=== PATIENT | male | born 1995 | race Caucasian/White ===

== ENCOUNTER 2018-12-06 19:03 | Emergency (ER) | payer MEDICAID, SELFPAY ==
[2018-12-06 19:04] VITALS: BP 130/78; PULSE 129; RESP 16; TEMP 36.4; O2SAT 98; BMI 25.8
--- NOTE | 2018-12-06 19:28 | ED.DCSUM_ITS ---
History of Present Illness Chief Complaint: Syncope Detail of Chief Complaint: Also depressed because significant other left him Informant: Patient Onset: Today, Weeks - Depressed with decreased p.o. intake x1 week Context: Sudden Onset - Vasovagal event after coughing and vomiting Timing: Continuous - Patient's felt depressed for the past week with decreased appetite, change in sleep, Intermittent - Paroxysmal related to coughing and vomiting Quality: Syncopal episode Location: Residents Current Severity: Mild Maximum Severity: Severe Worsened by: Coughing followed by vomiting Relieved by: Nothing Associated Symptoms: Nausea and lightheaded prior to coughing spell Narrative: Patient is a 23-year-old male who was talking with his friend prior to passing out. He states he felt lightheaded nauseous. He then began to cough and vomit. He then passed out. Syncopal episode was approximately 10 to 15 seconds duration. There is no seizure activity. There is no incontinence of urine or stool. He denies head trauma. Denies head pain. He denies ocular, visual auditory symptoms. He denies neck pain. He denies paresthesia, anesthesia motor especially the time of the fall. He does admit to being depressed because his significant other left him. He is not been eating well or drinking much fluids. He denies suicidal thoughts. Prior similar symptoms: No Recent Illness/Hospitalization: No - Past Medical History (1) No significant past medical history Status: Acute Past Medical History - Allergies and Home Meds Allergies/Adverse Reactions: Allergies No Known Allergies Allergy (Verified 11/30/16 00:59) Primary Care Physician: Care Physician,No Primary [Primary Care Provider] - Prior records reviewed: No Past Medical History: None Surgical History: no surgical history Lives: Alone Smoking Status: Never smoker Alcohol: None Review of Systems General: Reports: Chills, Malaise. Denies: Subjective, Sweats, Weight loss Eyes: Denies: Visual changes - bilaterally, Blurred Vision - bilaterally ENT: Denies: Bilateral ear pain, Rhinorrhea, Sore throat Cardiovascular: Denies: Chest pain, Palpitations Respiratory: Reports: Cough. Denies: Dyspnea, Sputum, Dyspnea on exertion, Orthopnea, Paroxysmal nocturnal dyspnea Gastrointestinal: Reports: Nausea, Vomiting. Denies: Abdominal pain, Diarrhea, Constipation, Melena, Hematochezia Genitourinary: Denies: Dysuria, Hematuria, Frequency Musculoskeletal: Denies: Myalgias, Arthralgias, Neck pain, Back pain, Extremity Pain Skin: Denies: Rash, Abrasions Neurological: Reports: Weakness. Denies: Headache, Parasthesia, Numbness Psych: Reports: Depression. Denies: Anxiety, Suicidal thoughts, Suicidal ideations Allergy: Denies: Uticaria, Swelling of the mouth Physical Exam Vital Signs/Narrative: Vital Signs Temp Pulse Resp BP Pulse Ox 12/06/18 19:04 97.5 F L 129 H 16 130/78 H 98 Inital Vital Signs reviewed: Yes General: Well nourished, Well developed Head: Normocephalic, Atraumatic Eyes: Perrl, EOMI. Negative for: Pale conjunctiva, Scleral icterus ENT: Moist mucous membranes, No rhinorrhea, TM's clear. Negative for: Nasal congestion, Sinus tenderness Neck: Supple, Nontender, No lymphadenopathy, No JVD Cardiovascular: Regular rate, Regular rhythm, No murmurs, Normal S1, Normal S2 Respiratory: No distress, CTA bilaterally, Chest nontender Abdomen: Soft, Nontender, Nondistended, Normal bowel sounds Back: Nontender, Normal Inspection Extremities: Nontender, No edema Skin: Normal color, No rash, No Trauma. Negative for: Cyanosis, Diaphoresis, Jaundice Neurological: Alert, Oriented x3, Cranial nerves II-XII grossly intact, Normal Strength, Normal Sensation Psychological: Depressed - There is a poverty of speech there is no suicidal ideation. There is no history of depression or prior history of self injury, - Diagnostic/Tx/Re-eval - Rhythm Strip Rhythm Strip: Sinus Rhythm Rate: 99 Ectopy: None - Medical Decision Making History of decreased intake, lightheadedness nausea will obtain orthostatic vi sayra signs. Patient's single episode is consistent with vasovagal event. Monitor revealed a sinus rhythm rate of 99 without ectopy. Orthostatic vital signs are positive. He received 1 L of normal saline. He states he feels better. He looks better as well. He is not pale. ED Disposition - Plan for ED Patient: Diagnosis: Syncope, vasovagal, Orthostatic hypotension, Depression Instructions: SYNCOPE, Vasovagal, HYPOTENSION, Orthostatic Referrals: Care Physician,No Primary [Primary Care Provider] - Additional Instructions: Recommend you follow-up with your primary care physician. The name of your primary care physician is on your insurance card that was issued to you by [facility]
[2018-12-06 19:30] VITALS: BP 127/84; PULSE 99
[2018-12-06 19:35] VITALS: BP 133/92; PULSE 105
[2018-12-06 19:40] VITALS: BP 116/65; PULSE 126
[2018-12-06 21:04] VITALS: BP 128/77; PULSE 94; RESP 19; O2SAT 98
[2018-12-06] MEDS: 0.9% Normal Saline 1,000 ML 1000 ML IV (21:35)
[2018-12-06 22:44] VITALS: BP 135/95; PULSE 87; RESP 16; O2SAT 97
== END 2018-12-06 22:48 | disposition home or self-care (01) ==
PROVIDERS: Emergency Provider Emergency Medicine
DX: I95.1 Orthostatic hypotension (principal); F32.9 Major depressive disorder, single episode, unspecified
CPT/HCPCS: 96360; 99284; J7030; A4216

== ENCOUNTER 2020-11-08 02:47 | Emergency (ER) | payer MEDICAID, SELFPAY ==
[2020-11-08 02:48] VITALS: BP 133/77; PULSE 85; RESP 14; TEMP 36.4; O2SAT 100; BMI 26.4
--- NOTE | 2020-11-08 02:55 | EX.ED.DYSGE1 ---
HPI History of Present Illness Chief Complaint: Abd Pain Informant: patient Onset/Context/Timing Onset: Today Context: Sudden Onset Timing: Continuous Current Severity: Moderate Maximum Severity: Moderate Narrative Narrative: Patient presents with right upper abdominal pain into the right base of the lungs. He states it started tonight. He states when he takes a deep breath or twists, he gets the pain. He denies nausea or vomiting. He denies fevers or chills. He had a scant cough yesterday that is since resolved. He states he is never really had pain like this before. He is otherwise been in his normal state of health. [facility] Medical History Asthma Home Medications albuterol 90 mcg INHALATION 4X/DAY PRN PRN 11/08/20 [History Last Taken Unknown] naproxen 500 mg PO BID #14 tab 11/08/20 [Rx Last Taken Unknown] Allergy/AdvReac Type Severity Reaction Status Date / Time No Known Allergies Allergy Verified 11/30/16 00:59 Social History Smoking Status: Never smoker ROS ROS ED Constitutional Constitutional ED: Denies chills or fever(s) Eyes Eyes: Denies blurry vision or change in vision ENT ENT ED: Denies ear pain or sore throat Cardiovascular Cardiovascular: Reports chest pain Respiratory/Chest Respiratory/Chest: Denies cough, dyspnea or dyspnea on exertion Gastrointestinal Gastrointestinal: Reports abdominal pain Genitourinary Genitourinary ED: Denies dysuria or urinary frequency Musculoskeletal Musculoskeletal: Denies arthralgias or myalgias Integumentary Denies rash Neurologic Neurologic: Denies headache(s) or paresthesias Psychiatric Psychiatric: Denies anxiety or depression Endocrine Endocrinology: Denies polydipsia or polyuria Allergic/Immunologic Allergic/Immunologic ED: Denies urticaria EXAM Physical Exam Const Vital Signs: 11/08/20 02:48 Temperature 97.5 F L Temperature Source Temporal Pulse Rate 85 Respiratory Rate 14 Blood Pressure 133/77 H Blood Pressure Mean 95 Pulse Ox 100 Oxygen Delivery Method Room Air Positive well nourished and well developed General Appearance ED: well developed HEENT Reports normocephalic, head/scalp atraumatic and moist mucous membranes Eyes PERRL and EOMs intact bilaterally Neck no lymphadenopathy and supple General: Negative for tenderness Chest Wall inspection of chest normal Resp normal respiratory effort and clear to auscultation bilaterally Cardio regular rate, regular rhythm and no murmurs GI normal to inspection, nondistended, normoactive bowel sounds Palpation: Negative for tender, guarding or rebound tenderness present Back/Spine no CVA tenderness Cervical Spine: Negative for cervical spine tenderness Thoracic Spine / Upper Back: Negative for thoracic spinal tenderness Extremity normal to inspection General Extremety ED: Negative for tenderness Neuro oriented x3 and CN's II-XII intact bilaterally Neuro Narrative: No focal deficits appreciated. Sensorium / Orientation: alert Psych mental status grossly normal Skin no rashes or lesions noted, no wounds and skin turgor normal MDM MDM MDM Narrative Medical decision making narrative: Patient presents with lateral pain near his right upper quadrant that wraps to his back. Really cannot recreate it on examination. Metabolic work-up was pursued. The patient does have rather significant leukocytosis. However, he has had no fever, cough, other systemic complaints. He has mild elevation of his liver functions but normal bilirubin. Because of his leukocytosis and location of pain, I did obtain CT of his chest, abdomen, and pelvis. There was no evidence of acute abnormality. With Toradol, the patient has maintained pain-free. Not sure the acute etiology of his pain. The patient may have had a gallstone or biliary colic that is now resolved. At this point, I do feel that he is safe for outpatient follow-up. Impression 1. RUQ pain Lab Data Attestation: I reviewed the patient's lab results. Labs: Laboratory Results - last 24 hr 11/08/20 11/08/20 11/08/20 03:05 03:05 03:05 WBC 21.8 H RBC 4.95 Hgb 14.7 Hct 43.8 MCV 88.5 MCH 29.7 MCHC 33.6 RDW Std Deviation 40.3 RDW Coeff of Italo 12.4 Plt Count 266 MPV 9.3 Immature Gran % (Auto) 0.500 Neut % (Auto) 74.9 H Lymph % (Auto) 17.1 L [place] % (Auto) 6.6 Eos % (Auto) 0.5 Baso % (Auto) 0.4 Absolute Neuts (auto) 16.4 H Absolute Lymphs (auto) 3.73 Nucleated RBC % 0 D-Dimer Quant (PE/DVT) <= 0.27 Sodium 139 Potassium 3.6 Chloride 103 Carbon Dioxide 29.0 Anion Gap 7 BUN 14 Creatinine 1.04 Estim Creat Clear Calc 116.65 Est GFR (MDRD) Af Amer 112 Est GFR (MDRD) Non-Af 93 BUN/Creatinine Ratio 13.5 Glucose 98 Calcium 8.8 Total Bilirubin 0.70 AST 57 H ALT 74 H Alkaline Phosphatase 114 Total Protein 7.8 Albumin 3.9 Globulin 3.9 Albumin/Globulin Ratio 1.0 Lipase 56 L Radiography Diagnostic Testing: Radiology Impression Chest X-Ray 11/08/20 03:19 IMPRESSION: Normal x-ray examination of the chest. Electronically Signed: Bianca Melvin MD at 3:48 EDT , Service support , Chest/Abdomen/Pelvis CT 11/08/20 03:32 IMPRESSION: Normal enhanced CT chest, abdomen T pelvis examination. Electronically Signed: Tana Simons MD at 4:49 EDT Tel , Service support , Discharge Plan Triage Chief Complaint: Abd Pain ED Provider: Bobby Alamo Dx/Rx/DC Orders Instructions: ED Abdominal Pain Gallstone Poss Prescriptions: New naproxen 500 MG tablet 500 mg PO BID Qty: 14 RF: 0 No Action albuterol 90 mcg/actuation Aerosol 90 mcg INHALATION 4X/DAY PRN PRN (Reason: Shortness Of Breath Or Wheezing) RF: 0 Stand Alone Forms: ED Work / School Excuse Primary Care Provider: Care Physician,No Primary Referrals: Care Physician,No Primary [Primary Care Provider] -
[2020-11-08] MEDS: 0.9% Normal Saline 1,000 ML 1000 ML IV (03:15)
[2020-11-08] MEDS: Ketorolac 30 MG/ML Syringe IV (03:15)
[2020-11-08 03:17] LABS: Absolute Lymphocyte Count 3.73 X10^3/uL (0.83-4.51); Absolute Neutrophil Count 16.4 X10^3/uL (2.0-7.7); Basophil# 0.08 X10^3/uL; Basophil% 0.4 % (0-1); Eosinophil# 0.11 X10^3/uL; Eosinophils% 0.5 % (0-5); Hematocrit 43.8 % (40-54); Hemoglobin 14.7 g/dL (13.0-16.5); Lymphocyte # 3.73 X10^3/ul (0.83-4.51); Lymphocyte % 17.1 % (19-41); Mean Corp Hgb Conc 33.6 g/dL (32-36); Mean Corpuscular Hgb 29.7 pg (27.0-32.0); Mean Corpuscular Volume 88.5 fL (80-94); Mean Platelet Vol. 9.3 fl (6.2-12.0); Monocyte# 1.44 X10^3/uL; Monocyte% 6.6 % (0-10); NRBC Flagged by Analyzer 0 % (0-5); Neutrophil # 16.35 X10^3/uL (2.7-7.7); Neutrophil % 74.9 % (47-70); Platelet Count 266 K/mm3 (150-450); RBC Distribution Width CV 12.4 % (11.6-14.6); RBC Distribution Width SD 40.3 fl (35.1-43.9); Red Blood Count 4.95 M/mm3 (4.6-6.2); White Blood Count 21.8 K/mm3 (4.4-11.0)
--- NOTE | 2020-11-08 03:19 | RAD_ITS ---
STUDY: X-RAY CHEST REASON FOR EXAM: Male, 25 years old. sob TECHNIQUE: Single AP portable view of the chest. COMPARISON: None. FINDINGS: The lungs are clear and expanded. There is no demonstrated pleural abnormality. Normal size heart. Normal mediastinum and juanita. Normal visualized pulmonary arteries. Normal visualized aortic arch and descending thoracic aorta. Normal visualized thoracic spine. Normal visualized ribs, clavicles, and shoulders. There is no demonstrated abnormality of the visualized soft tissue structures of the upper abdomen. RAD/Chest 1 View (Portable) IMPRESSION: Normal x-ray examination of the chest. Electronically Signed: Bianca Melvin MD at 3:48 EDT , Service support ,
[2020-11-08 03:29] LABS: D-Dimer Quantitative (DVT/PE) <= 0.27 FEU/ug/m (0.27-0.49)
--- NOTE | 2020-11-08 03:32 | CT_ITS ---
STUDY: CT CHEST, ABDOMEN T PELVIS WITH CONTRAST REASON FOR EXAM: Male, 25 years old. right upper quadrant pain into right lower lung RADIATION DOSAGE (If Supplied By Facility): CTDIvol = ( 14.69 ) mGy, DLP = ( 1343.65 ) mGycm TECHNIQUE: Transaxial imaging was performed following intravenous administration of IV 100mL Isovue-370. Individualized dose optimization techniques were used for this CT. COMPARISON: No relevant priors. FINDINGS: CHEST The lungs are normal. There is no demonstrated pleural abnormality. Normal heart and pericardium. Normal mediastinum. Normal hilar regions. Normal unenhanced pulmonary arteries. Normal aorta arch and descending thoracic aorta. Normal osseous structures. There is no demonstrated abnormality of the visualized upper abdomen. ABDOMEN The visualized lung bases are unremarkable. The visualized portions of the heart are within normal limits. Normal liver. Normal gallbladder and extrahepatic biliary system. Normal spleen. Normal pancreas. Normal bilateral adrenal glands. Normal right kidney. Normal left kidney. Normal visualized stomach. Normal small intestine. Normal colon. The appendix is visualized and appears normal. Normal abdominal aorta. Normal inferior vena cava. Normal retroperitoneum. Normal abdominal wall. Normal osseous structures. PELVIS Normal urinary bladder. Normal visualized small intestine. Normal visualized colon. There is no pelvic fluid. There is no pelvic lymphadenopathy or mass lesion. Normal visualized pelvic arteries. Normal abdominal wall. Normal osseous structures. CT/CT Chest, Abd, Pel w/Contrast IMPRESSION: Normal enhanced CT chest, abdomen T pelvis examination. Electronically Signed: Tana Simons MD at 4:49 EDT Tel , Service support ,
[2020-11-08 03:34] LABS: AST(SGOT) 57 U/L (15-37); Alanine Aminotransfer ALT/SGPT 74 U/L (16-61); Albumin, Serum 3.9 g/dL (3.2-5.0); Alkaline Phosphatase 114 U/L (45-117); Anion Gap 7 (5-15); BUN 14 mg/dL (7-18); BUN/Creat Ratio 13.5 RATIO (10-20); Calcium,Total 8.8 mg/dL (8.5-10.1); Chloride 103 mmol/L (98-107); Creatinine, Serum 1.04 mg/dL (0.70-1.30); EST Glomerular Filtration Rate 93 mL/min (>60); Est Glom Filt Rate - Afr Amer 112 mL/min (>60); Estimated Creatinine Clearance 116.65 ml/min; Globulin 3.9 g/dL (2.2-4.2); Glucose 98 mg/dL (74-106); Lipase 56 U/L (73-393); Potassium 3.6 mmol/L (3.5-5.1); Protein, Total 7.8 g/dL (6.4-8.2); Sodium Level 139 mmol/L (136-145)
[2020-11-08 05:02] VITALS: BP 128/78; PULSE 81; RESP 19; O2SAT 96
== END 2020-11-08 05:03 | disposition home or self-care (01) ==
LOC: ED 04:34
PROVIDERS: Emergency Provider Emergency Medicine
DX: R10.11 Right upper quadrant pain (principal); J45.909 Unspecified asthma, uncomplicated; Z79.1 Long term (current) use of non-steroidal anti-inflammatories (NSAID)
CPT/HCPCS: 71045; 71260; 74177; 80053; 83690; 85025; 85379; 96374; 99284; J7030; Q9967; A4216

== ENCOUNTER 2021-02-15 15:38 | Emergency (ER) | payer MEDICAID, SELFPAY ==
[2021-02-15 15:39] VITALS: BP 128/90; PULSE 130; RESP 16; TEMP 37.6; O2SAT 95; BMI 26.5
--- NOTE | 2021-02-15 16:09 | EDS_ITS ---
HPI History of Present Illness Chief Complaint: Sore Throat Informant: patient Onset/Context/Timing Onset: Days Context: Sudden Onset Timing: Continuous Quality: Throat pain Location: Posterior pharynx Current Severity: Mild Maximum Severity: Severe Worsened by: Swallowing liquids or solids Relieved by: Nothing Associated Symptoms Associated Symptoms: Fever Narrative Narrative: 25-year-old male presents with sore throat. Symptoms started 2 to 3 days ago. He had a muffled voice since this morning. He is able to swallow. He has had no drooling. He reports pain with swallowing liquids or solids. He had a documented temperature at home. His temperature in the emergency room is 99.7. He does report thirst and lightheadedness. He denies headache. Denies rhinorrhea. Nu[place] cough. He reported nausea without vomiting. He denies diarrhea. Denies rash. Denies a traumatic fever, heart murmur, SBE or being on immunosuppressive meds. Prior similar symptoms: No Recent Illness/Hospitalization: No PFSH PFS Medical History Asthma Home Medications albuterol 90 mcg INHALATION 4X/DAY PRN PRN 11/08/20 [History Last Taken Unknown] Allergy/AdvReac Type Severity Reaction Status Date / Time No Known Allergies Allergy Verified 11/30/16 00:59 Social History (Updated 02/15/21 @ 16:[address] Mendel Whittington MD) Smoking Status: Never smoker alcohol intake: current alcohol intake frequency: other substance use type: does not use ROS ROS ED Constitutional Constitutional ED: Denies chills, fever(s), subjective or sweats Eyes Eyes: Denies blurry vision, change in vision or diplopia ENT ENT ED: Reports sore throat; Denies ear pain or rhinorrhea Cardiovascular Cardiovascular: Denies chest pain or palpitations Respiratory/Chest Respiratory/Chest: Denies cough, dyspnea, dyspnea on exertion or sputum Gastrointestinal Gastrointestinal: Denies abdominal pain, nausea or vomiting Musculoskeletal Musculoskeletal: Denies arthralgias, myalgias or neck pain Integumentary Denies rash Neurologic Neurologic: Denies headache(s) Allergic/Immunologic Allergic/Immunologic ED: Reports mouth swelling; Denies tongue swelling or urticaria EXAM Physical Exam Const Vital Signs: 02/15/21 15:39 Temperature 99.7 F H Temperature Source Oral Pulse Rate 130 H Respiratory Rate 16 Blood Pressure 128/90 H Blood Pressure Mean 102 Pulse Ox 95 Oxygen Delivery Method Room Air Positive well nourished and well developed General Appearance ED: well developed HEENT Reports TM's clear and moist mucous membranes HEENT Narrative: Uvula is midline. There is erythema of the tonsils with exudate. The tonsils are quite enlarged. Head is atraumatic normocephalic. Tympanic Membrane ED: Yes TM's clear Eyes PERRL and EOMs intact bilaterally General Eye ED: Negative for pale conjunctiva or scleral icterus Neck No no lymphadenopathy, supple and no JVD Chest Wall inspection of chest normal and palpation of chest normal Resp normal respiratory effort and clear to auscultation bilaterally Cardio regular rhythm, S1 normal heart sound and no murmurs Rate: tachycardic Extremity normal to inspection General Extremety ED: Negative for edema or tenderness General Extremity: Negative for edema Neuro oriented x3 and CN's II-XII intact bilaterally Sensorium / Orientation: alert Motor Exam: strength 5/5 throughout Psych mental status grossly normal Skin no rashes or lesions noted MDM MDM MDM Narrative Medical decision making narrative: With exudative tonsillitis. Will test for strep. CBC was obtained to assess for atypical lymphocytes and would suggest mononucleosis. Clinically patient is dehydrated and with heart rate of 130 a liter of normal saline was ordered. 10 mg of Decadron was also ordered. Since patient strep screen was negative patient would not treat with antibiotics. Lab Data Attestation: I reviewed the patient's lab results. Lab results narrative: White count is elevated at 19.3 thousand with shift. There is no bandemia. There is no atypical lymphocytes. Labs: Laboratory Results - last 24 hr 02/15/21 16:31 WBC 19.3 H RBC 5.54 Hgb 16.5 Hct 48.8 MCV 88.1 MCH 29.8 MCHC 33.8 RDW Std Deviation 40.1 RDW Coeff of Italo 12.3 Plt Count 260 MPV 8.9 Immature Gran % (Auto) 0.700 Neut % (Auto) 83.5 H Lymph % (Auto) 6.0 L [place] % (Auto) 9.2 Eos % (Auto) 0.1 Baso % (Auto) 0.5 Absolute Neuts (auto) 16.1 H Absolute Lymphs (auto) 1.16 Nucleated RBC % 0 Differential Comment SEE COMMENT Diff Path Review May foll Platelet Estimate ADEQUATE RBC Morphology NORM C+C Anisocytosis RARE Discharge Plan Triage Chief Complaint: Sore Throat ED Provider: Mendel Whittington Dx/Rx/DC Orders Clinical Impression: Exudative tonsillitis, Sinus tachycardia Instructions: ED Pharyngitis, Viral Prescriptions: No Action albuterol 90 mcg/actuation Aerosol 90 mcg INHALATION 4X/DAY PRN PRN (Reason: Shortness Of Breath Or Wheezing) RF : 0 Primary Care Provider: Care Physician,No Primary Referrals: Care Physician,No Primary [Primary Care Provider] - Bhavik Gallo MD [STAFF PHYSICIAN] - 3-5 Days if not improving Activity Restrictions/Additional Instructions: 1. Gargle with salt water 6-8 times a day 2. Either use Chloraseptic spray or Cepastat lozenges for discomfort 3. If you have any drooling or unable to swallow return to the emergency department immediately 4. Since you do not have a primary care physician you were referred to Dr. Gallo Disposition Disposition: Home, Self Care
[2021-02-15] MEDS: 0.9% Normal Saline 1,000 ML 1000 ML IV (16:38)
[2021-02-15] MEDS: dexAMETHasone 10 MG/ML Vial IV (16:38)
[2021-02-15 16:41] LABS: Absolute Lymphocyte Count 1.16 X10^3/uL (0.83-4.51); Absolute Neutrophil Count 16.1 X10^3/uL (2.0-7.7); Basophil# 0.09 X10^3/uL; Basophil% 0.5 % (0-1); Eosinophil# 0.02 X10^3/uL; Eosinophils% 0.1 % (0-5); Hematocrit 48.8 % (40-54); Hemoglobin 16.5 g/dL (13.0-16.5); Lymphocyte # 1.16 X10^3/ul (0.83-4.51); Mean Corp Hgb Conc 33.8 g/dL (32-36); Mean Corpuscular Hgb 29.8 pg (27.0-32.0); Mean Corpuscular Volume 88.1 fL (80-94); Mean Platelet Vol. 8.9 fl (6.2-12.0); Monocyte# 1.77 X10^3/uL; Monocyte% 9.2 % (0-10); NRBC Flagged by Analyzer 0 % (0-5); Neutrophil # 16.09 X10^3/uL (2.7-7.7); Neutrophil % 83.5 % (47-70); POSITIVE DIFFERENTIAL YES; Platelet Count 260 K/mm3 (150-450); RBC Distribution Width CV 12.3 % (11.6-14.6); RBC Distribution Width SD 40.1 fl (35.1-43.9); Red Blood Count 5.54 M/mm3 (4.6-6.2); White Blood Count 19.3 K/mm3 (4.4-11.0)
[2021-02-15 16:49] LABS: Differential Indicated SCAN CRITERIA MET
[2021-02-15 17:06] LABS: Anisocytosis RARE; Platelet Estimate ADEQUATE (ADEQ); Red Cell Morphology NORM C+C NORMAL (NORM C&C)
[2021-02-15 17:35] VITALS: PULSE 98; RESP 16; O2SAT 97
[2021-02-16 13:36] LABS: Pathologist Review Reviewed
== END 2021-02-15 17:37 | disposition home or self-care (01) ==
PROVIDERS: Emergency Provider Emergency Medicine
DX: J03.90 Acute tonsillitis, unspecified (principal); R00.0 Tachycardia, unspecified; J45.909 Unspecified asthma, uncomplicated
CPT/HCPCS: 85025; 87077; 87880; 96374; 99285; J7030; A4216

== ENCOUNTER 2021-03-01 08:02 | Emergency (ER) | payer MEDICAID, SELFPAY ==
[2021-03-01 08:03] VITALS: BP 134/86; PULSE 120; RESP 16; TEMP 35.8; O2SAT 96; BMI 24.3
--- NOTE | 2021-03-01 08:21 | EDS_ITS ---
HPI History of Present Illness Chief Complaint: Fatigue Informant: patient Narrative Narrative: 25-year-old male presenting with fatigue. Patient states he has felt tired for the past 1.5 to 2 weeks. He states initially he had body aches and fever but this has since resolved. He states he was tested for Covid yesterday and was negative. He has an upcoming appointment with his primary care physician. He states he has had intermittent headaches, but does not currently have a headache. He has had a mild cough. [facility] Medical History Asthma Home Medications albuterol 90 mcg INHALATION 4X/DAY PRN PRN 11/08/20 [History Last Taken Unknown] Allergy/AdvReac Type Severity Reaction Status Date / Time No Known Allergies Allergy Verified 03/01/21 08:05 Social History (Updated 02/15/21 @ 16:[address] Mendel Whittington MD) Smoking Status: Never smoker alcohol intake: current alcohol intake frequency: other substance use type: does not use ROS ROS ED Constitutional Constitutional ED: Denies fever(s) Eyes Eyes: Denies change in vision ENT ENT ED: Denies rhinorrhea or sore throat Cardiovascular Cardiovascular: Denies chest pain or palpitations Respiratory/Chest Respiratory/Chest: Reports cough; Denies dyspnea Gastrointestinal Gastrointestinal: Denies abdominal pain, diarrhea, nausea or vomiting Genitourinary Genitourinary ED: Denies dysuria Musculoskeletal Musculoskeletal: Reports myalgias Integumentary Denies rash Neurologic Neurologic: Reports headache(s) Psychiatric Psychiatric: Denies suicidal thoughts EXAM Physical Exam Const Vital Signs: 03/01/21 08:03 03/01/21 08:14 Temperature 96.5 F L Temperature Source Temporal Pulse Rate 120 H Respiratory Rate 16 Respiratory Effort Normal Non-Labored Respiratory Pattern Normal Blood Pressure 134/86 H Blood Pressure Mean 102 Pulse Ox 96 Oxygen Delivery Method Room Air Positive well nourished and well developed General Appearance ED: well developed HEENT Reports normocephalic and head/scalp atraumatic Eyes PERRL and EOMs intact bilaterally Neck supple Neck Narrative: No meningismus General: Negative for tenderness Chest Wall inspection of chest normal Resp normal respiratory effort and clear to auscultation bilaterally Cardio regular rate and regular rhythm GI non-tender and non-distended Palpation: soft; Negative for guarding or rebound tenderness present no CVA tenderness Extremity normal to inspection Neuro oriented x3 Sensorium / Orientation: alert Psych mental status grossly normal Skin no rashes or lesions noted MDM MDM MDM Narrative Medical decision making narrative: Patient was given IV fluids. Repeat heart ra te 99. Patient is resting comfortably on reevaluation. Advised to follow-up with his scheduled primary care physician office visit this week. Advised return to ED for worsening complaints. Lab Data Attestation: I reviewed the patient's lab results. Labs: Laboratory Results - last 24 hr 03/01/21 03/01/21 03/01/21 08:35 08:35 08:35 WBC 6.1 RBC 5.82 Hgb 17.2 H Hct 50.2 MCV 86.3 MCH 29.6 MCHC 34.3 RDW Std Deviation 39.0 RDW Coeff of Italo 12.3 Plt Count 219 MPV 9.3 Immature Gran % (Auto) 0.200 Neut % (Auto) 68.7 Lymph % (Auto) 22.5 [place] % (Auto) 7.3 Eos % (Auto) 1.0 Baso % (Auto) 0.3 Absolute Neuts (auto) 4.2 Absolute Lymphs (auto) 1.38 Nucleated RBC % 0 Sodium 137 Potassium 4.0 Chloride 99 Carbon Dioxide 32.0 Anion Gap 6 BUN 11 Creatinine 0.99 Estim Creat Clear Calc 118.80 Est GFR (MDRD) Af Amer 119 Est GFR (MDRD) Non-Af 98 BUN/Creatinine Ratio 11.1 Glucose 114 H Calcium 9.4 TSH 1.27 Monoscreen Negative Discharge Plan Triage Chief Complaint: Fatigue ED Provider: Priscila Reyes Dx/Rx/DC Orders Clinical Impression: Fatigue Instructions: ED Viral Syndrome (Adult) Prescriptions: No Action albuterol 90 mcg/actuation Aerosol 90 mcg INHALATION 4X/DAY PRN PRN (Reason: Shortness Of Breath Or Wheezing) RF: 0 Primary Care Provider: Care Physician,No Primary Referrals: Care Physician,No Primary [Primary Care Provider] - Disposition Disposition: Home, Self Care
[2021-03-01] MEDS: 0.9% Normal Saline 1,000 ML 1000 ML IV (08:39)
[2021-03-01 08:46] LABS: Absolute Lymphocyte Count 1.38 X10^3/uL (0.83-4.51); Absolute Neutrophil Count 4.2 X10^3/uL (2.0-7.7); Basophil# 0.02 X10^3/uL; Basophil% 0.3 % (0-1); Eosinophil# 0.06 X10^3/uL; Hematocrit 50.2 % (40-54); Hemoglobin 17.2 g/dL (13.0-16.5); Lymphocyte # 1.38 X10^3/ul (0.83-4.51); Lymphocyte % 22.5 % (19-41); Mean Corp Hgb Conc 34.3 g/dL (32-36); Mean Corpuscular Hgb 29.6 pg (27.0-32.0); Mean Corpuscular Volume 86.3 fL (80-94); Mean Platelet Vol. 9.3 fl (6.2-12.0); Monocyte# 0.45 X10^3/uL; Monocyte% 7.3 % (0-10); NRBC Flagged by Analyzer 0 % (0-5); Neutrophil # 4.22 X10^3/uL (2.7-7.7); Neutrophil % 68.7 % (47-70); Platelet Count 219 K/mm3 (150-450); RBC Distribution Width CV 12.3 % (11.6-14.6); Red Blood Count 5.82 M/mm3 (4.6-6.2); White Blood Count 6.1 K/mm3 (4.4-11.0)
[2021-03-01 09:10] LABS: Anion Gap 6 (5-15); BUN 11 mg/dL (7-18); BUN/Creat Ratio 11.1 RATIO (10-20); Calcium,Total 9.4 mg/dL (8.5-10.1); Chloride 99 mmol/L (98-107); Creatinine, Serum 0.99 mg/dL (0.70-1.30); EST Glomerular Filtration Rate 98 mL/min (>60); Est Glom Filt Rate - Afr Amer 119 mL/min (>60); Glucose 114 mg/dL (74-106); Sodium Level 137 mmol/L (136-145); Thyroid Stim Hormone (TSH) 1.27 uIU/mL (0.358-3.74)
[2021-03-01 09:15] LABS: Internal QC Validated? YES +Cl - CLEAR BKGD; Monotest Negative (Negative)
[2021-03-01 10:27] VITALS: BP 129/89; O2SAT 100
== END 2021-03-01 10:28 | disposition home or self-care (01) ==
PROVIDERS: Emergency Provider Emergency Medicine
DX: R53.83 Other fatigue (principal)
CPT/HCPCS: 80048; 84443; 85025; 86308; 96360; 96361; 99283; J7030

== ENCOUNTER 2021-05-01 22:58 | Emergency (ER) | payer MEDICAID, SELFPAY ==
[2021-05-01 22:59] VITALS: BP 129/85; PULSE 85; RESP 16; TEMP 35.8; O2SAT 100; BMI 23.7
--- NOTE | 2021-05-01 23:10 | EDS_ITS ---
HPI History of Present Illness Chief Complaint: Complaint Informant: patient Pain Onset: Days Context: Gradual Onset Timing: Intermittent Current Severity: Mild Maximum Severity: Mild Appearance Lesion(s): No Genital Edema: No Penile Discharge Genital Discharge Amount: None Related History Sexually: Active Narrative Narrative: 26-year-old male no significant past medical history other than asthma. States has had bilateral flank pain for a week. Thought he was having a urinary tract infection can start his urine was cloudy. He took a sample to the [facility] but was never called back so he thought was normal. He showed me his UA from the [facility] and had large amount of leukocytosis. Denies fever or chills. Denies any trauma to his back. He is not diabetic but his dad is diabetic. States he is having urinary frequency. Denies any gross hematuria. Prior similar symptoms: No Recent Illness/Hospitalization: No PFSH PFSH Medical History Asthma Home Medications albuterol 90 mcg INHALATION 4X/DAY PRN PRN 11/08/20 [History Last Taken Unknown] sertraline 25 mg DAILY 05/01/21 [History Last Taken Unknown] Allergy/AdvReac Type Severity Reaction Status Date / Time No Known Allergies Allergy Verified 05/01/21 23:19 Social History Smoking Status: Never smoker alcohol intake: current alcohol intake frequency: other substance use type: does not use ROS ROS ED ROS Narrative Denies except urinary symptoms. Constitutional Constitutional ED: Denies fever(s) Eyes Eyes: Denies change in vision ENT ENT ED: Denies ear pain Cardiovascular Cardiovascular: Denies chest pain Respiratory/Chest Respiratory/Chest: Denies dyspnea Gastrointestinal Gastrointestinal: Denies abdominal pain Genitourinary Genitourinary ED: Reports dysuria and urinary frequency; Denies hematuria Musculoskeletal Musculoskeletal: Denies myalgias Integumentary Denies rash Neurologic Neurologic: Denies headache(s) Psychiatric Psychiatric: Denies depression Endocrine Endocrinology: Denies polyuria Hematologic/Lymphatic Hematologic/Lymphatic: Denies easy bruising Allergic/Immunologic Allergic/Immunologic ED: Denies urticaria EXAM Physical Exam Narrative Exam Narrative: 13-year-old male no acute distress vital signs stable afebrile. HEENT exam normal. Neck nontender no lymphadenopathy. Lungs clear to auscultation bilaterally. Heart regular rhythm no murmur. Rate about 85. Abdomen soft, nontender, nondistended normal bowel sounds no peritoneal signs. I did not feel distended bladder. External exam unremarkable. Circumcised male. No swelling no lymphadenopathy. Bilateral descended testicles. No discharge. Moving all 4 extremities. Neurovascular intact. No edema. Back he has tenderness in his back it seems more musculoskeletal paralumbar soft tissue not really exactly CVA tenderness. There is no ecchymosis or bruising. Neurologically he is awake alert with no focal motor deficits. Const Vital Signs: 05/01/21 22:59 05/01/21 23:14 Temperature 96.5 F L 98.4 F Temperature Source Temporal Temporal Pulse Rate 85 89 Respiratory Rate 16 16 Blood Pressure 129/85 H 138/79 H Blood Pressure Mean 99 98 Pulse Ox 100 100 Oxygen Delivery Method Room Air Room Air Positive well nourished and well developed; Negative for obese, cachectic, contractures or unkempt General Appearance ED: well developed and NAD; Negative for unkempt, cachectic, contractures or pallor Nutritional Appearance: Negative for cachectic or obese HEENT Reports moist mucous membranes normocephalic and atraumatic; Negative for trauma or tenderness Eyes PERRL and EOMs intact bilaterally Neck no lymphadenopathy, supple and no JVD General: Negative for tenderness Resp normal respiratory effort and clear to auscultation bilaterally Auscultation: Negative for rales, rhonchi or wheezes Cardio regular rate, regular rhythm, S1 normal heart sound, S2 normal heart sound and no murmurs GI non-tender, non-distended and no masses Inspection: Negative for abdominal distention Auscultation: normoactive bowel sounds; Negative for hyperactive bowel sounds or hypoactive bowel sounds Palpation: soft; Negative for tender or hepatomegaly Rectal Exam: Negative for tenderness no CVA tenderness Penis: normal penis and circumcised; Negative for uncircumcised, condyloma, corporal disruption, ecchymosis, edematous, erythema, mass or nodule Meatus: meatus normal Scrotum: testes descended bilaterally Testes: testicular lie normal Back/Spine no CVA tenderness General Back: Negative for CVA tenderness Cervical Spine: Negative for cervical spine tenderness Thoracic Spine / Upper Back: Negative for thoracic spinal tenderness Lumbar Spine / Lower Back: Negative for lumbar spinal tenderness Extremity normal to inspection General Extremety ED: Negative for edema or tenderness General Extremity: Negative for edema Neuro oriented x3, moves all extremities, no focal motor deficits and no sensory deficits noted Sensorium / Orientation: alert, oriented to person, oriented to place and oriented to time Motor Exam: strength 5/5 throughout Psych mental status grossly normal Appearance: Negative for unkempt Attitude: No agitated Mood & Affect: Negative for depressed or tearful Skin General Skin Exam: Negative for jaundice or pallor Lesions: no lesions Rashes: no rashes MDM MDM MDM Narrative Medical decision making narrative: 13-year-old male complaining of bilateral flank pain and dysuria. Exam benign other than paralumbar soft tissue tenderness. UA and BMP being obtained due to his urinary frequency and family history of diabetes. Repeat exam at 1:02 AM. Patient is doing well. I think this is musculoskeletal back pain. We went over all his test results. He will be given a dose of Motrin discharged home. Lab Data Attestation: I reviewed the patient's lab results. Lab results narrative: Electrolytes show a gap of 5 normal BUN and creatinine of 0.8 glucose 94. UA is completely clean no signs of infection. No nitrates nor white no red cells nor bacteria. Labs: Laboratory Results - last 24 hr 05/01/21 05/01/21 23:23 23:40 Sodium 139 Potassium 4.0 Chloride 105 Carbon Dioxide 29.0 Anion Gap 5 BUN 9 Creatinine 0.83 Estim Creat Clear Calc 144.90 Est GFR (MDRD) Af Amer 144 Est GFR (MDRD) Non-Af 119 BUN/Creatinine Ratio 10.8 Glucose 94 Calcium 9.1 Urine Color Yellow Urine Clarity Clear Urine pH 6.5 Ur Specific [place] 1.010 Urine Protein Negative Urine Glucose (UA) Normal Urine Ketones Negative Urine Occult Blood Negative Urine Nitrite Negative Urine Bilirubin Negative Urine Urobilinogen Normal Ur Leukocyte Esterase Negative Urine RBC 0 SEEN Urine WBC 0 SEEN Ur Squamous Epith Cells 0 SEEN Urine Bacteria 0 SEEN Urine Mucus 0 SEEN Discharge Plan Triage Chief Complaint: Complaint ED Provider: Artis Bustillos Dx/Rx/DC Orders Clinical Impression: Back pain Instructions: ED Back Sprain/Strain Prescriptions: No Action albuterol 90 mcg/actuation Aerosol 90 mcg INHALATION 4X/DAY PRN PRN (Reason: Shortness Of Breath Or Wheezing) RF: 0 sertraline 50 mg tablet 25 mg DAILY RF: 0 Primary Care Provider: Zachary Cameron NP Referrals: Zachary Cameron NP, HOUSE DESIGNER-C [Primary Care Provider] - 1 Week if not improving Activity Restrictions/Additional Instructions: Your urinalysis and blood work was all normal. You have no signs of a kidney infection or kidney stone. I think this is musculoskeletal back pain. Hot shower, warm bath and massage to relax the muscles in your back. Motrin for pain and inflammation. This should progressively improve if not follow-up with your primary care provider. Disposition Disposition: Home, Self Care
[2021-05-01 23:14] VITALS: BP 138/79; PULSE 89; RESP 16; TEMP 36.9; O2SAT 100
[2021-05-01 23:28] LABS: Bacteria 0 SEEN /hpf (None Seen); Mucous, Urine 0 SEEN /hpf (<or=2+); Red Blood Cells-Urine 0 SEEN /hpf (0-5); Squamous Epithelial Cells - UA 0 SEEN /hpf (0-5); White Blood Cells 0 SEEN /hpf (0-5)
[2021-05-01 23:39] LABS: Color, Urine Yellow (Yellow); Glucose, Dipstick Normal (Normal); Ketone-Dipstick Negative (Negative); Leukocyte Esterase-Dipstick Negative /ul (Negative); Nitrite-Dipstick Negative (Negative); Occult Blood-Urine Negative /ul (Negative); Protein-Dipstick Negative (Negative); Urine Bilirubin Dipstick Negative (Negative); Urine Clarity Clear (Clear); Urine Urobilinogen Normal (Normal); Urine pH 6.5 (5.0 - 8.0)
[2021-05-02 00:04] LABS: Anion Gap 5 (5-15); BUN 9 mg/dL (7-18); BUN/Creat Ratio 10.8 RATIO (10-20); Calcium,Total 9.1 mg/dL (8.5-10.1); Chloride 105 mmol/L (98-107); Creatinine, Serum 0.83 mg/dL (0.70-1.30); EST Glomerular Filtration Rate 119 mL/min (>60); Est Glom Filt Rate - Afr Amer 144 mL/min (>60); Glucose 94 mg/dL (74-106); Sodium Level 139 mmol/L (136-145)
[2021-05-02] MEDS: Ibuprofen 400 MG Tablet 800 MG PO (01:17)
[2021-05-02 01:19] VITALS: PULSE 76; RESP 16; O2SAT 98
== END 2021-05-02 01:20 | disposition home or self-care (01) ==
PROVIDERS: Emergency Provider Emergency Medicine; PCP Nurse Practitioner Family
DX: M54.9 Dorsalgia, unspecified (principal); R10.9 Unspecified abdominal pain; J45.909 Unspecified asthma, uncomplicated; Z79.899 Other long term (current) drug therapy
CPT/HCPCS: 80048; 81001; 99284; A4216

== ENCOUNTER 2021-06-20 06:50 | Emergency (ER) | payer MEDICAID, SELFPAY ==
[2021-06-20 06:51] VITALS: BP 131/90; PULSE 90; RESP 18; TEMP 36.7; O2SAT 100; BMI 29.0
--- NOTE | 2021-06-20 07:20 | EDS_ITS ---
HPI History of Present Illness Chief Complaint: Asthma Informant: patient Narrative Narrative: 26-year-old male with a history of asthma is presenting to the emergency department with chief complaint of dyspnea. Patient states that yesterday he began to feel more short of breath is worse today. He states that he uses his inhaler almost daily. He does not take any other medications other than at albuterol. He states that since he had Covid his asthma seems to be significantly worse. He notes cough deep inspiration and some sputum production. No reported fevers. [facility] Medical History Asthma Home Medications albuterol 90 mcg INHALATION 4X/DAY PRN PRN 11/08/20 [History Last Taken Unknown] sertraline 25 mg DAILY 05/01/21 [History Last Taken Unknown] albuterol sulfate [Ventolin HFA] 2 puff INHALATION Q4H PRN PRN #1 inhaler 06/20/21 [Rx Last Taken Unknown] prednisone 60 mg PO DAILY #12 tablet 06/20/21 [Rx Last Taken Unknown] Allergy/AdvReac Type Severity Reaction Status Date / Time No Known Allergies Allergy Verified 06/20/21 06:53 Social History Smoking Status: Never smoker alcohol intake: current alcohol intake frequency: other substance use type: does not use ROS ROS ED Constitutional Constitutional ED: Denies chills, fever(s) or weight loss Eyes Eyes: Denies change in vision or diplopia ENT ENT ED: Denies ear pain, rhinorrhea or sore throat Cardiovascular Cardiovascular: Denies chest pain, orthopnea, palpitations or racing heartbeat Respiratory/Chest Respiratory/Chest: Reports cough, dyspnea, dyspnea on exertion and sputum; Denies orthopnea Gastrointestinal Gastrointestinal: Denies abdominal pain, diarrhea, nausea or vomiting Genitourinary Genitourinary ED: Denies dysuria, hematuria or urinary frequency Musculoskeletal Musculoskeletal: Denies arthralgias or myalgias Integumentary Denies abscess or rash Neurologic Neurologic: Denies headache(s) or weakness Psychiatric Psychiatric: Denies anxiety, depression, suicidal ideation or suicidal thoughts Endocrine Endocrinology: Denies polydipsia, polyphagia or polyuria Allergic/Immunologic Allergic/Immunologic ED: Denies mouth swelling, tongue swelling or urticaria EXAM Physical Exam Const Vital Signs: 06/20/21 06:51 06/20/21 07:39 Temperature 98.1 F Temperature Source Oral Pulse Rate 90 102 H Respiratory Rate 18 18 Blood Pressure 131/90 H Blood Pressure Mean 103 Pulse Ox 100 Oxygen Delivery Method Room Air Positive well nourished and well developed General Appearance ED: well developed HEENT Reports normocephalic, head/scalp atraumatic, TM's clear and moist mucous membranes Negative for trauma Tympanic Membrane ED: Yes TM's clear Eyes PERRL and EOMs intact bilaterally Neck no lymphadenopathy, supple and no JVD Resp normal respiratory effort Auscultation: wheezes expiratory wheezes Cardio regular rate, regular rhythm and no murmurs GI normal to inspection, nondistended, normoactive bowel sounds and non-tender Palpation: soft Back/Spine no CVA tenderness and normal ROM Extremity normal to inspection General Extremety ED: Negative for edema General Extremity: Negative for edema Neuro oriented x3 and CN's II-XII intact bilaterally Sensorium / Orientation: alert Motor Exam: strength 5/5 throughout Psych mental status grossly normal Mood & Affect: Negative for depressed or tearful Skin no rashes or lesions noted and no wounds MDM MDM MDM Narrative Medical decision making narrative: Patient received breathing treatments and prednisone. He has significantly improved aeration and lung sounds are now clear. Patient will be prescribed prednisone for the next 4 days. The patient states that he was supposed to see a under seal operator but was never established that. I will refer him to Dr. Mckeon who is on-call today. Discharge Plan Triage Chief Complaint: Asthma ED Provider: Zachary Arce Dx/Rx/DC Orders Clinical Impression: Asthma exacerbation Prescriptions: New prednisone 20 MG tablet 60 mg PO DAILY Qty: 12 RF: 0 albuterol sulfate [Ventolin HFA] 1 INHALER inhaler 2 puff inhalation Q4H PRN PRN (Reason: Wheezing) Qty: 1 RF: 0 No Action albuterol 90 mcg/actuation Aerosol 90 mcg INHALATION 4X/DAY PRN PRN (Reason: Shortness Of Breath Or Wheezing) RF: 0 sertraline 50 mg tablet 25 mg DAILY RF: 0 Primary Care Provider: Zachary Cameron NP Referrals: Samir Mckeon MD [STAFF PHYSICIAN] - As soon as possible (for pulmonology) Blaz,Zachary THERAPIST RRT, THERAPIST RRT-C [Primary Care Provider] - 1 Week Activity Restrictions/Additional Instructions: As discussed if you are having to use your inhaler daily or even once a week your asthma is not controlled. I encourage you to follow-up with your primary care provider or the under seal operator above to discuss additional asthma occasions or provide you better control Disposition Disposition: Home, Self Care
[2021-06-20] MEDS: Ipratropium/Albuterol Sulfate 3 ML AMPUL.NEB INHALATION (07:38)
[2021-06-20] MEDS: Albuterol 2.5 MG/3 ML VIAL.NEB. INHALATION (07:38)
[2021-06-20 07:39] VITALS: PULSE 102; RESP 18
[2021-06-20] MEDS: predniSONE 20 MG Tablet 60 MG PO (07:40)
== END 2021-06-20 08:02 | disposition home or self-care (01) ==
LOC: ED 07:34
PROVIDERS: Emergency Provider Emergency Medicine; PCP Nurse Practitioner Family; Visit Provider Emergency Medicine
DX: J45.901 Unspecified asthma with (acute) exacerbation (principal); Z86.16 Personal history of COVID-19; Z79.899 Other long term (current) drug therapy
CPT/HCPCS: 94640; 99282

== ENCOUNTER 2021-09-19 18:20 | Emergency (ER) | payer MEDICAID, SELFPAY ==
[2021-09-19 18:21] VITALS: BP 147/97; PULSE 106; RESP 14; TEMP 36.6; O2SAT 97; BMI 25.8
[2021-09-19] MEDS: Ondansetron ODT 4 MG Tablet PO (19:43)
[2021-09-19 21:06] VITALS: RESP 16
--- NOTE | 2021-09-19 21:49 | EX.ED.DYSGE1 ---
HPI History of Present Illness Chief Complaint: Dizziness Detail of Chief Complaint: Spinning sensation when he awoke at 1 PM and turned to the right Informant: patient and parent Onset/Context/Timing Onset: Today and Hours Context: Sudden Onset Timing: Intermittent Quality: Spinning sensation Current Severity: Mild Maximum Severity: Severe Worsened by: Change in position specifically head turning to the right Relieved by: Remaining still and closing his eyes Associated Symptoms Associated Symptoms: Nausea Narrative Narrative: Patient is a 26-year-old male who presents with dizziness defined as spinning sensation when he moves and specifically when he turns his head to the right. He denies double vision, blurred vision loss of vision. He denies headache. He denies rhinorrhea, congestion or postnasal drainage. Denies sore throat. No trouble with speech or swallowing. He denies cardiac respiratory symptoms. He reports nausea. He has no other GI symptoms. He denies paresthesia, anesthesia or motor weakness. There is no history of head trauma. He does have history of asthma. Prior similar symptoms: No Recent Illness/Hospitalization: No PFSH PFS Medical History Asthma Home Medications albuterol 90 mcg INHALATION 4X/DAY PRN PRN 11/08/20 [History Last Taken Unknown] sertraline 25 mg DAILY 05/01/21 [History Last Taken Unknown] albuterol sulfate [Ventolin HFA] 2 puff INHALATION Q4H PRN PRN #1 inhaler 06/20/21 [Rx Last Taken Unknown] prednisone 60 mg PO DAILY #12 tablet 06/20/21 [Rx Last Taken Unknown] diazepam [Valium] 2 mg PO TID PRN 3 Days #10 tab 09/19/21 [Rx Last Taken Unknown] Allergy/AdvReac Type Severity Reaction Status Date / Time No Known Allergies Allergy Verified 09/19/21 18:21 Social History (Updated 09/19/21 @ 21:[address] Mendel Whittington MD) household members: other Smoking Status: Never smoker alcohol intake: current alcohol intake frequency: other substance use type: does not use ROS ROS ED Constitutional Constitutional ED: Denies chills, fever(s), subjective, sweats or weight loss Eyes Eyes: Denies blurry vision, change in vision or diplopia ENT ENT ED: Denies ear pain, rhinorrhea or sore throat Cardiovascular Cardiovascular: Denies chest pain, palpitations or racing heartbeat Respiratory/Chest Respiratory/Chest: Denies cough, dyspnea or dyspnea on exertion Gastrointestinal Gastrointestinal: Reports nausea; Denies abdominal pain, diarrhea or vomiting Genitourinary Genitourinary ED: Denies dysuria, hematuria or urinary frequency Musculoskeletal Musculoskeletal: Denies arthralgias, back pain, myalgias or neck pain Integumentary Denies abscess, Abrasions or rash Neurologic Neurologic: Denies headache(s), paresthesias or weakness Psychiatric Psychiatric: Denies anxiety, depression or suicidal thoughts Endocrine Endocrinology: Denies polydipsia, polyphagia or polyuria Allergic/Immunologic Allergic/Immunologic ED: Denies mouth swelling, tongue swelling or urticaria EXAM Physical Exam Const Vital Signs: 09/19/21 18:21 09/19/21 19:11 09/19/21 21:06 Temperature 98 F Temperature Source Temporal Pulse Rate 106 H Respiratory Rate 14 16 Respiratory Effort Normal Non-Labored Blood Pressure 147/97 H Blood Pressure Mean 113 Pulse Ox 97 Oxygen Delivery Method Room Air Positive well nourished and well developed General Appearance ED: well developed and NAD; Negative for cyanotic, diaphoretic or pallor HEENT Reports TM's clear and moist mucous membranes HEENT Narrative: There is no nystagmus. External auditory canal is without wax. Negative for trauma or tenderness Tympanic Membrane ED: Yes TM's clear Eyes PERRL and EOMs intact bilaterally Eyes Narrative: There is no APD. Cup-to-disc ratio is normal. There is no papilledema. General Eye ED: Negative for pale conjunctiva or scleral icterus Neck no lymphadenopathy, supple and no JVD Neck Narrative: Neck is supple. Trachea is midline. There is no carotid bruit. General: Negative for tenderness Resp normal respiratory effort and clear to auscultation bilaterally Cardio regular rate, regular rhythm, S1 normal heart sound, S2 normal heart sound and no murmurs GI normal to inspection, nondistended, normoactive bowel sounds and non-tender Palpation: soft Back/Spine no CVA tenderness Cervical Spine: Negative for cervical spine tenderness Thoracic Spine / Upper Back: Negative for thoracic spinal tenderness Extremity normal to inspection General Extremety ED: Negative for edema or tenderness General Extremity: Negative for edema Neuro oriented x3, CN's II-XII intact bilaterally and no sensory deficits noted Neuro Narrative: DTR 2+ upper and lower extremity with no clonus or Babinski sign. The eye askew test and hent test were negative. Devorah-Hallpike was positive when patient's head was to the right and with rising when his head was to the right and left. Sensorium / Orientation: alert Motor Exam: strength 5/5 throughout Psych mental status grossly normal Skin no rashes or lesions noted, no wounds and skin turgor normal General Skin Exam: elasticity normal; Negative for jaundice or pallor MDM MDM MDM Narrative Medical decision making narrative: Patient's history and physical exam is consistent with paroxysmal benign positional vertigo on the right. Dariela maneuver was performed. Patient had no symptoms with his head to the right. He had mild symptoms had to the left. He had significant symptoms with nystagmus noted when he was upright with his head flexed anteriorly 15 degrees. He still complained of dizziness with mild nystagmus noted after 5 minutes. Will reassess in an additional 5 minutes. He was medicated with Zofran prior to Dariela maneuver. Discharge Plan Triage Chief Complaint: Dizziness ED Provider: Mendel Whittington Dx/Rx/DC Orders Clinical Impression: Benign paroxysmal positional vertigo of right ear Instructions: ED BPV Vertigo Prescriptions: New diazepam [Valium] 2 mg tablet 2 mg PO TID PRN (Reason: vertigo) 3 Days Qty: 10 RF: 0 No Action albuterol 90 mcg/actuation Aerosol 90 mcg INHALATION 4X/DAY PRN PRN (Reason: Shortness Of Breath Or Wheezing) RF: 0 sertraline 50 mg tablet 25 mg DAILY RF: 0 prednisone 20 MG tablet 60 mg PO DAILY Qty: 12 RF: 0 albuterol sulfate [Ventolin HFA] 1 INHALER inhaler 2 puff inhalation Q4H PRN PRN (Reason: Wheezing) Qty: 1 RF: 0 Primary Care Provider: Zachary Cameron NP Referrals: Zachary Cameron NP, COLLECTOR OF INTERNAL REVENUE-C [Primary Care Provider] - 3-5 Days if not improving Disposition Disposition: Home, Self Care
[2021-09-19] MEDS: diazePAM 5 MG Tablet 2.5 MG PO (22:06)
[2021-09-19 22:11] VITALS: BP 122/74; PULSE 94; RESP 18; O2SAT 99
== END 2021-09-19 22:12 | disposition home or self-care (01) ==
PROVIDERS: Emergency Provider Emergency Medicine; PCP Nurse Practitioner Family; Visit Provider Emergency Medicine
DX: H81.11 Benign paroxysmal vertigo, right ear (principal)
CPT/HCPCS: 99283

== ENCOUNTER 2021-10-11 17:55 | Emergency (ER) | payer MEDICAID, SELFPAY ==
[2021-10-11 17:56] VITALS: BP 144/95; PULSE 98; RESP 14; TEMP 35.7; O2SAT 97; BMI 27.8
--- NOTE | 2021-10-11 18:13 | CT_ITS ---
STUDY: CT Abdomen And Pelvis W/O Contrast Injection 10/11/2021 6:46 PM REASON FOR EXAM: Male, 26 years old. ABDOMINAL PAIN abdominal pain TECHNIQUE: Transaxial images were obtained without oral contrast, and without intravenous contrast. Individualized dose optimization techniques were used for this CT. COMPARISON: Nov 08 2020 3:50am . FINDINGS: The visualized lung bases are unremarkable. The visualized portions of the heart are within normal limits. Unremarkable liver. Unremarkable gallbladder and extrahepatic biliary system. Unremarkable spleen. Unremarkable pancreas. Unremarkable bilateral adrenal glands. No acute findings of the right kidney. No acute findings of the left kidney. Unremarkable visualized stomach. Unremarkable small intestine. Unremarkable colon. The appendix is visualized and appears unremarkable. There are no acute findings of the abdominal aorta. Unremarkable inferior vena cava. Subcentimeter mesenteric lymph nodes. Unremarkable urinary bladder. There is an umbilical hernia containing fat. Unremarkable osseous structures. CT/Abdomen/Pelvis without Cont IMPRESSION: (NOT LISTED IN ORDER OF SIGNIFICANCE) There are no acute findings. Other findings as above. Electronically Signed: Bello Hdez MD at 18:48 EDT ,
--- NOTE | 2021-10-11 18:14 | EDS_ITS ---
HPI HPI - GI History of Present Illness Chief Complaint: Abd Pain Detail of Chief Complaint: Abdominal pain and rectal bleeding Informant: patient Narrative Narrative: Patient presents to the emergency department complaint of abdominal pain for the last 2 days. Patient has had some mild nausea. Patient also concerned that he has had some bright red blood per rectum after he has a bowel movement and he wipes. Patient's noticed some burning to the rectal area when in the shower. Patient denies vomiting. He denies fever. He has had intermittent loose stools. No family history of inflammatory bowel disease. Prior similar symptoms: No PFSH PFSH Medical History Asthma Home Medications albuterol 90 mcg INHALATION 4X/DAY PRN PRN 11/08/20 [History Last Taken Unknown] sertraline 25 mg DAILY 05/01/21 [History Last Taken 08/02/21] albuterol sulfate [Ventolin HFA] 2 puff INHALATION Q4H PRN PRN #1 inhaler 06/20/21 [Rx Last Taken Unknown] diazepam [Valium] 2 mg PO TID PRN 3 Days #10 tab 09/19/21 [Rx Last Taken 10/04/21] Allergy/AdvReac Type Severity Reaction Status Date / Time No Known Allergies Allergy Verified 10/11/21 17:56 Social History (Updated 09/19/21 @ 21:[address] Mendel Whittington MD) household members: other Smoking Status: Never smoker alcohol intake: current alcohol intake frequency: other substance use type: does not use ROS ROS ED Constitutional Constitutional ED: Reports systems reviewed and no addt'l complaints, except as documented; Denies body ache(s), change in weight or chills Eyes Eyes: Denies acute decrease in peripheral vision, change in vision, double vision or loss of vision ENT ENT ED: Reports none; Denies ear pain, lip swelling, loss taste/smell, neck pain, otalgia or sore throat Cardiovascular Cardiovascular: Reports none; Denies abdominal pain, chest pain with activity, leg edema, lightheadedness, palpitations, rapid heart rate or syncope Respiratory/Chest Respiratory/Chest: Reports none; Denies change in mental status, dry cough, dyspnea, hemoptysis, shortness of breath at rest or shortness of breath with exertion Gastrointestinal Gastrointestinal: Reports none, abdominal pain, nausea and other Details: Bright red blood per rectum ; Denies change in stool character, diarrhea, hematemesis, hematochezia, melena, rectal bleeding or vomiting Genitourinary Genitourinary ED: Reports none; Denies abdominal discomfort, anuria, dysuria, genital pain or polyuria Musculoskeletal Musculoskeletal: Reports none; Denies arthralgias, back pain, difficulty walking, extremity pain, muscle weakness or myalgias Integumentary Reports none; Denies abscess or rash Neurologic Neurologic: Reports none; Denies abnormal gait, confusion, focal weakness, frequent falls, headache(s), loss of vision, numbness, paresthesias, radicular pain, vertigo or weakness Psychiatric Psychiatric: Reports systems reviewed and no addt'l complaints, except as documented and none; Denies behavioral changes, confusion, difficulty concentrating, hallucinations, suicidal ideation, tactile hallucinations or visual hallucinations Endocrine Endocrinology: Denies none, cold intolerance, excessive sweating, fatigue or heat intolerance Hematologic/Lymphatic Hematologic/Lymphatic: Reports none; Denies anemia, easy bleeding or easy bruising Allergic/Immunologic Allergic/Immunologic ED: Denies as per HPI, none, lip swelling, mouth swelling, throat swelling, tongue swelling or hives EXAM Physical Exam Const Vital Signs: 10/11/21 17:56 Temperature 96.2 F L Temperature Source Temporal Pulse Rate 98 Respiratory Rate 14 Blood Pressure 144/95 H Blood Pressure Mean 111 Pulse Ox 97 Oxygen Delivery Method Room Air Positive well nourished and well developed General Appearance ED: well developed and NAD HEENT Reports TM's clear and moist mucous membranes normocephalic and atraumatic; Negative for trauma or tenderness Tympanic Membrane ED: Yes TM's clear Eyes PERRL and EOMs intact bilaterally General Eye ED: Negative for pale conjunctiva or scleral icterus Neck no lymphadenopathy, supple and no JVD General: Negative for tenderness Chest Wall inspection of chest normal and palpation of chest normal Chest: Negative for tenderness Resp normal respiratory effort and clear to auscultation bilaterally Effort and Inspection: Negative for respiratory distress or pain with movement Auscultation: Negative for rhonchi, wheezes or diminished lung sounds Cardio regular rate, regular rhythm, S1 normal heart sound, S2 normal heart sound and no murmurs Peripheral Pulses: pulses 2+ throughout GI normal to inspection, nondistended, normoactive bowel sounds, soft to palpation, non-tender, non-distended and no masses GI Narrative: Patient has tenderness palpation over right lower quadrant with some guarding. There is no rebound, rigidity, or peritoneal signs. Rectal exam performed. No hemorrhoids noted. No obvious fissures. No obvious bleeding noted. On digital rectal exam no rectal masses palpated and there was brown stool. Back/Spine no CVA tenderness and no thoracic nor lumbar tenderness Extremity normal to inspection General Extremety ED: Negative for edema General Extremity: Negative for edema Neuro oriented x3, CN's II-XII intact bilaterally, no sensory deficits noted and gait normal Sensorium / Orientation: awake, alert, oriented to person, oriented to place and oriented to time Motor Exam: strength 5/5 throughout and strength abnormal Psych mental status grossly normal Skin no rashes or lesions noted and no wounds MDM MDM MDM Narrative Medical decision making narrative: IV line established on arrival. Patient did not anything for pain. Lab work-up was normal. Patient had a CT scan of the abdomen pelvis without contrast that was normal with a normal appendix. At this point the etiology of his rectal bleeding is unclear although he states he has had it for quite a while now that I exit interview him. Patient states it comes and goes. I will refer him to gastroenterology for follow-up as he may require a colonoscopy to evaluate further. Patient advised to return if worsening pain, fever, vomiting, or severe rectal bleeding with clots or lightheadedness. Lab Data Attestation: I reviewed the patient's lab results. Labs: Laboratory Results - last 24 hr 10/11/21 10/11/21 10/11/21 18:15 18:15 18:25 WBC 8.7 RBC 5.67 Hgb 16.8 H Hct 49.5 MCV 87.3 MCH 29.6 MCHC 33.9 RDW Std Deviation 39.1 RDW Coeff of Italo 12.3 Plt Count 316 MPV 9.0 Immature Gran % (Auto) 0.200 Neut % (Auto) 65.3 Lymph % (Auto) 25.1 [place] % (Auto) 6.6 Eos % (Auto) 2.2 Baso % (Auto) 0.6 Absolute Neuts (auto) 5.7 Absolute Lymphs (auto) 2.17 Nucleated RBC % 0 Sodium 138 Potassium 4.1 Chloride 104 Carbon Dioxide 30.0 Anion Gap 4 L BUN 11 Creatinine 0.95 Estim Creat Clear Calc 122.73 Est GFR (MDRD) Af Amer 123 Est GFR (MDRD) Non-Af 102 BUN/Creatinine Ratio 11.5 Glucose 98 Calcium 9.8 Urine RBC 0 SEEN Urine WBC 0-5 SEEN Ur Squamous Epith Cells 0-5 SEEN Urine Bacteria RARE Urine Mucus 0 SEEN Radiography Diagnostic Testing: Clinical Impression(s) from Imaging Studies Abdomen/Pelvis CT 10/11/21 18:13 IMPRESSION: (NOT LISTED IN ORDER OF SIGNIFICANCE) There are no acute findings. Other findings as above. Electronically Signed: Bello Hdez MD at 18:48 EDT , Discharge Plan Triage Chief Complaint: Abd Pain ED Provider: Boo Esparza Dx/Rx/DC Orders Clinical Impression: Abdominal pain, Rectal bleed Instructions: ED Lower GI Bleeding (Stable), ED Abdominal Pain Unkn Cause Male... Prescriptions: No Action albuterol 90 mcg/actuation Aerosol 90 mcg INHALATION 4X/DAY PRN PRN (Reason: Shortness Of Breath Or Wheezing) RF: 0 sertraline 50 mg tablet 25 mg DAILY RF: 0 albuterol sulfate [Ventolin HFA] 1 INHALER inhaler 2 puff inhalation Q4H PRN PRN (Reason: Wheezing) Qty: 1 RF: 0 diazepam [Valium] 2 mg tablet 2 mg PO TID PRN (Reason: vertigo) 3 Days Qty: 10 RF: 0 Primary Care Provider: Zachary Cameron NP Referrals: Rob Reynolds DO [STAFF PHYSICIAN] - 3-5 Days Zachary Cameron NP, ADULT HIGH SCHOOL INSTRUCTOR-C [Primary Care Provider] - Disposition Disposition: Home, Self Care
[2021-10-11] MEDS: 0.9% Normal Saline 1,000 ML 150 ML IV (18:23)
[2021-10-11 18:27] LABS: Absolute Lymphocyte Count 2.17 X10^3/uL (0.83-4.51); Absolute Neutrophil Count 5.7 X10^3/uL (2.0-7.7); Basophil# 0.05 X10^3/uL; Basophil% 0.6 % (0-1); Eosinophil# 0.19 X10^3/uL; Eosinophils% 2.2 % (0-5); Hematocrit 49.5 % (40-54); Hemoglobin 16.8 g/dL (13.0-16.5); Lymphocyte # 2.17 X10^3/ul (0.83-4.51); Lymphocyte % 25.1 % (19-41); Mean Corp Hgb Conc 33.9 g/dL (32-36); Mean Corpuscular Hgb 29.6 pg (27.0-32.0); Mean Corpuscular Volume 87.3 fL (80-94); Monocyte# 0.57 X10^3/uL; Monocyte% 6.6 % (0-10); NRBC Flagged by Analyzer 0 % (0-5); Neutrophil # 5.66 X10^3/uL (2.7-7.7); Neutrophil % 65.3 % (47-70); Platelet Count 316 K/mm3 (150-450); RBC Distribution Width CV 12.3 % (11.6-14.6); RBC Distribution Width SD 39.1 fl (35.1-43.9); Red Blood Count 5.67 M/mm3 (4.6-6.2); White Blood Count 8.7 K/mm3 (4.4-11.0)
[2021-10-11 18:34] LABS: Mucous, Urine 0 SEEN /hpf (<or=2+); Red Blood Cells-Urine 0 SEEN /hpf (0-5)
[2021-10-11 18:43] LABS: Color, Urine Yellow (Yellow); Glucose, Dipstick Normal (Normal); Ketone-Dipstick Negative (Negative); Leukocyte Esterase-Dipstick 100 /ul (Negative); Nitrite-Dipstick Negative (Negative); Occult Blood-Urine Negative /ul (Negative); Protein-Dipstick Negative (Negative); Urine Bilirubin Dipstick Negative (Negative); Urine Clarity Sl. Cloudy (Clear); Urine Urobilinogen Normal (Normal); Urine pH 6.5 (5.0 - 8.0)
[2021-10-11 18:46] LABS: Anion Gap 4 (5-15); BUN 11 mg/dL (7-18); BUN/Creat Ratio 11.5 RATIO (10-20); Calcium,Total 9.8 mg/dL (8.5-10.1); Chloride 104 mmol/L (98-107); Creatinine, Serum 0.95 mg/dL (0.70-1.30); EST Glomerular Filtration Rate 102 mL/min (>60); Est Glom Filt Rate - Afr Amer 123 mL/min (>60); Estimated Creatinine Clearance 122.73 ml/min; Glucose 98 mg/dL (74-106); Potassium 4.1 mmol/L (3.5-5.1); Sodium Level 138 mmol/L (136-145)
[2021-10-11 18:51] LABS: Bacteria RARE /hpf (None Seen); Squamous Epithelial Cells - UA 0-5 SEEN /hpf (0-5); White Blood Cells 0-5 SEEN /hpf (0-5)
== END 2021-10-11 19:28 | disposition home or self-care (01) ==
PROVIDERS: Emergency Provider Emergency Medicine; PCP Nurse Practitioner Family; Visit Provider Emergency Medicine
DX: K62.5 Hemorrhage of anus and rectum (principal); R10.9 Unspecified abdominal pain; R11.0 Nausea; J45.909 Unspecified asthma, uncomplicated; Z79.899 Other long term (current) drug therapy
CPT/HCPCS: 74176; 80048; 81001; 85025; 96360; 99282; J7030; A4216

== ENCOUNTER 2021-10-31 13:12 | Emergency (ER) | payer MEDICAID, SELFPAY ==
[2021-10-31 13:13] VITALS: BP 130/104; PULSE 96; RESP 18; TEMP 36.4; O2SAT 96; BMI 27.5
--- NOTE | 2021-10-31 13:59 | ED.VIS.GI ---
HPI HPI - GI History of Present Illness Chief Complaint: GI Bleed Narrative Narrative: 26-year-old male presenting with blood in the toilet paper when he wiped today. He states he was going to an interview and thought he was sweating and then when he went to the bathroom and wiped he saw blood on the toilet paper. He states he does have a little bit of brain fog but cannot provide a description. He is not confused or weak. He states he is eating and drinking normally. He states he is making normal urine and stool. Patient previously seen for this a couple of weeks ago and had blood work and imaging done and his CAT scan of his abdomen was normal. [facility] Medical History Asthma Home Medications albuterol sulfate [Ventolin HFA] 2 puff INHALATION Q4H PRN PRN #1 inhaler 06/20/21 [Rx Last Taken Unknown] Allergy/AdvReac Type Severity Reaction Status Date / Time No Known Allergies Allergy Verified 10/31/21 13:12 Social History (Updated 09/19/21 @ 21:[address] Mendel Whittington MD) household members: other Smoking Status: Former smoker alcohol intake: current alcohol intake frequency: other substance use type: does not use ROS ROS ED Constitutional Constitutional ED: Denies chills, fever(s) or sweats Eyes Eyes: Denies blurry vision or change in vision ENT ENT ED: Denies ear pain or sore throat Cardiovascular Cardiovascular: Denies chest pain, palpitations or racing heartbeat Respiratory/Chest Respiratory/Chest: Denies cough, dyspnea or sputum Gastrointestinal Gastrointestinal: Reports other Details: Blood per rectum ; Denies abdominal pain, constipation, diarrhea, nausea or vomiting Genitourinary Genitourinary ED: Denies dysuria, hematuria or urinary frequency Musculoskeletal Musculoskeletal: Denies arthralgias, myalgias or neck pain Integumentary Denies abscess, Abrasions or rash Neurologic Neurologic: Denies headache(s), paresthesias or weakness Psychiatric Psychiatric: Denies anxiety, depression, suicidal ideation or suicidal thoughts Endocrine Endocrinology: Denies polydipsia or polyuria EXAM Physical Exam Const Vital Signs: 10/31/21 13:13 Temperature 97.6 F L Temperature Source Temporal Pulse Rate 96 Respiratory Rate 18 Blood Pressure 130/104 H Blood Pressure Mean 112 Pulse Ox 96 Oxygen Delivery Method Room Air General Appearance ED: Negative for pallor HEENT Reports normocephalic, head/scalp atraumatic and moist mucous membranes normocephalic Eyes PERRL and EOMs intact bilaterally General Eye ED: Negative for pale conjunctiva Neck no lymphadenopathy and supple Chest Wall inspection of chest normal and palpation of chest normal Resp normal respiratory effort and clear to auscultation bilaterally Auscultation: Negative for rales, rhonchi or wheezes Cardio regular rate and regular rhythm GI normal to inspection, nondistended, normoactive bowel sounds and non-distended GI Narrative: No hemorrhoids noted. No excoriations. There is erythema around the perirectal area. There is no blood noted. Auscultation: normoactive bowel sounds Palpation: soft Narrative: Deferred Back/Spine no CVA tenderness Extremity normal to inspection Neuro oriented x3 and CN's II-XII intact bilaterally Sensorium / Orientation: alert, oriented to person, oriented to place and oriented to time Motor Exam: strength 5/5 throughout Psych mental status grossly normal Attitude: No agitated Skin no rashes or lesions noted and no wounds General Skin Exam: Negative for jaundice or pallor MDM MDM MDM Narrative Medical decision making narrative: CBC was drawn and patient has have a slight leukocytosis of 13.4 however he is not have any abdominal pain and does not have any sign of infection. His vital signs are normal. His hemoglobin is stable at 16.5 and it was 16.8 on last visit. I counseled him that he will need to continue to monitor this and follow-up with Dr. Reynolds outpatient for his scheduled appointment. Patient stable for discharge. Impression: 1. Lower GI bleed stable Lab Data Attestation: I reviewed the patient's lab results. Labs: Laboratory Results - last 24 hr 10/31/21 14:00 WBC 13.4 H RBC 5.51 Hgb 16.5 Hct 47.7 MCV 86.6 MCH 29.9 MCHC 34.6 RDW Std Deviation 38.0 RDW Coeff of Italo 11.9 Plt Count 312 MPV 8.7 Immature Gran % (Auto) 0.300 Neut % (Auto) 65.0 Lymph % (Auto) 25.3 [place] % (Auto) 5.5 Eos % (Auto) 3.3 Baso % (Auto) 0.6 Absolute Neuts (auto) 8.7 H Absolute Lymphs (auto) 3.38 Nucleated RBC % 0 Discharge Plan Triage Chief Complaint: GI Bleed ED Provider: Shayan Frank Dx/Rx/DC Orders Instructions: ED Lower GI Bleeding (Stable) Prescriptions: No Action albuterol sulfate [Ventolin HFA] 1 INHALER inhaler 2 puff inhalation Q4H PRN PRN (Reason: Wheezing) Qty: 1 RF: 0 Primary Care Provider: Zachary Cameron NP Referrals: Rob Reynolds DO [STAFF PHYSICIAN] - [place] appointment Zachary Cameron NP, FAMILY LAW SPECIALIST-C [Primary Care Provider] - Disposition Disposition: Home, Self Care
[2021-10-31 14:06] LABS: Absolute Lymphocyte Count 3.38 X10^3/uL (0.83-4.51); Absolute Neutrophil Count 8.7 X10^3/uL (2.0-7.7); Basophil# 0.08 X10^3/uL; Basophil% 0.6 % (0-1); Eosinophil# 0.44 X10^3/uL; Eosinophils% 3.3 % (0-5); Hematocrit 47.7 % (40-54); Hemoglobin 16.5 g/dL (13.0-16.5); Lymphocyte # 3.38 X10^3/ul (0.83-4.51); Lymphocyte % 25.3 % (19-41); Mean Corp Hgb Conc 34.6 g/dL (32-36); Mean Corpuscular Hgb 29.9 pg (27.0-32.0); Mean Corpuscular Volume 86.6 fL (80-94); Mean Platelet Vol. 8.7 fl (6.2-12.0); Monocyte# 0.74 X10^3/uL; Monocyte% 5.5 % (0-10); NRBC Flagged by Analyzer 0 % (0-5); Neutrophil # 8.69 X10^3/uL (2.7-7.7); Platelet Count 312 K/mm3 (150-450); RBC Distribution Width CV 11.9 % (11.6-14.6); Red Blood Count 5.51 M/mm3 (4.6-6.2); White Blood Count 13.4 K/mm3 (4.4-11.0)
[2021-10-31 14:17] VITALS: RESP 18
== END 2021-10-31 14:43 | disposition home or self-care (01) ==
PROVIDERS: Emergency Provider Student in an Organized Health Care Education/Training Program; PCP Nurse Practitioner Family; Visit Provider Student in an Organized Health Care Education/Training Program
DX: K92.2 Gastrointestinal hemorrhage, unspecified (principal); J45.909 Unspecified asthma, uncomplicated; Z87.891 Personal history of nicotine dependence; Z79.899 Other long term (current) drug therapy
CPT/HCPCS: 85025; 99282

== ENCOUNTER → 2021-11-04 | Outpatient (CLI) | payer MEDICAID, SELFPAY ==
[2021-11-04 15:30] LABS: Absolute Lymphocyte Count 2.78 X10^3/uL (0.83-4.51); Absolute Neutrophil Count 5.8 X10^3/uL (2.0-7.7); Basophil# 0.06 X10^3/uL; Basophil% 0.6 % (0-1); Eosinophil# 0.24 X10^3/uL; Eosinophils% 2.6 % (0-5); Hematocrit 49.3 % (40-54); Hemoglobin 17.1 g/dL (13.0-16.5); Lymphocyte # 2.78 X10^3/ul (0.83-4.51); Lymphocyte % 29.5 % (19-41); Mean Corp Hgb Conc 34.7 g/dL (32-36); Mean Corpuscular Hgb 29.9 pg (27.0-32.0); Mean Corpuscular Volume 86.3 fL (80-94); Mean Platelet Vol. 9.1 fl (6.2-12.0); Monocyte# 0.49 X10^3/uL; Monocyte% 5.2 % (0-10); NRBC Flagged by Analyzer 0 % (0-5); Neutrophil # 5.81 X10^3/uL (2.7-7.7); Neutrophil % 61.8 % (47-70); Platelet Count 374 K/mm3 (150-450); RBC Distribution Width CV 11.9 % (11.6-14.6); Red Blood Count 5.71 M/mm3 (4.6-6.2); White Blood Count 9.4 K/mm3 (4.4-11.0)
[2021-11-04 15:40] LABS: ALB/GLOB Ratio 1.3 RATIO (0.9-2.4); AST(SGOT) 19 U/L (15-37); Alanine Aminotransfer ALT/SGPT 50 U/L (16-61); Albumin, Serum 4.7 g/dL (3.2-5.0); Alkaline Phosphatase 87 U/L (45-117); Anion Gap 4 (5-15); BUN 11 mg/dL (7-18); BUN/Creat Ratio 11.8 RATIO (10-20); CRP < 2.90 mg/L (0.0-3.0); Calcium,Total 9.6 mg/dL (8.5-10.1); Chloride 103 mmol/L (98-107); Creatinine, Serum 0.93 mg/dL (0.70-1.30); EST Glomerular Filtration Rate 104 mL/min (>60); Erythrocyte Sedimentation Rate 4 mm/hr (0-20); Est Glom Filt Rate - Afr Amer 126 mL/min (>60); Globulin 3.6 g/dL (2.2-4.2); Glucose 89 mg/dL (74-106); Protein, Total 8.3 g/dL (6.4-8.2); Sodium Level 138 mmol/L (136-145)
[2021-11-07 11:07] LABS: Anti-Centromere B Ab <0.2 AI (0.0-0.9); Anti-Chromatin <0.2 AI (0.0-0.9); Anti-Jo <0.2 AI (0.0-0.9); Anti-Scleroderma-70 AB <0.2 AI (0.0-0.9); RNP Ab 0.2 AI (0.0-0.9); SJOGREN'S Anti-SS-A test < 0.2 AI (0.0-0.9); SJOGREN'S Anti-SS-B test < 0.2 AI (0.0-0.9); Smith Ab <0.2 AI (0.0-0.9)
[2021-11-07 12:22] LABS: Anti-dsDNA Ab <1 IU/mL (0-9)
[2021-11-07 16:23] LABS: Endomysial Antibody IgA Negative (Negative)
[2021-11-08 07:48] LABS: Immunoglobulin A 364 mg/dL (90-386); t-Transglutaminase IgA <2 U/mL (0-3)
[2021-11-08 15:17] LABS: Giardia Lamblia, Stool EIA Negative (Negative)
[2021-11-09 12:08] LABS: Calprotectin, Stool <16 ug/g (0-120)
== END | disposition home or self-care (01) ==
LOC: LAB 14:02
PROVIDERS: PCP Nurse Practitioner Family; Referring Provider Nurse Practitioner Adult Health; Visit Provider Nurse Practitioner Adult Health
DX: R19.7 Diarrhea, unspecified (principal); K58.9 Irritable bowel syndrome, unspecified
CPT/HCPCS: 36415; 80053; 82784; 83516; 83630; 83993; 85025; 85652; 86140; 86225; 86235; 86255; 87177; 87209; 87329; 87493; 87506

== ENCOUNTER 2021-11-19 19:45 | Emergency (ER) | payer MEDICAID, SELFPAY ==
[2021-11-19 19:46] VITALS: BP 151/99; PULSE 95; RESP 17; TEMP 36.7; O2SAT 99; BMI 27.5
--- NOTE | 2021-11-19 20:20 | ED.VIS.DYS ---
HPI History of Present Illness Chief Complaint: Shortness of Breath Narrative Narrative: 26-year-old male with history of asthma presenting with dyspnea. He states that he wheezes mostly in the morning and then does have some dyspnea throughout the day. He was seen by urgent care 2-day who prescribed him something that was a once a day inhaler to control his symptoms and so he could get into his regular doctor. Apparently the pharmacy was closed and the patient felt like he needed a breathing treatment. Patient has not had any fever, chills, viral symptoms. Patient does have albuterol at home however he states he is using a little more often than usual. He has a mild cough intermittently. [facility] Medical History Asthma Home Medications albuterol sulfate 90 mcg/actuation aerosol inhaler (Ventolin HFA) 2 puff inhalation Q4H PRN PRN Wheezing ##1 06/20/21 [Rx Last Taken Unknown] prednisone 50 mg tablet 50 mg PO DAILY #5 tabs 11/19/21 [Rx Last Taken Unknown] Allergy/AdvReac Type Severity Reaction Status Date / Time No Known Allergies Allergy Verified 11/19/21 19:48 Social History household members: other Smoking Status: Former smoker alcohol intake: current alcohol intake frequency: other substance use type: does not use ROS ROS ED Constitutional Constitutional ED: Denies chills, fever(s) or sweats Eyes Eyes: Denies change in vision ENT ENT ED: Denies rhinorrhea or sore throat Cardiovascular Cardiovascular: Denies chest pain or palpitations Respiratory/Chest Respiratory/Chest: Reports cough and dyspnea Gastrointestinal Gastrointestinal: Denies abdominal pain or constipation Genitourinary Genitourinary ED: Denies dysuria or hematuria Musculoskeletal Musculoskeletal: Denies arthralgias or back pain Integumentary Denies abscess or Abrasions Neurologic Neurologic: Denies headache(s) or paresthesias EXAM Physical Exam Const Vital Signs: 11/19/21 19:46 11/19/21 19:53 11/19/21 20:38 Temperature 98.1 F Temperature Source Temporal Pulse Rate 95 109 H Respiratory Rate 17 16 Respiratory Effort Normal Non-Labored Short of Breath Respiratory Depth Normal Respiratory Pattern Normal Normal Blood Pressure 151/99 H Blood Pressure Mean 116 Pulse Ox 99 Oxygen Delivery Method Room Air 11/19/21 20:38 Temperature Temperature Source Pulse Rate Respiratory Rate 16 Respiratory Effort Normal Non-Labored Respiratory Depth Normal Respiratory Pattern Normal Blood Pressure Blood Pressure Mean Pulse Ox Oxygen Delivery Method Room Air Positive well nourished General Appearance ED: NAD; Negative for pallor HEENT Reports moist mucous membranes atraumatic Eyes PERRL and EOMs intact bilaterally Resp normal respiratory effort Resp Narrative: Scant wheezing heard throughout. Cardio regular rate and regular rhythm Neuro oriented x3 and CN's II-XII intact bilaterally Sensorium / Orientation: alert Skin General Skin Exam: Negative for jaundice or pallor MDM MDM MDM Narrative Medical decision making narrative: Patient with history of asthma presenting for dyspnea. He states he thinks he needs a breathing treatment. He has very scant wheezing on examination. He is not had any viral symptoms I will place him on prednisone with a first dose in the ER. Breathing treatments were provided. He feels improved on reevaluation. 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 He is discharged stable condition. Impression: 1. Asthma exacerbation Discharge Plan Triage Chief Complaint: Shortness of Breath ED Provider: Shayan Frank Dx/Rx/DC Orders Instructions: ED Asthma, Acute (Adult) Prescriptions: New prednisone 50 mg tablet 50 mg PO DAILY Qty: 5 0RF No Action albuterol sulfate [Ventolin HFA] 1 INHALER inhaler 2 puff inhalation Q4H PRN PRN (Reason: Wheezing) Qty: 1 0RF Rx Instructions: dispense with spacer Primary Care Provider: Zachary Cameron NP Referrals: Zachary Cameron NP, PUBLICATIONS EDITOR-C [Primary Care Provider] - Disposition Disposition: Home, Self Care Discharge Date/Time: 11/19/21 21:25
[2021-11-19] MEDS: predniSONE 20 MG Tablet 60 MG PO (20:25)
[2021-11-19 20:38] VITALS: PULSE 109; RESP 16
[2021-11-19] MEDS: Albuterol 2.5 MG/3 ML VIAL.NEB. INHALATION (20:38)
[2021-11-19] MEDS: Ipratropium/Albuterol Sulfate 3 ML AMPUL.NEB INHALATION (20:38)
--- NOTE | 2021-11-19 20:55 | CPS ---
x1 Albuterol given to pt. in ER as well
== END 2021-11-19 21:25 | disposition home or self-care (01) ==
PROVIDERS: Emergency Provider Student in an Organized Health Care Education/Training Program; PCP Nurse Practitioner Family; Visit Provider Student in an Organized Health Care Education/Training Program
DX: J45.901 Unspecified asthma with (acute) exacerbation (principal); Z87.891 Personal history of nicotine dependence
CPT/HCPCS: G0463; 94640; 99251; 99283

== ENCOUNTER 2022-01-29 10:21 | Emergency (ER) | payer MEDICAID, SELFPAY ==
[2022-01-29 10:21] VITALS: BP 157/104; PULSE 125; RESP 16; TEMP 36.6; O2SAT 98; BMI 26.6
--- NOTE | 2022-01-29 11:07 | EX.ED.DYSGE1 ---
HPI History of Present Illness Chief Complaint: Wound Informant: patient Onset/Context/Timing Onset: Month(s) Context: Gradual Onset Timing: Continuous Quality: Burning Location: Mouth Worsened by: Salty foods, spicy foods Relieved by: Nothing Narrative Narrative: Patient presents with canker sores in his mouth that have been constant for several months. Patient describes his pain as burning. Patient states that he feels like when 1 sore heals, he gets to more. Patient states his pain is worse with eating salty foods or spicy foods. Patient denies any fevers or chills. Patient denies any nausea or vomiting. Patient denies any chest pain. Patient admits to a mild sore throat when some rhinorrhea. [facility] Medical History Asthma Home Medications albuterol sulfate 90 mcg/actuation aerosol inhaler (Ventolin HFA) 2 puff inhalation Q4H PRN PRN Wheezing ##1 06/20/21 [Rx Last Taken Unknown] MAGIC MOUTH WASH (BMX) 180 mL suspension 30 ml buccal Q6H PRN PRN Oral ulcerations #180 mL 01/29/22 [Rx Last Taken Unknown] Allergy/AdvReac Type Severity Reaction Status Date / Time No Known Allergies Allergy Verified 01/29/22 10:23 Surgical History no surgical history no surgical history Social History household members: other Smoking Status: Current every day smoker tobacco type: e-cigarettes alcohol intake: current alcohol intake frequency: other substance use type: does not use ROS ROS ED Constitutional Constitutional ED: Denies chills or fever(s) Eyes Eyes: Denies blurry vision or change in vision ENT ENT ED: Reports rhinorrhea and sore throat Cardiovascular Cardiovascular: Denies chest pain or palpitations Respiratory/Chest Respiratory/Chest: Reports cough and dyspnea Gastrointestinal Gastrointestinal: Denies nausea or vomiting Genitourinary Genitourinary ED: Denies dysuria or hematuria Musculoskeletal Musculoskeletal: Reports neck pain; Denies back pain Integumentary Denies abscess or rash Neurologic Neurologic: Reports headache(s); Denies weakness Allergic/Immunologic Allergic/Immunologic ED: Denies mouth swelling or urticaria EXAM Physical Exam Const Vital Signs: 01/29/22 10:21 Temperature 97.8 F Temperature Source Temporal Pulse Rate 125 H Respiratory Rate 16 Blood Pressure 157/104 H Blood Pressure Mean 121 Pulse Ox 98 Oxygen Delivery Method Room Air Positive well nourished and well developed General Appearance ED: well developed and NAD HEENT Reports moist mucous membranes HEENT Narrative: There are a few aphthous ulcers noted on the buccal mucosa bilaterally. There is no erythema or edema around the lesions. There are multiple dental caries noted. There is no gingival edema or erythema. Neck is supple. Trachea is midline. There is no JVD or lymphadenopathy. There is no sublingual or anterior neck swelling. Oropharynx is clear. Airway is patent. Eyes PERRL and EOMs intact bilaterally Neck no lymphadenopathy, supple and no JVD Neuro oriented x3, CN's II-XII intact bilaterally and no sensory deficits noted Sensorium / Orientation: alert Motor Exam: strength 5/5 throughout Psych mental status grossly normal MDM MDM MDM Narrative Medical decision making narrative: Patient was given a prescription for Magic mouthwash. Patient was instructed to follow-up with his primary care physician in 5 to 7 days. Patient was also given referral for ENT. Patient understood and was agreeable with the plan. All questions were answered. Discharge Plan Triage Chief Complaint: Wound ED Provider: Dwani Zurita Dx/Rx/DC Orders Clinical Impression: Aphthous ulcer of mouth, Dental caries Instructions: ED Canker Sore Prescriptions: New MAGIC MOUTH WASH (BMX) 180 mL suspension 30 ml buccal Q6H PRN PRN (Reason: Oral ulcerations) Qty: 180 0RF Rx Instructions: diphenhydramine 12.5 mg/5 mL oral liquid 60 mL; aluminum-mag hydroxide-simethicone 400 mg-400 mg-40 mg/5 mL oral susp 60 mL; Lidocaine Viscous 2 % mucosal solution 60 mL; Per 180 mL No Action albuterol sulfate [Ventolin HFA] 1 INHALER inhaler 2 puff inhalation Q4H PRN PRN (Reason: Wheezing) Qty: 1 0RF Rx Instructions: dispense with spacer Primary Care Provider: Care Physician,No Primary Referrals: Ted Aguilar MD [Med Staff - Active Staff] - 3-5 Days Zachary Cameron NP, INCIDENT RESPONSE CONSULTANT-C [Non-Staff] - 3-5 Days Disposition Disposition: Home, Self Care
== END 2022-01-29 11:29 | disposition home or self-care (01) ==
PROVIDERS: Emergency Provider Emergency Medicine; Visit Provider Emergency Medicine
DX: K12.1 Other forms of stomatitis (principal); K02.9 Dental caries, unspecified; F17.290 Nicotine dependence, other tobacco product, uncomplicated; J45.909 Unspecified asthma, uncomplicated
CPT/HCPCS: 99282

== ENCOUNTER 2022-07-25 14:35 | Emergency (ER) | payer MEDICAID, SELFPAY ==
[2022-07-25 14:36] VITALS: BP 140/103; PULSE 105; RESP 18; TEMP 35.8; O2SAT 100; BMI 29.3
--- NOTE | 2022-07-25 14:47 | EKG12_ITS ---
Test Reason : CP Blood Pressure : / mmHG Vent. Rate : 089 BPM Atrial Rate : 089 BPM P-R Int : 144 ms QRS Dur : 094 ms QT Int : 348 ms P-R-T Axes : 047 062 014 degrees QTc Int : 423 ms Normal sinus rhythm Normal ECG Confirmed by HARLEY TUCKER, TYESHA ([id number]), web content editor DAJUAN CHAPMAN ([id number]) on 07/27/2022 8:53:51 AM Referred By: KEVIN Confirmed By:TYESHA SOUZA MD
--- NOTE | 2022-07-25 14:48 | EDS_ITS ---
HPI History of Present Illness Chief Complaint: Chest Pain Detail of Chief Complaint: Chest pain Informant: patient Narrative Narrative: Patient presents to the emergency department with complaint of chest pain. Patient states the pain started around 2 AM after he ate pizza and garlic bread. Patient states he is got continuous pain since that time that he describes as an intermittent squeezing in the center of his chest. Patient has taken Pepto- Bismol and acid relief but no symptom relief with those medications. Patient denies any trauma to his chest. No heart history. He does have a history of asthma. He states he had a low bit of a cough and some congestion for about 2 days. Patient also with history of GERD and anxiety. PFSH PFSH Medical History Anxiety Asthma Gastric reflux Migraine headache Shortness of breath on exertion Smoker Home Medications albuterol sulfate 90 mcg/actuation aerosol inhaler (Ventolin HFA) 2 puff inhalation Q4H PRN PRN Wheezing ##1 06/20/21 [Rx Last Taken Unknown] MAGIC MOUTH WASH (BMX) 180 mL suspension 30 ml buccal Q6H PRN PRN Oral ulcerations #180 mL 01/29/22 [Rx Last Taken Unknown] lansoprazole 30 mg capsule,delayed release (Prevacid) 30 mg PO DAILY #14 caps 07/25/22 [Rx Last Taken Unknown] Allergy/AdvReac Type Severity Reaction Status Date / Time No Known Allergies Allergy Verified 07/25/22 15:01 Social History household members: other Smoking Status: Current every day smoker tobacco type: e-cigarettes alcohol intake: current alcohol intake frequency: other substance use type: does not use ROS ROS ED Review of Systems ROS Unobtainable: other Constitutional Constitutional ED: Reports lethargy; Denies chills, fever(s), sweats or weight loss Eyes Eyes: Denies blurry vision, change in vision or diplopia ENT ENT ED: Denies rhinorrhea or sore throat Cardiovascular Cardiovascular: Reports chest pain; Denies orthopnea or racing heartbeat Respiratory/Chest Respiratory/Chest: Denies cough, dyspnea, dyspnea on exertion, orthopnea or sputum Gastrointestinal Gastrointestinal: Reports other Details: Feels gassy/bloating ; Denies abdominal pain, diarrhea, nausea or vomiting Genitourinary Genitourinary ED: Denies dysuria, hematuria or urinary frequency Musculoskeletal Musculoskeletal: Denies arthralgias, back pain, myalgias or neck pain Integumentary Denies abscess, Abrasions or rash Neurologic Neurologic: Denies headache(s) or weakness Psychiatric Psychiatric: Denies anxiety, depression or suicidal thoughts Endocrine Endocrinology: Denies polydipsia, polyphagia or polyuria Hematologic/Lymphatic Hematologic/Lymphatic: Denies easy bleeding, easy bruising or lymphadenopathy Allergic/Immunologic Allergic/Immunologic ED: Denies mouth swelling, tongue swelling or urticaria EXAM Physical Exam Const Vital Signs: 07/25/22 14:36 07/25/22 15:00 07/25/22 15:02 Temperature 96.4 F L Temperature Source Temporal Pulse Rate 105 H 81 Respiratory Rate 18 18 Respiratory Effort Normal Non-Labored Blood Pressure 140/103 H 136/93 H Blood Pressure Mean 115 107 Pulse Ox 100 99 Oxygen Delivery Method Room Air Room Air Positive well nourished and well developed General Appearance ED: well developed and NAD HEENT Reports TM's clear and moist mucous membranes normocephalic and atraumatic; Negative for trauma or tenderness Tympanic Membrane ED: Yes TM's clear Eyes PERRL and EOMs intact bilaterally General Eye ED: Negative for pale conjunctiva or scleral icterus Neck no lymphadenopathy, supple and no JVD General: Negative for tenderness Chest Wall inspection of chest normal and palpation of chest normal Chest: Negative for tenderness Resp normal respiratory effort and clear to auscultation bilaterally Effort and Inspection: Negative for respiratory distress or pain with movement Auscultation: Negative for rhonchi, wheezes or diminished lung sounds Cardio regular rate, regular rhythm, S1 normal heart sound, S2 normal heart sound and no murmurs Peripheral Pulses: pulses 2+ throughout GI normal to inspection, nondistended, normoactive bowel sounds, soft to palpation, non-distended and no masses GI Narrative: Tenderness palpation over the epigastric region with some guarding. There is no rebound, rigidity, or peritoneal signs. Back/Spine no CVA tenderness and no thoracic nor lumbar tenderness Extremity normal to inspection General Extremety ED: Negative for edema General Extremity: Negative for edema Neuro oriented x3, CN's II-XII intact bilaterally, no sensory deficits noted and gait normal Sensorium / Orientation: awake, alert, oriented to person, oriented to place and oriented to time Motor Exam: strength 5/5 throughout and strength abnormal Psych mental status grossly normal Skin no rashes or lesions noted and no wounds MDM MDM MDM Narrative Medical decision making narrative: Patient presents with retrosternal chest pain and epigastric discomfort that he has had since 2 AM. In the differential would be esophageal spasm or GERD as well as myocarditis versus pericarditis versus pneumothorax. In the differential would be gallbladder disease versus pancreatitis as well. Patient had an IV line established on arrival. EKG obtained showed a sinus rhythm with a rate of 89 bpm with no evidence for pericarditis or acute ST segment changes. Patient had a CBC with differential that was normal. Sed rate was normal at 9. Chemistries were unremarkable. Troponin was less than 3. Lipase was normal at 65 and LFTs were unremarkable other than a slightly elevated ALT of 78. Patient was PERC negative. Etiology of his chest discomfort unclear. I did order a GI cocktail which she is yet to receive. I will start him empirically on Prevacid. I suspect more likely that his discomfort is likely GI related. Patient has no tenderness over the gallbladder with a negative Farrell sign I feel gallbladder disease is not very likely. Lab Data Attestation: I reviewed the patient's lab results. Labs: Laboratory Results - last 24 hr 07/25/22 07/25/22 14:57 14:57 WBC 10.8 RBC 5.38 Hgb 15.8 Hct 46.1 MCV 85.7 MCH 29.4 MCHC 34.3 RDW Std Deviation 38.1 RDW Coeff of [place] 12.2 Plt Count 286 MPV 8.8 Immature Gran % (Auto) 0.300 Neut % (Auto) 58.8 Lymph % (Auto) 30.5 [place] % (Auto) 6.5 Eos % (Auto) 3.2 Baso % (Auto) 0.7 Absolute Neuts (auto) 6.3 Absolute Lymphs (auto) 3.28 Nucleated RBC % 0 ESR 9 Sodium 138 Potassium 3.4 L Chloride 104 Carbon Dioxide 25.0 Anion Gap 9 BUN 11 Creatinine 1.04 Estim Creat Clear Calc 107.64 Est GFR (MDRD) Af Amer 111 Est GFR (MDRD) Non-Af 92 BUN/Creatinine Ratio 10.6 Glucose 132 H Calcium 9.1 Total Bilirubin 0.50 AST 34 ALT 78 H Alkaline Phosphatase 95 Troponin I High Sens < 3 L Total Protein 7.8 Albumin 4.1 Globulin 3.7 Albumin/Globulin Ratio 1.1 Lipase 65 L Radiography Chest X-Ray - ED: 1 View Diagnostic Testin view chest x-ray obtained interpreted by myself as no acute disease process. Official report from radiology pending. EKG Initial EKG: Attestation: I personally reviewed and interpreted this EKG as follows: Comments: Sinus rhythm with a rate of 89 bpm with no acute ST segment changes Discharge Plan Triage Chief Complaint: Chest Pain ED Provider: Boo Esparza Dx/Rx/DC Orders Clinical Impression: Chest pain, Abdominal pain Instructions: Abdominal Pain, ED Chest Pain, Uncertain Cause Prescriptions: New lansoprazole [Prevacid] 30 mg capsule,delayed release(DR/EC) 30 mg PO DAILY Qty: 14 0RF No Action albuterol sulfate [Ventolin HFA] 1 INHALER inhaler 2 puff inhalation Q4H PRN PRN (Reason: Wheezing) Qty: 1 0RF Rx Instructions: dispense with spacer MAGIC MOUTH WASH (BMX) 180 mL suspension 30 ml buccal Q6H PRN PRN (Reason: Oral ulcerations) Qty: 180 0RF Rx Instructions: diphenhydramine 12.5 mg/5 mL oral liquid 60 mL; aluminum-mag hydroxide- simethicone 400 mg-400 mg-40 mg/5 mL oral susp 60 mL; Lidocaine Viscous 2 % mucosal solution 60 mL; Per 180 mL Primary Care Provider: Care Physician,No Primary Referrals: Care Physician,No Primary [Primary Care Provider] - Activity Restrictions/Additional Instructions: 7 daysSee your primary care physician within the next. Disposition Disposition: Home, Self Care
--- NOTE | 2022-07-25 14:56 | NURSING ---
NO OLD EKGS
[2022-07-25 15:00] VITALS: BP 136/93; PULSE 81; RESP 18; O2SAT 99
--- NOTE | 2022-07-25 15:05 | RAD_ITS ---
STUDY: X-RAY CHEST REASON FOR EXAM: Male, 27 years old. Chest pain. Epigastric pain beginning at 2:00 AM. TECHNIQUE: Single AP portable view of the chest. COMPARISON: 07/11/2020 FINDINGS: The lungs are clear and expanded. There is no demonstrated pleural abnormality. Normal size heart. Normal mediastinum and juanita. Normal visualized pulmonary arteries. Normal visualized aortic arch and descending thoracic aorta. Normal visualized thoracic spine. Normal visualized ribs, clavicles, and shoulders. There is no demonstrated abnormality of the visualized soft tissue structures of the upper abdomen. RAD/Chest 1 View (Portable) IMPRESSION: No acute cardiopulmonary disease or interval change. Electronically Signed: Edward Dominguez DO at 15:45 EST ,
[2022-07-25 15:14] LABS: Absolute Lymphocyte Count 3.28 X10^3/uL (0.83-4.51); Absolute Neutrophil Count 6.3 X10^3/uL (2.0-7.7); Basophil# 0.07 X10^3/uL; Basophil% 0.7 % (0-1); Eosinophil# 0.34 X10^3/uL; Eosinophils% 3.2 % (0-5); Erythrocyte Sedimentation Rate 9 mm/hr (0-20); Hematocrit 46.1 % (40-54); Hemoglobin 15.8 g/dL (13.0-16.5); Lymphocyte # 3.28 X10^3/ul (0.83-4.51); Lymphocyte % 30.5 % (19-41); Mean Corp Hgb Conc 34.3 g/dL (32-36); Mean Corpuscular Hgb 29.4 pg (27.0-32.0); Mean Corpuscular Volume 85.7 fL (80-94); Mean Platelet Vol. 8.8 fl (6.2-12.0); Monocyte% 6.5 % (0-10); NRBC Flagged by Analyzer 0 % (0-5); Neutrophil # 6.33 X10^3/uL (2.7-7.7); Neutrophil % 58.8 % (47-70); Platelet Count 286 K/mm3 (150-450); RBC Distribution Width CV 12.2 % (11.6-14.6); RBC Distribution Width SD 38.1 fl (35.1-43.9); Red Blood Count 5.38 M/mm3 (4.6-6.2); White Blood Count 10.8 K/mm3 (4.4-11.0)
[2022-07-25 15:25] LABS: ALB/GLOB Ratio 1.1 RATIO (0.9-2.4); AST(SGOT) 34 U/L (15-37); Alanine Aminotransfer ALT/SGPT 78 U/L (16-61); Albumin, Serum 4.1 g/dL (3.2-5.0); Alkaline Phosphatase 95 U/L (45-117); Anion Gap 9 (5-15); BUN 11 mg/dL (7-18); BUN/Creat Ratio 10.6 RATIO (10-20); Calcium,Total 9.1 mg/dL (8.5-10.1); Chloride 104 mmol/L (98-107); Creatinine, Serum 1.04 mg/dL (0.70-1.30); EST Glomerular Filtration Rate 92 mL/min (>60); Est Glom Filt Rate - Afr Amer 111 mL/min (>60); Estimated Creatinine Clearance 107.64 ml/min; Globulin 3.7 g/dL (2.2-4.2); Glucose 132 mg/dL (74-106); Lipase 65 U/L (73-393); Potassium 3.4 mmol/L (3.5-5.1); Protein, Total 7.8 g/dL (6.4-8.2); Sodium Level 138 mmol/L (136-145); Troponin-I HS < 3 pg/mL (3.0-78.0)
[2022-07-25] MEDS: Mag Hydrox/Al Hydrox/Simeth 30 ML UDC PO (15:40)
[2022-07-25 15:44] VITALS: BP 135/89; PULSE 90; RESP 26; O2SAT 96
== END 2022-07-25 15:46 | disposition home or self-care (01) ==
PROVIDERS: Emergency Provider Emergency Medicine; Visit Provider Emergency Medicine
DX: R07.9 Chest pain, unspecified (principal); R10.9 Unspecified abdominal pain; F17.290 Nicotine dependence, other tobacco product, uncomplicated
CPT/HCPCS: 71045; 80053; 83690; 84484; 85025; 85652; 87428; 93005; 99285

== ENCOUNTER 2023-11-03 18:31 | Emergency (ER) | payer MEDICAID, SELFPAY ==
[2023-11-03 18:31] VITALS: BP 151/99; PULSE 119; RESP 22; TEMP 36.6; O2SAT 100; BMI 32.4
--- NOTE | 2023-11-03 19:07 | ED.VIS.DENTA ---
HPI History of Present Illness Chief Complaint: Dental Informant: patient Onset/Context/Timing Onset: Days (2) Context: Gradual Onset Timing: Continuous Quality: Aching, throbbing Location: Right lower molars Worsened by: Cold liquids Relieved by: - (Applying pressure to the area) Narrative Narrative: Patient presents with right lower dental pain that has been getting worse over the past 2 days. Patient states it is gradually getting worse. Patient describes his pain as aching and throbbing. Patient states it is over his right lower second molar. Patient admits to some mild swelling of his right lower jaw. Patient admits to some sensitivity to cold liquids. Patient denies any fevers or chills. Patient admits to an episode of nausea and vomiting because of the pain. Patient states he is trying to get into see his dentist to have his tooth pulled. [facility] Medical History Anxiety Migraine headache Gastric reflux Smoker Shortness of breath on exertion Asthma Home Medications ?Medication ?Instructions ?Recorded ?Last Taken ?Type albuterol sulfate 90 mcg/actuation 2 puff inhalation Q4H PRN PRN 06/20/21 Unknown Rx aerosol inhaler (Ventolin HFA) Wheezing ##1 MAGIC MOUTH WASH (BMX) 180 mL 30 ml buccal Q6H PRN PRN Oral 01/29/22 Unknown Rx suspension ulcerations #180 mL lansoprazole 30 mg capsule,delayed 30 mg PO DAILY #14 caps 07/25/22 Unknown Rx release (Prevacid) naproxen 500 mg tablet 500 mg PO BID PRN #20 tabs 11/03/23 Unknown Rx penicillin V potassium 500 mg 500 mg PO 4X/DAY #40 tabs 11/03/23 Unknown Rx tablet Allergy/AdvReac Type Severity Reaction Status Date / Time No Known Allergies Allergy Verified 11/03/23 18:33 Surgical History no surgical history no surgical history Social History household members: other Smoking Status: Current every day smoker tobacco type: e-cigarettes alcohol intake: current alcohol intake frequency: other substance use type: does not use ROS ROS ED Constitutional Constitutional ED: Denies chills or fever(s) Eyes Eyes: Denies blurry vision or change in vision ENT ENT ED: Reports rhinorrhea; Denies sore throat Cardiovascular Cardiovascular: Denies chest pain or palpitations Respiratory/Chest Respiratory/Chest: Denies cough or dyspnea Gastrointestinal Gastrointestinal: Reports nausea and vomiting Genitourinary Genitourinary ED: Denies dysuria or hematuria Musculoskeletal Musculoskeletal: Reports neck pain; Denies back pain Integumentary Denies abscess or rash Neurologic Neurologic: Denies headache(s) or weakness Allergic/Immunologic Allergic/Immunologic ED: Denies mouth swelling or urticaria EXAM Physical Exam Const Vital Signs: 11/03/23 18:31 Temperature 98 F Temperature Source Temporal Pulse Rate 119 H Respiratory Rate 22 H Blood Pressure 151/99 H Blood Pressure Mean 116 Pulse Ox 100 Oxygen Delivery Method Room Air Positive well nourished and well developed General Appearance ED: well developed and NAD HEENT HEENT Narrative: There is a dental carry noted over the right lower second molar. There are some mild gingival edema around this tooth. There is no fluctuance. There is no evidence of any abscess. Oral mucosa is pink and moist. Oropharynx is clear. Airway is patent. There is no pharyngeal edema noted. There is no sublingual edema or evidence of Adilson's angina. Mouth ED: Yes oral and palatal mucosa normal Mouth: oral and palatal mucosa normal Teeth and Gingiva: caries and gingiva abnormal Positive for gingival edema Throat: posterior oropharynx normal Neck supple and no JVD General: Negative for anterior neck swelling, tenderness or submandibular swelling Lymph Lymphatic: no lymphadenopathy noted Resp normal respiratory effort and clear to auscultation bilaterally Cardio regular rate and regular rhythm GI non-tender and non-distended Palpation: soft Extremity normal to inspection Neuro oriented x3, CN's II-XII intact bilaterally, moves all extremities, no focal motor deficits and no sensory deficits noted Sensorium / Orientation: alert Motor Exam: strength 5/5 throughout MDM MDM MDM Narrative Medical decision making narrative: Nicotine cessation was discussed. Patient was advised that this is most likely infected dental carry. Patient was given a dose of Pen-Vee K here. Patient was given a prescription for Pen-Vee K. Patient was given a dose of [place] here. Patient was given a prescription for Naprosyn. Patient was instructed to follow-up with his dentist in 3 to 5 days. Patient was instructed to return if worse in any way. Patient understood and was agreeable with the plan. All questions were answered. Discharge Plan Triage Chief Complaint: Dental ED Provider: Dwain Zurita Dx/Rx/DC Orders Clinical Impression: Infected dental caries, Nicotine use Instructions: ED Dental Pain, ED Dental Cavity Prescriptions: New penicillin V potassium 500 mg tablet 500 mg PO 4X/DAY Qty: 40 0RF naproxen 500 mg tablet 500 mg PO BID PRN Qty: 20 0RF No Action albuterol sulfate [Ventolin HFA] 1 INHALER inhaler 2 puff inhalation Q4H PRN PRN (Reason: Wheezing) Qty: 1 0RF Rx Instructions: dispense with spacer MAGIC MOUTH WASH (BMX) 180 mL suspension 30 ml buccal Q6H PRN PRN (Reason: Oral ulcerations) Qty: 180 0RF Rx Instructions: diphenhydramine 12.5 mg/5 mL oral liquid 60 mL; aluminum-mag hydroxide-simethicone 400 mg-400 mg-40 mg/5 mL oral susp 60 mL; Lidocaine Viscous 2 % mucosal solution 60 mL; Per 180 mL lansoprazole [Prevacid] 30 mg capsule,delayed release(DR/EC) 30 mg PO DAILY Qty: 14 0RF Primary Care Provider: Care Physician,No Primary Referrals: Care Physician,No Primary [Primary Care Provider] - Dentist,Your [STAFF PHYSICIAN] - 3-5 Days Print Language: Syriac Disposition Disposition: Home, Self Care
[2023-11-03] MEDS: HYDROcodone Bitartrate/Apap 5/325 Tablet PO (19:23)
[2023-11-03] MEDS: Penicillin Vk 250 MG Tablet 500 MG PO (19:23)
== END 2023-11-03 19:36 | disposition home or self-care (01) ==
PROVIDERS: Emergency Provider Emergency Medicine; Visit Provider Emergency Medicine
DX: K02.9 Dental caries, unspecified (principal); J45.909 Unspecified asthma, uncomplicated; F17.290 Nicotine dependence, other tobacco product, uncomplicated; Z79.51 Long term (current) use of inhaled steroids
CPT/HCPCS: 99283

== ENCOUNTER 2024-12-26 18:14 | Emergency (ER) | payer MEDICAID, SELFPAY ==
[2024-12-26 18:15] VITALS: BP 140/93; PULSE 120; RESP 16; TEMP 36.6; O2SAT 97; BMI 31.3
--- OUTSIDE RECORDS SUMMARY | 2024-12-26 18:46 | XMS RPT_ITS | CCD ---
Author Organization [facility] Care Team Providers Care Supervisor Net Making Name Role Phone PHYSICIAN, NONE Primary Care Physician Unavailab abimael Blabernabe GENERAL EDUCATION PROFESSOR.GLADYS, Zachary MCKNIGHT Primary Care Provider Nisha RIBBON HANKING MACHINE OPERATOR, RIBBON HANKING MACHINE OPERATOR-C Zachary Primary Care Provider Nisha RIBBON HANKING MACHINE OPERATOR, RIBBON HANKING MACHINE OPERATOR-C Zachary Referring Provider [phone] Yajaira RIBBON HANKING MACHINE OPERATOR, RIBBON HANKING MACHINE OPERATOR-C Anushka Flowers Attending Provider Blaz GENERAL EDUCATION PROFESSOR.GLADYS, Zachary MCKNIGHT Primary Care Provider Blaz GENERAL EDUCATION PROFESSOR.GLAYDS, Zachary MCKNIGHT Primary Care Provider Blaz GENERAL EDUCATION PROFESSOR.GLADYS, Zachary MCKNIGHT Primary Care Provider RAMONA ZARATE DO Attending Unavailable PHYSICIAN, NONE Primary Care Unavailable Andrew Garrido MD Primary Care Provider Andrew Garrido MD Primary Care Provider Keren GENERAL EDUCATION PROFESSOR.Shana GRAHAM Unavailable ANDREW GARRIDO Attending Unavailable ANDREW GARRIDO Primary Care Unavailable ANDREW GARRIDO Referring Unavailable ANDREW GARRIDO Primary Care Unavailable ANDREW GARRIDO Primary Care Unavailable ROBERTA GONSALES Referring Unavailable ROBERTA GONSALES Attending Unavailable ANDREW GARRIDO Primary Care Unavailable Care Physician, No Primary Referring Unava ilable Rebecca Morales Attending Unavailable Care Physician, No Primary Primary Care Unava ilable Dwain Zurita Attending Unavailable Care Physician, No Primary Primary Care Unava ilable Medications Current Medications Medication Drug Class(es) Dates Sig (Normalized) Sig (Original) [id number] 200 actuat albuterol 0.09 mg/actuat metered dose inhaler (20 sources) beta2-Adrenergic Agonist Start: 06-20-2023 End: 04-02-2024 take 2 puff(s) by inhalation every four hours as needed for wheezing albuterol HFA (PROAIR HFA) 90 mcg/actuation inhaler Inhale 2 Puffs as instructed every 4 hours as needed for wheezing/shortnes s of breath. 18 g 3 04/03/2024 Active Start: 02-17-2023 End: 03-09-2023 take 2 puff(s) by inhalation every four hours as needed for wheezing albuterol HFA (PROAIR HFA) 90 mcg/actuation inhaler Inhale 2 Puffs as instructed every 4 hours as needed for wheezing/shortness of breath. 18 g 3 03/09/2023 Active Start: 03-15-2022 take 2 puff(s) by in halation every four hours as needed for wheezing albuterol HFA (PROAIR HFA) 90 mcg/actuation inhaler Indications: Mild intermittent asthma, uncomplicated Inhale 2 Puffs as instructed every 4 hours as needed for wheezing/shortness of breath. 18 g 5 03/15/2022 Active Start: 06-20-2021 take 1 puff(s) by in halation every four hours as needed Albuterol Sulfate (Ventolin Hfa) 1 INHALER inhaler Active 2 PUFF INHALATION EVERY 4 HOURS NEEDED June 20, 2021 8:52am dispense with spacer Start: 06-20-2021 take 1 puff(s) by in halation every four hours as needed Albuterol Sulfate (Ventolin Hfa) 1 INHALER inhaler Active 2 PUFF INHALATION EVERY 4 HOURS NEEDED June 20, 2021 12:00am dispense with spacer Start: 05-31-2021 take 2 puff(s) by in halation every four hours as needed for wheezing albuterol HFA (PROAIR HFA) 90 mcg/actuation inhaler Indications: Mild intermittent asthma, uncomplicated Inhale 2 Puffs as instructed every 4 hours as needed for wheezing/shortness of breath. 18 g 5 10/31/2021 Active Start: 11-08-2020 take 90 ug by inhala tion four times daily as needed Albuterol Active 90 MCG INHALATION 4 TIMES DAILY NEEDED November 08, 2020 2:51am Start: 04-10-2019 albuterol 0 Re fill(s) Start Date: 04/10/19 Status: Ordered Start: 06-02-2013 End: 06-13-2013 take 1 puff(s) by inhalation every six hours as needed Albuterol Sulfate (Proair Hfa) 1 PUFF inhaler Discontinued 1 - 2 PUFF INHALATION EVERY 6 HOURS NEEDED June 02, 2013 7:02pm June 13, 2013 4:45pm Comment on above: Inhale 2 Puffs as in structed every 4 hours as needed for wheezing/shortness of breath. albuterol MDI (90 mcg/inh) CFC free inhalation aerosol (3 sources) Start: 023 take 2 puff(s) by inhalation every four hours albuterol MDI (90 mcg/inh) CFC free inhalation aerosol 2 puff(s), Inhalation, q4h, # 1 EA, 0 Refill(s) Start Date: 12/15/22 Status: Ordered Start: 08-12-2019 take 2 puff(s) by in halation every six hours as needed for wheezing albuterol MDI (90 mcg/inh) CFC free inhalation aerosol 2 puff(s), Inhalation, q6h, PRN as needed for wheezing, # 8.5 gram(s), 0 Refill(s), Asthma attack Start Date: 08/12/19 Status: Ordered benzonatate 100 mg oral capsule (1 source) Non-narcotic Antitussive Start: 12-15-2022 End: 12-22-2022 Tessalon Perles 100 mg oral capsule Dose : 100 mg = 1 cap(s), Oral, TID, PRN as needed for cough, X 7 day(s), # 21 cap(s), 0 Refill(s), 12/22/22 10:22:00 PM EDT Start Date: 12/15/22 Stop Date: 12/22/22 Status: Ordered 60 actuat budesonide 0.16 mg/actuat / formoterol fumarate 0.0045 mg/actuat metered dose inhaler (17 sources) Corticosteroid, beta2-Adrenergic Agonist Start: 12-23-2024 take 2 puff(s) by inhalation twice daily SYMBICORT 160-4.5 mcg/actuation inhaler Inhale 2 puffs as instructed two times a day. 1 each 5 12/23/2024 Active Start: 05-07-2023 End: 08-27-2024 take 2 puff(s) by inhalation twice daily SYMBICORT 160-4.5 mcg/actuation inhaler Inhale 2 puffs as instructed two times a day. 1 each 5 08/27/2024 08/27/2024 Discontinued (Course of therapy completed) Start: 03-09-2023 take 2 puff(s) by in halation twice daily SYMBICORT 160-4.5 mcg/actuation inhaler Inhale 2 Puffs as instructed two times a day. 1 Each 5 03/09/2023 Active Comment on above: Inhale 2 Puffs as in structed two times a day. diazePAM 2 mg oral tablet (1 source) Benzodiazepine Start: take 1 tablet by mouth three times daily Diazepam (Valium) 2 mg tablet Active 2 MG PO THREE TIMES A DAY 10 September 19, 2021 10:04pm 30 actuat fluticasone furoate 0.2 mg/actuat / vilanterol 0.025 mg/actuat dry powder inhaler (3 sources) Corticosteroid, beta2-Adrenergic Agonist Start: End: fluticasone-vilanterol (BREO ELLIPTA) 200-25 mcg/dose inhaler Indications: Moderate persistent asthma without complication (HCC) Inhale 1 Inhalation as instructed once daily. 60 each 08/27/2024 12/23/2024 Discontinued (Course of therapy completed) lansoprazole 30 mg delayed release oral capsule (1 source) Proton Pump Inhibitor Start: take 1 capsule by mouth once daily Lansoprazole (Prevacid) 30 mg capsule,delayed release(DR/EC) Active 30 MG PO DAILY July 25, 2022 12:00am loratadine 10 mg oral tablet (4 sources) Start: take 1 tablet by mouth once daily as needed loratadine (CLARITIN) 10 mg tablet Take 1 tablet by mouth once daily as needed. FOR ALLERGY SYMPTOMS 30 tablet 11 08/27/2024 Active Magic Mouth Wash (Bmx) (2 sources) Start: 09-11-2 022 Magic Mouth Wash (Bmx) Active 30 ML BUCCAL EVERY 6 HOURS NEEDED 180 January 29, 2022 10:13am diphenhydramine 12.5 mg/5 mL oral liquid 60 mL; aluminum-mag hydroxide-simethicone 400 mg-400 mg-40 mg/5 mL oral susp 60 mL; Lidocaine Viscous 2 % mucosal solution 60 mL; Per 180 mL Start: 01-29-2022 Magic Mouth Wa sh (Bmx) Active 30 ML BUCCAL EVERY 6 HOURS NEEDED 180 January 29, 2022 11:13am diphenhydramine 12.5 mg/5 mL oral liquid 60 mL; aluminum-mag hydroxide-simethicone 400 mg-400 mg-40 mg/5 mL oral susp 60 mL; Lidocaine Viscous 2 % mucosal solution 60 mL; Per 180 mL predniSONE 20 mg oral tablet (2 sources) Start: 12-15-2022 End: 12-19-2022 predniSONE 20 mg oral tablet Dose : 60 mg = 3 tab(s), Oral, qDay, X 4 day(s), # 12 tab(s), 0 Refill(s), 12/19/22 10:22:00 PM EDT Start Date: 12/15/22 Stop Date: 12/19/22 Status: Ordered Start: 11-19-2021 take 50 mg by mouth once daily Prednisone Active 50 MG PO DAILY November 19, 2021 12:00am Completed/Discontinued Medications Medication Drug Class(es) Dates Sig (Normalized) Sig (Original) Albuterol Sulfate (Proair Hfa) 1 PUFF inhaler (4 sources) Start: 06-02-2013 End: 06-13-2013 take 1 puff(s) by inhalation every six hours as needed Albuterol Sulfate (Proair Hfa) 1 PUFF inhaler Discontinued 1 - 2 PUFF INHALATION EVERY 6 HOURS NEEDED June 02, 2013 12:00am June 13, 2013 3:45pm Start: 06-02-2013 End: 06-13-2013 take 1 puff(s) by inhalation every six hours as needed Albuterol Sulfate (Proair Hfa) 1 PUFF inhaler Discontinued 1 - 2 PUFF INHALATION EVERY 6 HOURS NEEDED June 02, 2013 1:00am June 13, 2013 4:45pm montelukast 10 mg oral tablet (7 sources) Leukotriene Receptor Antagonist Start: 2023 End: 08-14-2024 take 1 tablet by mouth once daily at bedtime montelukast (SINGULAIR) 10 mg tablet Take 1 tablet by mouth daily at bedtime. 30 tablet 5 2023 08/14/2024 Discontinued Comment on above: Take 1 tablet by oneyda th daily at bedtime. naproxen 500 mg oral tablet (6 sources) Nonsteroidal Anti-inflammatory Drug Start: 03-04-2013 End: 2013 take 500 mg by mouth twice daily as needed Naproxen Discontinued 500 MG PO TWICE DAILY NEEDED March 03, 2013 11:00pm 2013 8:09pm ondansetron 4 mg disintegrating oral tablet (6 sources) Serotonin-3 Receptor Antagonist Start: 06-02-2013 End: 06-13-2013 take 4 mg by mouth every eight hours as needed Ondansetron Discontinued 4 MG PO EVERY 8 HOURS NEEDED June 02, 2013 12:00am June 13, 2013 3:45pm sertraline 100 mg oral tablet (8 sources) Serotonin Reuptake Inhibitor Start: 05-12-2021 End: 12-29-2022 take 1 tablet by mouth once daily, then take 0.5 tablet by mouth once daily, then take 1 tablet by mouth once daily sertraline (ZOLOFT) 100 mg tablet Indications: TRISTEN (generalized anxiety disorder) Take 1 tablet by mouth once daily. Take 1/2 tablet by mouth daily for 1 week, then take 1 tablet daily. 30 tablet 0 05/12/2021 12/29/2022 Discontinued Start: 05-01-2021 Sertraline Act john 25 MG DAILY May 02, 2021 12:19am Comment on above: Take 1 tablet by oneyda th once daily. Take 1/2 tablet by mouth daily for 1 week, then take 1 tablet daily. triamcinolone acetonide 0.001 mg/mg oral paste (17 sources) Corticosteroid Start: 02-18-20 End: 08-15-19 triamcinolone (KENALOG IN ORABASE) 0.1 % paste Apply as needed bid 5 g 4 02/01/2023 08/14/2024 Discontinued Comment on above: Apply as needed bid zolpidem tartrate 5 mg oral tablet (6 sources) gamma-Aminobutyric Acid-ergic Agonist Start: 04-29-20 13 End: 06-02-19 14 take 5 mg by mouth at bedtime as needed Zolpidem Discontinued 5 MG PO AT BEDTIME NEEDED April 29, 2013 12:00am June 02, 2013 6:02pm Problems Active Problems Problem Classification Problem Date Documented Da te Episodic/Chronic Abdominal pain (8 sources) Abdominal pain; Translations: [Unspecified abdominal pain] Episodic Acute and chronic tonsillitis (6 sources) Tonsillitis; Translations: [Acute tonsillitis, unspecified] 02-23-2021 Episodic Allergic reactions (1 source) Allergic disposition; Translations: [Allergy status to unspecified drugs, medicaments and biological substances status] 08-27-2024 Episodic Anxiety disorders (20 sources) Generalized anxiety disorder; Translations: [Generalized anxiety disorder] Onset: 1 04-05-2021 Chronic Asthma (20 sources) Mild intermittent asthma; Translations: [Mild intermittent asthma, uncomplicated] Onset: 7 04-16-2017 Chronic Cardiac dysrhythmias (7 sources) Sinus tachycardia; Translations: [Tachycardia, unspecified] 02-23-2021 Episodic Conditions associated with dizziness or vertigo (7 sources) Benign paroxysmal positional vertigo; Translations: [Benign paroxysmal vertigo, right ear] Episodic Gastrointestinal hemorrhage (14 sources) Rectal hemorrhage; Translations: [Hemorrhage of anus and rectum] Episodic Immunizations and screening for infectious disease (4 sources) Patient encounter status; Translations: [Encounter for screening for human immunodeficiency virus [HIV]] Onset: 5 12-29-2022 Episodic Malaise and fatigue (6 sources) Fatigue; Translations: [Other fatigue] 03-09-2021 Episodic Mood disorders (20 sources) Mild major depression, single episode; Translations: [Major depressive disorder, single episode, mild] Onset: 1 05-12-2021 Chronic Nonspecific chest pain (1 source) Chest pain; Translations: [Chest pain, unspecified] 07-25-2022 Episodic Other circulatory disease (6 sources) Orthostatic hypotension; Translations: [Orthostatic hypotension] 12-07-2018 Episodic Other gastrointestinal disorders (4 sources) Diarrhea; Translations: [Diarrhea, unspecified] 11-04-2021 Episodic Other gastrointestinal disorders (3 sources) Diarrhea, unspecified; Translations: [Diarrhea] Episodic Other nutritional; endocrine; and metabolic disorders (1 source) Weight increased; Translations: [Abnormal weight gain] 08-14-2024 Episodic Other nutritional; endocrine; and metabolic disorders (1 source) Abnormal weight gain; Translations: [Weight gain] Onset: Episodic Other skin disorders (1 source) Multiple skin tags; Translations: [Other hypertrophic disorders of the skin] 08-14-2024 Episodic Residual codes; unclassified (1 source) Procedure not done; Translations: [Procedure and treatment not carried out, unspecified reason] Episodic Spondylosis; intervertebral disc disorders; other back problems (6 sources) Backache; Translations: [Dorsalgia, unspecified] 05-10-2021 Episodic Syncope (6 sources) Vasovagal syncope; Translations: [Syncope and collapse] 12-07-2018 Episodic Unclassified (6 sources) No history of clinical finding in subject; Translations: [No significant past medical history] 12-06-2018 Past or Other Problems Problem Classification Problem Date Documented Da te Episodic/Chronic Diseases of mouth; excluding dental (20 sources) Aphthous ulcer of mouth; Translations: [Recurrent oral aphthae] Onset: 12-29-2022 Resolved: 08-14-2024 Episodic Disorders of teeth and jaw (3 sources) Dental caries; Translations: [Dental caries, unspecified] Onset: 11-09-2023 02-06-2022 Episodic Other gastrointestinal disorders (20 sources) Irritable bowel syndrome with diarrhea; Translations: [Irritable bowel syndrome with diarrhea] Onset: 12-29-2022 Resolved: 08-14-2024 12-29-2022 Chronic Results Test Name Value Interpretation Reference Range Facility [facility] 08-27-2024 CNOV Office Visit (PULMWS ) MAX ROMERO ([id number]) 1995 Date Time Provider Department 4/9/25 3:30 PM ROBERTA GONSALES PULMWS During your visit today, we recorded the following information about you: Pulse Respiration Weight 108/minute 18/minute 99.8 kg Roberta Gonsales APRN.GLADYS 08/27/2024 5:24 PM Signed Pulmonary Medicine Patients name: Max Romero PCP: Andrew Garrido MD CC: follow-up Asthma HPI: Max Romero is a 29 year old male former smoker with PMH significant for anxiety and depression, IBS, and asthma. Patient has longstanding history of childhood asthma and has been off and on inhaled therapy since that time. He was a new patient to Dr Aguila 02/2023 which was when he was last in the office. At that time, he was having uncontrolled Asthma symptoms in the setting of persistent allergen exposure. Allergy testing revealed class 4 reaction to cats (has multiple cats in the home), class 3 to dust mites and class 2 to dogs. Nitric oxide at that time 160 ppb. Started on Symbicort 160 and continued Albuterol PRN. He presents today for follow-up. Following his initial visit in 2022, he reports significant improvement in Asthma symptoms with regular use of Symbicort. Was rarely using Albuterol. Gradually over the past few months, he notes Asthma symptoms have not been as well controlled. Wheezing has been noted multiple times a week requiring Albuterol which does help. Occasionally lightheaded. 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 He denies cough, nocturnal awakenings or chest tightness. Denies acute illness or respiratory infection which triggered worsening control. No hospitalizations or ED visits related to breathing symptoms. He does note that he frequently has a hard time remembering to take his second dose of Symbicort and it correlates with around the time Asthma symptoms have not been as well controlled. Review of repeat nitric oxide today now normal at 16 ppb. PAST MEDICAL HISTORY Diagnosis Date Aphthous stomatitis 12/29/2022 Current mild episode of major depressive disorder without prior episode 05/12/2021 TRISTEN (generalized anxiety disorder) 04/05/2021 Irritable bowel syndrome with diarrhea 12/29/2022 Mild intermittent asthma, uncomplicated 04/16/2017 Severe recurrent major depression without psychotic features (HCC) 12/29/2022 Allergies: No Known Allergies Medication List Accurate as of August 26, 2024 3:00 PM. If you have any questions, ask your nurse or doctor. CONTINUE taking these medications albuterol HFA 90 mcg/actuation inhaler Commonly known as: PROAIR HFA Inhale 2 Puffs as instructed every 4 hours as needed for wheezing/shortness of breath. SYMBICORT 160-4.5 mcg/actuation inhaler Generic drug: budesonide-formoterol Inhale 2 Puffs as instructed two times a day. DATA: I personally reviewed and analyzed all labs, radiographs and available pulmonary function testing FENO: PFT: 02/2023 Spirometry shows a reduced FEV1/FVC ratio; but individually normal FVC and FEV1 predicted values.This pattern indicates mild obstruction or a normal variant. There is a significant bronchodilator response. Labs: Abs Eosin (k/uL) Date Value 03/09/2023 0.19 IgE (kU/l) Date Value 03/09/2023 165.0 Review of Systems Constitutional: Negative for activity change, appetite change and unexpected weight change. HENT: Positive for sneezing. Negative for congestion, mouth sores, sinus pressure and sinus pain. Respiratory: Positive for shortness of breath and wheezing. Negative for cough and chest tightness. Cardiovascular: Negative for chest pain, palpitations and leg swelling. Allergic/Immunologic: Positive for environmental allergies. Neurological: Negative for weakness. Pulse 108 Resp 18 Wt 99.8 kg (220 lb) SpO2 98% BMI 32.14 kg/m? Physical Exam Vitals reviewed. Constitutional: General: He is not in acute distress. Appearance: Normal appearance. He is not ill-appearing. HENT: Head: Normocephalic. Nose: No rhinorrhea. Mouth/Throat: Mouth: Mucous membranes are moist. Pharynx: No oropharyngeal exudate. Cardiovascular: Rate and Rhythm: Normal rate and regular rhythm. Heart sounds: Normal heart sounds. Pulmonary: Effort: Pulmonary effort is normal. No respiratory distress. Breath sounds: No wheezing or rhonchi. Musculoskeletal: Right lower leg: No edema. Left lower leg: No edema. Skin: General: Skin is warm and dry. Capillary Refill: Capillary refill takes less than 2 seconds. Neurological: General: No focal deficit present. Mental Status: He is alert. ASSESSMENT/PLAN: 1. Moderate persistent asthma without complication (HCC) - ICD9: 493.90, ICD10: J45.40 (prima (more content not included)... Normal [facility] No Panel Informationon 08-27 Yari Olivares R RT 08/27/2024 3:27 PM RESPIRATORY THERAPY ORAL EXHALED NITRIC OXIDE SERVICE DATE: 08/27/2024 SERVICE TIME: 3:27 PM Oral Exhaled Nitric Oxide measurement: 16.0 (ppb) Normal: Adult <25 ppb, pediatric (<12 years) <20 ppb High Normal / Increased: Adult 25-50 ppb, pediatric (<12 years) 20-35 ppb Moderately raised exhaled Nitric Oxide may indicate underlying inflammation, but note that: Cold and influenza can raise exhaled Nitric Oxide and some patients have higher baseline exhaled Nitric Oxide levels than others. High: Adult >50 ppb, pediatric (<12 years) >35 ppb Indicative of ongoing eosinophilic inflammation. Symptomatic patient likely to respond to steroids. Possible causes (if already on steroids): Poor compliance, recent allergen exposure, steroid dose inadequate, and steroid resistance. Note that not all patients with high exhaled nitric oxide levels display symptoms. Oral Exhaled Nitric Oxide measurement (Previous Encounters) Test Date Oral Exhaled Nitric Oxide (ppb) 08/27/2024 16.0 03/09/2023 160.0 (A) NAME: Yari Olivares, COLLEGE SPECIALIST PATIENT NAME: Max Romero DATE: August 27, 2024 TIME: 3:27 PM [facility] Basic metabolic 2000 panelon 08-14-2024 Anion gap [Moles/Vol] 13 mmol/L Normal 8-15 [facility] Comment on above: Order Comment: Surinder handley Type: BLOOD SPECIMEN Ordering Facility: [facility] Address: [address] [place] [address] Performed By: #### 2 4321-2 #### [facility] CLIA [id number] [place] [id number] [place] Calcium [Mass/Vol] 10.2 mg/dL Normal 8.5-10.2 [facility] Comment on above: Order Comment: Surinder handley Type: BLOOD SPECIMEN Ordering Facility: [facility] Address: [address] [place] [address] Performed By: #### 2 4321-2 #### [facility] CLIA [id number] [place] [id number] [place] Chloride [Moles/Vol] 99 mmol/L Normal 98-107 [facility] Comment on above: Order Comment: Speci men Type: BLOOD SPECIMEN Ordering Facility: [facility] Address: [address] [place] [address] Performed By: #### 2 4321-2 #### [facility] CLIA [id number] [place] [id number] [place] CO2 [Moles/Vol] 25 mmol/L Normal 22-30 [facility] Comment on above: Order Comment: Speci men Type: BLOOD SPECIMEN Ordering Facility: [facility] Address: [address] [place] [address] Performed By: #### 2 4321-2 #### [facility] CLIA [id number] [place] [id number] [place] Creatinine [Mass/Vol] 1.01 mg/dL Normal 0.73-1.22 [facility] Comment on above: Order Comment: Speci men Type: BLOOD SPECIMEN Ordering Facility: [facility] Address: [address] [place] [address] Performed By: #### 2 4321-2 #### [facility] CLIA [id number] [place] [id number] [place] Creatinine and Glomerular filtration rate.predicted panel (S/P/Bld) 104 mL/min/1.73m??? Normal >=60 [facility] Comment on above: Order Comment: Speci men Type: BLOOD SPECIMEN Ordering Facility: [facility] Address: [address] [place] [address] Result Comment: Diamante mated Glomerular Filtration Rate (eGFR) is calculated using the 2020 CKD-EPI creatinine equation. This equation utilizes serum creatinine, sex, and age as parameters. The creatinine assay has traceable calibration to isotope dilution-mass spectrometry. Refer to KDIGO guidelines for clinical interpretation. In patients with unstable renal function, e.g. those with acute kidney injury, the eGFR may not accurately reflect actual GFR. Performed By: #### 2 4321-2 #### [facility] CLIA [id number] [place] [address] [place] Glucose [Mass/Vol] 99 mg/dL Normal 74-99 [facility] Comment on above: Order Comment: Surinder handley Type: BLOOD SPECIMEN Ordering Facility: [facility] Address: [address] [place] [address] Result Comment: The [place] Diabetes Association (ADA) provides guidance for cutoff values for fasting glucose and random glucose. The ADA defines fasting as no caloric intake for at least 8 hours. Fasting plasma glucose results between 100 to 125 mg/dL indicate increased risk for diabetes (prediabetes). Fasting plasma glucose results greater than or equal to 126 mg/dL meet the criteria for diagnosis of diabetes. In the absence of unequivocal hyperglycemia, results should be confirmed by repeat testing. In a patient with classic symptoms of hyperglycemia or hyperglycemic crisis, random plasma glucose results greater than or equal to 200 mg/dL meet the criteria for diagnosis of diabetes. Reference: Standards of Medical Care in Diabetes 2016, [place] [employer] Association. Diabetes Care. 2016.39(Suppl 1). Performed By: #### 2 4321-2 #### [facility] CLIA [id number] [place] [address] [place] Potassium [Moles/Vol] 4.4 mmol/L Normal 3.7-5.1 [facility] Comment on above: Order Comment: Surinder handley Type: BLOOD SPECIMEN Ordering Facility: [facility] Address: [address] [place] [address] Performed By: #### 2 4321-2 #### [facility] [facility] CLIA [id number] [place] [id number] [place] Sodium [Moles/Vol] 137 mmol/L Normal 136-144 [facility] Comment on above: Order Comment: Surinder handley Type: BLOOD SPECIMEN Ordering Facility: [facility] Address: [address] [place] [address] Performed By: #### 2 4321-2 #### [facility] CLIA [id number] [place] [id number] [place] Urea nitrogen [Mass/Vol] 12 mg/dL Normal 9-24 [facility] Comment on above: Order Comment: Speci men Type: BLOOD SPECIMEN Ordering Facility: [facility] Address: [facility] [place] [address] Performed By: #### 2 4321-2 #### [facility] CLIA [id number] [place] [id number] [place] CNOVon 08-14-2024 CNOV Office Visit (INTMWS ) MAX ROMERO ([id number]) 1995 M Date Time Provider Department 08/14/24 4:00 PM ANDREW GARRIDO INTMWS During your visit today, we recorded the following information about you: Pulse Respiration Blood pressure Weight 100/minute 16/minute 124/78 100 kg Andrew Garrido MD 08/14/2024 5:04 PM Signed This note was created using Riffyn. Subjective Patient presents with: Physical Maxlynette Romero is a 29 year old male. 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 He has an appointment with pulmonary. ASTHMA CONTROL TEST Date: 08/14/2024 In the last 4 weeks, how much of the time did your asthma keep you from getting as much done at work or home that you wanted to do? Most of the time (2) In the last 4 weeks, how often have you had shortness of breath? More than once per day (1) In the last 4 weeks, how often did your asthma symptoms (wheezing, coughing, shortness of breath, chest tightness or pain) wake you up at night or earlier than usual? Not at all (5) In the last 4 weeks, how often have you used your rescue inhaler or nebulizer medication (such as Albuterol, Proventil, Ventolin, Maxair, Xoponex, or Primatene Mist)? A few times per week (3) In the last 4 weeks, how would you rate your asthma control? Poorly controlled (2) Total: less than 15 Other concern was diabetes, due to his family history. He has gained weight from dietary choices and lack of exercise. He also noted increasing skin tags in his groin area. He has some in the axilla but the groin skin tag was recent. He was sexually active with his female friend, but denied history of STI. His depression and anxiety were not treated. He denied suicidal planning. He did not follow thru on recommendations made when he was seen in 2022. Review of Systems Constitutional: Positive for unexpected weight change. Negative for appetite change and fever. HENT: Negative for congestion, mouth sores and sore throat. Respiratory: Positive for shortness of breath and wheezing. Negative for cough. Cardiovascular: Negative. Gastrointestinal: Negative for abdominal pain, constipation, nausea and vomiting. Genitourinary: Negative for difficulty urinating, genital sores and penile discharge. Neurological: Negative. Psychiatric/Behavioral: Positive for dysphoric mood. The patient is nervous/anxious. PAST MEDICAL HISTORY Diagnosis Date Aphthous stomatitis 12/29/2022 Current mild episode of major depressive disorder without prior episode (HCC) 05/12/2021 TRISTEN (generalized anxiety disorder) 04/05/2021 Irritable bowel syndrome with diarrhea 12/29/2022 Mild intermittent asthma, uncomplicated 04/16/2017 Severe recurrent major depression without psychotic features (HCC) 12/29/2022 PAST SURGICAL HISTORY Procedure Laterality Date NONE FAMILY HISTORY Problem Relation Age of Onset Asthma Father Social History Tobacco Use Smoking status: Former Smokeless tobacco: Never Tobacco comments: One pack every other day Vaping in past Vaping Use Vaping status: current everyday user Substance Use Topics Alcohol use: Yes Comment: occasionally Drug use: Never ALLERGIES No Known Allergies Current Outpatient Medications Medication Sig SYMBICORT 160-4.5 mcg/actuation inhaler Inhale 2 Puffs as instructed two times a day. albuterol HFA (PROAIR HFA) 90 mcg/actuation inhaler Inhale 2 Puffs as instructed every 4 hours as needed for wheezing/shortness of breath. No current facility-administered medications for this visit. Objective BP 124/78 (BP Site: Left Arm, BP Position: Sitting, BP Cuff Size: Large Adult) Pulse 100 Resp 16 Wt 100 kg (220 lb 7.4 oz) BMI 32.21 kg/m? Physical Exam Constitutional: Appearance: He is obese. He is not ill-appearing. HENT: Head: Normocephalic. Nose: No congestion or rhinorrhea. Mouth/Throat: Mouth: Mucous membranes are moist. Pharynx: Oropharynx is clear. Eyes: Conjunctiva/sclera: Conjunctivae normal. Cardiovascular: Rate and Rhythm: Normal rate and regular rhythm. Heart sounds: No murmur heard. No gallop. Pulmonary: Effort: No respiratory distress. Breath sounds: Normal breath sounds. No wheezing or rales. Abdominal: General: There is no distension. Palpations: Abdomen is soft. Tenderness: There is no abdominal tenderness. Hernia: There is no hernia in the left inguinal area or right inguinal area. Genitourinary: Penis: Uncircumcised. No lesions. Testes: Normal. Comments: Isolated skin tag left groin, benign. Musculoskeletal: Right lower leg: No edema. Left lower leg: No edema. Lymphadenopathy: Cervical: No cervical adenopathy. Lower Body: No right inguinal adenopathy. No left inguinal adenopathy. Neurological: Mental Status: He is alert. Psychiatric: Mood and Affect: Mood n (more content not included)... Normal [facility] HIV 1+2 Ab IA Qlon 5 HIV 1 and 2 Ab IA.rapid Nom (S/P/Bld) Normal [facility] Comment on above: Order Comment: Speci men Type: BLOOD SPECIMEN Ordering Facility: [facility] Address: [address] [place] [address] Result Comment: Test not indicated. Performed By: #### 3 1201-7 #### [facility] CLIA [id number] [address] [place], [place] [address] [address] [place] HIV 1+2 Ab+HIV1 p24 Ag IA Ql Non-Reactive Normal Nonreactive [facility] Comment on above: Order Comment: Speci men Type: BLOOD SPECIMEN Ordering Facility: [facility] Address: [address] [place] [address] Performed By: #### 3 1201-7 #### [facility] CLIA [id number] [address] [place] [address] [place] HIV immunoassay testing algorithm interpretation (S/P/Bld) [Interp] Normal [facility] Comment on above: Order Comment: Speci men Type: BLOOD SPECIMEN Ordering Facility: [facility] Address: [address] [place] [address] Result Comment: No e vidence of HIV-1 or HIV-2 infection. Should recent infection be suspected, repeat testing may be considered 2-3 weeks after this draw. [place] Rev. Code 3701.243(E): This information has been disclosed to you from confidential records protected from disclosure by state law. ???You shall make no further disclosure of this information without the specific, written, and informed release of the individual to whom it pertains or as otherwise permitted by state law. A general authorization for the release of medical or other information is not sufficient for the purpose of the release of HIV test results or diagnoses. Performed By: #### 3 1201-7 #### [facility] CLIA [id number] [address] [place] [address] [place] [facility] MAX ROMERO ([id number]) 1995 M Date Time Provider Department 03/11/24 SHANA BALDERAS INTMWS During your visit today, we recorded the following information about you: Shana Balderas, HORACE.PASSENGER TRA[employer]KER 03/11/2024 12:26 PM Signed Patient scheduled tomorrow for high BP and heart rate. This needs triaged and scheduled for a 40 min visit, not 20 minutes Shana Balderas APRN.Jace Hairston, DARIEL 03/11/2024 12:55 PM Signed Placed on Triage nurse schedule. Allergies As of Date: 03/11/2024 (No Known Allergies) Date Reviewed: 03/09/2023 Reviewed by: Tanisha Aguila MD - Fully Assessed Prescriptions as of 03/11/2024 - SYMBICORT 160-4.5 mcg/actuation inhaler Inhale 2 Puffs as instructed two times a day. - albuterol HFA (PROAIR HFA) 90 mcg/actuation inhaler Inhale 2 Puffs as instructed every 4 hours as needed for wheezing/shortness of breath. - montelukast (SINGULAIR) 10 mg tablet Take 1 tablet by mouth daily at bedtime. - triamcinolone (KENALOG IN ORABASE) 0.1 % paste Apply as needed bid Problem List As Of Date 03/11/2024 Noted Resolved Mild intermittent asthma, uncomplicated [J45.20]04/16/2017 TRISTEN (generalized anxiety disorder) [F41.1] 04/05/2021 Severe recurrent major depression without psych*12/29/2022 Irritable bowel syndrome with diarrhea [K58.0] 12/29/2022 Aphthous stomatitis [K12.0] 12/29/2022 Encounter Status:Closed by JACE HAYES on 03/11/24 [facility] Emergency Department Summary on 11-03-2023 Emergency Department Summary [facility] Medical Records Department [address] [place] [id number] Emergency Department Summary 11/03/23 MR#: [id number] Acct: [id number] Name: MAX ROMERO Rep #: [id number] : 1995 28 From: Dwain Zurita DO PCP: Care Physician,No Primary Status:DEP ER Location: ED HPI History of Present Illness Chief Complaint: Dental Informant: patient Onset/Context/Timing Onset: Days (2) Context: Gradual Onset Timing: Continuous Quality: Aching, throbbing Location: Right lower molars Worsened by: Cold liquids Relieved by: - (Applying pressure to the area) Narrative Narrative: Patient presents with right lower dental pain that has been getting worse over the past 2 days. Patient states it is gradually getting worse. Patient describes his pain as aching and throbbing. Patient states it is over his right lower second molar. Patient admits to some mild swelling of his right lower jaw. Patient admits to some sensitivity to cold liquids. Patient denies any fevers or chills. Patient admits to an episode of nausea and vomiting because of the pain. Patient states he is trying to get into see his dentist to have his tooth pulled. [facility] Medical History Anxiety Migraine headache Gastric reflux Smoker Shortness of breath on exertion Asthma Home Medications ???Medication ???Instructions ???Recorded ???Last Taken ???Type albuterol sulfate 90 mcg/actuation 2 puff inhalation Q4H PRN PRN 06/20/21 Unknown Rx aerosol inhaler (Ventolin HFA) Wheezing ##1 MAGIC MOUTH WASH (BMX) 180 mL 30 ml buccal Q6H PRN PRN Oral 01/29/22 Unknown Rx suspension ulcerations #180 mL lansoprazole 30 mg capsule,delayed 30 mg PO DAILY #14 caps 07/25/22 Unknown Rx release (Prevacid) naproxen 500 mg tablet 500 mg PO BID PRN #20 tabs 11/03/23 Unknown Rx penicillin V potassium 500 mg 500 mg PO 4X/DAY #40 tabs 11/03/23 Unknown Rx tablet Allergy/AdvReac Type Severity Reaction Status Date / Time No Known Allergies Allergy Verified 11/03/23 18:33 Surgical History no surgical history no surgical history Social History household members: other Smoking Status: Current every day smoker tobacco type: e-cigarettes alcohol intake: current alcohol intake frequency: other substance use type: does not use ROS ROS ED Constitutional Constitutional ED: Denies chills or fever(s) Eyes Eyes: Denies blurry vision or change in vision ENT ENT ED: Reports rhinorrhea; Denies sore throat Cardiovascular Cardiovascular: Denies chest pain or palpitations Respiratory/Chest Respiratory/Chest: Denies cough or dyspnea Gastrointestinal Gastrointestinal: Reports nausea and vomiting Genitourinary Genitourinary ED: Denies dysuria or hematuria Musculoskeletal Musculoskeletal: Reports neck pain; Denies back pain Integumentary Denies abscess or rash Neurologic Neurologic: Denies headache(s) or weakness Allergic/Immunologic Allergic/Immunologic ED: Denies mouth swelling or urticaria EXAM Physical Exam Const Vital Signs: 11/03/23 18:31 Temperature 98 F Temperature Source Temporal Pulse Rate 119 H Respiratory Rate 22 H Blood Pressure 151/99 H Blood Pressure Mean 116 Pulse Ox 100 Oxygen Delivery Method Room Air Positive well nourished and well developed General Appearance ED: well developed and NAD HEENT HEENT Narrative: There is a dental carry noted over the right lower second molar. There are some mild gingival edema around this tooth. There is no fluctuance. There is no evidence of any abscess. Oral mucosa is pink and moist. Oropharynx is clear. Airway is patent. There is no pharyngeal edema noted. There is no sublingual edema or evidence of Adilson's angina. Mouth ED: Yes oral and palatal mucosa normal Mouth: oral and palatal mucosa normal Teeth and Gingiva: caries and gingiva abnormal Positive for gingival edema Throat: posterior oropharynx normal Neck supple and no JVD General: Negative for anterior neck swelling, tenderness or submandibular swelling Lymph Lymphatic: no lymphadenopathy noted Resp normal respiratory effort and clear to auscultation bilaterally Cardio regular rate and regular rhythm GI non-tender and non-distended Palpation: soft Extremity normal to inspection Neuro oriented x3, CN's II-XII intact bilaterally, moves all extremities, no focal motor deficits and no sensory deficits noted Sensorium / Orientation: alert Motor Exam: strength 5/5 throughout MDM MDM MDM Narrative Medical decision making narrative: Nicotine cessation was discussed. Patient was advised that this is most likely infected dental carry. Patient was given a dose of Pen-Vee K he (more content not included)... Normal [facility] Eosinophils Auto (Bld) [#/Vo l]on 03-09-2023 Eosinophils (Bld) [#/Vol] 0.19 10*3/uL <0.46 k/uL [facility] No Panel Informationon 03-09 [facility] SPIROMETRY - BASELINE AND PO ST DILATORon 03-09-2023 [id number]% POST (L/S) 4.24 L/S [facility] [id number]% PRE (L/S) 1.89 L/S [facility] FEV1 PRE (L) 3.74 L [facility] FEV1/FVC POST (%) 73 % [facility] FEV1/FVC PRE (%) 62 % [facility] FEV1_POST (L) 4.70 L [facility] FVC POST (L) 6.40 L [facility] FVC PRE (L) 6.05 L [facility] PEF POST (L/S) 8.53 L/S [facility] PEF PRE (L/S) 6.64 L/S [facility] XR CHEST 2 VIEWSon 3 XR CHEST 2 VIEWS ORIGINAL EXAMINATION: TWO XRAY VIEWS OF THE CHEST 12/15/2022 9:21 pm COMPARISON: None. HISTORY: ORDERING SYSTEM PROVIDED HISTORY: Reason for Exam: productive cough FINDINGS: Cardiomediastinal silhouette is within normal limits.. No pleural effusion or pneumothorax. No focal consolidation. No acute osseous abnormality. IMPRESSION: No focal consolidation or edema. I have personally reviewed the images of this examination and agree with the resident's findings and interpretation. Interpreted by: Zachary Navarro Preliminary Report By: Abram Dawson Electronically signed By Zachary Navarro Dictated Date: 12/15/2022 9:42:02 PM Prelim Date: 12/15/2022 9:43:01 PM Sign Date: 12/15/2022 10:11:03 PM Ordering Provider: RAMONA ZARATE [facility] ([place]) Absolute lymphocyte countOrd ered By: Dr. Esparza on 07-25-2022 Lymphocytes Auto (Unsp spec) [#/Vol] 3.28 10*3/uL 0.83-4.51 [facility] Basophil percentageOrdered B y: Dr. Esparza on 07-25-2022 Basophils/100 WBC (Bld) 0.7 % 0-1 [facility] Bilirubin [Mass/Vol] 0.50 mg/dL 0.20-1.00 [facility] Comment on above: For patients on eltr ombopag therapy, use of Dimension [place] TBIL is not recommended. Chloride [Moles/Vol] 104 mmol/L 98-107 [facility] Eosinophils/100 WBC (Bld) 3.2 % 0-5 [facility] Glucose [Mass/Vol] 132 mg/dL 74-106 [facility] Comment on above: Fasting Glucose resu lt greater than or equal to 126 mg/dL suggests DIABETES MELLITUS per A.D.A. criteria. Neutrophils (Bld) [#/Vol] 6.3 10*3/uL 2.0-7.7 [facility] Neutrophils/100 WBC (Bld) 58.8 % 47-70 [facility] Potassium [Moles/Vol] 3.4 mmol/L 3.5-5.[address] [facility] Protein [Mass/Vol] 7.8 g/dL 6.4-8.2 [facility] Sodium [Moles/Vol] 138 mmol/L 136-145 [facility] WBC (Bld) [#/Vol] 10.8 10*3/uL 4.4-11.0 [facility] Blood erythrocytes count (nu mber/volume)Ordered By: Dr. Esparza on 07-25-2022 RBC (Bld) [#/Vol] 5.38 10*6/uL 4.6-6.2 [facility] Blood hemoglobin measurement (mass/volume)Ordered By: Dr. Esparza on 07-25-2022 Hemoglobin (Bld) [Mass/Vol] 15.8 g/dL 13.0-16.5 [facility] Blood lymphocytes/100 leukoc ytesOrdered By: Dr. Esparza on 07-25-2022 Lymphocytes/100 WBC (Bld) 30.5 % 19-41 [facility] Blood monocytes/100 leukocyt esOrdered By: Dr. Esparza on 07-25-2022 Monocytes/100 WBC (Bld) 6.5 % 0-10 [facility] Blood platelet mean volumeOr dered By: Dr. Esparza on 07-25-2022 Platelet mean volume (Bld) [Entitic vol] 8.8 fL 6.2-12.0 [facility] Determination of erythrocyte mean corpuscular volume (MCV)Ordered By: Dr. Esparza on 07-25-2022 MCV (RBC) [Entitic vol] 85.7 fL 80-94 [facility] Erythrocyte sedimentation ra teOrdered By: Dr. Esparza on 07-25-2022 ESR (Bld) [Velocity] 9 mm/h 0-20 [facility] Hematocrit Auto (Bld) [Volum e fraction]Ordered By: Dr. Esparza on 07-25-2022 Hematocrit (Bld) [Volume fraction] 46.1 % 40-54 [facility] Laboratory - Chemistry and C hemistry - challengeOrdered By: Dr. Esparza on 07-25-2022 ALP [Catalytic activity/Vol] 95 U/L 45-117 [facility] ALT [Catalytic activity/Vol] 78 U/L 16-61 [facility] CO2 [Moles/Vol] 25.0 mmol/L 21.0-32.0 [facility] Globulin (S) [Mass/Vol] 3.7 g/dL 2.2-4.2 [facility] Lipase [Catalytic activity/Vol] 65 U/L 73-393 [facility] Urea nitrogen/Creatinine [Mass ratio] 10.6 mg/mg 10-20 [facility] Laboratory - Hematology and Cell countsOrdered By: Dr. Esparza on 07-25-2022 Erythrocyte distribution width (RBC) [Entitic vol] 38.1 fL 35.1-43.9 [facility] Erythrocyte distribution width (RBC) [Ratio] 12.2 % 11.6-14.6 [facility] Immature granulocytes/100 WBC (Bld) 0.300 % 0.0-0.9 [facility] Comment on above: IG% - Immature Granu locytes (promyelocytes, myelocytes and metamyelocytes) > 1% indicates that a LEFT SHIFT is Present. MCH (RBC) [Entitic mass] 29.4 pg 27.0-32.0 [facility] Nucleated RBC/100 WBC (Bld) [Ratio] 0 % 0-5 [facility] MCHC Auto (RBC) [Mass/Vol]Or dered By: Dr. Esparza on 07-25-2022 MCHC (RBC) [Mass/Vol] 34.3 g/dL 32-[address] [facility] No Panel InformationOrdered By: Dr. Esparza on 07-25-2022 Estimated Creatinine Clearance Calc 107.64 ml/min [facility] Estimated GFR (MDRD) Amer 111 mL/min >60 [facility] Comment on above: GFR Calc Estimated GFR (MDRD) Non-Af Amer 92 mL/min >60 [facility] Comment on above: Non- GFR Calc Troponin I High Sensitivity < 3 pg/mL 3.0-78.0 [facility] Comment on above: Please Note: [place] t Units and Gender Specific Reference Ranges. For more information see Policy Stat Procedure [place] High Sensitivity Troponin (TNIH) and attachments. Platelets bldOrdered By: Dr. Esparza on 07-25-2022 Platelets (Bld) [#/Vol] 286 10*3/uL 150-450 [facility] Serum or plasma albumin ronen urement (mass/volume)Ordered By: Dr. Esparaz on 07-25-2022 Albumin [Mass/Vol] 4.1 g/dL 3.2-5.0 [facility] Serum or plasma albumin/glob ulin mass ratioOrdered By: Dr. Esparza on 07-25-2022 Albumin/Globulin [Mass ratio] 1.1 {ratio} 0.9-2.4 [facility] Serum or plasma calcium ronen urement (mass/volume)Ordered By: Dr. Esparza on 07-25-2022 Calcium [Mass/Vol] 9.1 mg/dL 8.5-10.1 [facility] Serum or plasma creatinine m easurement (mass/volume)Ordered By: Dr. Esparza on 07-25-2022 Creatinine [Mass/Vol] 1.04 mg/dL 0.70-1.[address] [facility] Comment on above: The validity of the calculated GFR & GFRAA in patients over 70 years has not been determined. Clinical correlation is essential. Serum or plasma urea nitroge n measurement (mass/volume)Ordered By: Dr. Esparza on 07-25-2022 Urea nitrogen [Mass/Vol] 11 mg/dL 7-18 [facility] Thin prep Papanicolaou smear with manual screeningOrdered By: Dr. Esparza on 07-25-2022 Thin prep Papanicolaou smear with manual screening 34 U/L 15-37 [facility] Thin prep Papanicolaou smear with manual screening 9 5-15 [facility] Giardia lamblia ag stool EIA on 11-05-2021 G. lamblia Ag IA Ql (Stl) Negative Negative [facility] Work Phone: Comment on above: Performed at: [address] [id number] Director: Sb Marquez PhD, Phone: [phone] No Panel Informationon 11-05 Stool Calprotectin <16 ug/g 0-120 [facility] Work Phone: Comment on above: Concentration Interp retation Follow-Up<16 - 50 ug/g Normal None>50 -120 ug/g Borderline Re-evaluate in 4-6 weeks >120 ug/g Abnormal Repeat as clinically indicatedPerformed at: [facility] [address] [id number] Director: Ethel Hercules MD, Phone: [phone] Absolute lymphocyte counton 11-04-2021 Lymphocytes Auto (Unsp spec) [#/Vol] 2.78 10*3/uL 0.83-4.51 [facility] Work Phone: Basophil percentageon 2021 Basophil percentage < 0.2 AI 0.0-0.9 [facility] Work Phone: Basophils/100 WBC (Bld) 0.6 % 0-1 [facility] Work Phone: Bilirubin [Mass/Vol] 0.50 mg/dL 0.20-1.00 [facility] Work Phone: Comment on above: For patients on eltr ombopag therapy, use of Dimension [place] TBIL is not recommended. Chloride [Moles/Vol] 103 mmol/L 98-107 [facility] Work Phone: Eosinophils/100 WBC (Bld) 2.6 % 0-5 [facility] Work Phone: Glucose [Mass/Vol] 89 mg/dL 74-106 [facility] Work Phone: Neutrophils (Bld) [#/Vol] 5.8 10*3/uL 2.0-7.7 [facility] Work Phone: Neutrophils/100 WBC (Bld) 61.8 % 47-70 [facility] Work Phone: Potassium [Moles/Vol] 4.0 mmol/L 3.5-5.1 [facility] Work Phone: Protein [Mass/Vol] 8.3 g/dL 6.4-8.2 [facility] Work Phone: Sodium [Moles/Vol] 138 mmol/L 136-145 [facility] Work Phone: WBC (Bld) [#/Vol] 9.4 10*3/uL 4.4-11.0 [facility] Work Phone: Blood erythrocytes count (nu mber/volume)on 11-04-2021 RBC (Bld) [#/Vol] 5.71 10*6/uL 4.6-6.2 [facility] Work [facility]: Blood hemoglobin measurement (mass/volume)on 11-04-2021 Hemoglobin (Bld) [Mass/Vol] 17.1 g/dL 13.0-16.5 [facility] Work Phone: Blood lymphocytes/100 leukoc yteson 11-04-2021 Lymphocytes/100 WBC (Bld) 29.5 % 19-41 [facility] Work Phone: Blood monocytes/100 leukocyt eson 11-04-2021 Monocytes/100 WBC (Bld) 5.2 % 0-10 [facility] Work Phone: Blood platelet mean volumeon 11-04-2021 Platelet mean volume (Bld) [Entitic vol] 9.1 fL 6.2-12.0 [facility] Work Phone: Determination of erythrocyte mean corpuscular volume (MCV)on 11-04-2021 MCV (RBC) [Entitic vol] 86.3 fL 80-94 [facility] Work Phone: Erythrocyte sedimentation ra ramesh 11-04-2021 ESR (Bld) [Velocity] 4 mm/h 0-20 [facility] Work Phone: Hematocrit Auto (Bld) [Volum e fraction]on 11-04-2021 Hematocrit (Bld) [Volume fraction] 49.3 % 40-54 [facility] Work Phone: [phone] Laboratory - Chemistry and C hemistry - challengeon 11-04-2021 ALP [Catalytic activity/Vol] 87 U/L 45-117 [facility] Work Phone: [phone] ALT [Catalytic activity/Vol] 50 U/L 16-61 [facility] Work Phone: [phone] CO2 [Moles/Vol] 31.0 mmol/L 21.0-32.0 [facility] Work Phone: [phone] Globulin (S) [Mass/Vol] 3.6 g/dL 2.2-4.2 [facility] Work Phone: [phone] Urea nitrogen/Creatinine [Mass ratio] 11.8 mg/mg 10-20 [facility] Work Phone: [phone] Laboratory - Hematology and Cell countson 11-04-2021 Erythrocyte distribution width (RBC) [Entitic vol] 38.0 fL 35.1-43.9 [facility] Work Phone: [phone] Erythrocyte distribution width (RBC) [Ratio] 11.9 % 11.6-14.6 [facility] Work Phone: [phone] Immature granulocytes/100 WBC (Bld) 0.300 % 0.0-0.9 [facility] Work Phone: [phone] Comment on above: IG% - Immature Granu locytes (promyelocytes, myelocytes and metamyelocytes) > 1% indicates that a LEFT SHIFT is Present. MCH (RBC) [Entitic mass] 29.9 pg 27.0-32.0 [facility] Work Phone: [phone] Nucleated RBC/100 WBC (Bld) [Ratio] 0 % 0-5 [facility] Work Phone: [phone] MCHC Auto (RBC) [Mass/Vol]on 11-04-2021 MCHC (RBC) [Mass/Vol] 34.7 g/dL 32-[address] [facility] Work Phone: No Panel Informationon 11-04 Centromere B Antibody <0.2 AI 0.0-0.[address] [facility] Work Phone: Endomysial IgA Antibody Negative Negative [facility] Work Phone: Estimated GFR (MDRD) Amer 126 mL/min >60 [facility] Work Phone: Comment on above: GFR Calc Estimated GFR (MDRD) Non-Af Amer 104 mL/min >60 [facility] Work Phone: Comment on above: Non- GFR Calc VOCATIONAL AIDE Antibody 0.2 AI 0.0-0.9 [facility] Work Phone: Platelets bldon 11-04-2021 Platelets (Bld) [#/Vol] 374 10*3/uL 150-450 [facility] Work Phone: Serum DNA double strand anti body assay (units/volume)on 11-04-2021 DNA double strand Ab Qn (S) [IU]/mL 0-9 [facility] Work Phone: Comment on above: Negative <5 Equivoca l 5 - 9 Positive >9 Serum IgA measurement (units /volume)on 11-04-2021 IgA Qn (S) 364 mg/dL 90-386 [facility] Work Phone: Comment on above: Performed at: [address] [id number] Director: Sb Marquez PhD, Phone: [phone] Serum Yany-1 antibody assay (u nits/volume)on 11-04-2021 Yany-1 extractable nuclear Ab Qn (S) <0.2 AI 0.0-0.9 [facility] Work Phone: Serum Scl-70 extractable nuc lear antibody assay (units/volume)on 11-04-2021 SCL-70 extractable nuclear Ab Qn (S) <0.2 AI 0.0-0.9 [facility] Work Phone: Serum Dawson extractable nucl ear antibody detectionon 11-04-2021 Dawson extractable nuclear Ab Ql (S) <0.2 AI 0.0-0.9 [facility] Work Phone: Serum or plasma C reactive p rotein measurement (mass/volume)on 11-04-2021 CRP [Mass/Vol] mg/L 0.0-3.0 [facility] Work Phone: Comment on above: C-Reactive Protein ( CRP) provides useful information for thediagnosis, therapy and monitoring of inflammatory processesand associated diseases. For the evaluation of Relative Riskfor Cardiovascular Disease, a High Sensitivity CRP (HSCRP)should be ordered. Serum or plasma albumin ronen urement (mass/volume)on 11-04-2021 Albumin [Mass/Vol] 4.7 g/dL 3.2-5.0 [facility] Work Phone: Serum or plasma albumin/glob ulin mass ratioon 11-04-2021 Albumin/Globulin [Mass ratio] 1.3 {ratio} 0.9-2.4 [facility] Work Phone: Serum or plasma calcium ronen urement (mass/volume)on 11-04-2021 Calcium [Mass/Vol] 9.6 mg/dL 8.5-10.1 [facility] Work Phone: Serum or plasma creatinine m easurement (mass/volume)on 11-04-2021 Creatinine [Mass/Vol] 0.93 mg/dL 0.70-1.[address] [facility] Work Phone: Comment on above: The validity of the calculated GFR & GFRAA in patients over 70 years has not been determined. Clinical correlation is essential. Serum or plasma urea nitroge n measurement (mass/volume)on 11-04-2021 Urea nitrogen [Mass/Vol] 11 mg/dL 7-18 [facility] Work Phone: Serum tissue transglutaminas e IgA antibody assay (units/volume)on 11-04-2021 tTG IgA Qn (S) <2 U/mL 0-3 [facility] Work Phone: Comment on above: Negative 0 - 3 Weak Positive 4 - 10 Positive >10 Tissue Transglutaminase (tTG) has been identified as the endomysial antigen. Studies have demonstr- ated that endomysial IgA antibodies have over 99% specificity for gluten sensitive enteropathy. Thin prep Papanicolaou smear with manual screeningon 11-04-2021 Thin prep Papanicolaou smear with manual screening 19 U/L 15-37 [facility] Work Phone: Thin prep Papanicolaou smear with manual screening 4 5-15 [facility] Work Phone: Absolute lymphocyte counton 10-31-2021 Lymphocytes Auto (Unsp spec) [#/Vol] 3.38 10*3/uL 0.83-4.51 [facility] Work Phone: Basophil percentageon 2021 Basophils/100 WBC (Bld) 0.6 % 0-1 [facility] Work Phone: Eosinophils/100 WBC (Bld) 3.3 % 0-5 [facility] Work Phone: Neutrophils (Bld) [#/Vol] 8.7 10*3/uL 2.0-7.7 [facility] Work Phone: Neutrophils/100 WBC (Bld) 65.0 % 47-70 [facility] Work Phone: WBC (Bld) [#/Vol] 13.4 10*3/uL 4.4-11.0 [facility] Work Phone: Blood erythrocytes count (nu mber/volume)on 10-31-2021 RBC (Bld) [#/Vol] 5.51 10*6/uL 4.6-6.2 [facility] Work Phone: Blood hemoglobin measurement (mass/volume)on 10-31-2021 Hemoglobin (Bld) [Mass/Vol] 16.5 g/dL 13.0-16.5 [facility] Work Phone: Blood lymphocytes/100 leukoc yteson 10-31-2021 Lymphocytes/100 WBC (Bld) 25.3 % 19-41 [facility] Work Phone: Blood monocytes/100 leukocyt eson 10-31-2021 Monocytes/100 WBC (Bld) 5.5 % 0-10 [facility] Work Phone: [phone] Blood platelet mean volumeon 10-31-2021 Platelet mean volume (Bld) [Entitic vol] 8.7 fL 6.2-12.0 [facility] Work Phone: [phone] Determination of erythrocyte mean corpuscular volume (MCV)on 10-31-2021 MCV (RBC) [Entitic vol] 86.6 fL 80-94 [facility] Work Phone: [phone] Hematocrit Auto (Bld) [Volum e fraction]on 10-31-2021 Hematocrit (Bld) [Volume fraction] 47.7 % 40-54 [facility] Work Phone: [phone] Laboratory - Hematology and Cell countson 10-31-2021 Erythrocyte distribution width (RBC) [Entitic vol] 38.0 fL 35.1-43.9 [facility] Work Phone: [phone] Erythrocyte distribution width (RBC) [Ratio] 11.9 % 11.6-14.6 [facility] Work Phone: [phone] Immature granulocytes/100 WBC (Bld) 0.300 % 0.0-0.9 [facility] Work Phone: [phone] Comment on above: IG% - Immature Granu locytes (promyelocytes, myelocytes and metamyelocytes) > 1% indicates that a LEFT SHIFT is Present. MCH (RBC) [Entitic mass] 29.9 pg 27.0-32.0 [facility] Work Phone: [phone] Nucleated RBC/100 WBC (Bld) [Ratio] 0 % 0-5 [facility] Work Phone: [phone] MCHC Auto (RBC) [Mass/Vol]on 10-31-2021 MCHC (RBC) [Mass/Vol] 34.6 g/dL 32-36 [facility] Work Phone: [phone] Platelets bldon 10-31-2021 Platelets (Bld) [#/Vol] 312 10*3/uL 150-450 [facility] Work Phone: [phone] Absolute lymphocyte counton 10-11-2021 Lymphocytes Auto (Unsp spec) [#/Vol] 2.17 10*3/uL 0.83-4.51 [facility] Work Phone: Basophil percentageon 2021 Basophil percentage 0-5 SEEN /hpf 0-5 [facility] Work Phone: Basophils/100 WBC (Bld) 0.6 % 0-1 [facility] Work Phone: Chloride [Moles/Vol] 104 mmol/L 98-107 [facility] Work Phone: Eosinophils/100 WBC (Bld) 2.2 % 0-5 [facility] Work Phone: Glucose [Mass/Vol] 98 mg/dL 74-106 [facility] Work Phone: Neutrophils (Bld) [#/Vol] 5.7 10*3/uL 2.0-7.7 [facility] Work Phone: Neutrophils/100 WBC (Bld) 65.3 % 47-70 [facility] Work Phone: Potassium [Moles/Vol] 4.1 mmol/L 3.5-5.1 [facility] Work Phone: Sodium [Moles/Vol] 138 mmol/L 136-145 [facility] Work Phone: WBC (Bld) [#/Vol] 8.7 10*3/uL 4.4-11.0 [facility] Work Phone: Bilirubin Test strip Ql (U)o n 10-11-2021 Bilirubin Ql (U) Negative Negative [facility] Work Phone: Blood erythrocytes count (nu mber/volume)on 10-11-2021 RBC (Bld) [#/Vol] 5.67 10*6/uL 4.6-6.2 [facility] Work Phone: Blood hemoglobin measurement (mass/volume)on 10-11-2021 Hemoglobin (Bld) [Mass/Vol] 16.8 g/dL 13.0-16.5 [facility] Work Phone: Blood lymphocytes/100 leukoc yteson 10-11-2021 Lymphocytes/100 WBC (Bld) 25.1 % 19-41 [facility] Work Phone: Blood monocytes/100 leukocyt eson 10-11-2021 Monocytes/100 WBC (Bld) 6.6 % 0-10 [facility] Work Phone: Blood platelet mean volumeon 10-11-2021 Platelet mean volume (Bld) [Entitic vol] 9.0 fL 6.2-12.0 [facility] Work Phone: Determination of erythrocyte mean corpuscular volume (MCV)on 10-11-2021 MCV (RBC) [Entitic vol] 87.3 fL 80-94 [facility] Work Phone: Hematocrit Auto (Bld) [Volum e fraction]on 10-11-2021 Hematocrit (Bld) [Volume fraction] 49.5 % 40-54 [facility] Work Phone: Ketones Test strip Ql (U)on 10-11-2021 Ketones Ql (U) Negative Negative [facility] Work Phone: Laboratory - Chemistry and C hemistry - challengeon 10-11-2021 CO2 [Moles/Vol] 30.0 mmol/L 21.0-32.0 [facility] Work Phone: Urea nitrogen/Creatinine [Mass ratio] 11.5 mg/mg 10-20 [facility] Work Phone: Laboratory - Hematology and Cell countson 10-11-2021 Erythrocyte distribution width (RBC) [Entitic vol] 39.1 fL 35.1-43.9 [facility] Work Phone: [phone] Erythrocyte distribution width (RBC) [Ratio] 12.3 % 11.6-14.6 [facility] Work Phone: Immature granulocytes/100 WBC (Bld) 0.200 % 0.0-0.9 [facility] Work Phone: Comment on above: IG% - Immature Granu locytes (promyelocytes, myelocytes and metamyelocytes) > 1% indicates that a LEFT SHIFT is Present. MCH (RBC) [Entitic mass] 29.6 pg 27.0-32.0 [facility] Work Phone: Nucleated RBC/100 WBC (Bld) [Ratio] 0 % 0-5 [facility] Work Phone: [phone] MCHC Auto (RBC) [Mass/Vol]on 10-11-2021 MCHC (RBC) [Mass/Vol] 33.9 g/dL 32-[address] [facility] Work Phone: [phone] Mucus LM Ql (Urine sed)on Mucus Ql (Urine sed) 0 SEEN /hpf [facility] Work Phone: [phone] Nitrite Test strip Ql (U)on 10-11-2021 Nitrite Ql (U) Negative Negative [facility] Work Phone: No Panel Informationon 10-11 Estimated Creatinine Clearance Calc 122.73 ml/min [facility] Work Phone: [phone] Estimated GFR (MDRD) Amer 123 mL/min >60 [facility] Work Phone: [phone] Comment on above: GFR Calc Estimated GFR (MDRD) Non-Af Amer 102 mL/min >60 [facility] Work Phone: Comment on above: Non- GFR Calc Platelets bldon 10-11-2021 Platelets (Bld) [#/Vol] 316 10*3/uL 150-450 [facility] Work Phone: [phone] Protein Test strip Ql (U)on 10-11-2021 Protein Ql (U) Negative Negative [facility] Work Phone: [phone] Serum or plasma calcium ronen urement (mass/volume)on 10-11-2021 Calcium [Mass/Vol] 9.8 mg/dL 8.5-10.1 [facility] Work Phone: [phone] Serum or plasma creatinine m easurement (mass/volume)on 10-11-2021 Creatinine [Mass/Vol] 0.95 mg/dL 0.70-1.[address] [facility] Work Phone: Comment on above: The validity of the calculated GFR & GFRAA in patients over 70 years has not been determined. Clinical correlation is essential. Serum or plasma urea nitroge n measurement (mass/volume)on 10-11-2021 Urea nitrogen [Mass/Vol] 11 mg/dL 7-18 [facility] Work Phone: [phone] Squamous epithelial cells de tection in urine sediment by light microscopyon 10-11-2021 Epithelial cells.squamous LM Ql (Urine sed) 0-5 SEEN /hpf 0-5 [facility] Work Phone: Thin prep Papanicolaou smear with manual screeningon 10-11-2021 Thin prep Papanicolaou smear with manual screening 4 5-15 [facility] Work Phone: Urine blood detectionon 09-19 RBC Ql (U) 0 SEEN /hpf 0-5 [facility] Work Phone: [phone] RBC Ql (U) Negative Negative [facility] Work Phone: Urine clarityon 10-11-2021 Clarity (U) Sl. Cloudy Clear [facility] Work Phone: Urine color determinationon 10-11-2021 Color (U) Yellow Yellow [facility] Work Phone: Urine glucose detectionon Glucose Ql (U) Normal mg/dl Normal [facility] Work Phone: Urine leukocyte esterase det ection by dipstickon 10-11-2021 Leukocyte esterase Test strip Ql (U) 100 /ul Negative [facility] Work Phone: [phone] Urine pHon 10-11-2021 pH (U) 6.5 [pH] 5.0 - 8.0 [facility] Work Phone: Urine sediment bacteria coun t by microscopy (number/high power field)on 10-11-2021 Bacteria LM.HPF (Urine sed) [#/Area] RARE /hpf None Seen [facility] Work Phone: Urine specific gravity measu rementon 10-11-2021 Specific gravity (U) [Rel density] 1.010 1.002-1.030 [facility] Work Phone: Urobilinogen Auto test strip Ql (U)on 10-11-2021 Urobilinogen Ql (U) Normal mg/dl Normal [facility] Work Phone: LABORATORYOrdered By: Nicole Abreu on 02-28-2021 Adenovirus DNA HAMZAH+non-probe Ql (Nph) Not Detected *NA* (02/28/21 12:17 AM) Invalid Interpretation Code Not Detected AH Auto Viro/Sero SS ADMITTED TO INTENSIVE CARE UNIT FOR CONDITION OF INTEREST:FIND:PT:^PAT IENT:ORD: No (02/28/21 12:17 AM) Invalid Interpretation Code AH Auto Viro/Sero SS B. pertussis toxin promoter region HAMZAH+non-probe Ql (Nph) Not Detected *NA* (02/28/21 12:17 AM) Invalid Interpretation Code Not Detected AH Auto Viro/Sero SS Bordetella Parapertussis Not Detected *NA* (02/28/21 12:17 AM) Invalid Interpretation Code Not Detected AH Auto Viro/Sero SS C. pneumoniae DNA HAMZAH+non-probe Ql (Nph) Not Detected *NA* (02/28/21 12:17 AM) Invalid Interpretation Code Not Detected AH Auto Viro/Sero SS EMPLOYED IN A HEALTHCARE SETTING:FIND:PT:^GRACE ENT:ORD: No (02/28/21 12:17 AM) Invalid Interpretation Code AH Auto Viro/Sero SS FIRST TEST FOR CONDITION OF INTEREST:FIND:PT:^PAT IENT:ORD: Unknown (02/28/21 12:17 AM) Invalid Interpretation Code AH Auto Viro/Sero SS FLUAV RNA HAMZAH+non-probe Ql (Nph) Not Detected *NA* (02/28/21 12:17 AM) Invalid Interpretation Code Not Detected AH Auto Viro/Sero SS FLUBV RNA HAMZAH+non-probe Ql (Nph) Not Detected *NA* (02/28/21 12:17 AM) Invalid Interpretation Code Not Detected AH Auto Viro/Sero SS HAS SYMPTOMS RELATED TO CONDITION OF INTEREST:FIND:PT:^PAT IENT:ORD: Yes (02/28/21 12:17 AM) Invalid Interpretation Code Auto Viro/Sero SS hMPV RNA HAMZAH+non-probe Ql (Nph) Not Detected *NA* (02/28/21 12:17 AM) Invalid Interpretation Code Not Detected Auto Viro/Sero SS Illness or injury onset date and time [id number] Invalid Interpretation Code Auto Viro/Sero SS M. pneumoniae DNA HAMZAH+non-probe Ql (Nph) Not Detected *NA* (02/28/21 12:17 AM) Invalid Interpretation Code Not Detected Auto Viro/Sero SS Parainfluenza virus 1 RNA HAMZAH+non-probe Ql (Nph) Not Detected *NA* (02/28/21 12:17 AM) Invalid Interpretation Code Not Detected Auto Viro/Sero SS Parainfluenza virus 2 RNA HAMZAH+non-probe Ql (Nph) Not Detected *NA* (02/28/21 12:17 AM) Invalid Interpretation Code Not Detected Auto Viro/Sero SS Parainfluenza virus 3 RNA HAMZAH+non-probe Ql (Nph) Not Detected *NA* (02/28/21 12:17 AM) Invalid Interpretation Code Not Detected Auto Viro/Sero SS Parainfluenza virus 4 RNA HAMZAH+non-probe Ql (Nph) Not Detected *NA* (02/28/21 12:17 AM) Invalid Interpretation Code Not Detected AH Auto Viro/Sero SS Patient was hospitalized because of this condition No (02/28/21 12:17 AM) Invalid Interpretation Code Auto Viro/Sero SS status Not (02/28/21 12:17 AM) Invalid Interpretation Code Auto Viro/Sero SS RESIDES IN A CONGREGATE CARE SETTING:FIND:PT:^GRACE ENT:ORD: No (02/28/21 12:17 AM) Invalid Interpretation Code Auto Viro/Sero SS Rhinovirus+Enteroviru s RNA HAMZAH+non-probe Ql (Nph) Not Detected *NA* (02/28/21 12:17 AM) Invalid Interpretation Code Not Detected Auto Viro/Sero SS RSV RNA HAMZAH+non-probe Ql (Nph) Not Detected *NA* (02/28/21 12:17 AM) Invalid Interpretation Code Not Detected Auto Viro/Sero SS SARS-CoV-2 (COVID-19) RNA HAMZAH+probe Ql (Unsp spec) Detected 1 *ABN* (02/28/21 12:17 AM) Invalid Interpretation Code Not Detected AH Auto Viro/Sero SS Comment on above: Result Comment: This organism causes a reportable disease. Infection Control has been notified. Results have been reported to the [facility]. CR Chest PA/LATon 10-17-2018 CR Chest PA/LAT Patient Name: NEYMAR ROMERO Diagnostic Radiology Exam Date/Time 10/17/2018 14:00:20 EDT Exam CR Chest PA/LAT Ordering Physician MD DAWSON GREGORY M Accession Number [id number] CPT4 Codes 34598 () Reason For Exam cp Report EXAMINATION: PA and Lateral Chest. COMPARISON: 03/15/2018. REASON FOR STUDY: Chest pain. FINDINGS: The cardiac silhouette is normal in size. No mediastinal abnormality is observed. The lungs are well-aerated. No abnormal pleuroparenchymal opacity is observed. Osseous structures appear intact. CONCLUSION(S): No evidence of acute cardiopulmonary disease. Report Dictated on Final Dictating Physician: MD GARCIA B NELSON Signed Date and Time: 10/17/2018 2:18 pm Signed by: MD GARCIA B NELSON Transcribed Date and Time: 10/17/2018 2:19 Normal [facility] CR Spine Lumbosacral 2 or 3 Viewson 09-21-2018 CR Spine Lumbosacral 2 or 3 Views Patient Name: NEYMAR ROMERO Diagnostic Radiology Exam Date/Time 09/21/2018 20:59:45 EDT Exam CR Spine Lumbosacral 2 or 3 Views Ordering Physician ALEX JUARES CARA J Accession Number [id number] CPT4 Codes 29263 () Reason For Exam left low back pain, back gave out heavy lifting Report LUMBAR SPINE 3 VIEWS CLINICAL INDICATION: left low back pain, back gave out heavy lifting TECHNIQUE: 3 views of the lumbar spine. COMPARISON: None. FINDINGS: No loss of height or gross malalignment of vertebral bodies. No osseous destruction. Disc spaces maintained. Paraspinal soft tissues grossly unremarkable. IMPRESSION: 1. No acute osseous abnormality. Report Dictated on Final Dictating Physician: MD GOSS WENDELL Signed Date and Time: 09/21/2018 9:24 pm Signed by: MD GOSS WENDELL Transcribed Date and Time: 09/21/2018 9:25 Normal [facility] CT Abdomen/Pelvis w/ Contras ton 08-19-2018 CT Abdomen/Pelvis w/ Contrast Patient Name: LUCITA ROMERO CT Exam Date/Time 08/18/2018 23:07:[address] Abdomen/Pelvis w/ IV Contrast (IV Onl Ordering Physician GLADYS CURIEL DANIEL M Accession Number [id number] CPT4 Codes 92684 (CT Abdomen/Pelvis w/ IV Contrast (IV Onl), Q9967 (CT ISOVUE [id number]/[id number]) Reason For Exam RLQ abdominal pain Report CT ABDOMEN AND PELVIS WITH CONTRAST CLINICAL INDICATION: RLQ abdominal pain TECHNIQUE: CT scan of the abdomen and pelvis, with IV contrast. Multiplanar reformations. COMPARISON: None. FINDINGS: Abdomen: Visualized lung bases grossly unremarkable. No radiopaque gallstones. Liver without significant abnormality. Spleen without significant abnormality. Pancreas without significant abnormality. Kidneys without significant abnormality. Adrenal glands without significant abnormality. Pelvis: Bowel grossly unremarkable. Appendix within normal limits. No significant, free peritoneal fluid or apparent adenopathy. Abdominal aorta is nonaneurysmal. Axial skeleton grossly unremarkable. IMPRESSION: 1. No acute findings. Report Dictated on Workstation: [id number] Final Dictating Physician: MD GOSS WENDELL Signed Date and Time: 08/18/2018 11:20 pm Signed by: MD GOSS WENDELL Transcribed Date and Time: 08/18/2018 11:21 Normal [facility] Comp Metabolic Panelon 08-19 ALP enzyme act/vol 94 U/L Normal 38-126 [facility] Comment on above: Performed By: #### H EMDF, CMP3 ####[facility] [place] [address] ALT enzyme act/vol 75 U/L High 13-69 [facility] Comment on above: Performed By: #### H EMDF, CMP3 ####[facility] [place] [address] AST enzyme act/vol 32 U/L Normal 15-46 [facility] Comment on above: Performed By: #### H EMDF, CMP3 ####[facility] [place] [address] Bilirubin mass conc 0.7 mg/dL Normal 0.2-1.3 [facility] Comment on above: Performed By: #### H EMDF, CMP3 ####[facility] [place] [address] Calcium mass conc 9.7 mg/dL Normal 8.4-10.4 [facility] Comment on above: Performed By: #### H EMDF, CMP3 ####[place] [address] [place] [address] Glucose mass conc 98 mg/dL Normal 70-100 [facility] Comment on above: Performed By: #### H EMDF, CMP3 ####[place] [address] [place] [address] Protein mass conc 8.1 g/dL Normal 6.3-8.2 [facility] Comment on above: Performed By: #### H EMDF, CMP3 ####[place] [address] [place] [address] Urea nitrogen mass conc 9 mg/dL Normal 7-20 [facility] Comment on above: Performed By: #### H EMDF, CMP3 ####[facility] [place] [address] Anion gap molar conc 10 Normal [facility] Comment on above: Performed By: #### H EMDF, CMP3 ####[place] [address] [place] [address] CO2 molar conc 32 mmol/L High 22-30 [facility] Comment on above: Performed By: #### H EMDF, CMP3 ####[place] [address] [place] [address] Creatinine mass conc 0.89 mg/dL Normal 0.52-1.25 [facility] Comment on above: Performed By: #### H TESSY BERRY3 ####[place] [address] [place] [address] GFR/1.73 sq M predicted among blacks MDRD vol rate/area (S/P/Bld) mL/min/{1.73_m2} Normal >60 [facility] Comment on above: Performed By: #### H KRISTI CMP3 ####[place] [address] [place] [address] GFR/1.73 sq M predicted among non-blacks MDRD vol rate/area (S/P/Bld) mL/min/{1.73_m2} Normal >60 [facility] Comment on above: Result Comment: Sour ce- MDRD equation with creatinine calibration to IDMS(NKDEP) eGFR not recommended for drug dose adjustment Performed By: #### H TESSY BERRY3 ####[place] [address] [place] [address] Albumin mass conc 4.9 g/dL Normal 3.5-5.0 [facility] Comment on above: Performed By: #### H TESSY BERRY3 ####[facility] [employer] [place] [address] [place] [address] Potassium molar conc 3.9 mmol/L Normal 3.5-5.1 [facility] Comment on above: Performed By: #### H KRISTI CMP3 ####[facility] [employer] [place] [address] [place] [address] Sodium molar conc 143 mmol/L Normal 135-145 [facility] Comment on above: Performed By: #### H KRISTI CMP3 ####[facility] [employer] [place] [address] [place] [address] Chloride molar conc 101 mmol/L Normal 98-107 [facility] Comment on above: Performed By: #### H KRISTI CMP3 ####[place] [address] [place] [address] Hemogram w/ Autodiffon 08-19 Abs Baso Cnt 0.1 10*3/uL Normal 0.0-0.2 [facility] Comment on above: Performed By: #### H KRISTI CMP3 ####[place] [address] [place] [address] Abs Neutrophile Cnt 7.2 10*3/uL High 1.8-7.0 [facility] Comment on above: Performed By: #### H KRISTI CMP3 ####[place] [address] [place] [address] Basophils/100 WBC (Bld) 0.8 % Normal 0.0-2.0 [facility] Comment on above: Performed By: #### H KRISTI CMP3 ####[place] [address] [place] [place] [address] Eosinophils #/vol (Bld) 0.1 10*3/uL Normal 0.0-0.5 [facility] Comment on above: Performed By: #### H KRISTI CMP3 ####[place] [address] [place] [address] Eosinophils/100 WBC (Bld) 0.8 % Low 1.0-6.0 [facility] Comment on above: Performed By: #### H KRISTI CMP3 ####[place] [address] [place] [address] Erythrocyte distribution width Ratio (RBC) 13.1 % Normal 11.5-14.5 [facility] Comment on above: Performed By: #### H KRISTI CMP3 ####[place] [address] [place] [address] Granulocytes/100 WBC (Bld) 74.3 % Normal 40.0-80.0 [facility] Comment on above: Performed By: #### H KRISTI CMP3 ####[address] [place] [address] Hematocrit Volume Fraction (Bld) 45.1 % Normal 40.0-52.0 [facility] Comment on above: Performed By: #### H EMDFlash CMP3 ####[place] [address] [place] [address] Hemoglobin mass conc (Bld) 15.7 g/dL Normal 13.0-18.0 [facility] Comment on above: Performed By: #### H EMDF, CMP3 ####[facility] [employer] [address] [place] [address] Lymphocytes #/vol (Bld) 1.9 10*3/uL Normal 1.0-4.3 [facility] Comment on above: Performed By: #### H EMDF, CMP3 ####[facility] [place] [address] Lymphocytes/100 WBC (Bld) 19.3 % Low 20.0-40.0 [facility] Comment on above: Performed By: #### H EMDF CMP3 ####[facility] [employer] [address] [place] [address] MCH Entitic mass (RBC) 29.8 pg Normal 26.0-34.0 [facility] Comment on above: Performed By: #### H EMDF CMP3 ####[facility] [employer] [address] [place] [address] MCHC mass conc (RBC) 34.8 % Normal 32.0-36.0 [facility] Comment on above: Performed By: #### H EMDF CMP3 ####[facility] [employer] [address] [place] [address] MCV Entitic volume (RBC) 85.9 fL Normal 80.0-98.0 [facility] Comment on above: Performed By: #### H EMDF, CMP3 ####[facility] [employer] [address] [place] [address] Monocytes #/vol (Bld) 0.5 10*3/uL Normal 0.0-0.8 [facility] Comment on above: Performed By: #### H EMDF, CMP3 ####[facility] [employer] [address] [place] [address] Monocytes/100 WBC (Bld) 4.8 % Normal 2.0-10.0 [facility] Comment on above: Performed By: #### H EMDF, CMP3 ####[facility] [employer] [address] [place] [address] Platelet mean volume Entitic volume (Bld) 7.4 fL Normal 7.4-10.4 [facility] Comment on above: Performed By: #### H EMDF, CMP3 ####[facility] [place] [address] Platelets #/vol (Bld) 287 10*3/uL Normal 140-440 [facility] Comment on above: Performed By: #### H EMDF, CMP3 ####[facility] [place] [address] RBC #/vol (Bld) 5.25 10*6/uL Normal 4.40-5.90 [facility] Comment on above: Performed By: #### H EMDF, CMP3 ####[facility] [place] [address] WBC #/vol (Bld) 9.7 10*3/uL Normal 3.6-10.7 [facility] Comment on above: Performed By: #### H EMDF, CMP3 ####[facility] [place] [address] Basic Metabolic Panelon 03- Anion gap molar conc 12 Normal [facility] Comment on above: Performed By: #### H EMDF, BMP3 #### [facility] [address] [place] [address] Calcium mass conc 9.9 mg/dL Normal 8.4-10.4 [facility] Comment on above: Performed By: #### H EMDF, BMP3 #### [facility] [address] [place] [address] CO2 molar conc 29 mmol/L Normal 22-30 [facility] Comment on above: Performed By: #### H EMDF, BMP3 #### [facility] [address] [place] [address] Glucose mass conc 97 mg/dL Normal 70-100 [facility] Comment on above: Performed By: #### H EMDF, BMP3 #### [facility] [address] [place] [address] Urea nitrogen mass conc 15 mg/dL Normal 7-20 [facility] Comment on above: Performed By: #### H EMDF, BMP3 #### [facility] [address] [place] [address] Creatinine mass conc 1.02 mg/dL Normal 0.52-1.25 [facility] Comment on above: Performed By: #### H EMDF, BMP3 #### [facility] [address] [place] [address] GFR/1.73 sq M predicted among blacks MDRD vol rate/area (S/P/Bld) mL/min/{1.73_m2} Normal >60 [facility] Comment on above: Performed By: #### H EMDF, BMP3 #### [facility] [address] [place] [address] GFR/1.73 sq M predicted among non-blacks MDRD vol rate/area (S/P/Bld) mL/min/{1.73_m2} Normal >60 [facility] Comment on above: Result Comment: Sour ce- MDRD equation with creatinine calibration to IDMS(NKDEP) eGFR not recommended for drug dose adjustment Performed By: #### H EMDF, BMP3 #### [facility] [address] [place] [address] Group A Strep Screen by PCRo 08-15-2018 Group A Strep Screen by PCR Group A Strep Screen by PCR --> Status: F NOT Detected Expected Result: Not Detected Methodology - Real Time PCR (Cepheid) Expected Result: Not Detected Methodology - Real Time PCR (Cepheid) Normal [facility] Comment on above: Performed By: #### S TRP3, RPFAB #### [facility] [address] [place] [address] #### [facility] #### [address] [address] Rapid Flu A AND B, RNAon Rapid Influenza A Not Detected Normal Not Detected [facility] Comment on above: Performed By: #### S TRP3, RPFAB #### [facility] [address] [place] [address] #### [facility] #### [address] [address] Rapid Influenza B Not Detected Normal Not Detected [facility] Comment on above: Performed By: #### S TRP3, RPFAB #### [facility] [address] [place] [address] #### GASPC #### [facility] [address] [place] [address] Basic Metabolic Panelon -2 Potassium molar conc 4.5 mmol/L Normal 3.5-5.1 [facility] Comment on above: Performed By: #### H EMDF, BMP3 #### [facility] [address] [place] [address] Chloride molar conc 99 mmol/L Normal 98-107 [facility] Comment on above: Performed By: #### H EMDF, BMP3 #### [facility] [address] [place] [address] Sodium molar conc 140 mmol/L Normal 135-145 [facility] Comment on above: Performed By: #### H EMDF BMP3 #### [facility] [address] [place] [address] Hemogram w/ Autodiffon 08-14 Abs Baso Cnt 0.1 10*3/uL Normal 0.0-0.2 [facility] Comment on above: Performed By: #### H EMDF, BMP3 #### [facility] [address] [place] [address] Abs Neutrophile Cnt 6.8 10*3/uL Normal 1.8-7.0 [facility] Comment on above: Performed By: #### H EMDF, BMP3 #### [facility] [address] [place] [address] Basophils/100 WBC (Bld) 0.6 % Normal 0.0-2.0 [facility] Comment on above: Performed By: #### H EMDF, BMP3 #### [facility] [address] [place] [address] Eosinophils #/vol (Bld) 0.2 10*3/uL Normal 0.0-0.5 [facility] Comment on above: Performed By: #### H EMDF, BMP3 #### [facility] [address] [place] [address] Eosinophils/100 WBC (Bld) 2.1 % Normal 1.0-6.0 [facility] Comment on above: Performed By: #### H EMDF, BMP3 #### [facility] [address] [place] [address] Erythrocyte distribution width Ratio (RBC) 13.4 % Normal 11.5-14.5 [facility] Comment on above: Performed By: #### H EMDF, BMP3 #### [facility] [address] [place] [address] Granulocytes/100 WBC (Bld) 69.0 % Normal 40.0-80.0 [facility] Comment on above: Performed By: #### H EMDF, BMP3 #### [facility] [address] [place] [address] Hematocrit Volume Fraction (Bld) 44.9 % Normal 40.0-52.0 [facility] Comment on above: Performed By: #### H EMDF, BMP3 #### [facility] [address] [place] [address] Hemoglobin mass conc (Bld) 15.5 g/dL Normal 13.0-18.0 [facility] Comment on above: Performed By: #### H EMDF, BMP3 #### [facility] [address] [place] [address] Lymphocytes #/vol (Bld) 2.2 10*3/uL Normal 1.0-4.3 [facility] Comment on above: Performed By: #### H EMDF, BMP3 #### [facility] [address] [place] [address] Lymphocytes/100 WBC (Bld) 22.2 % Normal 20.0-40.0 [facility] Comment on above: Performed By: #### H EMDF, BMP3 #### [facility] [address] [place] [address] MCH Entitic mass (RBC) 29.8 pg Normal 26.0-34.0 [facility] Comment on above: Performed By: #### H EMDF, BMP3 #### [facility] [address] [place] [address] MCHC mass conc (RBC) 34.4 % Normal 32.0-36.0 [facility] Comment on above: Performed By: #### H EMDF, BMP3 #### [facility] [address] [place] [address] MCV Entitic volume (RBC) 86.7 fL Normal 80.0-98.0 [facility] Comment on above: Performed By: #### H EMDF, BMP3 #### [facility] [address] [place] [address] Monocytes #/vol (Bld) 0.6 10*3/uL Normal 0.0-0.8 [facility] Comment on above: Performed By: #### H EMDF, BMP3 #### [facility] [address] [place] [address] Monocytes/100 WBC (Bld) 6.1 % Normal 2.0-10.0 [facility] Comment on above: Performed By: #### H EMDF, BMP3 #### [facility] [address] [place] [address] Platelet mean volume Entitic volume (Bld) 7.1 fL Low 7.4-10.4 [facility] Comment on above: Performed By: #### H EMDF, BMP3 #### [facility] [address] [place] [address] Platelets #/vol (Bld) 269 10*3/uL Normal 140-440 [facility] Comment on above: Performed By: #### H EMDF, BMP3 #### [facility] [address] [place] [address] RBC #/vol (Bld) 5.18 10*6/uL Normal 4.40-5.90 [facility] Comment on above: Performed By: #### H EMDF, BMP3 #### [facility] [address] [place] [address] WBC #/vol (Bld) 9.8 10*3/uL Normal 3.6-10.7 [facility] Comment on above: Performed By: #### H EMDF, BMP3 #### [facility] [address] [place] [address] Strep A Rapidon 08-14-2018 S. pyogenes Ag IA Ql (Unsp spec) see below Normal Negative [facility] Comment on above: Result Comment: NEGA TIVE (presumptive) for Group A Streptococcus antigen. Method: Immunochromatographic assay. Confirmatory testing to follow. Confirmatory testing performed at an additional cost. Performed By: #### S TRP3, RPFAB #### [facility] [address] [place] [address] #### [facility] #### [facility] [address] [place] [address] CR Chest 1 View Frontalon CR Chest 1 View Frontal Patient Name: LUCITA ROMERO Diagnostic Radiology Exam Date/Time 06/05/2018 15:11:30 EST Exam CR Chest 1 View Frontal Ordering Physician DAVIDSON DO, MARTIN Accession Number [id number] CPT4 Codes 44241 () Reason For Exam B [place] Report CHEST - B READ: CLINICAL INDICATION: Evaluation for pneumoconiosis TECHNIQUE: PA COMPARISON: 03/15/2018 FINDINGS: The heart and mediastinum are normal. The lungs demonstrate no consolidation or atelectasis. No abnormal reticular interstitial or nodular opacities are identified. There is no evidence for calcified or noncalcified pleural plaque. The costophrenic angles are sharp. The osseous structures are unremarkable. IMPRESSION: No radiographic evidence for pneumoconiosis. Please see the attached B reader form. This radiologist is a [facility] certified B reader. Report Dictated on Final Dictating Physician: MD TERRY JEFFREY Signed Date and Time: 06/10/2018 10:05 am Signed by: MD TERRY JEFFREY Transcribed Date and Time: 06/10/2018 10:06 Normal [facility] ED Provider Noteon 8 Protein mass conc [facility] ED eMERGENCY dEPARTMENT eNCOUnter Pt Name: Lucita Romero Birthdate 1995 Date of evaluation: 03/30/2018 Provider: Ryan Kapoor, GENERAL EDUCATION PROFESSOR - PASSENGER TRAIN BRAKER This patient was seen within my scope of practice with Dr. Mejia available in the department for consultation CHIEF COMPLAINT Chief Complaint Patient presents with ? Laceration HISTORY OF PRESENT ILLNESS (Location/Symptom, Timing/Onset,Context/Se tting, Quality, Duration, Modifying Factors, Severity) Note limiting factors. J LUIS Romero is a 23 y.o. male who presents to the emergency department Via private vehicle with complaint of laceration to his LEFT thumb that occurred around 9:00 this morning. He states that he was using a gill box operator that he had just opened, so was a clean blade, and cut his LEFT thumb. He states that he is RIGHT hand dominant. He states that his tetanus shot was greater than 10 years ago. His pain is a 6 out of 10, constant, worse with movement. He has not taken anything for the pain prior to arrival. He denies chest pain, shortness of breath, nausea, vomiting, fever, chills, abdominal pain, change in bowel or bladder habits. His past medical history includes asthma. He denies any past surgical history. He states that he is a daily smoker, denies all use, denies illicit drug use. Nursing Notes were reviewed. REVIEW OFSYSTEMS (2+ for level 4; 10+ for level 5) Review of Systems Constitutional: Negative for chills, fatigue and fever. HENT: Negative for ear pain, rhinorrhea and sore throat. Eyes: Negative for visual disturbance. Respiratory: Negative for cough and shortness of breath. Cardiovascular: Negative for chest pain and leg swelling. Gastrointestinal: Negative for abdominal pain, diarrhea, nausea and vomiting. Endocrine: Negative for cold intolerance and heat intolerance. Genitourinary: Negative for difficulty urinating, dysuria, flank pain and urgency. Musculoskeletal: Negative for back pain, joint swelling and neck pain. Skin: Positive for wound. Negative for pallor and rash. Laceration to LEFT thumb Allergic/Immunologic: Negative for environmental allergies and immunocompromised state. Neurological: Negative for dizziness, weakness and headaches. Psychiatric/Behavioral: Negative for confusion and sleep disturbance. PAST MEDICAL HISTORY Past Medical History: Diagnosis Date ? Asthma SURGICAL HISTORY History reviewed. No pertinent surgical history. CURRENT MEDICATIONS Previous Medications ALBUTEROL SULFATE HFA 108 (90 BASE) MCG/ACT INHALER Inhale 2 puffs into the lungs every 6 hours as needed for Wheezing NAPROXEN (NAPROSYN) 500 MG TABLET Take 1 tablet by mouth 2 times daily (with meals) ALLERGIES Patient has no known allergies. FAMILY HISTORY History reviewed. No pertinent family history. SOCIAL HISTORY Social History Social History ? Marital status: Unknown Spouse name: N/A ? Number of children: N/A ? Years of education: N/A Social History Main Topics ? Smoking status: Current Every Day Smoker Types: Cigarettes Start date: 03/01/2018 ? Smokeless tobacco: Never Used ? Alcohol use No ? Drug use: No ? Sexual activity: Not Asked Other Topics Concern ? None Social History Narrative ? None SCREENINGS PHYSICAL EXAM (up to 7 for level 4, 8 or more for level 5) ED Triage Vitals BP Temp Temp Source Pulse Resp SpO2 Height Weight 03/30/18 1553 03/30/18 1553 03/30/18 1553 03/30/18 1553 03/30/18 1553 03/30/18 1553 03/30/18 1549 03/30/18 1549 (!) 162/83 98.7 ?F (37.1 ?C) Temporal 106 16 99 % 5' 10.5 (1.791 m) 180 lb (81.6 kg) Physical Exam Constitutional: He is oriented to person, place, and time. He appears well-developed and well-nourished. No distress. HENT: Head: Normocephalic and atraumatic. Eyes: No scleral icterus. Neck: Normal range of motion. Cardiovascular: Normal rate, regular rhythm, normal heart sounds and intact distal pulses. Exam reveals no gallop and no friction rub. No murmur heard. Pulmonary/Chest: Effort normal and breath sounds normal. No respiratory distress. He has no wheezes. He has no rales. He exhibits no tenderness. Abdominal: Soft. There is no tenderness. Musculoskeletal: Normal range of motion. He exhibits no edema, tenderness or deformity. Neurological: He is alert and oriented to person, place, and time. Skin: Skin is warm and dry. Capillary refill takes less than 2 seconds. He is not diaphoretic. Psychiatric: He has a normal mood and affect. His behavior is normal. DIAGNOSTIC RESULTS EKG (Per Emergency Physician): RADIOLOGY (Per Emergency Physician): Interpretation per the Radiologist below, if available at the time of this note: No results found. ED BEDSIDE ULTRASOUND: Performed by ED Physician - none LABS: Labs Reviewed - No data to display All other labs were within normal range or not returned as of this dictation. EMERGENCY DEPARTMENT COURSE and DIFFERENTIAL DIAGNOSIS/MDM: Vitals: Vitals: 03/30/18 1549 03/30/18 1553 03/30/18 1638 BP: (!) 162/83 Pulse: 106 86 Resp: 16 Temp: 98.7 ?F (37.1 ?C) TempSrc: Temporal SpO2: 99% Weight: 81.6 kg (180 lb) Height: 5' 10.5 (1.791 m) Medications Celatbn-Qltyek-Yyplq Pertussis (BOOSTRIX) injection 0.5 mL (0.5 mLs Intramuscular Given 03/30/181624) naproxen (NAPROSYN) tablet 500 mg (500 mg Oral Given 03/30/181623) MDM. His past medical history, past surgical history, and history of present illness were obtained from the patient himself, his girlfriend, nursing staff, and through chart review. Imaging was considered, however, given the fact that this was a gill box operator that was freshly opened out of the package, I do not have concern for a foreign body. The laceration is also very superficial. His tetanus status will be updated in the emergency department, he will be given 500 mg of Naprosyn for pain. The risk and benefits of closure of the wound were discussed with the patient. The risks discussed for infection, pain, retained foreign body, need for additional repair, poor cosmetic result, tendon damage, nerve damage, poor wound healing, vascular damage. The alternatives discussed were no treatment and referral. Verbal consent was obtained from the patient, and he stated that he would like to proceed. He was prepped and draped in usual sterile fashion. Hemostasis was achieved through direct pressure. The entire depth of the wound was probed and visualized. There is no contamination. Saline and Shur-Clens was used to standardly irrigate the wound with 250cc of sterile saline. No foreign bodies were visualized. Tissue adhesive was placed with close approximation of the wound. Excellent cosmesis and hemostasis. A non-. A dressing was applied by nursing staff. The patient tolerated the procedure well with no complications. He does not appear toxic or septic. He remained stable throughout his course in the emergency department. He will be discharged home in stable condition and instructed to follow-up with [place] [facility], as he states that he does not have a primary care physician. He was given the appropriate follow-up information. He was instructed to return to the emergency department for any new or worsening symptoms. All of his questions were answered to the best of my ability. He was instructed to use ibuprofen and Tylenol at home as needed for pain. I estimate there is LOW risk for COMPARTMENT SYNDROME, ACUTE TENDON OR NEUROVASCULAR INJURY, OR RETAINED FOREIGN BODY thus I consider the discharge disposition reasonable. Lucita Romero (or their surrogate) and I have discussed the diagnosis and risks, and we agree with discharging home with close follow-up. We also discussed returning to the Emergency Department immediately if new or worsening symptoms occur. We have discussed the symptoms which are most concerning that necessitate immediate return. REVAL: 1635 He reports improvement in symptoms CRITICAL CARE TIME Total CriticalCare time was 0 minutes, excluding separately reportable procedures. There was a high probability of clinically significant/life threatening deterioration in the patient's condition which required my urgent intervention. CONSULTS: None PROCEDURES: Unless otherwise noted below, none Lac Repair Date/Time: 03/30/2018 4:39 PM Performed by: RYAN KAPOOR Authorized by: RYAN KAPOOR Consent: Consent obtained: Verbal Consent given by: Patient Risks discussed: Infection, pain, retained foreign body, need for additional repair, poor cosmetic result, tendon damage, vascular damage, nerve damage and poor wound healing Alternatives discussed: No treatment and referral Anesthesia (see MAR for exact dosages): Anesthesia method: None Laceration details: Location: Finger Finger location: L thumb Length (cm): 1 Pre-procedure details: Preparation: Patient was prepped and draped in usual sterile fashion Exploration: Hemostasis achieved with: Direct pressure Wound exploration: entire depth of wound probed and visualized Contaminated: no Treatment: Area cleansed with: Shur-Clens and saline Amount of cleaning: Standard Irrigation solution: Sterile saline Irrigation volume: 250 Irrigation method: Pressure wash Visualized foreign bodies/material removed: no Skin repair: Repair method: Tissue adhesive Approximation: Approximation: Close [place] border: well-aligned Post-procedure details: Dressing: Non-adherent dressing Patient tolerance of procedure: Tolerated well, no immediate complications FINAL IMPRESSION 1. Laceration of left thumb without foreign body without damage to nail, initial encounter 2. Need for tetanus booster DISPOSITION/PLAN DISPOSITION Decision To Discharge 03/30/2018 04:33:12 PM PATIENT REFERRED TO: HELENE Alberts [facility] [address] Call in 1 day to establish primary care DISCHARGE MEDICATIONS: New Prescriptions No medications on file (Please note: Portions of this note were completed with a voice recognition program.Efforts were made to edit the dictations but occasionally words and phrases are mis-transcribed.) Form [id number] @@ (electronically signed) Emergency Medicine Provider HORACE Caceres CNP 03/30/18 1643 [facility] ED Provider Noteon 8 Protein mass conc [facility] ED eMERGENCY dEPARTMENT eNCOUnter Pt Name: Lucita Romero Birthdate 1995 Date of evaluation: 03/18/2018 Provider: HORACE Sanchez CNP I have evaluated this patient on my own, per my scope of practice with attending phjysician available for consultation CHIEF COMPLAINT Chief Complaint Patient presents with ? Letter for School/Work Patient states he was seen here a couple days ago, states he needs to be re-evaluated to go back to work. HISTORY OF PRESENT ILLNESS (Location/Symptom, Timing/Onset,Context/Se tting, Quality, Duration, Modifying Factors, Severity) Note limiting factors. HPI Lucita Romero is a 23 y.o. male who presents to the emergency department Requesting a return to work note. Patient states he was seen here several days ago for pain to his anterior chest wall. In review of the EMR his chest x-ray and EKG were both normal. Taking ibuprofen and feeling better. Still has a 5/10 pain. It is worse with touch the area or activity. Denies any fevers, chills, exertional dyspnea, shortness of breath nausea vomiting. He states he went back to work but the need him to have a return to work slip. Nursing Notes were reviewed. REVIEW OFSYSTEMS (2+ for level 4; 10+ for level 5) Review of Systems Constitutional: Negative for fever. Respiratory: Negative for cough and shortness of breath. Cardiovascular: Negative for chest pain. Gastrointestinal: Negative for anal bleeding, nausea and vomiting. Musculoskeletal: Positive for arthralgias and myalgias. Skin: Negative for rash. PAST MEDICAL HISTORY Past Medical History: Diagnosis Date ? Asthma SURGICAL HISTORY History reviewed. No pertinent surgical history. CURRENT MEDICATIONS Previous Medications ALBUTEROL SULFATE HFA 108 (90 BASE) MCG/ACT INHALER Inhale 2 puffs into the lungs every 6 hours as needed for Wheezing ALLERGIES Patient has no known allergies. FAMILY HISTORY History reviewed. No pertinent family history. SOCIAL HISTORY Social History Social History ? Marital status: Unknown Spouse name: N/A ? Number of children: N/A ? Years of education: N/A Social History Main Topics ? Smoking status: Former Smoker Types: Cigarettes Start date: 03/01/2018 ? Smokeless tobacco: Never Used ? Alcohol use No ? Drug use: No ? Sexual activity: Not Asked Other Topics Concern ? None Social History Narrative ? None SCREENINGS PHYSICAL EXAM (up to 7 for level 4, 8 or more for level 5) ED Triage Vitals [03/18/18 194] BP Temp Temp Source Pulse Resp SpO2 Height Weight (!) 153/89 99.1 ?F (37.3 ?C) Temporal 98 18 95 % -- -- Physical Exam Constitutional: He is oriented to person, place, and time. He appears well-developed and well-nourished. Non-toxic appearance. No distress. HENT: Head: Normocephalic and atraumatic. Eyes: Conjunctivae are normal. Neck: Normal range of motion. Neck supple. Cardiovascular: Normal rate, regular rhythm, normal heart sounds and intact distal pulses. Pulmonary/Chest: Effort normal and breath sounds normal. No respiratory distress. He exhibits tenderness (midsternal). Abdominal: Soft. Bowel sounds are normal. He exhibits no distension. There is no tenderness. Musculoskeletal: Normal range of motion. He exhibits no deformity. Neurological: He is alert and oriented to person, place, and time. Skin: Skin is warm and dry. He is not diaphoretic. Psychiatric: He has a normal mood and affect. His behavior is normal. Judgment and thought content normal. Nursing note and vitals reviewed. DIAGNOSTIC RESULTS EKG (Per Emergency Physician): RADIOLOGY (Per Emergency Physician): Interpretation per the Radiologist below, if available at the time ofthis note: No results found. ED BEDSIDE ULTRASOUND: Performed by ED Physician - none LABS: Labs Reviewed - No data to display All other labs were within normal range or not returned as of this dictation. EMERGENCY DEPARTMENT COURSE and DIFFERENTIAL DIAGNOSIS/MDM: Vitals: Vitals: 03/18/18 194 BP: (!) 153/89 Pulse: 98 Resp: 18 Temp: 99.1 ?F (37.3 ?C) TempSrc: Temporal SpO2: 95% Medications - No data to display MDM. Patient is a 23-year-old male presenting for a follow-up visit for a return to work note. He still has some midsternal tenderness. His x-ray and EKG from yesterday were normal. Did not feel any further testing is warranted. We will treat with NSAIDs, rest, may return to work tomorrow. He is stable for discharge. REVAL: CRITICAL CARE TIME Total Critical Care time was 0 minutes, excluding separately reportable procedures. There was a high probability of clinically significant/life threatening deteriorationin the patient's condition which required my urgent intervention. CONSULTS: None PROCEDURES: Unless otherwise noted below, none Procedures FINAL IMPRESSION 1. Musculoskeletal chest pain DISPOSITION/PLAN DISPOSITION Decision To Discharge 03/18/2018 08:19:56 PM PATIENT REFERRED TO: HELENE Granado [facility] [id number] DISCHARGE MEDICATIONS: New Prescriptions NAPROXEN (NAPROSYN) 500 MG TABLET Take 1 tablet by mouth 2 times daily (with meals) (Please note: Portions of this note were completed with a voice recognition program. Efforts were made to edit the dictations but occasionally words and phrases are mis-transcribed.) Form v2016.J.[id number] HORACE Sanchez CNP (electronically signed) Emergency Medicine Provider HORACE Sanchez CNP 03/18/182022 [facility] CR Chest PA/LATon 03-16-2018 CR Chest PA/LAT Patient Name: LUCITA ROMERO Diagnostic Radiology Exam Date/Time 03/15/2018 23:41:50 EDT Exam CR Chest PA/LAT Ordering Physician MD LOPEZ BETSY Accession Number [id number] CPT4 Codes 20852 () Reason For Exam chest pain Report CHEST X-RAY TWO VIEWS CLINICAL INDICATION: chest pain TECHNIQUE: Frontal and lateral views of the chest. COMPARISON: None FINDINGS: Lungs are clear. No pleural effusion or pneumothorax. No vascular congestion. Heart size normal. IMPRESSION: 1. No acute finding. Report Dictated on Final Dictating Physician: MD BERMUDEZ JOHN R Signed Date and Time: 03/15/2018 11:51 pm Signed by: MD BERMUDEZ JOHN R Transcribed Date and Time: 03/15/2018 11:52 Normal [facility] ED Provider Noteon 8 Protein mass conc B [facility] ED eMERGENCY dEPARTMENT eNCOUnter Pt Name: Lucita Romero Birthdate 1995 Date of evaluation: 03/15/2018 Provider: TAMIKO LOPEZ MD CHIEF COMPLAINT Chief Complaint Patient presents with ? Chest Pain ? Shortness of Breath HISTORY OF PRESENT ILLNESS (Location/Symptom, Timing/Onset,Context/Se tting, Quality, Duration, Modifying Factors, Severity) Note limiting factors. HPI Lucita Romero is a 23 y.o. male who presents to the emergency department With chest pain. Patient states this started around noon to 3 p.m. today. He was at work when this happened and did note that he was lifting heavy things about 100 pounds. He describes it as a pressure and aching in his midsternal to left anterior chest. Noted some shortness of breath that worsened at the day. He does have a history of asthma and uses albuterol inhaler which helped with shortness of breath. Otherwise denies any cough, lightheadedness, dizziness. Otherwise did not take anything for the pain. No history of recent surgeries or travel. No history of blood clots. Nursing Notes were reviewed. REVIEW OFSYSTEMS (2+ for level 4; 10+ for level 5) Review of Systems Constitutional: no fevers Eyes: no discharge ENT: no dental pain Cardiovascular: (+) chest pain Respiratory: (+) shortness of breath Gastrointestinal: no nausea, no vomiting Musculoskeletal: no joint pain Skin: no rash Neurologic: no headache Genitourinary: no dysuria PAST MEDICAL HISTORY Past Medical History: Diagnosis Date ? Asthma SURGICAL HISTORY History reviewed. No pertinent surgical history. CURRENTMEDICATIONS Previous Medications ALBUTEROL SULFATE HFA 108 (90 BASE) MCG/ACT INHALER Inhale 2 puffs into the lungs every 6 hours as needed for Wheezing ALLERGIES Patient has no known allergies. FAMILY HISTORY History reviewed. No pertinent family history. SOCIAL HISTORY Social History Social History ? Marital status: N/A Spouse name: N/A ? Number of children: N/A ? Years of education: N/A Social History Main Topics ? Smoking status: Former Smoker Types: Cigarettes Start date: 03/01/2018 ? Smokeless tobacco: Never Used ? Alcohol use No ? Drug use: No ? Sexual activity: Not Asked Other Topics Concern ? None Social History Narrative ? None SCREENINGS PHYSICAL EXAM (up to 7 for level 4, 8 or more for level 5) ED Triage Vitals BP Temp Temp Source Pulse Resp SpO2 Height Weight 03/15/18 2300 03/15/18 2300 03/15/18 2300 03/15/18 2300 03/15/18 2300 03/15/18 2300 03/15/18 2300 03/15/18 2300 (!) 121/95 98.4 ?F (36.9 ?C) Temporal 84 16 97 % 5' 10 (1.778 m) 178 lb (80.7 kg) Physical Exam Vital Signs: Reviewed Constitutional: comfortable, no acute distress Head: normocephalic, atraumatic Eyes: no scleral injection, no scleral icterus, no conjunctival erythema ENT: oropharynx clear, MMM Neck: supple, trachea midline Cardiovascular: RRR, no m/r/g chest: Reproducible pain with palpation over the midsternum Pulmonary: no evidence of labored breathing, clear to auscultation bilaterally Abdominal: soft, nontender, nondistended Extremities: warm, well perfused, no edema Neurological: AAO x 3, nonfocal Skin: warm, dry, no rash Psych: no suicidal ideation DIAGNOSTIC RESULTS EKG (Per Emergency Physician): EKG (03/15/18, 23:10): Rate: 84, Rhythm: sinus, [place]: normal, Intervals: IA 144, QRS 88, QTc 417, Interpretation: no acute ischemic changes, Old: no old to compare RADIOLOGY (Per Emergency Physician): Interpretation per the Radiologist below, ifavailable at the time of this note: Xr Chest Standard (2 Vw) Result Date: 03/15/2018 Patient Name: LUCITA ROMERO ---Diagnostic Radiology--- Exam Date/Time 03/15/2018 23:41:50 EDT Exam CR Chest PA/LAT Ordering Physician MD LOPEZ BETSY Accession Number [id number] CPT4 Codes 42228 () Reason For Exam chest pain Report CHEST X-RAY TWO VIEWS CLINICAL INDICATION: chest pain TECHNIQUE: Frontal and lateral views of the chest. COMPARISON: None FINDINGS: Lungs are clear. No pleural effusion or pneumothorax. No vascular congestion. Heart size normal. IMPRESSION: 1. No acute finding. Report Dictated on --- Final --- Dictating Physician: MD BERMUDEZ JOHN R Signed Date and Time: 03/15/2018 11:51 pm Signed by: MD BERMUDEZ JOHN R Transcribed Date and Time: 03/15/2018 11:52 ED BEDSIDE ULTRASOUND: Performed by ED Physician - none LABS: Labs Reviewed - No data to display All other labs were within normal range or not returned as of this dictation. EMERGENCY DEPARTMENT COURSE and DIFFERENTIALDIAGNOSIS/M DM: Vitals: Vitals: 03/15/18 2300 03/15/18 2300 BP: (!) 121/95 Pulse: 84 Resp: 16 Temp: 98.4 ?F (36.9 ?C) TempSrc: Temporal SpO2: 97% Weight: 80.7 kg (178 lb) Height: 5' 10 (1.778 m) Medications ibuprofen (ADVIL;MOTRIN) tablet 600 mg (not administered) MDM. Patient's electrocardiogram and x-ray were unremarkable. Of low concern for PE in this patient without significant risk factors. He has no tachycardia or hypoxia. I believe her symptoms are more likely chest wall pain given the heavy lifting. He was given ibuprofen and counseled on supportive care. Counseled to follow up with the primary care physician. Given strict return instructions. Patient stated understanding. REVAL: CRITICAL CARE TIME CONSULTS: None PROCEDURES: Unless otherwise noted below, none Procedures FINAL IMPRESSION 1. Chest wall pain DISPOSITION/PLAN DISPOSITION Decision To Discharge 03/16/2018 12:40:44 AM PATIENT REFERRED TO: [address] [id number] Schedule an appointment as soon as possible for a visit DISCHARGE MEDICATIONS: New Prescriptions No medications on file (Please note: Portions of this note were completed with a voice recognition program.Efforts were made to edit the dictations but occasionally words and phrases are mis-transcribed.) Form v2016.J.[id number] @@ (electronically signed) Emergency Medicine Provider Tamiko Lopez MD 03/16/18 0041 [facility] No Panel Information Enteric Bacteriology [facility] Work Phone: Vital Signs Date Time Vital Sign Value Performing Clinician Leidy quintanilla 08-27-2024 15:18-0400 Heart rate 108 /min Roberta Click GENERAL EDUCATION PROFESSOR.PASSENGER TRAIN BRAKER Work Phone: [facility] 08-27-2024 15:18-0400 Respiratory rate 18 /min Roberta Click GENERAL EDUCATION PROFESSOR.PASSENGER TRAIN BRAKER Work Phone: [facility] 08-27-2024 15:18-0400 SaO2% (BldA) [Mass fraction] 98 % Roberta Click GENERAL EDUCATION PROFESSOR.PASSENGER TRAIN BRAKER Work Phone: [facility] 08-14-2024 15:43-0400 Body mass index (BMI) [Ratio] 32.21 kg/m2 Andrew Garrido MD Work Phone: [facility] 08-14-2024 15:43-0400 Body weight 100 kg Andrew Garrido MD Work Phone: [facility] 08-14-2024 15:43-0400 Diastolic blood pressure 78 mm[Hg] Andrew Garrido MD Work Phone: [facility] 08-14-2024 15:43-0400 Heart rate 100 /min Andrew Garrido MD Work Phone: [facility] 08-14-2024 15:43-0400 Respiratory rate 16 /min Andrew Garrido MD Work Phone: [facility] 08-14-2024 15:43-0400 Systolic blood pressure 124 mm[Hg] Andrew Garrido MD Work Phone: [facility] 03-09-2023 10:50-0400 Body height 176.2 cm Tanisha Aguila MD Work Phone: [facility] 03-09-2023 10:50-0400 Body weight 87.09 kg Tanisha Aguila MD Work Phone: [facility] 03-09-2023 10:50-0400 Diastolic blood pressure 84 mm[Hg] Tanisha Aguila MD Work Phone: [facility] 03-09-2023 10:50-0400 Heart rate 67 /min Tanisha Aguila MD Work Phone: [facility] 03-09-2023 10:50-0400 Respiratory rate 14 /min Tanisha Aguila MD Work Phone: [facility] 03-09-2023 10:50-0400 SaO2% (BldA) [Mass fraction] 98 % Tanisha Aguila MD Work Phone: [facility] 03-09-2023 10:50-0400 Systolic blood pressure 118 mm[Hg] Tanisha Aguila MD Work Phone: [facility] 03-09-2023 10:49-0400 Body height 176.2 cm Pulm Wstr Work Phone: [facility] 03-09-2023 10:49-0400 Body weight 87.09 kg Pulm Wstr Work Phone: [facility] 03-09-2023 10:49-0400 Heart rate 67 /min Pulm Wstr Work Phone: [facility] 03-09-2023 10:49-0400 Respiratory rate 14 /min Pulm Wstr Work Phone: [facility] 03-09-2023 10:49-0400 SaO2% (BldA) [Mass fraction] 98 % Pulm Wstr Work Phone: [facility] 12-15-2022 21:31-0400 Heart rate 93 /min RAMONA ZARATE DO [facility] 12-15-2022 21:31-0400 Respiratory rate 18 /min RAMONA ZARATE DO [facility] 12-15-2022 21:23-0400 Heart rate 93 /min RAMONA DURESKA DO [facility] 12-15-2022 21:23-0400 Respiratory rate 18 /min RAMONA DURESKA DO [facility] 12-15-2022 20:54-0400 Body temperature 98.6 [degF] RAMONA DURESKA DO [facility] 12-15-2022 20:54-0400 Diastolic Blood Pressure Non-Invasive 92 1 RAMONA DURESKA DO [facility] 12-15-2022 20:54-0400 Heart rate 100 /min RAMONA DURESKA DO [facility] 12-15-2022 20:54-0400 Respiratory rate 18 /min RAMONA DURESKA DO [facility] 12-15-2022 20:54-0400 Systolic Blood Pressure Non-Invasive 136 1 RAMONA DURESKA DO [facility] 07-25-2022 15:44-0500 Diastolic blood pressure 89 mm[Hg] [facility] 07-25-2022 15:44-0500 Heart rate 90 /min [facility] 07-25-2022 15:44-0500 Respiratory rate 26 /min [facility] 07-25-2022 15:44-0500 SaO2% (BldA) [Mass fraction] 96 % [facility] 07-25-2022 15:44-0500 Systolic blood pressure 135 mm[Hg] [facility] 07-25-2022 14:36-0500 Body height 175.26 cm [facility] 07-25-2022 14:36-0500 Body mass index (BMI) [Ratio] 29.3 kg/m2 [facility] 07-25-2022 14:36-0500 Body temperature 96.4 [degF] [facility] 07-25-2022 14:36-0500 Body weight 90.26 kg [facility] 01-29-2022 10:21-0400 Body height 175.26 cm RIBBON HANKING MACHINE OPERATORBalaji Cameron RIBBON HANKING MACHINE OPERATOR Work Phone: [facility] Work Phone: 01-29-2022 10:21-0400 Body mass index (BMI) [Ratio] 26.6 kg/m2 RIBBON HANKING MACHINE OPERATOR-Jaclyn Cameron RIBBON HANKING MACHINE OPERATOR Work Phone: [facility] Work Phone: 01-29-2022 10:21-0400 Body temperature 97.8 [degF] RIBBON HANKING MACHINE OPERATOR-Jaclyn Cameron RIBBON HANKING MACHINE OPERATOR Work Phone: [facility] Work Phone: 01-29-2022 10:21-0400 Body weight 81.64 kg RIBBON HANKING MACHINE OPERATOR-Jaclyn Cameron RIBBON HANKING MACHINE OPERATOR Work Phone: [facility] Work Phone: 01-29-2022 10:21-0400 Diastolic blood pressure 104 mm[Hg] RIBBON HANKING MACHINE OPERATOR-Jaclyn Cameron RIBBON HANKING MACHINE OPERATOR Work Phone: [facility] Work Phone: 01-29-2022 10:21-0400 Heart rate 125 /min RIBBON HANKING MACHINE OPERATOR-Jaclyn Cameron RIBBON HANKING MACHINE OPERATOR Work Phone: [facility] Work Phone: 01-29-2022 10:21-0400 Respiratory rate 16 /min RIBBON HANKING MACHINE OPERATOR-Jaclyn Cameron RIBBON HANKING MACHINE OPERATOR Work Phone: [facility] Work Phone: 01-29-2022 10:21-0400 SaO2% (BldA) [Mass fraction] 98 % RIBBON HANKING MACHINE OPERATOR-Jaclyn Cameron RIBBON HANKING MACHINE OPERATOR Work Phone: [facility] Work Phone: 01-29-2022 10:21-0400 Systolic blood pressure 157 mm[Hg] RIBBON HANKING MACHINE OPERATOR-Jaclyn Cameron RIBBON HANKING MACHINE OPERATOR Work Phone: [facility] Work Phone: 11-19-2021 20:38-0400 Heart rate 109 /min RIBBON HANKING MACHINE OPERATOR-C Zachary Cameron RIBBON HANKING MACHINE OPERATOR Work Phone: [facility] Work Phone: 11-19-2021 20:38-0400 Respiratory rate 16 /min RIBBON HANKING MACHINE OPERATOR-C Zachary Cameron RIBBON HANKING MACHINE OPERATOR Work Phone: [facility] Work Phone: 11-19-2021 19:46-0400 Body height 177.8 cm RIBBON HANKING MACHINE OPERATOR-C Zachary Cameron RIBBON HANKING MACHINE OPERATOR Work Phone: [facility] Work Phone: 11-19-2021 19:46-0400 Body mass index (BMI) [Ratio] 27.5 kg/m2 RIBBON HANKING MACHINE OPERATOR-C Zachary Cameron RIBBON HANKING MACHINE OPERATOR Work Phone: [facility] Work Phone: 11-19-2021 19:46-0400 Body temperature 98.1 [degF] RIBBON HANKING MACHINE OPERATOR-C Zachary Cameron RIBBON HANKING MACHINE OPERATOR Work Phone: [facility] Work Phone: 11-19-2021 19:46-0400 Body weight 87.08 kg RIBBON HANKING MACHINE OPERATOR-C Zachary Cameron RIBBON HANKING MACHINE OPERATOR Work Phone: [facility] Work Phone: 11-19-2021 19:46-0400 Diastolic blood pressure 99 mm[Hg] RIBBON HANKING MACHINE OPERATOR-C Zachary Cameron RIBBON HANKING MACHINE OPERATOR Work Phone: [facility] Work Phone: 11-19-2021 19:46-0400 SaO2% (BldA) [Mass fraction] 99 % RIBBON HANKING MACHINE OPERATOR-C Zachary Cameron RIBBON HANKING MACHINE OPERATOR Work Phone: [facility] Work Phone: 11-19-2021 19:46-0400 Systolic blood pressure 151 mm[Hg] RIBBON HANKING MACHINE OPERATOR-C Zachary Cameron RIBBON HANKING MACHINE OPERATOR Work Phone: [facility] Work Phone: 11-04-2021 12:58-0400 Body height 177.8 cm RIBBON HANKING MACHINE OPERATORBalaji Cameron RIBBON HANKING MACHINE OPERATOR Work Phone: [facility] Work Phone: 11-04-2021 12:58-0400 Body mass index (BMI) [Ratio] 27.5 kg/m2 RIBBON HANKING MACHINE OPERATORBalaji Cameron RIBBON HANKING MACHINE OPERATOR Work Phone: [facility] Work Phone: 11-04-2021 12:58-0400 Body weight 87.08 kg RIBBON HANKING MACHINE OPERATORBalaji Cameron RIBBON HANKING MACHINE OPERATOR Work Phone: [facility] Work Phone: 11-04-2021 12:58-0400 Diastolic blood pressure 90 mm[Hg] RIBBON HANKING MACHINE OPERATORBalaji Cameron RIBBON HANKING MACHINE OPERATOR Work Phone: [facility] Work Phone: 11-04-2021 12:58-0400 Heart rate 95 /min RIBBON HANKING MACHINE OPERATORBalaji Cameron RIBBON HANKING MACHINE OPERATOR Work Phone: [facility] Work Phone: 11-04-2021 12:58-0400 SaO2% (BldA) [Mass fraction] 97 % RIBBON HANKING MACHINE OPERATORBalaji Cameron RIBBON HANKING MACHINE OPERATOR Work Phone: [facility] Work Phone: 11-04-2021 12:58-0400 Systolic blood pressure 138 mm[Hg] RIBBON HANKING MACHINE OPERATORBalaji Cameron RIBBON HANKING MACHINE OPERATOR Work Phone: [facility] Work Phone: 10-31-2021 14:17-0400 Respiratory rate 18 /min [facility] Work Phone: 10-31-2021 13:13-0400 Body height 177.8 cm [facility] Work Phone: 10-31-2021 13:13-0400 Body mass index (BMI) [Ratio] 27.5 kg/m2 [facility] Work Phone: 10-31-2021 13:13-0400 Body temperature 97.6 [degF] [facility] Work Phone: 10-31-2021 13:13-0400 Body weight 86.9 kg [facility] Work Phone: 10-31-2021 13:13-0400 Diastolic blood pressure 104 mm[Hg] [facility] Work Phone: 10-31-2021 13:13-0400 Heart rate 96 /min [facility] Work Phone: 10-31-2021 13:13-0400 SaO2% (BldA) [Mass fraction] 96 % [facility] Work Phone: 10-31-2021 13:13-0400 Systolic blood pressure 130 mm[Hg] [facility] Work Phone: 10-31-2021 12:45-0400 Body temperature 99.1 [degF] Deion Pendlebury GENERAL EDUCATION PROFESSOR.PASSENGER TRAIN BRAKER Work Phone: [facility] 10-31-2021 12:45-0400 Body weight 87.09 kg Deion Pendlebury GENERAL EDUCATION PROFESSOR.PASSENGER TRAIN BRAKER Work Phone: [facility] 10-31-2021 12:45-0400 Diastolic blood pressure 82 mm[Hg] Deion Pendlebury GENERAL EDUCATION PROFESSOR.PASSENGER TRAIN BRAKER Work Phone: [facility] 10-31-2021 12:45-0400 Heart rate 112 /min Deion Pendlebury GENERAL EDUCATION PROFESSOR.PASSENGER TRAIN BRAKER Work Phone: [facility] 10-31-2021 12:45-0400 Respiratory rate 16 /min Deion Pendlebury GENERAL EDUCATION PROFESSOR.PASSENGER TRAIN BRAKER Work Phone: [facility] 10-31-2021 12:45-0400 SaO2% (BldA) [Mass fraction] 97 % Deion Pendlebury GENERAL EDUCATION PROFESSOR.PASSENGER TRAIN BRAKER Work Phone: [facility] 10-31-2021 12:45-0400 Systolic blood pressure 126 mm[Hg] Deion Pendlebury GENERAL EDUCATION PROFESSOR.PASSENGER TRAIN BRAKER Work Phone: [facility] 10-11-2021 17:56-0400 Body height 177.8 cm [facility] Work Phone: 10-11-2021 17:56-0400 Body mass index (BMI) [Ratio] 27.8 kg/m2 [facility] Work Phone: 10-11-2021 17:56-0400 Body temperature 96.2 [degF] [facility] Work Phone: 10-11-2021 17:56-0400 Body weight 87.9 kg [facility] Work Phone: 10-11-2021 17:56-0400 Diastolic blood pressure 95 mm[Hg] [facility] Work Phone: 10-11-2021 17:56-0400 Heart rate 98 /min [facility] Work Phone: 10-11-2021 17:56-0400 Respiratory rate 14 /min [facility] Work Phone: 10-11-2021 17:56-0400 SaO2% (BldA) [Mass fraction] 97 % [facility] Work Phone: 10-11-2021 17:56-0400 Systolic blood pressure 144 mm[Hg] [facility] Work Phone: 09-19-2021 22:11-0400 Diastolic blood pressure 74 mm[Hg] [facility] Work Phone: 09-19-2021 22:11-0400 Heart rate 94 /min [facility] Work Phone: 09-19-2021 22:11-0400 Respiratory rate 18 /min [facility] Work Phone: 09-19-2021 22:11-0400 SaO2% (BldA) [Mass fraction] 99 % [facility] Work Phone: 09-19-2021 22:11-0400 Systolic blood pressure 122 mm[Hg] [facility] Work Phone: 09-19-2021 18:21-0400 Body mass index (BMI) [Ratio] 25.8 kg/m2 [facility] Work Phone: 09-19-2021 18:21-0400 Body temperature 98 [degF] [facility] Work Phone: 09-19-2021 18:21-0400 Body weight 81.64 kg [facility] Work Phone: 06-20-2021 06:39-0500 Heart rate 102 /min [facility] Work Phone: 06-20-2021 06:39-0500 Respiratory rate 18 /min [facility] Work Phone: 06-20-2021 05:51-0500 Body mass index (BMI) [Ratio] 29 kg/m2 [facility] Work Phone: 06-20-2021 05:51-0500 Body temperature 98.1 [degF] [facility] Work Phone: 06-20-2021 05:51-0500 Body weight 86.5 kg [facility] Work Phone: 06-20-2021 05:51-0500 Diastolic blood pressure 90 mm[Hg] [facility] Work Phone: 06-20-2021 05:51-0500 SaO2% (BldA) [Mass fraction] 100 % [facility] Work Phone: 06-20-2021 05:51-0500 Systolic blood pressure 131 mm[Hg] [facility] Work Phone: 02-27-2021 23:57-0400 Body height 177.8 cm KASIE KUNZ MD [facility] 02-27-2021 23:57-0400 Body temperature 98.6 [degF] KASIE KUNZ MD [facility] 02-27-2021 23:57-0400 Body weight 77.3 kg KASIE KUNZ MD [facility] 02-27-2021 23:57-0400 Diastolic blood pressure 78 mm[Hg] KASIE KUNZ MD [facility] 02-27-2021 23:57-0400 Heart rate 103 /min KASIE KUNZ MD [facility] 02-27-2021 23:57-0400 Respiratory rate 24 /min KASIE KUNZ MD [facility] 02-27-2021 23:57-0400 Systolic blood pressure 127 mm[Hg] KASIE KUNZ MD [facility] Encounters Encounter Date Encounter Type Care Provider Facility Start: 12-19-2024 End: 12-23-2024 Get Medical Advice Roberta Gonsales GENERAL EDUCATION PROFESSOR.PASSENGER TRAIN BRAKER Work Phone: Pulmonary Medicine Comment on above: Refill question Start: 10-08-2024 ambulatory No Primary Car e Physician Facility:[facility] Start: 09-16-2024 End: 09-17-2024 ambulatory Andrew Garrido MD Work Phone: [facility] [place] Comment on above: I'm concerned Start: 08-27-2024 End: 08-27-2024 Office outpatient visit 15 minutes Roberta Gonsales GENERAL EDUCATION PROFESSOR.PASSENGER TRAIN BRAKER Work Phone: Pulmonary Medicine Comment on above: Moderate persistent asthma without complication (HCC) (Primary Dx); Multiple allergies Start: 08-27-2024 End: 08-27-2024 Patient encounter procedure Pulm [facility] Work Phone: PULM LAB [facility] Start: 08-27-2024 End: 08-27-2024 ambulatory Pulm Lab [facility] Work Phone: PULM LAB [facility] Comment on above: Spirometry new inhaler Start: 08-27-2024 End: 08-27-2024 E-mail encounter from caregiver Roberta Flowers Kale FELDERPASSENGER TRAIN BRAKER Work Phone: Pulmonary Medicine Start: 08-15-2024 End: 08-15-2024 Follow-up encounter Andrew Garrido MD Work Phone: [facility] [place] Start: 08-14-2024 End: 08-14-2024 ambulatory ANDREW GARRIDO Facility:[facility] Start: 08-14-2024 End: 08-14-2024 Patient encounter procedure Andrew Garrido MD Work Phone: [facility] [place] Comment on above: 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); TRISTEN (generalized anxiety disorder); Irritable bowel syndrome with diarrhea; Aphthous stomatitis; Mild intermittent asthma, uncomplicated; Encounter for screening for HIV; Weight gain; Skin tags, multiple acquired Start: 04-02-2024 End: 04-03-2024 Refill Gale JULESC Work Phone: Pulmonary Medicine Comment on above: Refill Request Start: 03-11-2024 End: 03-11-2024 ambulatory Andrew Garrido MD Work Phone: [facility] [place] Comment on above: Blood Pressure Start: 03-11-2024 End: 03-11-2024 Telephone encounter Shana Balderas APRN.CNP Work Phone: [facility] [place] Start: 01-07-2024 End: 01-08-2024 Refill Gale Lynn PA-C Work Phone: Pulmonary Medicine Comment on above: Refill Request Start: 11-03-2023 End: 11-03-2023 Emergency department patient visit Dwain Zurita Facility:[facility] Start: 08-07-2023 Refill Gale Diaz PA-C Work Phone: Pulmonary Medicine Comment on above: Refill Request Start: 2023 Orders Only Tanisha Aguila MD Work Phone: Pulmonary Medicine Start: 03-09-2023 End: 03-09-2023 ambulatory Pulm Lab [facility] Work Phone: PULM LAB [facility] Comment on above: Spirometry Start: 03-09-2023 End: 03-09-2023 Patient encounter procedure [facility] Work Phone: [facility] Start: 03-09-2023 End: 03-09-2023 ambulatory Pulm Lab [facility] Work Phone: PULM LAB [facility] Comment on above: Spirometry Start: 03-09-2023 End: 03-09-2023 Patient encounter procedure [facility] Comment on above: Asthma, persistent n ot controlled (Primary Dx) Start: 02-01-2023 Refill Adolfo mathur MD Work Phone: Otolaryngology Comment on above: Refill Request Start: 01-05-2023 Chart abstracting Gale bethea [facility] Work Phone: Psychology Start: 12-29-2022 Telephone encounter Gale perez [facility] Work Phone: Psychology Comment on above: bh consult Start: 12-29-2022 End: 12-29-2022 Patient encounter procedure Andrew Garrido MD Work Phone: Internal Medicine [place] Comment on above: Severe episode of re current major depressive disorder, without psychotic features (HCC) (Primary Dx); Moderate persistent asthma with acute exacerbation; Tachycardia; Screening for HIV without presence of risk factors; Need for vaccination; TRISTEN (generalized anxiety disorder); Irritable bowel syndrome with diarrhea; Aphthous stomatitis Start: 12-15-2022 End: 12-16-2022 Emergency department patient visit RAMONA ZARATE DO Facility:[facility] Start: 12-15-2022 End: 12-15-2022 Emergency department patient visit RAMONA ZARATE [facility] Start: 07-25-2022 End: 07-25-2022 [facility] Start: 07-11-2022 Refill Chucky holder DO Work Phone: Family Medicine [place] Comment on above: Refill Request Start: 02-17-2022 End: 02-17-2022 Patient encounter procedure Adolfo Larsen MD Work Phone: Otolaryngology Comment on above: Aphthous stomatitis (Primary Dx); Tongue coating Start: 02-03-2022 ambulatory Mayelisa Plasencia [facility] Comment on above: Population Health Na vigation Outreach (hcc) Start: 01-29-2022 End: 01-29-2022 Emergency department patient visit FRANCI Cameron RIBBON HANKING MACHINE OPERATOR [facility] Start: 11-19-2021 End: 11-19-2021 Emergency department patient visit RIBBON HANKING MACHINE OPERATORBalaji Cameron RIBBON HANKING MACHINE OPERATOR [facility] Start: 11-04-2021 End: 11-04-2021 Patient encounter procedure RIBBON HANKING MACHINE OPERATORBalaji Cameron RIBBON HANKING MACHINE OPERATOR Work Phone: [facility] Start: 11-04-2021 End: 11-04-2021 Patient encounter procedure FRANCI Cameron RIBBON HANKING MACHINE OPERATOR Work Phone: [facility] Gastroenterology Start: 10-31-2021 End: 10-31-2021 [facility] Start: 10-31-2021 End: 10-31-2021 Patient encounter procedure Deion Norton GENERAL EDUCATION PROFESSOR.PASSENGER TRAIN BRAKER Work Phone: [facility] Comment on above: Procedure not gloria d out (Primary Dx) Start: 10-11-2021 End: 10-11-2021 [facility] Start: 10-11-2021 End: 10-11-2021 Patient encounter procedure Raquel Alvarez GENERAL EDUCATION PROFESSOR.PASSENGER TRAIN BRAKER Work Phone: [facility] Comment on above: Davonte blood in stool (Primary Dx); Lower abdominal pain; Lightheaded Start: 09-20-2021 Chart abstracting Zachary Cameron APRN.PASSENGER TRAIN BRAKER, DNP Work Phone: [facility] Comment on above: ED visit- Dizziness Start: 09-19-2021 End: 09-19-2021 Emergency department patient visit [facility] Start: 06-20-2021 End: 06-20-2021 Emergency department patient visit [facility] Start: 05-16-2021 Telephone encounter Yaw keene APRN.CNP Work Phone: [facility] Comment on above: Results Start: 02-27-2021 End: 02-28-2021 Emergency department patient visit KASIE KUNZ MD [facility] Procedures Date Procedure Procedure Detail Performing Clinician Start: 08-27-2024 Nitric oxide gas determination Roberta Gonsales APRN.PASSENGER TRAIN BRAKER Work Phone: Start: 03-09-2023 Nitric oxide gas determination Tanisha Aguila MD Work Phone: Start: 03-09-2023 Brncdilat rspse spmt ry pre&post-brncdilat admn Andrew Garrido MD Work Phone: Start: 07-25-2022 Plain chest X-ray Start: 10-11-2021 CT of abdomen and pe lvis without contrast Clostridium difficil e detection RIBBON HANKING MACHINE OPERATOR-Jaclyn Cameron RIBBON HANKING MACHINE OPERATOR Work Phone: Enteric Bacteriology RIBBON HANKING MACHINE OPERATORBalaji Medrano RIBBON HANKING MACHINE OPERATOR Work Phone: Lactoferrin measurement RIBBON HANKING MACHINE OPERATORBalaji Cameron RIBBON HANKING MACHINE OPERATOR Work Phone: Ova OR parasites identification RIBBON HANKING MACHINE OPERATORBalaji Cameron RIBBON HANKING MACHINE OPERATOR Work Phone: Plan of Treatment Date Care Activity Detail Author Start: 03-30-2028 Urine microalbumin profile [facility] Start: 08-14-2025 Annual PCP Team Chronic Disease Visit Annual PCP Team Chronic Disease Visit [facility] Start: 08-14-2025 Covid-19 Vaccine ( season) Covid-19 Vaccine () [facility] Comment on above: Postponed from 01/19 (Declined at this time) Start: 01-19-2025 Influenza vaccination Influenza Vacc ine (#1) [facility] Start: 11-17-2024 Influenza vaccination Influenza Vacc ine (#1) [facility] Comment on above: Postponed from 01/19 (Declined at this time) Start: 09-30-2024 End: 09-30-2024 ambulatory 09/30/2024 1:00 PM EDT [facility] Pulmonary Medicine [address] [place] [address] Roberta Gonsales APRN.PASSENGER TRAIN BRAKER [address] [place] [address] VV 1 MTH F/U ASTHMA Pulmonary Medicine Comment on above: VV 1 MTH F/U ASTHMA Start: 09-18-2024 End: 09-18-2024 Patient encounter procedure 09/18/2024 6:00 PM EDT Office Visit [facility] [place] [address] [place] [address] Andrew Garrido MD [address] [place] [address] Review lab results [facility] [place] Comment on above: Review lab results Start: 09-01-2024 End: 09-01-2024 Patient encounter procedure 09/01/2024 8:15 AM EDT Office Visit Podiatry [address] [place] [address] Adolfo Kiser [address] [address] NEW CONSULT FOR RT FT IN PAIN Podiatry Comment on above: NEW CONSULT FOR RT F T IN PAIN Start: 08-27-2024 End: 08-27-2024 Patient encounter procedure 08/27/2024 3:30 PM EDT Office Visit Pulmonary Medicine [address] [place] [address] Roberta Gonsales APRN.PASSENGER TRAIN BRAKER [address] [place] [address] Asthma F/U, disability paperwork (last seen 2022) Pulmonary Medicine Comment on above: Asthma F/U, disabili ty paperwork (last seen 2022) Start: 08-14-2024 End: 11-13-2024 Basic metabolic 2000 panel - Serum or Plasma [facility] Work Phone: Comment on above: Expected: 08/14/2024 , Expires: 11/13/2024 Start: 08-14-2024 End: 11-13-2024 HIV 1+2 Ab [Presence] in Serum or Plasma by Immunoassay [facility] Comment on above: Expected: 08/14/2024 , Expires: 11/13/2024 Start: 03-12-2024 End: 03-12-2024 Patient encounter procedure 03/12/2024 3:40 PM EDT Office Visit Internal Medicine [place] [address] [place] [address] Andrew Garrido MD [address] [place] [address] rescheduled from 03/07 [facility] [place] Comment on above: rescheduled from Start: 01-20-2024 Covid-19 Vaccine ( season) Covid-19 Vaccine ( season) [facility] Start: 01-20-2024 Influenza vaccination Influenza Vacc ine (#1) [facility] Start: 12-30-2023 ANNUAL PCP TEAM CHRONIC DISEASE VISIT ANNUAL PCP TEAM CHRONIC DISEASE VISIT [facility] Start: 03-09-2023 End: 06-08-2023 GILDARDO [facility] Work Phone: Comment on above: Expected: 03/09/2023 , Expires: 06/08/2023 Start: 03-09-2023 End: 06-08-2023 IgE [Units/volume] in Serum or Plasma [facility] Work Phone: Comment on above: Expected: 03/09/2023 , Expires: 06/08/2023 Start: 01-19-2023 Covid-19 Vaccine () Covid-19 Vaccine () [facility] Start: 01-19-2023 Influenza vaccination C [facility] Start: 12-29-2022 End: 02-28-2023 Basic metabolic 2000 panel - Serum or Plasma BASIC METABOLIC PNL Lab Routine Tachycardia Expected: 12/29/2022, Expires: 02/28/2023 [facility] Work Phone: Comment on above: Expected: 12/29/2022 , Expires: 02/28/2023 Start: 12-29-2022 End: 02-28-2023 CBC panel - Blood by Automated count CBC Lab Routine Tachycardia Expected: 12/29/2022, Expires: 02/28/2023 [facility] Work Phone: Comment on above: Expected: 12/29/2022 , Expires: 02/28/2023 Start: 12-29-2022 End: 02-28-2023 HIV 1+2 Ab [Presence] in Serum or Plasma by Immunoassay HIV 1 2 COMBO(AG/AB),WITH REFLEX TO DIFFERENTIATION Lab Routine Screening for HIV without presence of risk factors Expected: 12/29/2022, Expires: 02/28/2023 [facility] Work Phone: Comment on above: Expected: 12/29/2022 , Expires: 02/28/2023 Start: 07-25-2022 [facility] Start: 05-12-2022 ANNUAL PCP TEAM CHRONIC DISEASE VISIT ANNUAL PCP TEAM CHRONIC DISEASE VISIT [facility] Start: 05-12-2022 COVID-19 VACCINE (#1) COVID-19 VACCI NE (#1) [facility] Comment on above: Postponed from 03/13 (Declined at this time) Postponed from 09/11 (Declined at this time) Start: 05-12-2022 COVID-19 VACCINE (1) COVID-19 VACCIN E (1) [facility] Comment on above: Postponed from 03/13 (Declined at this time) Start: 01-19-2022 Influenza vaccination C [facility] Start: 11-05-2021 Giardia lamblia Ag [Presence] in Stool by Immunoassay [facility] Work Phone: Start: 11-05-2021 Ova and parasites identified in Unspecified specimen by Light microscopy [facility] Work Phone: Start: 11-05-[address] [facility] Work Phone: Start: 2015 ONE PNEUMOVAX PRIOR TO AGE 65 ONE PNEUMOVAX PRIOR TO AGE 65 [facility] Start: 2015 Urine microalbumin profile DTAP,TDAP,TD (1 - Tdap) [facility] Start: 2014 HIV SCREENING HIV SCREENING [facility] Start: 2014 HIV screening HIV Screening [facility] Start: 2014 SPIROMETRY SPIROMETRY [facility] Start: 03-17-2013 HPV VACCINE (2 - Mal e 3-dose series) HPV VACCINE (2 - Male 3-dose series) [facility] Start: 2010 PEDS TO ADULT TRANSITION ANNUAL ASSESSMENT PEDS TO ADULT TRANSITION ANNUAL ASSESSMENT [facility] Start: 2008 PEDS TO ADULT TRANSITION INITIAL DISCUSSION PEDS TO ADULT TRANSITION INITIAL DISCUSSION [facility] Start: 2007 HPV VACCINE (1 - Mal e 2-dose series) HPV VACCINE (1 - Male 2-dose series) [facility] Start: 2002 PNEUMOCOCCAL (1 - PCV) PNEUMOCOCCAL (1 - PCV) [facility] Start: 1996 COVID-19 VACCINE (#1) COVID-19 VACCI NE (#1) [facility] Start: 1996 HEPATITIS B (1 of 3 - 3-dose series) HEPATITIS B (1 of 3 - 3-dose series) [facility] End: 12-30-2023 ECG COMPLETE ECG COMPLETE ECG Routine Tachycardia 1 Occurrences starting 12/29/2022 until 12/30/2023 [facility] Work Phone: Comment on above: 1 Occurrences starti ng 12/29/2022 until 12/30/2023 Giardia lamblia Ag [Presence] in Stool by Immunoassay [facility] Work Phone: Influenza virus A an d B and SARS-CoV-2 (COVID-19) Ag panel - Upper respiratory specim [facility] Ova and parasites identified in Unspecified specimen by Light microscopy [facility] Work Phone: Patient Education [facility] Work Phone: Patient referral [facility] Work Phone: Protein measurement [facility] Work Phone: SARS-CoV-2 & FLU Antigen (Rapid) SARS-CoV-2 & FLU Antigen (Rapid) [facility] End: 01-28-2024 SPIROMETRY - BASELINE AND POST DILATOR SPIROMETRY - BASELINE AND POST DILATOR PFT Routine Moderate persistent asthma with acute exacerbation 1 Occurrences starting 12/29/2022 until 01/28/2024 [facility] Work Phone: Comment on above: 1 Occurrences starti ng 12/29/2022 until 01/28/2024 [facility] Immunizations Immunization Date Immunization Notes Care Provider [facility] 12-29-2022 pneumococcal (PCV20) vaccine, 20 valent (PREVNAR 20) Andrew Garrido MD Work Phone: [facility] 12-29-2022 pneumococcal Conjuga te, unspecified formulation Andrew Garrido MD Work Phone: [facility] Work Phone: 06-16-2020 influenza, injectabl e, quadrivalent, preservative free Adolfo Larsen MD Work Phone: [facility] 06-16-2020 influenza virus vacc ine, unspecified formulation Adolfo Larsen MD Work Phone: [facility] 03-30-2018 tetanus toxoid, redu olga diphtheria toxoid, and acellular pertussis vaccine, adsorbed Adolfo Larsen MD Work Phone: [facility] 02-17-2013 human papilloma viru s vaccine, quadrivalent Adolfo Larsen MD Work Phone: [facility] 02-17-2013 influenza, seasonal, injectable Adolfo Larsen MD Work Phone: [facility] 03-18-2009 novel influenza-H1N1 -09, preservative-free, injectable Adolfo Larsen MD Work Phone: [facility] 03-11-2009 influenza, seasonal, injectable Adolfo Larsen MD Work Phone: [facility] 04-06-2008 meningococcal polysaccharide vaccine (MPSV4) Adolfo Larsen MD Work Phone: [facility] 04-06-2008 tetanus toxoid, redu olga diphtheria toxoid, and acellular pertussis vaccine, adsorbed Adolfo Larsen MD Work Phone: [facility] 06-21-2006 influenza, seasonal, injectable Adolfo Larsen MD Work Phone: [facility] 01-02-2002 diphtheria, tetanus toxoids and acellular pertussis vaccine, unspecified formulation Adolfo Larsen MD Work Phone: [facility] 01-02-2002 measles, mumps and rubella virus vaccine Adolfo Larsen MD Work Phone: [facility] 01-02-2002 trivalent poliovirus vaccine, live, oral Adolfo Larsen MD Work Phone: [facility] 12-30-1997 varicella virus vaccine Skyler Larsen MD Work Phone: [facility] 07-30-1997 diphtheria, tetanus toxoids and acellular pertussis vaccine, unspecified formulation Adolfo Larsen MD Work Phone: [facility] 07-30-1997 haemophilus influenz ae type b vaccine, conjugate unspecified formulation Adolfo Larsen MD Work Phone: [facility] 07-30-1997 trivalent poliovirus vaccine, live, oral Adolfo Larsen MD Work Phone: [facility] 03-19-1997 diphtheria, tetanus toxoids and acellular pertussis vaccine, unspecified formulation Adolfo Larsen MD Work Phone: [facility] 03-19-1997 haemophilus influenz ae type b vaccine, conjugate unspecified formulation Adolfo Larsen MD Work Phone: [facility] 03-19-1997 measles, mumps and rubella virus vaccine Adolfo Larsen MD Work Phone: [facility] 01-27-1997 DTP-Haemophilus influenzae type b conjugate vaccine Adolfo Larsen MD Work Phone: [facility] 01-27-1997 hepatitis B vaccine, pediatric or pediatric/adolescent dosage Adolfo Larsen MD Work Phone: [facility] 01-27-1997 poliovirus vaccine, inactivated Adolfo Larsen MD Work Phone: [facility] 1996 DTP-Haemophilus influenzae type b conjugate vaccine Adolfo Larsen MD Work Phone: [facility] 1996 poliovirus vaccine, inactivated Adolfo Larsen MD Work Phone: [facility] 1996 hepatitis B vaccine, pediatric or pediatric/adolescent dosage Adolfo Larsen MD Work Phone: [facility] 1996 hepatitis B vaccine, pediatric or pediatric/adolescent dosage Adolfo Larsen MD Work Phone: [facility] Payers Date Payer Category Payer Self-pay [id number] 2022 Unknown [id number] 2018 Medicaid [employer] [id number] 2018-Present [phone] [address] [place] [address] Medicaid [id number] 2018 Medicaid [id number] 2015 Unknown [id number] 1996 Unknown [id number] Unknown [id number] Unknown [id number] Social History Date Type Detail Facility Start: 04-10-2019 Light tobacco smoker (finding) [facility] Assigned At [facility] Start: 10-17-2018 End: 08-27-2024 Tobacco smoking status NHIS Ex-smoker [facility] Start: 10-17-2018 End: 08-27-2024 Tobacco use and exposure Smokeless tobacco non-user [facility] Start: 05-12-2021 End: 05-27-2021 Alcohol intake Not Asked [facility] Start: 1996 Sex Assigned At Not on file [facility] Start: 10-11-2021 End: 07-25-2022 Tobacco smoking status [facility] Unknown if ever smoked [facility] Start: 12-06-2018 None [facility] Start: 12-06-2018 Alone [facility] Start: 1996 Sex Assigned At Male [facility] History of tobacco use Current smoker [facility] Start: 02-17-2022 End: 03-09-2023 Alcohol intake Current drinker of alcohol (finding) [facility] Start: 02-17-2022 History SDOH Alcohol Comment occasionally [facility] Start: 02-07-2022 End: 02-17-2022 Exposure to SARS-CoV-2 (event) Not sure [facility] Start: 12-29-2022 End: 08-14-2024 History of Social function [facility] Start: 12-29-2022 End: 08-14-2024 Tobacco use panel [facility] National Score (1-10 0), lower number is lower risk 80 [facility] Start: 03-09-2023 Tobacco Comment One pack every other dayVaping in past [facility] Start: 08-14-2024 End: 08-27-2024 Alcoholic beverage intake Ex-drinker (finding) [facility] How often to you hav e a drink containing alcohol? Never [facility] Do you feel stress - tense, restless, nervous, or anxious, or unable to sleep at night because your mind is troubled all the time - these days [OSQ] Rather much [facility] Start: 08-27-2024 Tobacco Comment Former smoker- one pack weekly. [facility] Functional Status Date Assessment Result Facility 08-14-2024 Total score [AUDIT-C] 0 08/15/19 4:34 PM EDT Andrew Garrido MD [facility] 12-15-2022 Functional Status Standard Safet y ID band on, Call device within reach, Bed in low position, Wheels locked, Upper/Half-Length side-rails up, Bedside Cart Locked, Safety level maintained [facility] Mental Status Date Assessment Result Facility 12-15-2022 Mental Status Orientation Oriented x 4 [facility] 07-25-2022 Cognitive function Voice/Name [facility] Work Phone: 09-19-2021 Cognitive function Level Of Cons ciousness Awake;Alert;Appropriate;Follow s Commands [facility] Work Phone: Clinical Notes 02-28-2021 to 08-27-2024 Roberta Gonsales APRN.PASSENGER TRAIN BRAKER - 08/27/2024 3:30 PM Yari Kennedy RRT - 08/27/2024 3:27 PM Yari Kennedy RRT - 08/27/2024 3:27 PM Andrew Wheeler MD - 08/14/2024 4:26 PM EDT Note Date & Type Note Facility 08-27-2024 History of Presen t illness Narrative Images from the original note were not included. Pulmonary Medicine Patients name: Max Romero PCP: Andrew Garrido MD CC: follow-up Asthma HPI: Max Romero is a 29 year old male former smoker with PMH significant for anxiety and depression, IBS, and asthma. Patient has longstanding history of childhood asthma and has been off and on inhaled therapy since that time. He was a new patient to Dr Aguila 02/2023 which was when he was last in the office. At that time, he was having uncontrolled Asthma symptoms in the setting of persistent allergen exposure. Allergy testing revealed class 4 reaction to cats (has multiple cats in the home), class 3 to dust mites and class 2 to dogs. Nitric oxide at that time 160 ppb. Started on Symbicort 160 and continued Albuterol PRN. He presents today for follow-up. Following his initial visit in 2022, he reports significant improvement in Asthma symptoms with regular use of Symbicort. Was rarely using Albuterol. Gradually over the past few months, he notes Asthma symptoms have not been as well controlled. Wheezing has been noted multiple times a week requiring Albuterol which does help. Occasionally lightheaded. 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 He denies cough, nocturnal awakenings or chest tightness. Denies acute illness or respiratory infection which triggered worsening control. No hospitalizations or ED visits related to breathing symptoms. He does note that he frequently has a hard time remembering to take his second dose of Symbicort and it correlates with around the time Asthma symptoms have not been as well controlled. Review of repeat nitric oxide today now normal at 16 ppb. PAST MEDICAL HISTORY Diagnosis Date Aphthous stomatitis 12/29/2022 Current mild episode of major depressive disorder without prior episode 05/12/2021 TRISTEN (generalized anxiety disorder) 04/05/2021 Irritable bowel syndrome with diarrhea 12/29/2022 Mild intermittent asthma, uncomplicated 04/16/2017 Severe recurrent major depression without psychotic features (HCC) 12/29/2022 Allergies: No Known Allergies Medication List Accurate as of August 26, 2024 3:00 PM. If you have any questions, ask your nurse or doctor. CONTINUE taking these medications albuterol HFA 90 mcg/actuation inhaler Commonly known as: PROAIR HFA Inhale 2 Puffs as instructed every 4 hours as needed for wheezing/shortness of breath. SYMBICORT 160-4.5 mcg/actuation inhaler Generic drug: budesonide-formoterol Inhale 2 Puffs as instructed two times a day. DATA: I personally reviewed and analyzed all labs, radiographs and available pulmonary function testing FENO: PFT: 02/2023 Spirometry shows a reduced FEV1/FVC ratio; but individually normal FVC and FEV1 predicted values.This pattern indicates mild obstruction or a normal variant. There is a significant bronchodilator response. Labs: Abs Eosin (k/uL) Date Value 03/09/2023 0.19 IgE (kU/l) Date Value 03/09/2023 165.0 Review of Systems Constitutional: Negative for activity change, appetite change and unexpected weight change. HENT: Positive for sneezing. Negative for congestion, mouth sores, sinus pressure and sinus pain. Respiratory: Positive for shortness of breath and wheezing. Negative for cough and chest tightness. Cardiovascular: Negative for chest pain, palpitations and leg swelling. Allergic/Immunologic: Positive for environmental allergies. Neurological: Negative for weakness. Pulse 108 Resp 18 Wt 99.8 kg (220 lb) SpO2 98% BMI 32.14 kg/m Physical Exam Vitals reviewed. Constitutional: General: He is not in acute distress. Appearance: Normal appearance. He is not ill-appearing. HENT: Head: Normocephalic. Nose: No rhinorrhea. Mouth/Throat: Mouth: Mucous membranes are moist. Pharynx: No oropharyngeal exudate. Cardiovascular: Rate and Rhythm: Normal rate and regular rhythm. Heart sounds: Normal heart sounds. Pulmonary: Effort: Pulmonary effort is normal. No respiratory distress. Breath sounds: No wheezing or rhonchi. Musculoskeletal: Right lower leg: No edema. Left lower leg: No edema. Skin: General: Skin is warm and dry. Capillary Refill: Capillary refill takes less than 2 seconds. Neurological: General: No focal deficit present. Mental Status: He is alert. ASSESSMENT/PLAN: 1. Moderate persistent asthma without complication (HCC) - ICD9: 493.90, ICD10: J45.40 (primary diagnosis) - nitric oxide improved today and is now normal at 16 ppb. - worsening symptoms. - discussed with patient that worsening control of asthma symptoms are likely related to suboptimal inhaled therapy with forgetting to use BID. Switch inhaled therapy to Breo 200. Will monitor symptoms over the next month. If no improvement, will plan to step up therapy. - we discussed triggers to asthma symptoms including allergies. Discussed mitigation of allergens, specifically dust mites. He has decreased the number of cats in his home but does have a dog in his home and can't part with them. - Continue Albuterol as needed - Asthma education: Instruction on inhalation device/technique and Rinsing after each inhaled steroid use 2. Multiple allergies - ICD9: V15.09, ICD10: Z88.9 - start Claritin - avoid Singulair - may need allergy referral F/u 1 month Portions of this documentation were copied and pasted from previous office visit notes in order to provide a cohesive continuity of the history. The note has been reviewed and edited and updated as necessary. Roberta Gonsales APRN.CNP I spent a total of 28 minutes on the date of the service which included preparing to see the patient, [id number] patient care, completing clinical documentation, performing a medically appropriate examination, counseling and educating the patient/family/caregiver, and ordering medications, tests, or procedures. documented in this encounter [facility] 08-27-2024 Note HNO ID: [id number] Author: ROBERTA GONSALES APRN.CNP Service: ? Author Type: Nurse Practitioner Type: Progress Notes Filed: 08/27/2024 17:24 Note Text: Pulmonary Medicine Patients name: Max Romero PCP: Andrew Garrido MD CC: follow-up Asthma HPI: Max Romero is a 29 year old male former smoker with PMH significant for anxiety and depression, IBS, and asthma. Patient has longstanding history of childhood asthma and has been off and on inhaled therapy since that time. He was a new patient to Dr Aguila 02/2023 which was when he was last in the office. At that time, he was having uncontrolled Asthma symptoms in the setting of persistent allergen exposure. Allergy testing revealed class 4 reaction to cats (has multiple cats in the home), class 3 to dust mites and class 2 to dogs. Nitric oxide at that time 160 ppb. Started on Symbicort 160 and continued Albuterol PRN. He presents today for follow-up. Following his initial visit in 2022, he reports significant improvement in Asthma symptoms with regular use of Symbicort. Was rarely using Albuterol. Gradually over the past few months, he notes Asthma symptoms have not been as well controlled. Wheezing has been noted multiple times a week requiring Albuterol which does help. Occasionally lightheaded. 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 He denies cough, nocturnal awakenings or chest tightness. Denies acute illness or respiratory infection which triggered worsening control. No hospitalizations or ED visits related to breathing symptoms. He does note that he frequently has a hard time remembering to take his second dose of Symbicort and it correlates with around the time Asthma symptoms have not been as well controlled. Review of repeat nitric oxide today now normal at 16 ppb. PAST MEDICAL HISTORY Diagnosis Date Aphthous stomatitis 12/29/2022 Current mild episode of major depressive disorder without prior episode 05/12/2021 TRISTEN (generalized anxiety disorder) 04/05/2021 Irritable bowel syndrome with diarrhea 12/29/2022 Mild intermittent asthma, uncomplicated 04/16/2017 Severe recurrent major depression without psychotic features ([facility]) 12/29/2022 Allergies: No Known Allergies Medication List Accurate as of August 26, 2024 3:00 PM. If you have any questions, ask your nurse or doctor. CONTINUE taking these medications albuterol HFA 90 mcg/actuation inhaler Commonly known as: PROAIR HFA Inhale 2 Puffs as instructed every 4 hours as needed for wheezing/shortness of breath. SYMBICORT 160-4.5 mcg/actuation inhaler Generic drug: budesonide-formoterol Inhale 2 Puffs as instructed two times a day. DATA: I personally reviewed and analyzed all labs, radiographs and available pulmonary function testing FENO: PFT: 02/2023 Spirometry shows a reduced FEV1/FVC ratio; but individually normal FVC and FEV1 predicted values.This pattern indicates mild obstruction or a normal variant. There is a significant bronchodilator response. Labs: Abs Eosin (k/uL) Date Value 03/09/2023 0.19 IgE (kU/l) Date Value 03/09/2023 165.0 Review of Systems Constitutional: Negative for activity change, appetite change and unexpected weight change. HENT: Positive for sneezing. Negative for congestion, mouth sores, sinus pressure and sinus pain. Respiratory: Positive for shortness of breath and wheezing. Negative for cough and chest tightness. Cardiovascular: Negative for chest pain, palpitations and leg swelling. Allergic/Immunologic: Positive for environmental allergies. Neurological: Negative for weakness. Pulse 108 Resp 18 Wt 99.8 kg (220 lb) SpO2 98% BMI 32.14 kg/m? Physical Exam Vitals reviewed. Constitutional: General: He is not in acute distress. Appearance: Normal appearance. He is not ill-appearing. HENT: Head: Normocephalic. Nose: No rhinorrhea. Mouth/Throat: Mouth: Mucous membranes are moist. Pharynx: No oropharyngeal exudate. Cardiovascular: Rate and Rhythm: Normal rate and regular rhythm. Heart sounds: Normal heart sounds. Pulmonary: Effort: Pulmonary effort is normal. No respiratory distress. Breath sounds: No wheezing or rhonchi. Musculoskeletal: Right lower leg: No edema. Left lower leg: No edema. Skin: General: Skin is warm and dry. Capillary Refill: Capillary refill takes less than 2 seconds. Neurological: General: No focal deficit present. Mental Status: He is alert. ASSESSMENT/PLAN: 1. Moderate persistent asthma without complication (HCC) - ICD9: 493.90, ICD10: J45.40 (primary diagnosis) - nitric oxide improved today and is now normal at 16 ppb. - worsening symptoms. - discussed with patient that worsening control of asthma symptoms are likely related to suboptimal inhaled therapy with forgetting to use BID (more content not included)... [facility] 08-27-2024 Note HNO ID: [id number] Author: YARI OLIVARES, ELIA Service: ? Author Type: Registered Resp Therapist Type: Procedures Filed: 08/27/2024 15:27 Note Text: RESPIRATORY THERAPY ORAL EXHALED NITRIC OXIDE SERVICE DATE: 08/27/2024 SERVICE TIME: 3:27 PM Oral Exhaled Nitric Oxide measurement: 16.0 (ppb) Normal: Adult <25 ppb, pediatric (<12 years) <20 ppb High Normal / Increased: Adult 25-50 ppb, pediatric (<12 years) 20-35 ppb Moderately raised exhaled Nitric Oxide may indicate underlying inflammation, but note that: Cold and influenza can raise exhaled Nitric Oxide and some patients have higher baseline exhaled Nitric Oxide levels than others. High: Adult >50 ppb, pediatric (<12 years) >35 ppb Indicative of ongoing eosinophilic inflammation. Symptomatic patient likely to respond to steroids. Possible causes (if already on steroids): Poor compliance, recent allergen exposure, steroid dose inadequate, and steroid resistance. Note that not all patients with high exhaled nitric oxide levels display symptoms. Oral Exhaled Nitric Oxide measurement (Previous Encounters) Test Date Oral Exhaled Nitric Oxide (ppb) 08/27/2024 16.0 03/09/2023 160.0 (A) NAME: Yari Olivares RRT PATIENT NAME: Max Romero DATE: August 27, 2024 TIME: 3:27 PM [facility] 08-27-2024 Procedure note Associated Ord er(s): NITRIC OXIDE, EXHALED RESPIRATORY THERAPY ORAL EXHALED NITRIC OXIDE SERVICE DATE: 08/27/2024 SERVICE TIME: 3:27 PM Oral Exhaled Nitric Oxide measurement: 16.0 (ppb) Normal: Adult <25 ppb, pediatric (<12 years) <20 ppb High Normal / Increased: Adult 25-50 ppb, pediatric (<12 years) 20-35 ppb Moderately raised exhaled Nitric Oxide may indicate underlying inflammation, but note that: Cold and influenza can raise exhaled Nitric Oxide and some patients have higher baseline exhaled Nitric Oxide levels than others. High: Adult >50 ppb, pediatric (<12 years) >35 ppb Indicative of ongoing eosinophilic inflammation. Symptomatic patient likely to respond to steroids. Possible causes (if already on steroids): Poor compliance, recent allergen exposure, steroid dose inadequate, and steroid resistance. Note that not all patients with high exhaled nitric oxide levels display symptoms. Oral Exhaled Nitric Oxide measurement (Previous Encounters) Test Date Oral Exhaled Nitric Oxide (ppb) 08/27/2024 16.0 03/09/2023 160.0 (A) NAME: Yari Olivares RRT PATIENT NAME: Max Romero DATE: August 27, 2024 TIME: 3:27 PM [facility] 08-27-2024 Procedure note Associated Ord er(s): NITRIC OXIDE, EXHALED RESPIRATORY THERAPY ORAL EXHALED NITRIC OXIDE SERVICE DATE: 08/27/2024 SERVICE TIME: 3:27 PM Oral Exhaled Nitric Oxide measurement: 16.0 (ppb) Normal: Adult <25 ppb, pediatric (<12 years) <20 ppb High Normal / Increased: Adult 25-50 ppb, pediatric (<12 years) 20-35 ppb Moderately raised exhaled Nitric Oxide may indicate underlying inflammation, but note that: Cold and influenza can raise exhaled Nitric Oxide and some patients have higher baseline exhaled Nitric Oxide levels than others. High: Adult >50 ppb, pediatric (<12 years) >35 ppb Indicative of ongoing eosinophilic inflammation. Symptomatic patient likely to respond to steroids. Possible causes (if already on steroids): Poor compliance, recent allergen exposure, steroid dose inadequate, and steroid resistance. Note that not all patients with high exhaled nitric oxide levels display symptoms. Oral Exhaled Nitric Oxide measurement (Previous Encounters) Test Date Oral Exhaled Nitric Oxide (ppb) 08/27/2024 16.0 03/09/2023 160.0 (A) NAME: Yari Olivares RRT PATIENT NAME: Max Romero DATE: August 27, 2024 TIME: 3:27 PM documented in this encounter [facility] 08-14-2024 Note HNO ID: [id number] Author: ANDREW GARRIDO MD Service: ? Author Type: Physician Type: Progress Notes Filed: 08/14/2024 17:04 Note Text: This note was created using AudioSnapsriter. Subjective Patient presents with: Physical Max Romero is a 29 year old male. 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 He has an appointment with pulmonary. ASTHMA CONTROL TEST Date: 08/14/2024 In the last 4 weeks, how much of the time did your asthma keep you from getting as much done at work or home that you wanted to do? Most of the time (2) In the last 4 weeks, how often have you had shortness of breath? More than once per day (1) In the last 4 weeks, how often did your asthma symptoms (wheezing, coughing, shortness of breath, chest tightness or pain) wake you up at night or earlier than usual? Not at all (5) In the last 4 weeks, how often have you used your rescue inhaler or nebulizer medication (such as Albuterol, Proventil, Ventolin, Maxair, Xoponex, or Primatene Mist)? A few times per week (3) In the last 4 weeks, how would you rate your asthma control? Poorly controlled (2) Total: less than 15 Other concern was diabetes, due to his family history. He has gained weight from dietary choices and lack of exercise. He also noted increasing skin tags in his groin area. He has some in the axilla but the groin skin tag was recent. He was sexually active with his female friend, but denied history of STI. His depression and anxiety were not treated. He denied suicidal planning. He did not follow thru on recommendations made when he was seen in 2022. Review of Systems Constitutional: Positive for unexpected weight change. Negative for appetite change and fever. HENT: Negative for congestion, mouth sores and sore throat. Respiratory: Positive for shortness of breath and wheezing. Negative for cough. Cardiovascular: Negative. Gastrointestinal: Negative for abdominal pain, constipation, nausea and vomiting. Genitourinary: Negative for difficulty urinating, genital sores and penile discharge. Neurological: Negative. Psychiatric/Behavioral: Positive for dysphoric mood. The patient is nervous/anxious. PAST MEDICAL HISTORY Diagnosis Date Aphthous stomatitis 12/29/2022 Current mild episode of major depressive disorder without prior episode (HCC) 05/12/2021 TRISTEN (generalized anxiety disorder) 04/05/2021 Irritable bowel syndrome with diarrhea 12/29/2022 Mild intermittent asthma, uncomplicated 04/16/2017 Severe recurrent major depression without psychotic features (HCC) 12/29/2022 PAST SURGICAL HISTORY Procedure Laterality Date NONE FAMILY HISTORY Problem Relation Age of Onset Asthma Father Social History Tobacco Use Smoking status: Former Smokeless tobacco: Never Tobacco comments: One pack every other day Vaping in past Vaping Use Vaping status: current everyday user Substance Use Topics Alcohol use: Yes Comment: occasionally Drug use: Never ALLERGIES No Known Allergies Current Outpatient Medications Medication Sig SYMBICORT 160-4.5 mcg/actuation inhaler Inhale 2 Puffs as instructed two times a day. albuterol HFA (PROAIR HFA) 90 mcg/actuation inhaler Inhale 2 Puffs as instructed every 4 hours as needed for wheezing/shortness of breath. No current facility-administered medications for this visit. Objective BP 124/78 (BP Site: Left Arm, BP Position: Sitting, BP Cuff Size: Large Adult) Pulse 100 Resp 16 Wt 100 kg (220 lb 7.4 oz) BMI 32.21 kg/m? Physical Exam Constitutional: Appearance: He is obese. He is not ill-appearing. HENT: Head: Normocephalic. Nose: No congestion or rhinorrhea. Mouth/Throat: Mouth: Mucous membranes are moist. Pharynx: Oropharynx is clear. Eyes: Conjunctiva/sclera: Conjunctivae normal. Cardiovascular: Rate and Rhythm: Normal rate and regular rhythm. Heart sounds: No murmur heard. No gallop. Pulmonary: Effort: No respiratory distress. Breath sounds: Normal breath sounds. No wheezing or rales. Abdominal: General: There is no distension. Palpations: Abdomen is soft. Tenderness: There is no abdominal tenderness. Hernia: There is no hernia in the left inguinal area or right inguinal area. Genitourinary: Penis: Uncircumcised. No lesions. Testes: Normal. Comments: Isolated skin tag left groin, benign. Musculoskeletal: Right lower leg: No edema. Left lower leg: No edema. Lymphadenopathy: Cervical: No cervical adenopathy. Lower Body: No right inguinal adenopathy. No left inguinal adenopathy. Neurological: Mental Status: He is alert. Psychiatric: Mood and Affect: Mood normal. Behavior: Behavior normal. Thought Content: Thought content normal. Assessment and Plan 1. Severe recurrent major depression without psychotic features (HCC) - ICD9: 296.33, ICD10: F33.2 (primary diagnosis) - CONSULT TO PSYCHIATRY 2. TRISTEN (generalized anxiety di (more content not included)... [facility] 08-14-2024 History of Presen t illness Narrative This note was created using NoteWriter. Subjective Patient presents with: Physical Max Romero is a 29 year old male. 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 He has an appointment with pulmonary. ASTHMA CONTROL TEST Date: 08/14/2024 In the last 4 weeks, how much of the time did your asthma keep you from getting as much done at work or home that you wanted to do? Most of the time (2) In the last 4 weeks, how often have you had shortness of breath? More than once per day (1) In the last 4 weeks, how often did your asthma symptoms (wheezing, coughing, shortness of breath, chest tightness or pain) wake you up at night or earlier than usual? Not at all (5) In the last 4 weeks, how often have you used your rescue inhaler or nebulizer medication (such as Albuterol, Proventil, Ventolin, Maxair, Xoponex, or Primatene Mist)? A few times per week (3) In the last 4 weeks, how would you rate your asthma control? Poorly controlled (2) Total: less than 15 Other concern was diabetes, due to his family history. He has gained weight from dietary choices and lack of exercise. He also noted increasing skin tags in his groin area. He has some in the axilla but the groin skin tag was recent. He was sexually active with his female friend, but denied history of STI. His depression and anxiety were not treated. He denied suicidal planning. He did not follow thru on recommendations made when he was seen in 2022. Review of Systems Constitutional: Positive for unexpected weight change. Negative for appetite change and fever. HENT: Negative for congestion, mouth sores and sore throat. Respiratory: Positive for shortness of breath and wheezing. Negative for cough. Cardiovascular: Negative. Gastrointestinal: Negative for abdominal pain, constipation, nausea and vomiting. Genitourinary: Negative for difficulty urinating, genital sores and penile discharge. Neurological: Negative. Psychiatric/Behavioral: Positive for dysphoric mood. The patient is nervous/anxious. PAST MEDICAL HISTORY Diagnosis Date Aphthous stomatitis 12/29/2022 Current mild episode of major depressive disorder without prior episode (HCC) 05/12/2021 TRISTEN (generalized anxiety disorder) 04/05/2021 Irritable bowel syndrome with diarrhea 12/29/2022 Mild intermittent asthma, uncomplicated 04/16/2017 Severe recurrent major depression without psychotic features (HCC) 12/29/2022 PAST SURGICAL HISTORY Procedure Laterality Date NONE FAMILY HISTORY Problem Relation Age of Onset Asthma Father Social History Tobacco Use Smoking status: Former Smokeless tobacco: Never Tobacco comments: One pack every other day Vaping in past Vaping Use Vaping status: current everyday user Substance Use Topics Alcohol use: Yes Comment: occasionally Drug use: Never ALLERGIES No Known Allergies Current Outpatient Medications Medication Sig SYMBICORT 160-4.5 mcg/actuation inhaler Inhale 2 Puffs as instructed two times a day. albuterol HFA (PROAIR HFA) 90 mcg/actuation inhaler Inhale 2 Puffs as instructed every 4 hours as needed for wheezing/shortness of breath. No current facility-administered medications for this visit. Objective BP 124/78 (BP Site: Left Arm, BP Position: Sitting, BP Cuff Size: Large Adult) Pulse 100 Resp 16 Wt 100 kg (220 lb 7.4 oz) BMI 32.21 kg/m Physical Exam Constitutional: Appearance: He is obese. He is not ill-appearing. HENT: Head: Normocephalic. Nose: No congestion or rhinorrhea. Mouth/Throat: Mouth: Mucous membranes are moist. Pharynx: Oropharynx is clear. Eyes: Conjunctiva/sclera: Conjunctivae normal. Cardiovascular: Rate and Rhythm: Normal rate and regular rhythm. Heart sounds: No murmur heard. No gallop. Pulmonary: Effort: No respiratory distress. Breath sounds: Normal breath sounds. No wheezing or rales. Abdominal: General: There is no distension. Palpations: Abdomen is soft. Tenderness: There is no abdominal tenderness. Hernia: There is no hernia in the left inguinal area or right inguinal area. Genitourinary: Penis: Uncircumcised. No lesions. Testes: Normal. Comments: Isolated skin tag left groin, benign. Musculoskeletal: Right lower leg: No edema. Left lower leg: No edema. Lymphadenopathy: Cervical: No cervical adenopathy. Lower Body: No right inguinal adenopathy. No left inguinal adenopathy. Neurological: Mental Status: He is alert. Psychiatric: Mood and Affect: Mood normal. Behavior: Behavior normal. Thought Content: Thought content normal. Assessment and Plan 1. Severe recurrent major depression without psychotic features (HCC) - ICD9: 296.33, ICD10: F33.2 (primary diagnosis) - CONSULT TO PSYCHIATRY 2. TRISTEN (generalized anxiety disorder) - ICD9: 300.02, ICD10: F41.1 - CONSULT TO PSYCHIATRY 3. Irritable bowel syndrome with diarrhea - ICD9: 564.1, ICD10: K58.0 - Chronic, stable. 4. Aphthous stomatitis - ICD9: 528.2, ICD10: K12.0 Resolved. 5. Mild intermittent asthma, uncomplicated - ICD9: 493.90, ICD10: J45.20 - Worse. - See pulmonary. 6. Encounter for screening for HIV - ICD9: V73.89, ICD10: Z11.4 - HIV 1/2 COMBO WITH REFLEX TO DIFFERENTIATION 7. Weight gain - ICD9: 783.1, ICD10: R63.5 Diet and exercise. - BASIC METABOLIC PANEL 8. Skin tags, multiple acquired - ICD9: 701.9, ICD10: L91.8 Reassured. Return for inflamed or infected skin tag. Andrew Garrido MD documented in this encounter [facility] 03-11-2024 Telephone encounter Note Patient reports about 2 mths ago he tried to donate plasma and was denied b/c his BP and P were high (they didn't tell him the numbers). Does not have a way of checking BP at home. [facility] and it read high. Reports he has been feeling exhausted, with SOB on exertion (has asthma and uses 2 inhalers, which help). Protocol recommends see provider with 2 weeks. Scheduled appt with pcp for tomorrow, given patient's symptoms. 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 BLOOD PRESSURE: Reports he has not checked BP for a couple months, but has been feeling tired, with increase agitation. Has asthma and has been acting up lately. Checks his wrist for pulse and feels like it's going fast. Can feel heart beating in his chest sometimes. Has albuterol inhaler, and another asthma inhaler he takes it twice a day- these both help. 2. ONSET: Hasn't taken BP in 2 months. 3. HOW: Checks it at a [facility], and also tried to donate plasma but they denied him, b/c his BP and P were high- about 2 months ago. They didn't tell him what the result was. 4. HISTORY: Has never taken BP medicine for High BP 5. MEDICINES: No 6. OTHER SYMPTOMS: No blurred vision. No CP. Does have SOB sometimes. No WATSON's. Feels exhausted all the time. SOB on exertion. Has gained weight, thinks he weighs around 210 #, last checked when he tried to donate plasma. Doesn't exercise b/c runs out of breath too fast. 7. : N/A Protocols used: Blood Pressure - [id number] [facility] 03-11-2024 Miscellaneous Notes Patient reports about 2 mths ago he tried to donate plasma and was denied b/c his BP and P were high (they didn't tell him the numbers). Does not have a way of checking BP at home. Checked his BP at [facility] a couple months ago and it read high. Reports he has been feeling exhausted, with SOB on exertion (has asthma and uses 2 inhalers, which help). Protocol recommends see provider with 2 weeks. Scheduled appt with pcp for tomorrow, given patient's symptoms. 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 BLOOD PRESSURE: Reports he has not checked BP for a couple months, but has been feeling tired, with increase agitation. Has asthma and has been acting up lately. Checks his wrist for pulse and feels like it's going fast. Can feel heart beating in his chest sometimes. Has albuterol inhaler, and another asthma inhaler he takes it twice a day- these both help. 2. ONSET: Hasn't taken BP in 2 months. 3. HOW: Checks it at a [facility], and also tried to donate plasma but they denied him, b/c his BP and P were high- about 2 months ago. They didn't tell him what the result was. 4. HISTORY: Has never taken BP medicine for High BP 5. MEDICINES: No 6. OTHER SYMPTOMS: No blurred vision. No CP. Does have SOB sometimes. No WATSON's. Feels exhausted all the time. SOB on exertion. Has gained weight, thinks he weighs around 210 #, last checked when he tried to donate plasma. Doesn't exercise b/c runs out of breath too fast. 7. : N/A Protocols used: Blood Pressure - [id number] documented in this encounter [facility] 03-11-2024 Miscellaneous Notes Placed on Triage nurse schedule. Patient scheduled tomorrow for high BP and heart rate. This needs triaged and scheduled for a 40 min visit, not 20 minutes Shana Balderas APRN.PASSENGER TRAIN BRAKER documented in this encounter [facility] 03-11-2024 Telephone encounter Note Placed on Triage nurse schedule. [facility] 03-11-2024 Telephone encounter Note Patient scheduled tomorrow for high BP and heart rate. This needs triaged and scheduled for a 40 min visit, not 20 minutes Shana Balderas APRN.PASSENGER TRAIN BRAKER [facility] Work Phone: 01-08-2024 Telephone encounter Note [facility] 03/09/23 Patient phones requesting refills as follows: Requested Prescriptions Pending Prescriptions Disp Refills SYMBICORT 160-4.5 mcg/actuation inhaler 1 Each 5 Sig: Inhale 2 Puffs as instructed two times a day. albuterol HFA (PROAIR HFA) 90 mcg/actuation inhaler 18 g 3 Sig: Inhale 2 Puffs as instructed every 4 hours as needed for wheezing/shortness of breath. Please review and advise. Marlene Stallworth LPN [facility] 01-08-2024 Miscellaneous Notes [facility] 03/09/23 Patient phones requesting refills as follows: Requested Prescriptions Pending Prescriptions Disp Refills SYMBICORT 160-4.5 mcg/actuation inhaler 1 Each 5 Sig: Inhale 2 Puffs as instructed two times a day. albuterol HFA (PROAIR HFA) 90 mcg/actuation inhaler 18 g 3 Sig: Inhale 2 Puffs as instructed every 4 hours as needed for wheezing/shortness of breath. Please review and advise. Marlene Stallworth LPN documented in this encounter [facility] 08-08-2023 Miscellaneous Notes Patient phones requesting refills as follows: Requested Prescriptions Pending Prescriptions Disp Refills SYMBICORT 160-4.5 mcg/actuation inhaler 1 Each 5 Sig: Inhale 2 Puffs as instructed two times a day. albuterol HFA (PROAIR HFA) 90 mcg/actuation inhaler 18 g 3 Sig: Inhale 2 Puffs as instructed every 4 hours as needed for wheezing/shortness of breath. Please review and advise. Alka Hayes MA documented in this encounter [facility] 03-09-2023 History of Presen t illness Narrative PULM FUNCTION SMARTBLOCK: Provider: Tanisha Aguila MD Assisting Tech: Keya Love RPFT Exhaled Nitric Oxide: 1 documented in this encounter [facility] 03-09-2023 Procedure note Associated Ord er(s): NITRIC OXIDE, EXHALED RESPIRATORY THERAPY ORAL EXHALED NITRIC OXIDE SERVICE DATE: 03/09/2023 SERVICE TIME: 11:54 AM Oral Exhaled Nitric Oxide measurement: 160.0 (ppb) (A) Normal: Adult 5-20 ppb, pediatric (<12 years) 5-15 ppb High Normal / Increased: Adult 20-35 ppb, pediatric (<12 years) 15-25 ppb Moderately raised exhaled Nitric Oxide may indicate underlying inflammation, but note that: Cold and influenza can raise exhaled Nitric Oxide and some patients have higher baseline exhaled Nitric Oxide levels than others. High: Adult >35 ppb, pediatric (<12 years) >25 ppb Indicative of ongoing eosinophilic inflammation. Symptomatic patient likely to respond to steroids. Possible causes (if already on steroids): Poor compliance, recent allergen exposure, steroid dose inadequate, and steroid resistance. Note that not all patients with high exhaled nitric oxide levels display symptoms. Oral Exhaled Nitric Oxide measurement (Previous Encounters) Test Date Oral Exhaled Nitric Oxide (ppb) 03/09/2023 160.0 (A) NAME: STEVE Valdez PATIENT NAME: Max Romero DATE: March 09, 2023 TIME: 11:54 AM documented in this encounter [facility] 03-09-2023 Nurse Note FeNO = 160ppb Marlene Stallworth LPN documented in this encounter [facility] 03-09-2023 History of Presen t illness Narrative Images from the original note were not included. . [facility] Note Patient name: Max Romero PCP: Andrew Garrido MD Referring Physician: Same Consultation requested by Dr. Garrido for an opinion regarding asthma. My final recommendations will be communicated back to the requesting physician by way of shared Medical record or letter to requesting physician via US mail. CC: Persistent asthma HPI: Max Romero 27 year old male former smoker with PMH significant for anxiety and depression, IBS, and asthma. Patient has longstanding history of childhood asthma. Required daily inhaler usage when he was in elementary school but as he entered his teenage years his asthma was under control with only occasional need for albuterol. He has never been formally allergy tested to his knowledge but is obviously allergic to cats. His current girlfriend has a cat and he has a dog in his home. He states that his asthma seems to be under better control in the past until had COVID several years ago. Since then he has had COVID several other occasions. He has been using his albuterol up to 10 times a day. Current symptoms include shortness of breath, wheezing, nonproductive cough, chest tightness. His asthma awakens him sleep most nights. No nasal congestion, rhinorrhea or itchy eyes. No skin sensitivity or history of eczema. DATA: SERVICE DATE: 03/09/2023 SERVICE TIME: 11:54 AM Oral Exhaled Nitric Oxide measurement: 160.0 (ppb) (A) PFT: Review pulmonary function test shows mild obstruction with marked improvement post bronchodilator No recent labs or chest imaging PAST MEDICAL HISTORY Diagnosis Date Aphthous stomatitis 12/29/2022 Current mild episode of major depressive disorder without prior episode (HCC) 05/12/2021 TRISTEN (generalized anxiety disorder) 04/05/2021 Irritable bowel syndrome with diarrhea 12/29/2022 Mild intermittent asthma, uncomplicated 04/16/2017 Severe recurrent major depression without psychotic features (HCC) 12/29/2022 ALLERGIES No Known Allergies SYMBICORT 160-4.5 mcg/actuation inhaler Inhale 2 Puffs as instructed two times a day. albuterol HFA (PROAIR HFA) 90 mcg/actuation inhaler Inhale 2 Puffs as instructed every 4 hours as needed for wheezing/shortness of breath. triamcinolone (KENALOG IN ORABASE) 0.1 % paste Apply as needed bid Social History Tobacco Use Smoking status: Former Smokeless tobacco: Never Tobacco comments: One pack every other day Vaping in past Vaping Use Vaping Use: current everyday user Substance Use Topics Alcohol use: Yes Comment: occasionally Drug use: Never Smoked in his teenage years. 1 pack lasted several days. He also participated in vaping for short period of time. Pets: Dog FAMILY HISTORY Problem Relation Age of Onset Asthma Father PAST SURGICAL HISTORY Procedure Laterality Date NONE PMH, Social history, family history and surgical history reviewed and updated in EMR REVIEW OF SYSTEMS: CONSTITUTIONAL: No fevers, chills, nightsweats, unintended weight loss HEENT: Denies nasal congestion/sinus symptoms, allergy problems. EYES: No diplopia or blurry vision, tearing or itchy eyes CARDIOVASCULAR: No chest pain, palpitations, orthopnea, PND, edema. PULM: See HPI GI: No dysphagia/odynophagia, problematic reflux : No new urinary complaints NEURO: No new balance problems, peripheral weakness/paresthesias or numbness of concern. MUSC-SKEL: No joint pain, swelling, or erythema. PSY: History of depression INTEGUMENTARY: No new skin changes, skin sensitivity or rashes or eczema PHYSICAL EXAMINATION: BP 118/84 Pulse 67 Resp 14 Ht 5' 9.37 (1.76m) Wt 192 lb (87.1kg) SpO2 98% BMI 28.05 kg/(m^2). General Appearance: Age-appropriate male, NAD. Skin: Skin color, texture, turgor normal, no suspicious rashes or lesions. Head: Normocephalic, no masses, lesions, tenderness or abnormalities. Eyes: Sclera, conjunctiva normal. Oropharynx: No oral lesions or erythema. Neck: No JVD or masses. Lungs: Not labored, normal to percussion, no wheezes or crackles. Heart: Regular rate and rhythm, no murmurs or gallops. Extremities: No edema or clubbing. Musculoskeletal: No joint deformities or effusions or erythema. Lymph Nodes: No cervical lymphadenopathy and No supraclavicular lymphadenopathy. Assessment/Plan: 1. Asthma persistent, not controlled -Markedly elevated exhaled nitric oxide level and obstruction on pulmonary function test consistent with asthma -Cautioned patient on overuse of his albuterol inhaler -Started Symbicort 160/4.52 puffs twice daily -Allergy assessment -Will follow Keri Aguila MD [facility] documented in this encounter [facility] 03-09-2023 Nurse Note Intake information documented in the prior visit with STEVE Valdez today. documented in this encounter [facility] 03-09-2023 History of Presen t illness Narrative PULM FUNCTION SMARTBLOCK: Provider: Tanisha Aguila MD Assisting Tech: Keya Love RPFT Spirometry w/BD: 1 documented in this encounter [facility] 01-05-2023 History of Presen t illness Narrative Behavioral Health Social Work Progress Note Patient identified for [facility] from: PCP Reason for referral: [facility] Behavioral Health Resources: Psychiatry med management, Psychology - talk therapy [facility] encounter type: MyChart Message Attempts to Outreach: 3 attempts Referral made: Psychology - Internal, Psychiatry - External, Psychology - External, Psychiatry - Internal Psychiatry-Internal referral type: Medication Management Psychology-Internal referral type: Therapy Psychology-External referral type: Therapy Psychiatry-External referral type: Medication Management Reason for external referral: Wait times at [facility] too long, Patient choice Final Disposition: Resources given Patient Discharged?: Yes Patient reported that caregiver was able to meet their needs today?: N/A therapist sent patient [employer] follow up message offering assistance with linkage to behavioral health services. MIESHA Dolan January 05, 2023 documented in this encounter [facility] 12-29-2022 Miscellaneous Notes Behavioral Health Social Work Progress Note Patient identified for [facility] from: PCP Reason for referral: [facility] Behavioral Health Resources: Psychiatry med management, Psychology - talk therapy [facility] encounter type: Telephone Encounter Attempts to Outreach: 1 attempt Patient Discharged?: No Patient reported that caregiver was able to meet their needs today?: N/A Attempted to reach patient by phone, both numbers listed for him are not valid numbers. therapist will send patient MyChart message. MIESHA Dolan December 29, 2022 documented in this encounter [facility] 12-29-2022 History of Presen t illness Narrative This note was created using [employer]. Subjective Patient presents with: Establish Care Max Romero is a 27 year old male. ASTHMA CONTROL TEST Date: 12/29/2022 In the last 4 weeks, how much of the time did your asthma keep you from getting as much done at work or home that you wanted to do? Most of the time (2) In the last 4 weeks, how often have you had shortness of breath? 3 to 6 times per week (3) In the last 4 weeks, how often did your asthma symptoms (wheezing, coughing, shortness of breath, chest tightness or pain) wake you up at night or earlier than usual? 4 or more nights per week (1) In the last 4 weeks, how often have you used your rescue inhaler or nebulizer medication (such as Albuterol, Proventil, Ventolin, Maxair, Xoponex, or Primatene Mist)? 3 or more times per day (1) In the last 4 weeks, how would you rate your asthma control? Poorly controlled (2) Total: less than 15 He has been to the ER once last month for exacerbation of asthma. He's concerned since his blood pressure and heart rate have been elevated when checked. He had chronic depression and anxiety. He used to go to [facility] for counseling. Previous PCP had him on sertraline which just made him more angry so he stopped taking medications. He ever trying to commit suicide, and despite his responses to the PHQ-9, he denied having suicidal thoughts. 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 He got a dog 6 months ago that helps calm him down when anxious and elevate his mood when down. He had rectal bleeding last year, on top of chronic diarrhea. He saw [facility] and had negative serologic tests. Review of Systems Constitutional: Negative for chills, fatigue, fever and unexpected weight change. HENT: Negative for congestion and sore throat. Eyes: Negative for visual disturbance. Respiratory: Positive for cough, chest tightness, shortness of breath and wheezing. Cardiovascular: Positive for palpitations. Negative for chest pain and leg swelling. Gastrointestinal: Positive for anal bleeding, constipation and diarrhea. Negative for abdominal distention, abdominal pain, nausea, rectal pain and vomiting. Genitourinary: Negative for difficulty urinating and dysuria. Musculoskeletal: Negative for arthralgias, back pain, gait problem, joint swelling and myalgias. Skin: Negative. Neurological: Negative for dizziness, syncope and headaches. Psychiatric/Behavioral: Negative for self-injury, sleep disturbance and suicidal ideas. PAST MEDICAL HISTORY Diagnosis Date Aphthous stomatitis 12/29/2022 Current mild episode of major depressive disorder without prior episode (HCC) 05/12/2021 TRISTEN (generalized anxiety disorder) 04/05/2021 Irritable bowel syndrome with diarrhea 12/29/2022 Mild intermittent asthma, uncomplicated 04/16/2017 Severe recurrent major depression without psychotic features ([facility]) 12/29/2022 PAST SURGICAL HISTORY Procedure Laterality Date NONE Social History Tobacco Use Smoking status: Former Smokeless tobacco: Never Vaping Use Vaping Use: current everyday user Substance Use Topics Alcohol use: Yes Comment: occasionally Drug use: Never ALLERGIES No Known Allergies Current Outpatient Medications Medication Sig albuterol HFA (PROAIR HFA) 90 mcg/actuation inhaler Inhale 2 Puffs as instructed every 4 hours as needed for wheezing/shortness of breath. triamcinolone (KENALOG IN ORABASE) 0.1 % paste Apply as needed bid No current facility-administered medications for this visit. Objective BP (P) 124/84 (BP Site: Left Arm, BP Position: Sitting, BP Cuff Size: Large Adult) Pulse (P) 96 Resp (P) 16 Ht (P) 175.3 cm (5' 9) Wt (P) 84.4 kg (186 lb) SpO2 (P) 95% BMI (P) 27.47 kg/m Physical Exam Constitutional: Appearance: Normal appearance. HENT: Head: Normocephalic. Mouth/Throat: Mouth: Mucous membranes are moist. Pharynx: Oropharynx is clear. No oropharyngeal exudate or posterior oropharyngeal erythema. Eyes: Extraocular Movements: Extraocular movements intact. Conjunctiva/sclera: Conjunctivae normal. Pupils: Pupils are equal, round, and reactive to light. Cardiovascular: Rate and Rhythm: Regular rhythm. Tachycardia present. Pulses: Normal pulses. Heart sounds: No murmur heard. No gallop. Pulmonary: Effort: No respiratory distress. Breath sounds: Normal breath sounds. No wheezing or rales. Abdominal: Palpations: Abdomen is soft. Tenderness: There is no abdominal tenderness. Musculoskeletal: General: Normal range of motion. Cervical back: No tenderness. Right lower leg: No edema. Left lower leg: No edema. Lymphadenopathy: Cervical: No cervical adenopathy. Neurological: General: No focal deficit present. Mental Status: He is alert. Gait: Gait normal. Psychiatric: Mood and Affect: Mood normal. Behavior: Behavior normal. Thought Content: Thought content normal. TRISTEN-7 ANXIETY SCALE 12/29/2022 FEELING NERVOUS,ANXIOUS,OR ON EDGE 3 Nearly every day NOT BEING ABLE TO STOP OR CONTROL WORRYING 3 Nearly every day WORRYING TOO MUCH ABOUT DIFFERENT THINGS 3 Nearly every day TROUBLE RELAXING 3 Nearly every day BEING SO RESTLESS THAT IT'S HARD TO SIT STILL 3 Nearly every day BEING EASILY ANNOYED OR IRRITABLE 3 Nearly every day FEELING AFRAID IF SOMETHING AWFUL MIGHT HAPPEN 3 Nearly every day GAD7 SCORE 21 IF YOU CHECKED OFF ANY PROBLEMS Very difficult CP PHQ9 12/29/2022 Little interest or pleasure 2 - More than half the days Feeling down, depressed, hopeless 1 - Several days Trouble falling or staying asleep, sleeping too much 1 - Several days Feeling tired, having little energy 1 - Several days Poor appetite or overeating 3 - Nearly every day Feeling bad about yourself, failure or you have let yourself/family down 3 - Nearly every day Trouble concentrating on things 1 - Several days Moving or speaking so slowly, or fidgety or restless 3 - Nearly every day Thoughts that you would be better off , or of hurting yourself in some way 3 - Nearly every day How difficult have these problems made things Very difficult Interpretation of Total Score 15-19 Moderately severe depression EKG RESULTS: sinus tachycardia and otherwise normal. Assessment and Plan 1. Severe episode of recurrent major depressive disorder, without psychotic features (HCC) - ICD9: 296.33, ICD10: F33.2 (primary diagnosis) - Patient was contracted for safety. He preferred to reestablish with mental health. Refer to psychiatry. - CONSULT TO PRIMARY CARE BEHAVIORAL HEALTH ADULT 2. Moderate persistent asthma with acute exacerbation - ICD9: 493.92, ICD10: J45.41 - Continue current medications - Avoidance of triggers recommended - CONSULT TO PULMONARY MEDICINE - SPIROMETRY - BASELINE AND POST DILATOR 3. Tachycardia - ICD9: 785.0, ICD10: R00.0 Normal, likely anxiety related. - ECG COMPLETE - CBC - BASIC METABOLIC PNL 4. Screening for HIV without presence of risk factors - ICD9: V73.89, ICD10: Z11.4 - HIV 1 2 COMBO(AG/AB),WITH REFLEX TO DIFFERENTIATION 5. Need for vaccination - ICD9: V05.9, ICD10: Z23 - PNEUMOCOCCAL VACCINE (PREVNAR 20) 6. TRISTEN (generalized anxiety disorder) - ICD9: 300.02, ICD10: F41.1 See above. - CONSULT TO PRIMARY CARE BEHAVIORAL HEALTH ADULT 7. Irritable bowel syndrome with diarrhea - ICD9: 564.1, ICD10: K58.0 Stable since early teens. 8. Aphthous stomatitis - ICD9: 528.2, ICD10: K12.0 Inactive. Andrew Garrido MD documented in this encounter [facility] 12-16-2022 Hospital Discharg e instructions Patient Education 12/15/2022 22:23:20 Asthma, Acute (Adult) Asthma (Adult) Asthma is a disease where the medium and small air passages within the lung go into spasm and restrict the flow of air. Inflammation and swelling of the airways cause further blockage. During an acute asthma attack, these factors cause trouble breathing, wheezing, cough and chest tightness. An asthma attack can be triggered by many things. Common triggers include infections such as the common cold, bronchitis, and pneumonia. Irritants such as smoke or pollutants in the air, very cold air, emotional upset, and exercise can also trigger an attack. In many adults with asthma, allergies to dust, mold, pollen and animal dander can cause an asthma attack. Skipping doses of daily asthma medicine can also bring on an asthma attack. Asthma can be controlled using the proper medicines prescribed by your healthcare provider and avoiding exposure to known triggers including allergens and irritants. Home care Take prescribed medicine exactly at the times advised. If you need medicine such as from a hand held inhaler or aerosol breathing machine more than every 4 hours, contact your healthcare provider or seek immediate medical attention. If prescribed an antibiotic or prednisone, take all of the medicine as prescribed, even if you are feeling better after a few days. Don't smoke. Avoid being exposed to the smoke of others. Some people with asthma have worsening of their symptoms when they take aspirin and non-steroidal or fever-reducing medicines like ibuprofen and naproxen. Talk to your healthcare provider if you think this may apply to you. Follow-up care Follow up with your healthcare provider, or as advised. Always bring all of your current medicines to any appointments with your healthcare provider. Also bring a complete list of medicines even those not taken for asthma. If you don't already have one, talk to your healthcare provider about developing your own Asthma Action Plan. A pneumococcal (pneumonia) vaccine and yearly flu shot (every fall) are recommended. Ask your doctor about this. When to seek medical advice Call your healthcare provider right away if any of these occur: Increased wheezing or shortness of breath Need to use your inhalers more often than usual without relief Fever of 100.4 F (38 C) or higher, or as directed by your healthcare provider Coughing up lots of dark-colored or bloody sputum (mucus) Chest pain with each breath If you use a peak flow meter as part of an Asthma Action Plan, and you are still in the yellow zone (50% to 80%) 15 minutes after using inhaler medicine. Call 911 Call 911 if any of the following occur Trouble walking or talking because of shortness of breath If you use a peak flow meter as part of an Asthma Action Plan and you are still in the red zone (less than 50%) 15 minutes after using inhaler medicine Lips or fingernails turning huston or blue [phone] [employer]. [address] [place] [address]. All rights reserved. This information is not intended as a substitute for professional medical care. Always follow your healthcare professional's instructions. Follow Up Care 12/15/2022 20:49:10 With:Call Physician Referral Address:Unknown When:2-4 days [facility] 12-15-2022 Emergency department Discharge summary Discharge Instructions Thank you for allowing [facility] to assist you with your healthcare needs. The following is important discharge information regarding your hospital visit. Diagnosis from Today's Visit Asthma attack Asthmatic breathing What to Do Next Instructions from Your Care Team No qualifying data available. Post Acute Orders No qualifying data available. You Need to Schedule the Following Appointments Follow Up with Call Physician Referral When Within 2-4 days Allergies NKA Medications Please ask your primary doctor or pharmacist before taking any other medication not listed, including over the counter drugs, herbal medications, vitamins and or supplements as they may interact with your home medications. What How Much When Why Instructions Last Dose New benzonatate (Tessalon Perles 100 mg oral capsule) 1 cap by mouth Three (3) times a day as needed for as needed for cough Duration: 7 Days Printed Prescription New predniSONE (predniSONE 20 mg oral tablet) 3 tab(s) by mouth Once a day Duration: 4 Days Printed Prescription Changed albuterol Changed albuterol (albuterol MDI (90 mcg/ inh) CFC free inhalation aerosol) 2 puff(s) by inhalation Every 4 hours Printed Prescription Changed albuterol (albuterol MDI (90 mcg/ inh) CFC free inhalation aerosol) 2 puff(s) by inhalation Every 6 hours as needed for as needed for wheezing Asthma attack Please take this list to your next doctor s visit. Bring all medications you take, including over the counter medications, herbals and other supplements with you to your doctor s visit. Patients and families are reminded to discard old lists and to update any records with all medication providers or retail pharmacies. Education Materials Asthma (Adult) Asthma is a disease where the medium and small air passages within the lung go into spasm and restrict the flow of air. Inflammation and swelling of the airways cause further blockage. During an acute asthma attack, these factors cause trouble breathing, wheezing, cough and chest tightness. An asthma attack can be triggered by many things. Common triggers include infections such as the common cold, bronchitis, and pneumonia. Irritants such as smoke or pollutants in the air, very cold air, emotional upset, and exercise can also trigger an attack. In many adults with asthma, allergies to dust, mold, pollen and animal dander can cause an asthma attack. Skipping doses of daily asthma medicine can also bring on an asthma attack. Asthma can be controlled using the proper medicines prescribed by your healthcare provider and avoiding exposure to known triggers including allergens and irritants. Home care Take prescribed medicine exactly at the times advised. If you need medicine such as from a hand held inhaler or aerosol breathing machine more than every 4 hours, contact your healthcare provider or seek immediate medical attention. If prescribed an antibiotic or prednisone, take all of the medicine as prescribed, even if you are feeling better after a few days. Don't smoke. Avoid being exposed to the smoke of others. Some people with asthma have worsening of their symptoms when they take aspirin and non-steroidal or fever-reducing medicines like ibuprofen and naproxen. Talk to your healthcare provider if you think this may apply to you. Follow-up care Follow up with your healthcare provider, or as advised. Always bring all of your current medicines to any appointments with your healthcare provider. Also bring a complete list of medicines even those not taken for asthma. If you don't already have one, talk to your healthcare provider about developing your own Asthma Action Plan. A pneumococcal (pneumonia) vaccine and yearly flu shot (every fall) are recommended. Ask your doctor about this. When to seek medical advice Call your healthcare provider right away if any of these occur: Increased wheezing or shortness of breath Need to use your inhalers more often than usual without relief Fever of 100.4 F (38 C) or higher, or as directed by your healthcare provider Coughing up lots of dark-colored or bloody sputum (mucus) Chest pain with each breath If you use a peak flow meter as part of an Asthma Action Plan, and you are still in the yellow zone (50% to 80%) 15 minutes after using inhaler medicine. Call 911 Call 911 if any of the following occur Trouble walking or talking because of shortness of breath If you use a peak flow meter as part of an Asthma Action Plan and you are still in the red zone (less than 50%) 15 minutes after using inhaler medicine Lips or fingernails turning huston or blue [phone] [employer]. [address] [place] [address], [place] [address]. All rights reserved. This information is not intended as a substitute for professional medical care. Always follow your healthcare professional's instructions. Additional Information VACCINATE! IT SAVES LIVES! Members of the community who have not yet received the COVID-19 vaccine and would like to receive it can visit one of [facility] vaccine clinics. There are many vaccine clinic locations within the [facility]. For locations and available times, please visit www.[email or web address] hospital[facility] [email or web address] [email or web address] It is important to note that some COVID mobile vaccine clinics are held outdoors and may be canceled in rainy or stormy conditions. To learn more about pediatric vaccinations (ages 5-11), we invite you to visit the [facility] webpage. https://www.[facility].org/p ages/6469-Ewxvo-Cwefzkuasuj-Freq iesyhz-Ljipq-Vdwfchkej.html To learn more about the COVID-19 vaccine, we invite you to visit the CDC website for a list of frequently asked questions. https://www.cdc.gov/coronavirus/ 2019-ncov/vaccines/faq.html [email or web address] Patient Portal Access Instructions: Stay connected with your healthcare team and access your personal medical information anytime with the [email or web address] Patient Portal. If you would like a full copy of your medical records please contact the [facility] Medical Records Department Sunday through Sunday between 8a.m. and 4:30p.m. Please follow the directions below to access the portal: 1.Access the email account you provided upon registration to the hospital.2.Look for an invitation email from [facility].3.Open the email and access the invitation link: Accept Invitation to [email or web address].Fill in the required jackson to create your account. Sign into [email or web address] with your username and password that you created in the above steps to stay up to date. You can then view a summary of results, a summary of your visits, and the ability to download your summaries to your computer or send the information securely to a physician. Remember that your healthcare information is confidential, so carefully consider who you will allow to register on the [facility] Patient Portal for access to your information. You can also access the [facility] Patient Portal on the [employer] amaury. Simply click on Health Records under Health Data and then click on the [facility] logo. HOW TO SAFELY DISPOSE OF PRESCRIPTION MEDICATIONS Please use one of the following methods to safely dispose of your unused medications. 1.Use a drug disposal kit: the drug disposal pouch allows you to safely discard your old and unused drugs. Ask your nurse to give you one when you are discharged.2.Visit a local take-back location: Many local pharmacies and police departments have programs that collect old and unwanted prescription drugs. Call your local pharmacy or go to http://Celsion.CoinKeeper/8V0Us5x to find one close to you.3.Make use of household items: Use cat litter or old coffee grounds to dispose medications if other options are not available. Mix your drugs with these household products, seal them in an airtight container and throw it into the garbage. Call [facility]: [phone] to be sure your drugs can be disposed of in this way. Some medicines may require a different approach.4.Never flush your medications down the toilet. IF YOU HAVE BEEN PRESCRIBED AN OPIOIDS FOR PAIN If you have been prescribed an opioid (such as hydrocodone, oxycodone or morphine), it is critical to understand the possible side effects and risks of opioid pain medications. Even when taken as directed, opioids can have several side effects including: Tolerance, meaning you might need to take more of a medication for the same pain relief. Nausea, vomiting and/or constipation. Sleepiness, dizziness, dry mouth, confusion, depression or itching. Physical dependence, meaning you have withdrawal symptoms when a medication is stopped ? this can develop within a few days. KNOW YOUR RESPONSIBILITIES It is important to know exactly how much and how often to take the opioid pain medications you are prescribed. Never take opioids in higher amounts or more often than prescribed. Do not combine opioids with alcohol or other drugs that cause drowsiness, such as benzodiazepines, also known as benzos, including diazepam and alprazolam, muscle relaxants or sleep aids. Never sell or share prescription opioids. This is illegal. Store opioids in a secure place and out of reach of others (including children, family, friends and visitors). The last page(s) of this document has been signed and retained as a CHART COPY Signatures Patient Education Materials Asthma, Acute (Adult) Medication Leaflets My discharge plan and instructions have been reviewed and explained to me and INICK ZACKERY T understand my current condition and have read and understand these discharge instructions. I have received a written copy of the plan/instructions. If I have questions, I am aware that I should contact my doctor. 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 HISTORY: ORDERING SYSTEM PROVIDED HISTORY: Reason for Exam: productive cough FINDINGS: Cardiomediastinal silhouette is within normal limits.. No pleural effusion or pneumothorax. No focal consolidation. No acute osseous abnormality. IMPRESSION: No focal consolidation or edema. I have personally reviewed the images of this examination and agree with the resident's findings and interpretation. Interpreted by: Zachary Navarro Preliminary Report By: Abram Dawson Electronically signed By Zachary Navarro Dictated Date: 12/15/2022 9:42:02 PM Prelim Date: 12/15/2022 9:43:01 PM Sign Date: 12/15/2022 10:11:03 PM Ordering Provider: RAMONA ZARATE [facility] 07-12-2022 Miscellaneous Notes [facility] back to patient with providers update below. Contact information given to patient in order to schedule visit. KADE Jj Advise patient refill request denied. Has not been seen in over a year and has now showed to three appts in the past 13 months. Patient no showed and cancelled multiple appointments in the past year and has been over a year since seen. He is set to see Dr. Hoff in december to establish care. Forwarding to asset protection professional provider to address. Tabitha Alberts PA-C Routing to asset protection professional. Alka Barnes LPN Patient has been identified by name and date of : Yes, Provider was Zachary Cameron Date 07.12.22 Time 7:54 am Patient phones for refill(s): Requested Prescriptions Pending Prescriptions Disp Refills albuterol HFA (PROAIR HFA) 90 mcg/actuation inhaler 18 g 5 Sig: Inhale 2 Puffs as instructed every 4 hours as needed for wheezing/shortness of breath. Date of last office visit in primary care: 05/12/21 next apt 01/11/23 to establish Last 2 Encounter Wt Readings: Date: Wt: 10/31/2021 87.1 kg (192 lb) 05/27/2021 83.8 kg (184 lb 12.8 oz) Previous labs/tests for medication: Not applicable Thank you. Alka Barnes LPN documented in this encounter [facility] 02-17-2022 History of Presen t illness Narrative J LUIS Romero is a 26 year old male who presents with coating on tongue and recurrent aphthous ulcers. Patient has had recurrent aphthous ulcers for some time. Patient also has had a coating on the tongue. Patient has no other complaints. ROS General Weight loss: No Fatigue: No Night sweats:No Cardiac Chest pain:No Fast heart rate:No Swelling in the feet:No Respiratory Short of breath:No Cough:No Wheezing:No Gastrointestinal Nausea:No Vomiting:No Indigestion:No Past medical history, family history, and social history reviewed. PE There were no vitals taken for this visit. General: Patient is awake, alert, NAD. Voice is normal. Skin: normal Eyes: Extraocular motion and Gaze is normal. Ears: Right external auditory canal is normal. TMJ: normal. Right tympanic membranes normal. Left external auditory canal is normal. Left tympanic membrane normal. Nose: Septum is normal. Turbinates are normal. Nasopharynx:normal Oral Cavity/Oropharynx: Lips normal Dentition normal Tongue normal. Tongue coating no sign of fungus or any other abnormality to aphthous ulcers present lesion noted on upper lip and cheek on the right Tonsils normal. Palate and uvula normal. Pharynx posterior normal Hypopharynx: Base of tongue normal Pyriform sinus normal. Larynx: Vocal cords normal. Epiglottis normal. Post cricoid normal. Salivary glands: Parotid normal. Submandibular and sublingual normal. Thyroid: normal. Lymphatic/Neck: Lymph nodes normal. Neurologic: Facial nerve normal. ASSESSMENT/PLAN: 1. Aphthous stomatitis - ICD9: 528.2, ICD10: K12.0 (primary diagnosis) 2. Tongue coating - ICD9: 529.3, ICD10: K14.3 Kenalog and Orabase follow-up as needed Adolfo Larsen MD Findings will be communicated to the referring physician via mail or electronic medical record. documented in this encounter [facility] 02-03-2022 History of Presen t illness Narrative POPULATION HEALTH NAVIGATION OUTREACH Action/ HCC Gaps Outcome: 1st attempt- Left Voice Mail for patient to return my call to schedule. 2nd attempt- [employer] message sent. Patient is on HCC list for below gaps and needs appt to address : F32.0 - Current mild episode of major depressive disorder without prior episode (HCC)
J45.20 - Mild intermittent asthma, uncomplicated
Annual Wellness/PCP visit/ BP CONTROLLED - last visit 05/12/2021 FLU SHOT Pt identified by name and : NO Outreach Outcome/Action Unable to reach patient: Left message [employer] message sent Did you use a PCP flex slot to schedule this appointment? N/A Reason for Outreach HCC or suspected condition Payer: Payor: [facility] MED[facility] / Plan: [facility] MEDICAID / Product Type: Medicaid / Care Gap Reviewed:: Annual Wellness visit Flu vaccine Reminder: Reminder note to check Health Maintenance for items below Health Maintenance items due: HEPATITIS B(1 of 3 - 3-dose series) Never done PNEUMOCOCCAL(1 - PCV) Never done HPV VACCINE(1 - Male 2-dose series) Never done SPIROMETRY Never done HIV SCREENING Never done DTAP,TDAP,TD(1 - Tdap) Never done INFLUENZA(1) due on 01/19/2022 Message Sent to Practice: No Navigation Signature: Population Health Navigator Maye Plasencia February 03, 2022 1:50 PM documented in this encounter [facility] 10-31-2021 History of Presen t illness Narrative Nontoxic-appearing male presents urgent care accompanied by mother. Chief complaint rectal bleeding. Duration of symptoms ongoing for the past 2 months. Was seen at [place] ED. No external/internal hemorrhoids were noted. Presents today for evaluation. States he is had a large amount of blood on toilet paper today. States he does have an appointment with gastroenterology on Sunday. Presents today due to increasing pain and bleeding. With patient's presenting symptoms I recommend patient be seen in ED for further evaluation care. Patient verbalized understand agrees with plan of care. Deion Norton APRN.GLADYS documented in this encounter [facility] 10-11-2021 History of Presen t illness Narrative 26 year old male with no PMH presents with complaints of sharp and lower abdominal pain. States that he is concerned for think I may be hemorrhaging Citing dark and bloody stool that comes out with and WITHOUT bowel movements. Lower abdominal pain upon palpation States he feels dizzy and like I could pass out States he has not been able to go to work related to pain Given concerns for intraabdominal and no labs even at time of presentation, has been referred to ED. Declines EMS documented in this encounter [facility] 09-20-2021 History of Presen t illness Narrative Reviewed ER note from [facility]. Diagnosed with benign positional vertigo 09/20/2021 Zachary Cameron DNP, P[employer]ENGER [employer] [facility] ED visit for Dizziness. Scan on 09/19/2021 10:10 PM by External Provider: Consultation - Emergency Medicine documented in this encounter [facility] 05-19-2021 Miscellaneous Notes Pt has appt with PCP 05/26/21, for follow up. Cielo Zavala LPN TC to pt. LM to call office, ask for triage nurse to get results. Cielo Zavala LPN No uti on culture. If still having symptoms needs to see pcp or urology. Pt calls in regards to all std results which he saw in [facility]. Pt reports that they appear neg. Pt reports he still has some burning so is asking if he needs atb for uti. Pt would like an atb if that will clear up sx. Pt requested message go to Yaw Tapia CNP since that is who saw him originally. Nani Henry LPN documented in this encounter [facility] 02-28-2021 Hospital Discharg e instructions Patient Education 02/28/2021 00:18:21 Viral Syndrome (Adult) Viral Syndrome (Adult) A viral illness may cause a number of symptoms such as fever. Other symptoms depend on the part of the body that the virus affects. If it settles in your nose, throat, and lungs, it may cause cough, sore throat, congestion, runny nose, headache, earache and other ear symptoms, or shortness of breath. If it settles in your stomach and intestinal tract, it may cause nausea, vomiting, cramping, and diarrhea. Sometimes it causes generalized symptoms like aching all over, feeling tired, loss of energy, or loss of appetite. A viral illness usually lasts anywhere from several days to several weeks, but sometimes it lasts longer. In some cases, a more serious infection can look like a viral syndrome in the first few days of the illness. You may need another exam and additional tests to know the difference. Watch for the warning signs listed below for when to seek medical advice. Home care Follow these guidelines for taking care of yourself at home: If symptoms are severe, rest at home for the first 2 to 3 days. Stay away from cigarette smoke - both your smoke and the smoke from others. You may use eygg-jgr-ikzwolm acetaminophen or ibuprofen for fever, muscle aching, and headache, unless another medicine was prescribed for this. If you have chronic liver or kidney disease or ever had a stomach ulcer or gastrointestinal bleeding, talk with your healthcare provider before using these medicines. No one who is younger than 18 and ill with a fever should take aspirin. It may cause severe disease or . Your appetite may be poor, so a light diet is fine. Avoid dehydration by drinking 8 to 12, 8-ounce glasses of fluids each day. This may include water; orange juice; lemonade; apple, grape, and cranberry juice; clear fruit drinks; electrolyte replacement and sports drinks; and decaffeinated teas and coffee. If you have been diagnosed with a kidney disease, ask your healthcare provider how much and what types of fluids you should drink to prevent dehydration. If you have kidney disease, drinking too much fluid can cause it build up in the your body and be dangerous to your health. Oslf-uqs-msyzlft remedies won't shorten the length of the illness but may be helpful for symptoms such as cough, sore throat, nasal and sinus congestion, or diarrhea. Don't use decongestants if you have high blood pressure. Follow-up care Follow up with your healthcare provider if you do not improve over the next week. Call 911 Call 911 if any of the following occur: Convulsion Feeling weak, dizzy, or like you are going to faint Chest pain, or more than mild shortness of breath When to seek medical advice Call your healthcare provider right away if any of these occur: Cough with lots of colored sputum (mucus) or blood in your sputum Chest pain, shortness of breath, wheezing, or trouble breathing Severe headache; face, neck, or ear pain Severe, constant pain in the lower right side of your belly (abdominal) Continued vomiting (can t keep liquids down) Frequent diarrhea (more than 5 times a day); blood (red or black color) or mucus in diarrhea Feeling weak, dizzy, or like you are going to faint Extreme thirst Fever of 100.4 F (38 C) or higher, or as directed by your healthcare provider [phone] [employer]. [address] [place] [address]. All rights reserved. This information is not intended as a substitute for professional medical care. Always follow your healthcare professional's instructions. Follow Up Care 02/27/2021 23:50:37 With:Your Doctor Address: When:2-4 days [facility] 02-28-2021 HCoV 229E RNA HAMZAH+non-probe Ql (Nph) Not Detected *NA* (02/28/21 12:17 AM) Auto Viro/Sero SS Evaluation + Plan note No data available for this section [facility] Evaluation note No assessment inform ation available [facility] Work Phone: Evaluation note Diagnosis Davonte blood in stool- Primary Blood in stool Lower abdominal pain Abdominal pain, other specified site Lightheaded Dizziness and giddiness [facility] Procedure not carried out- Primary Procedure not carried out for other reasons [facility] Diagnosis Onset Date Resolution Status Diarrhea acute Rectal bleeding acute [facility] Work Phone: Evaluation note* Diagnosis Aphthous stomatitis- Primary Oral aphthae Tongue coating Hypertrophy of tongue papillae [facility] Diagnosis Mild intermittent asthma, uncomplicated Unspecified asthma documented in this encounter [facility] [facility] Diagnosis Severe episode of recurrent major depressive disorder, 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 Moderate persistent asthma with acute exacerbation Tachycardia Tachycardia, unspecified Screening for HIV without presence of risk factors Special screening examination for other specified viral diseases Need for vaccination Need for prophylactic vaccination and inoculation against unspecified single disease TRISTEN (generalized anxiety disorder) Generalized anxiety disorder Irritable bowel syndrome with diarrhea Irritable bowel syndrome Aphthous stomatitis Oral aphthae [facility] Diagnosis Moderate persistent asthma with acute exacerbation documented in this encounter [facility] note* Diagnosis Asthma, persistent not controlled Unspecified asthma documented in this encounter [facility] note* Diagnosis Asthma, persistent not controlled- Primary Unspecified asthma documented in this encounter [facility] note* Diagnosis Severe recurrent major depression 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 Major depressive disorder, recurrent episode, severe, without mention of psychotic behavior TRISTEN (generalized anxiety disorder) Generalized anxiety disorder Irritable bowel syndrome with diarrhea Irritable bowel syndrome Aphthous stomatitis Oral aphthae Mild intermittent asthma, uncomplicated Unspecified asthma Encounter for screening for HIV Weight gain Abnormal weight gain Skin tags, multiple acquired documented in this encounter [facility] note* Diagnosis Asthma, persistent not controlled (HCC) Unspecified asthma documented in this encounter [facility] note* Diagnosis Moderate persistent asthma without complication (HCC)- Primary Unspecified asthma Multiple allergies Other allergy, other than to medicinal agents Asthma, persistent not controlled (HCC) Unspecified asthma [facility] Phone: Hospital Discharge instructions Additional Instructions 7 daysSee your primary care physician within the next.[facility] Work Phone: Reason for referral (narrative)* Outpatient Procedure (Routine) - Authorized Specialty Diagnoses / Procedures Referred By Enoc t Referred To [facility] Diagnoses Moderate persistent asthma with acute exacerbation Procedures SPIROMETRY - BASELINE AND POST DILATOR BRNCDILAT RSPSE SPMTRY PRE&POST-BRNCDILAT ADMN Andrew Garrido MD [address] [place] [address] [facility] [place] [address] [place] [address] Referral ID Status Reason Start Date Expiration Date Visits Requested Visits Authorized [id number] Authorized Auto-Generat ed Referral 12/29/2022 01/28/2024 1 1 * Outpatient Procedure (Routine) - Authorized Specialty Diagnoses / Procedures Referred By Contac t Referred [facility] Diagnoses Tachycardia Procedures ECG COMPLETE ECG ROUTINE ECG W/LEAST 12 LDS W/I&R Andrew Garrido MD [address] [place] [address] [facility] [place] [address] [place] [id number] Referral ID Status Reason Start Date Expiration Date Visits Requested Visits Authorized [id number] Authorized Auto-Generat ed Referral 12/29/2022 12/29/2023 1 1 [facility] Outpatient Procedure (Routine) - Closed Specialty Diagnoses / Procedures Referred By Contac t Referred To Contact [facility] Diagnoses Asthma, persistent not controlled Procedures NITRIC OXIDE, EXHALED NITRIC OXIDE GAS DETERMINATION Tanisha Aguila MD [address] [place] [address] [facility] [place] [address] [place] [id number] Referral ID Status Reason Start Date Expiration Date V isits Requested Visits Authorized [id number] Closed Auto-Generate d Referral 03/09/2023 04/07/2024 1 1 [facility] Summary Purpose Family History No Family History Records Found No data available for this section No Family History Records FoundNo Family History Records FoundNo Family History Records Found Advance Directives Advance Directive Response Recorded Date/ Time Living Will No October 11, 2021 5 :59pm Power of Negative Checker No October 11, 2021 5:59pm Advance Directive Response Recorded Date/ Time Living Will No October 31, 2021 1:15pm Power of Negative Checker No October 31 1:15pm Advance Directive Response Recorded Date/ Time Living Will No November 19, 2021 7 :53pm Power of Negative Checker No November 19, 2021 7:53pm Advance Directive Response Recorded Date/ Time Living Will No January 29, 2022 10:44am Power of Negative Checker No January 10:44am Advance Directive Response Recorded Date/ Time Living Will No July 25, 2022 3:02pm Power of Negative Checker No July 25 3:02pm Chief Complaint and Reason for Visit Chief Complaint asthma DIZZINESS ABD Chief Complaint DIZZINESS ABD gi bleeding Chief Complaint DIZZINESS ABD gi bleeding ER FU RECTAL BLEEDING E-ORDER Reason for Visit Diarrhea Rectal bleeding Chief Complaint DIZZINESS ABD gi bleeding ER FU RECTAL BLEEDING E-ORDER SOB Reason for Visit Diarrhea Rectal bleeding Chief Complaint ABD gi bleeding ER FU RECTAL BLEEDING E-ORDER SOB MOUTH SORES Reason for Visit Diarrhea Rectal bleeding Chief Complaint CHEST PAIN Health Concerns Infection Onset Date Last Indicated Resolved Time COVID-19 Rule-Out 05/27/2021 05/27/2021 05/29/2021 4:24 AM EST COVID-19 Confirmed 05/27/2021 05/27/2021 8:51 PM EST Additional Source Comments (unrecognized sect ion and content) No Status Records FoundNo Status Records FoundNo Status Records FoundNo Status Records Found INFORMATION SOURCE (unrecogn ized section and content) DATE CREATED AUTHOR 11/01/2018 [employer] DATE CREATED AUTHOR AUTHOR'S ORGANIZ ATION 12/21/2022 [facility] ([place]) DATE CREATED AUTHOR AUTHOR'S ORGANIZ ATION 08/29/2024 [facility] DATE CREATED AUTHOR AUTHOR'S ORGANIZ ATION 10/02/2024 [facility] Source Comments (unrecognize d section and content) In the event this informatio n is protected by the Federal Confidentiality of Alcohol and Drug Abuse Patient Records regulations: The Federal rules restrict any use of the information to criminally investigate or prosecute any alcohol or drug abuse patient.[facility] Center[facility] the event this information is protected by the Federal Confidentiality of Alcohol and Drug Abuse Patient Records regulations: The Federal rules restrict any use of the information to criminally investigate or prosecute any alcohol or drug abuse patient.[facility] CenterIn the event this information is protected by the Federal Confidentiality of Alcohol and Drug Abuse Patient Records regulations: The Federal rules restrict any use of the information to criminally investigate or prosecute any alcohol or drug abuse patient.[facility] CenterIn the event this information is protected by the Federal Confidentiality of Alcohol and Drug Abuse Patient Records regulations: The Federal rules restrict any use of the information to criminally investigate or prosecute any alcohol or drug abuse patient.[facility] CenterIn the event this information is protected by the Federal Confidentiality of Alcohol and Drug Abuse Patient Records regulations: The Federal rules restrict any use of the information to criminally investigate or prosecute any alcohol or drug abuse patient.[facility] CenterIn the event this information is protected by the Federal Confidentiality of Alcohol and Drug Abuse Patient Records regulations: The Federal rules restrict any use of the information to criminally investigate or prosecute any alcohol or drug abuse patient.[facility] the event this information is protected by the Federal Confidentiality of Alcohol and Drug Abuse Patient Records regulations: The Federal rules restrict any use of the information to criminally investigate or prosecute any alcohol or drug abuse patient.[facility] CenterIn the event this information is protected by the Federal Confidentiality of Alcohol and Drug Abuse Patient Records regulations: The Federal rules restrict any use of the information to criminally investigate or prosecute any alcohol or drug abuse patient.[facility] CenterIn the event this information is protected by the Federal Confidentiality of Alcohol and Drug Abuse Patient Records regulations: The Federal rules restrict any use of the information to criminally investigate or prosecute any alcohol or drug abuse patient.[facility] the event this information is protected by the Federal Confidentiality of Alcohol and Drug Abuse Patient Records regulations: The Federal rules restrict any use of the information to criminally investigate or prosecute any alcohol or drug abuse patient.[facility] CenterIn the event this information is protected by the Federal Confidentiality of Alcohol and Drug Abuse Patient Records regulations: The Federal rules restrict any use of the information to criminally investigate or prosecute any alcohol or drug abuse patient.[facility] CenterIn the event this information is protected by the Federal Confidentiality of Alcohol and Drug Abuse Patient Records regulations: The Federal rules restrict any use of the information to criminally investigate or prosecute any alcohol or drug abuse patient.[facility] CenterIn the event this information is protected by the Federal Confidentiality of Alcohol and Drug Abuse Patient Records regulations: The Federal rules restrict any use of the information to criminally investigate or prosecute any alcohol or drug abuse patient.[facility] CenterIn the event this information is protected by the Federal Confidentiality of Alcohol and Drug Abuse Patient Records regulations: The Federal rules restrict any use of the information to criminally investigate or prosecute any alcohol or drug abuse patient.[facility] CenterIn the event this information is protected by the Federal Confidentiality of Alcohol and Drug Abuse Patient Records regulations: The Federal rules restrict any use of the information to criminally investigate or prosecute any alcohol or drug abuse patient.[facility] CenterIn the event this information is protected by the Federal Confidentiality of Alcohol and Drug Abuse Patient Records regulations: The Federal rules restrict any use of the information to criminally investigate or prosecute any alcohol or drug abuse patient.[facility] CenterIn the event this information is protected by the Federal Confidentiality of Alcohol and Drug Abuse Patient Records regulations: The Federal rules restrict any use of the information to criminally investigate or prosecute any alcohol or drug abuse patient.[facility] CenterIn the event this information is protected by the Federal Confidentiality of Alcohol and Drug Abuse Patient Records regulations: The Federal rules restrict any use of the information to criminally investigate or prosecute any alcohol or drug abuse patient.[facility] CenterIn the event this information is protected by the Federal Confidentiality of Alcohol and Drug Abuse Patient Records regulations: The Federal rules restrict any use of the information to criminally investigate or prosecute any alcohol or drug abuse patient.[facility] CenterIn the event this information is protected by the Federal Confidentiality of Alcohol and Drug Abuse Patient Records regulations: The Federal rules restrict any use of the information to criminally investigate or prosecute any alcohol or drug abuse patient.[facility] CenterIn the event this information is protected by the Federal Confidentiality of Alcohol and Drug Abuse Patient Records regulations: The Federal rules restrict any use of the information to criminally investigate or prosecute any alcohol or drug abuse patient.[facility] CenterIn the event this information is protected by the Federal Confidentiality of Alcohol and Drug Abuse Patient Records regulations: The Federal rules restrict any use of the information to criminally investigate or prosecute any alcohol or drug abuse patient.[facility] CenterIn the event this information is protected by the Federal Confidentiality of Alcohol and Drug Abuse Patient Records regulations: The Federal rules restrict any use of the information to criminally investigate or prosecute any alcohol or drug abuse patient.[facility] CenterIn the event this information is protected by the Federal Confidentiality of Alcohol and Drug Abuse Patient Records regulations: The Federal rules restrict any use of the information to criminally investigate or prosecute any alcohol or drug abuse patient.[facility] CenterIn the event this information is protected by the Federal Confidentiality of Alcohol and Drug Abuse Patient Records regulations: The Federal rules restrict any use of the information to criminally investigate or prosecute any alcohol or drug abuse patient.[facility] CenterIn the event this information is protected by the Federal Confidentiality of Alcohol and Drug Abuse Patient Records regulations: The Federal rules restrict any use of the information to criminally investigate or prosecute any alcohol or drug abuse patient.[facility] CenterIn the event this information is protected by the Federal Confidentiality of Alcohol and Drug Abuse Patient Records regulations: The Federal rules restrict any use of the information to criminally investigate or prosecute any alcohol or drug abuse patient.[facility] Reason for Visit (unrecogniz ed section and content) Reason Comments ED visit- Dizziness Reason Comments Rectal Problem anal pain and bleedi ng x 2 months Reason Onset Date Comments Population Health Navigation Outreach 02/03/2022 [facility] Reason Comments Consult Intermittent white c oating on tongue/ canker sores, sx for the last 9 months Reason Comments Results Reason Onset Date Comments Refill Request 07/11/2022 Reason Comments Establish Care Reason Comments bh consult Reason Onset Date Comments Refill Request 02/01/2023 Reason Comments Spirometry Specialty Diagnoses / Procedures Referred By Contac t Referred To Contact [facility] Diagnoses Moderate persistent asthma with acute exacerbation Procedures SPIROMETRY - BASELINE AND POST DILATOR BRNCDILAT RSPSE SPMTRY PRE&POST-BRNCDILAT ADMN Hema, Sonido, MD [address] [place] [address] [facility] [place] [phone] Referral ID Status Reason Start Date Expiration Date V isits Requested Visits Authorized [id number] Closed Auto-Generate d Referral 12/29/2022 01/28/2024 1 1 Specialty Diagnoses / Procedures Referred By Contac t Referred To Contact [facility] [place] Diagnoses Asthma, persistent not controlled Procedures NITRIC OXIDE, EXHALED NITRIC OXIDE GAS DETERMINATION Tanisha Aguila MD [address] [place] [address] [place] [phone] Referral ID Status Reason Start Date Expiration Date V isits Requested Visits Authorized [id number] Closed Auto-Generate d Referral 03/09/2023 04/07/2024 1 1 Reason Comments New Patient Asthma Reason Onset Date Comments Refill Request 08/07/2023 Reason Onset Date Comments Refill Request 01/07/2024 Reason Comments Blood Pressure Reason Onset Date Comments Refill Request 04/02/2024 Reason Comments Physical Specialty Diagnoses / Procedures Referred By Contac t Referred To Contact [facility] Diagnoses Asthma, persistent not controlled (HCC) Procedures NITRIC OXIDE, EXHALED NITRIC OXIDE GAS DETERMINATION Roberta Gonsales APRN.GLADYS [address] [facility] [address] [place] [address] Phone: tel: fax: [facility] [place] [phone] Referral ID Status Reason Start Date Expiration Date V isits Requested Visits Authorized [id number] Closed Auto-Generate d Referral 08/27/2024 05/20/2025 1 1 Reason Comments Established Patient asthma follow up Care Teams (unrecognized sec tion and content) Supervisor Net Making Relationship Specialty Start Date End Date Zachary Cameron APRN.GLADYS, DNP [address] [place] [address] PCP - General Family Practice 04/05/21 Supervisor Net Making Relationship Specialty Start Date End Date Zachary Cameron, GENERAL EDUCATION PROFESSOR.PASSENGER TRAIN BRAKER, DNP [address] [place] [address] PCP - General Family Practice 04/05/21 Supervisor Net Making Relationship Specialty Start Date End Date Zachary Cameron, GENERAL EDUCATION PROFESSOR.PASSENGER TRAIN BRAKER, DNP [address] [place] [address] PCP - General Family Practice 04/05/21 Supervisor Net Making Relationship Specialty Start Date End Date Zachary Cameron, GENERAL EDUCATION PROFESSOR.PASSENGER TRAIN BRAKER, DNP [address] [place] [address] PCP - General Family Medicine 04/05/21 Supervisor Net Making Relationship Specialty Start Date End Date Zachary Cameron, GENERAL EDUCATION PROFESSOR.PASSENGER TRAIN BRAKER, DNP [address] [place] [address] PCP - General Family Medicine 04/05/21 Team Status: Active Member Role Status Dates No Primary Care Physician Family Provider Active No Primary Care Physician Primary Care Provider Active Team Status: Inactive Member Role Status Dates No Primary Care Physician Primary Care Provider Active Dr. Boo Esparza , DO Emergency Provider Active Supervisor Net Making Relationship Specialty Start Date End Date Andrew Garrido MD [address] [place] [address] PCP - General Internal Medicine 12/29/22 Supervisor Net Making Relationship Specialty Start Date End Date Andrew Garrido MD [address] [place] [address] PCP - General Internal Medicine 12/29/22 Supervisor Net Making Relationship Specialty Start Date End Date Andrew Garrido MD [address] [place] [address] PCP - General Internal Medicine 12/29/22 Supervisor Net Making Relationship Specialty Start Date End Date Andrew Garrido MD [address] [place] [address] PCP - General Internal Medicine 12/29/22 Supervisor Net Making Relationship Specialty Start Date End Date Andrew Garrido MD [address] [place] [address] PCP - General Internal Medicine 12/29/22 Supervisor Net Making Relationship Specialty Start Date End Date Andrew Garrido MD [address] [place] [address] PCP - General Internal Medicine 12/29/22 Supervisor Net Making Relationship Specialty Start Date End Date Andrew Garrido MD [address] [place] [address] PCP - General Internal Medicine 12/29/22 Supervisor Net Making Relationship Specialty Start Date End Date Andrew Garrido MD [address] [place] [address] PCP - General Internal Medicine 12/29/22 Supervisor Net Making Relationship Specialty Start Date End Date Andrew Garrido MD [address] [place] [address] PCP - General Internal Medicine 12/29/22 Supervisor Net Making Relationship Specialty Start Date End Date Andrew Garrido MD [address] [place] [address] PCP - General Internal Medicine 12/29/22 Shana Balderas, GENERAL EDUCATION PROFESSOR.PASSENGER TRAIN BRAKER [address] [place] [address] Marketing Sales Manager Internal Medicine 04/28/24 Supervisor Net Making Relationship Specialty Start Date End Date Andrew Garrido MD [address] [place], [place] [address] PCP - General Internal Medicine 12/29/22 Shana Balderas, GENERAL EDUCATION PROFESSOR.PASSENGER TRAIN BRAKER [address] [place] [address] [facility] Internal Medicine 04/28/24 Supervisor Net Making Relationship Specialty Start Date End Date Andrew Garrido MD [address] [place] [address] PCP - General Internal Medicine 12/29/22 Shana Balderas, GENERAL EDUCATION PROFESSOR.PASSENGER TRAIN BRAKER [address] [place] [address] [facility] Internal Medicine 04/28/24 Supervisor Net Making Relationship Specialty Start Date End Date Andrew Garrido MD [address] [place] [address] PCP - General Internal Medicine 12/29/22 Shana Balderas, GENERAL EDUCATION PROFESSOR.PASSENGER TRAIN BRAKER [address] [place] [address] [facility] Internal Medicine 04/28/24 Supervisor Net Making Relationship Specialty Start Date End Date Andrew Garrido MD [address] [place], [place] [id number] PCP - General Internal Medicine 12/29/22 Shana Balderas, GENERAL EDUCATION PROFESSOR.PASSENGER TRAIN BRAKER [address] [place] [address] [facility] Internal Medicine 04/28/24 Supervisor Net Making Relationship Specialty Start Date End Date Andrew Garrido MD [address] [place], [place] [address] PCP - General Internal Medicine 12/29/22 Shana Balderas, GENERAL EDUCATION PROFESSOR.PASSENGER TRAIN BRAKER [address] [place] [address] [facility] Internal [facility] 04/28/24 Supervisor Net Making Relationship Specialty Start Date End Date Andrew Garrido MD [address] [place], [place] [address] PCP - General Internal Medicine 12/29/22 Shana Balderas, GENERAL EDUCATION PROFESSOR.PASSENGER TRAIN BRAKER [address] [place], [place] [address] [facility] Internal [facility] 04/28/24 Goals (unrecognized section and content) Goals may be documented in a n alternate section FOR RECORDS PERTAINING TO PATIENTS WHO ARE OR HAVE BEEN ENROLLED IN A CHEMICAL DEPENDENCY/SUBSTANCEABUSE PROGRAM, SOME INFORMATION MAY BE OMITTED. This clinical summary was aggregated from multiple sources. Caution should be exercised in using it in the provision of clinical care. This summary normalizes information from multiple sources, and as a consequence, information in this document may materially change the coding, format and clinical context of patient data. In addition, data may be omitted in some cases. CLINICAL DECISIONS SHOULD BE BASED ON THE PRIMARY CLINICAL RECORDS. [facility] [employer] [facility]. provides no warranty or guarantee of the accuracy or completeness of information in this document.
--- NOTE | 2024-12-26 19:16 | ED.VIS.GI ---
HPI HPI - GI History of Present Illness Chief Complaint: Abd Pain Informant: patient Nausea/Vomiting/Emesis GI Symptom: Positive for Nausea, Vomiting and - (Vomited once the last 2 weeks. Nausea.) Onset: Weeks Severity: Mild Diarrhea/Melena/Hematochezia GI Symptom: Negative for Diarrhea, Melena or Hematochezia Associated Symptoms Associated Symptoms: Negative for Dysuria, Frequency, Hematuria or Urgency Narrative Narrative: 29-year-old male no prior abdominal or any other surgeries. States that he has had nausea for the last 2 weeks. Really denies any significant pain. No fever. No dysuria. Has had this before. He has been worked up in the past for possible irritable bowel but he is never gone through to have an upper or lower endoscopy. He denies any significant weight loss. Prior similar symptoms: Yes Recent Illness/Hospitalization: No PFSH PFSH Medical History Anxiety Migraine headache Gastric reflux Smoker Shortness of breath on exertion Asthma Home Medications ?Medication ?Instructions ?Recorded ?Last Taken ?Type albuterol sulfate 90 mcg/actuation 2 puff inhalation Q4H PRN PRN 06/20/21 Unknown Rx aerosol inhaler (Ventolin HFA) Wheezing ##1 budesonide-formoterol HFA 160 1 puff inhalation Q12H 12/26/24 12/26/24 History mcg-4.5 mcg/actuation aerosol inhaler (Symbicort) Allergy/AdvReac Type Severity Reaction Status Date / Time No Known Allergies Allergy Verified 12/26/24 18:14 Family History no significant family his Surgical History no surgical history Social History household members: other Smoking Status: Current every day smoker tobacco type: e-cigarettes alcohol intake: current alcohol intake frequency: other substance use type: does not use ROS ROS ED ROS Narrative Nausea. Constitutional Constitutional ED: Denies chills or fever(s) ENT ENT ED: Denies ear pain Cardiovascular Cardiovascular: Denies chest pain Respiratory/Chest Respiratory/Chest: Denies cough or dyspnea Gastrointestinal Gastrointestinal: Reports nausea and vomiting; Denies abdominal pain, constipation, diarrhea or melena Genitourinary Genitourinary ED: Denies dysuria or hematuria Musculoskeletal Musculoskeletal: Denies arthralgias Integumentary Denies abscess Neurologic Neurologic: Denies headache(s) Psychiatric Psychiatric: Reports anxiety Endocrine Endocrinology: Denies polydipsia Hematologic/Lymphatic Hematologic/Lymphatic: Denies easy bleeding, easy bruising or lymphadenopathy Allergic/Immunologic Allergic/Immunologic ED: Denies mouth swelling, tongue swelling or urticaria EXAM Physical Exam Narrative Exam Narrative: Well-appearing 21-year-old male. Vital signs stable afebrile. He is anxious. He does not look septic he is in no distress. No one present in room with him. H EENT exam pupils round and light. Moist mutes members. Neck nontender. No JVD. Lungs clear to auscultation bilaterally. Heart tachycardic 110 no murmur. Abdomen soft, nontender, nondistended, normal bowel sounds without peritoneal signs. No hernia no mass. No obstruction. No distention. Both the right upper and right lower quadrants are completely nontender. Benign abdominal exam. Moving all 4 extremities. Nontender. No deformity. No edema. Normal range of motion. Normal strength. Back nontender. Neurologically he is awake alert. Answering questions following commands. Const Vital Signs: 12/26/24 18:15 12/26/24 20:14 Temperature 98 F Temperature Source Oral Pulse Rate 120 H 102 H Respiratory Rate 16 18 Blood Pressure 140/93 H 135/74 H Blood Pressure Mean 108 94 Pulse Ox 97 97 Oxygen Delivery Method Room Air Room Air Positive well nourished and well developed; Negative for cachectic, contractures or unkempt General Appearance ED: well developed; Negative for unkempt, cachectic, contractures or pallor Nutritional Appearance: Negative for cachectic HEENT Reports moist mucous membranes normocephalic and atraumatic Eyes PERRL and EOMs intact bilaterally Neck no lymphadenopathy, supple and no JVD Resp normal respiratory effort and clear to auscultation bilaterally Cardio regular rate, regular rhythm, S1 normal heart sound, S2 normal heart sound and no murmurs GI non-tender, non-distended and no masses Inspection: Negative for abdominal distention Auscultation: normoactive bowel sounds Palpation: soft; Negative for tender, guarding, pulsatile mass or rebound tenderness present Back/Spine no CVA tenderness General Back: Negative for CVA tenderness Cervical Spine: Negative for cervical spine tenderness Thoracic Spine / Upper Back: Negative for thoracic spinal tenderness Lumbar Spine / Lower Back: Negative for lumbar spinal tenderness Extremity full ROM General Extremety ED: Negative for edema or tenderness General Extremity: Negative for edema Neuro CN's II-XII intact bilaterally and moves all extremities Sensorium / Orientation: alert, oriented to person, oriented to place and oriented to time; Negative for orientation impaired Motor Exam: strength 5/5 throughout Psych mental status grossly normal and thought process normal Appearance: Negative for unkempt Mood & Affect: anxious Skin no wounds General Skin Exam: Negative for jaundice or pallor Lesions: no lesions Rashes: no rashes MDM MDM MDM Narrative Medical decision making narrative: 29-year-old male abdominal complaints prior CT 3 years ago unremarkable. Abdominal exam is completely benign and nontender I do not think needs imaging. I will do screening abdominal labs. He will be given a liter of fluid and Zofran for his nausea. He is not having pain and does not need any pain medications. Repeat exam patient is doing well at 8:47 PM. We went over all his test results. He does not need any imaging. Currently his abdomen is benign. He is comfortable being discharged home with follow-up with his primary care physician for further evaluation and complete the workup for possible irritable bowel syndrome History & Record Review Discussion w/independent historian: Patient Additional record(s) reviewed:: Prior inpatient record, Prior outpatient record, Prior ED visit and Prior labs Lab Data Attestation: I reviewed the patient's lab results. Lab results narrative: CBC shows white 11.9. H&H is 16 and 47. Platelets 333. Electrolytes show sodium 139 gap 14. Normal BUN of 13 creatinine of 1. Glucose 108. Liver enzymes unremarkable other than AST of 41 and ALT of 95. Lipase normal at 19. Urinalysis negative. No nitrates. No white or red cells. No bacteria Labs: Laboratory Results - last 24 hr 12/26/24 12/26/24 18:25 19:30 WBC 11.9 H RBC 5.61 Hgb 16.4 Hct 47.8 MCV 85.2 MCH 29.2 MCHC 34.3 RDW Std Deviation 38.8 RDW Coeff of Italo 12.5 Plt Count 333 MPV 9.6 Immature Gran % (Auto) 0.400 Neut % (Auto) 52.6 Lymph % (Auto) 37.4 Pettis % (Auto) 7.3 Eos % (Auto) 1.6 Baso % (Auto) 0.7 Absolute Neuts (auto) 6.3 Absolute Lymphs (auto) 4.46 Nucleated RBC % 0 Sodium 139 Potassium 3.6 Chloride 100 Carbon Dioxide 24.8 Anion Gap 14 BUN 13 Creatinine 1.04 Estim Creat Clear Calc 117.29 Est GFR (MDRD) Non-Af 100 BUN/Creatinine Ratio 12.4 Glucose 108 H Calcium 9.8 Total Bilirubin 0.36 AST 41 H ALT 95 H Alkaline Phosphatase 110 Total Protein 7.7 Albumin 4.6 Globulin 3.1 Albumin/Globulin Ratio 1.5 Lipase 19 Urine Color Straw Urine Clarity Clear Urine pH 6.0 Ur Specific [place]lysses 1.015 Urine Protein 15 H Urine Glucose (UA) Normal Urine Ketones Negative Urine Occult Blood Negative Urine Nitrite Negative Urine Bilirubin Negative Urine Urobilinogen Normal Ur Leukocyte Esterase Negative Urine RBC 0 SEEN Urine WBC 0-5 SEEN Ur Squamous Epith Cells 0-5 SEEN Urine Bacteria 0 SEEN Urine Mucus 0 SEEN Discharge Plan Triage Chief Complaint: Abd Pain ED Provider: Artis Bustillos Dx/Rx/DC Orders Clinical Impression: Abdominal pain Instructions: Abdominal Pain Prescriptions: No Action albuterol sulfate [Ventolin HFA] 1 INHALER inhaler 2 puff inhalation Q4H PRN PRN (Reason: Wheezing) Qty: 1 0RF Rx Instructions: dispense with spacer budesonide-formoterol [Symbicort] 160-4.5 mcg/actuation HFA aerosol inhaler 1 puff inhalation Q12H Primary Care Provider: Care Physician,No Primary Referrals: Andrew Garrido MD [Med Staff - Wrapper Stripper] - 1 Week Care Physician,No Primary [Primary Care Provider] - Activity Restrictions/Additional Instructions: Plenty of fluids and rest. Follow-up with your doctor as needed. Motrin and/or Tylenol for any pain. Print Language: Tongan Disposition Disposition: Home, Self Care
[2024-12-26 19:26] LABS: Hematocrit 47.8 % (40-54); Hemoglobin 16.4 g/dL (13.0-16.5); Immature Granulocytes Count 0.050 X10^3/uL (0.0-0.0); Mean Corp Hgb Conc 34.3 g/dL (32-36); Mean Corpuscular Volume 85.2 fL (80-94); Mean Platelet Vol. 9.6 fl (6.2-12.0); NRBC Flagged by Analyzer 0 % (0-5); POSITIVE MORPHOLOGY YES; Platelet Count 333 K/mm3 (150-450); RBC Distribution Width CV 12.5 % (11.6-14.6); RBC Distribution Width SD 38.8 fl (35.1-43.9); Red Blood Count 5.61 M/mm3 (4.6-6.2); White Blood Count 11.9 K/mm3 (4.4-11.0)
[2024-12-26] MEDS: 0.9% Normal Saline (1000mL) 1,000 ML 999 ML IV (19:26)
[2024-12-26 19:30] LABS: Differential Indicated SCAN CRITERIA MET
[2024-12-26 19:36] LABS: Mucous, Urine 0 SEEN /hpf (<or=2+); Red Blood Cells-Urine 0 SEEN /hpf (0-5)
[2024-12-26 19:38] LABS: Color, Urine Straw (Yellow); Glucose, Dipstick Normal (Normal); Ketone-Dipstick Negative (Negative); Leukocyte Esterase-Dipstick Negative /ul (Negative); Nitrite-Dipstick Negative (Negative); Occult Blood-Urine Negative /ul (Negative); Protein-Dipstick 15 mg/dl (Negative); Specific Gravity, Urine 1.015 (1.002-1.030); Urine Bilirubin Dipstick Negative (Negative)
[2024-12-26 19:46] LABS: AST(SGOT) 41 U/L (<=37); Alanine Aminotransfer ALT/SGPT 95 U/L (<=46); Albumin, Serum 4.6 g/dL (3.5-5.0); Alkaline Phosphatase 110 U/L (40-129); Anion Gap 14 (5-15); BUN 13 mg/dL (4-19); BUN/Creat Ratio 12.4 RATIO (10-20); Calcium,Total 9.8 mg/dL (7.6-11.0); Carbon Dioxide 24.8 mmol/L (21.0-32.0); Chloride 100 mmol/L (98-108); Estimated Creatinine Clearance 117.29 ml/min (50-250); Globulin 3.1 g/dL (2.2-4.2); Glucose 108 mg/dL (70-99); Lipase 19 U/L (13-75); Potassium 3.6 mmol/L (3.3-5.1)
[2024-12-26 19:53] LABS: Squamous Epithelial Cells - UA 0-5 SEEN /hpf (0-5)
[2024-12-26 20:14] VITALS: BP 135/74; PULSE 102; RESP 18; O2SAT 97
[2024-12-26 20:57] LABS: Differential Comment SCANNED
[2024-12-26 21:04] VITALS: BP 132/79; PULSE 100; RESP 18; TEMP 36.7; O2SAT 99
== END 2024-12-26 21:08 | disposition home or self-care (01) ==
PROVIDERS: Emergency Provider Emergency Medicine; Visit Provider Emergency Medicine
DX: R10.9 Unspecified abdominal pain (principal); R11.2 Nausea with vomiting, unspecified; K21.9 Gastro-esophageal reflux disease without esophagitis; J45.909 Unspecified asthma, uncomplicated; F17.290 Nicotine dependence, other tobacco product, uncomplicated; F41.9 Anxiety disorder, unspecified
CPT/HCPCS: 80053; 81001; 83690; 85025; 96361; 96374; 99283; A4216; J2405

== ENCOUNTER 2025-01-16 20:55 | Emergency (ER) | payer MEDICAID, SELFPAY ==
[2025-01-16 20:56] VITALS: BP 169/99; PULSE 115; RESP 22; TEMP 36.6; O2SAT 100; BMI 31.3
[2025-01-16 22:17] LABS: Hematocrit 48.9 % (40-54); Hemoglobin 16.8 g/dL (13.0-16.5); Immature Granulocytes Count 0.110 X10^3/uL (0.0-0.0); Mean Corp Hgb Conc 34.4 g/dL (32-36); Mean Corpuscular Volume 86.1 fL (80-94); Mean Platelet Vol. 8.8 fl (6.2-12.0); NRBC Flagged by Analyzer 0 % (0-5); Platelet Count 413 K/mm3 (150-450); RBC Distribution Width CV 12.7 % (11.6-14.6); RBC Distribution Width SD 39.6 fl (35.1-43.9); Red Blood Count 5.68 M/mm3 (4.6-6.2); White Blood Count 13.0 K/mm3 (4.4-11.0)
[2025-01-16 22:39] LABS: Lipase 20 U/L (13-75)
[2025-01-16 22:44] LABS: AST(SGOT) 44 U/L (<=37); Alanine Aminotransfer ALT/SGPT 127 U/L (<=46); Albumin, Serum 4.7 g/dL (3.5-5.0); Alkaline Phosphatase 116 U/L (40-129); Anion Gap 13 (5-15); BUN 12 mg/dL (4-19); BUN/Creat Ratio 11.7 RATIO (10-20); Calcium,Total 9.8 mg/dL (7.6-11.0); Carbon Dioxide 26.1 mmol/L (21.0-32.0); Chloride 99 mmol/L (98-108); Estimated Creatinine Clearance 116.21 ml/min (50-250); Globulin 3.2 g/dL (2.2-4.2); Glucose 103 mg/dL (70-99); Potassium 4.5 mmol/L (3.3-5.1)
--- NOTE | 2025-01-16 22:55 | EDS_ITS ---
HPI History of Present Illness Chief Complaint: Abd Pain Narrative Narrative: Chief complaint and HPI: Episodic abdominal pain. 29-year-old male with past medical history of asthma presents for evaluation of episodic abdominal pain. Patient states for the past few months he has been having episodic abdominal pain, bloating, nausea and vomiting. Nothing specifi brings on the symptoms. Patient states this episode reoccurred this evening. He states he has an appointment with Dr. Reynolds's office on 02/05/2025. He denies any fever, chills, shortness of breath, dysuria, testicular or penile pain. No concern for STI. Denies any daily alcohol use. Denies marijuana use. Does endorse intermittent constipation and diarrhea. Review of systems: See HPI Medications: As listed on the chart Allergies: As listed on the chart PFSH: Per chart Vital signs: As listed on the chart. Reviewed. Physical exam: Gen: A&O x3, NAD Head: Normocephalic, atraumatic Eyes: No sclera icterus, conjunctiva clear ENT: Moist mucous membranes Neck: Trachea midline, No JVD CV: Regular rate and rhythm, no murmurs, no peripheral edema Resp: Lungs CTA BL, no w/r/c GI: Abd soft, non-distended, minimal tenderness to palpation diffusely, no r/r/g : No CVA tenderness Musc: Full ROM, no deformity Skin: Warm, dry Neuro: Alert, oriented, grossly intact, sensation intact Psych: Cooperative, appropriate mood and affect [facility] Medical History Anxiety Migraine headache Gastric reflux Smoker Shortness of breath on exertion Asthma Home Medications ?Medication ?Instructions ?Recorded ?Last Taken ?Type albuterol sulfate 90 mcg/actuation 2 puff inhalation Q 4H PRN PRN 06/20/21 Unknown Rx aerosol inhaler (Ventolin HFA) Wheezing ##1 budesonide-formoterol HFA 160 1 puff inhalation Q12H 0 12/26/24 12/26/24 History mcg-4.5 mcg/actuation aerosol inhaler (Symbicort) dicyclomine 20 mg tablet 20 mg PO BID PRN abdominal p ain 3 01/17/25 Unknown Rx days #6 tabs ondansetron 4 mg disintegrating 4 mg PO Q8H PRN PRN Na usea #10 tabs 01/17/25 Unknown Rx tablet Allergy/AdvReac Type Severity Reaction Status Date / Time No Known Allergies Allergy Verified 01/16/25 20:56 Family History no significant family his Surgical History no surgical history Social History household members: other Smoking Status: Current every day smoker tobacco type: e-cigarettes alcohol intake: current alcohol intake frequency: other substance use type: does not use EXAM Physical Exam Const Vital Signs: 01/16/25 20:56 01/16/25 23:00 Temperature 98 F Temperature Source Oral Pulse Rate 115 H 97 Respiratory Rate 22 H 18 Blood Pressure 169/99 H 134/86 H Blood Pressure Mean 122 102 Pulse Ox 100 97 Oxygen Delivery Method Room Air Room Air MDM MDM MDM Narrative Medical decision making narrative: 29-year-old male with past medical history of asthma presents for evaluation of episodic abdominal pain. Patient states for the past few months he has been having episodic abdominal pain, bloating, nausea and vomiting. He states he has an appointment with Dr. Reynolds's office on 02/05/2025. Differential diagnosis includes but is not limited to IBS, stress reaction as patient states he has been under a lot of stress lately, electrolyte abnormality, UTI, PUD, gastritis, biliary pathology,, suspect less likely pancreatitis. On chart review, patient has been seen in our emergency department multiple times for the same complaint. NS bolus, Zofran, Bentyl ordered for symptoms. I do not think any abdominal imaging is needed at this time such as CT. Abdominal labs are obtained in triage per protocol. Agree with the labs that were ordered. I did add on a urine. CBC with mild leukocytosis of 13. Patient has hemoconcentration of 16.8. Likely secondary to mild dehydration from nausea and vomiting. Patient will be receiving fluids. CMP relatively unremarkable except for AST elevation and ALT elevation On chart review patient's AST was 41 on 12/26 currently 44.. ALT is 127 was 95 on 12/26. Lipase unremarkable. UA negative for UTI. At this point in time, no clear etiology for patient's episodic abdominal pain. Suspect IBS. Patient states his mother has history of IBS. Follow-up with PCP and Dr. Reynolds. Return precautions explained. Will send prescription for Zofran and Bentyl. He confirmed understand the plan. Patient will discharge home Impression: 1. Chronic abdominal pain 2. Nausea and vomiting Lab Data Labs: Laboratory Results - last 24 hr 01/16/25 01/16/25 22:05 23:11 WBC 13.0 H RBC 5.68 Hgb 16.8 H Hct 48.9 MCV 86.1 MCH 29.6 MCHC 34.4 RDW Std Deviation 39.6 RDW Coeff of Italo 12.7 Plt Count 413 MPV 8.8 Immature Gran % (Auto) 0.800 Neut % (Auto) 66.2 Lymph % (Auto) 22.1 Calvert % (Auto) 9.0 Eos % (Auto) 1.2 Baso % (Auto) 0.7 Absolute Neuts (auto) 8.6 H Absolute Lymphs (auto) 2.88 Nucleated RBC % 0 Sodium 139 Potassium 4.5 Chloride 99 Carbon Dioxide 26.1 Anion Gap 13 BUN 12 Creatinine 1.05 Estim Creat Clear Calc 116.21 Est GFR (MDRD) Non-Af 99 BUN/Creatinine Ratio 11.7 Glucose 103 H Calcium 9.8 Total Bilirubin 0.40 AST 44 H ALT 127 H Alkaline Phosphatase 116 Total Protein 8.0 Albumin 4.7 Globulin 3.2 Albumin/Globulin Ratio 1.5 Lipase 20 Urine Color Straw Urine Clarity Clear Urine pH 7.0 Ur Specific [facility] 1.010 Urine Protein Negative Urine Glucose (UA) Normal Urine Ketones Negative Urine Occult Blood Negative Urine Nitrite Negative Urine Bilirubin Negative Urine Urobilinogen Normal Ur Leukocyte Esterase Negative Urine RBC 0 SEEN Urine WBC 0 SEEN Ur Squamous Epith Cells 0 SEEN Urine Bacteria 0 SEEN Urine Mucus 0 SEEN Discharge Plan Triage Chief Complaint: Abd Pain ED Provider: Jerzy Santiago Dx/Rx/DC Orders Clinical Impression: Abdominal pain Instructions: ED Abdominal Pain Unkn Cause Male... Prescriptions: New ondansetron 4 mg tablet,disintegrating 4 mg PO Q8H PRN PRN (Reason: Nausea) Qty: 10 0RF dicyclomine 20 mg tablet 20 mg PO BID PRN (Reason: abdominal pain) 3 Days Qty: 6 0RF No Action albuterol sulfate [Ventolin HFA] 1 INHALER inhaler 2 puff inhalation Q4H PRN PRN (Reason: Wheezing) Qty: 1 0RF Rx Instructions: dispense with spacer budesonide-formoterol [Symbicort] 160-4.5 mcg/actuation HFA aerosol inhaler 1 puff inhalation Q12H Primary Care Provider: Andrew Garrido Referrals: Rob Reynolds DO [Med Staff - Active Staff] - 3-5 Days Andrew Garrido MD [Primary Care Provider] - 3-5 Days Activity Restrictions/Additional Instructions: Follow-up with your primary care physician and keep your appointment with Dr. Reynolds. Your AST has been mildly elevated here in the emergency department on your last several visits. Follow-up with GI physician for this. Return back to ED symptoms change or worsen. Print Language: Luxembourgish Disposition Disposition: Home, Self Care
--- OUTSIDE RECORDS SUMMARY | 2025-01-16 22:58 | XMS RPT_ITS | CCD ---
Author Organization [facility] Care Team Providers Care Associate Professor Of Pathology Name Role Phone PHYSICIAN, NONE Primary Care Physician Unavailab abimael Cameron PSYCHOLOGIST EXPERIMENTAL.JUAN LUIS GRAHAM Daniel Primary Care Provider Nisha GROUNDS MAINTENANCE SUPERVISOR, GROUNDS MAINTENANCE SUPERVISOR-C Zachary Primary Care Provider [phone] Nisha GROUNDS MAINTENANCE SUPERVISOR, GROUNDS MAINTENANCE SUPERVISOR-C Zachary Referring Provider Yajaira GROUNDS MAINTENANCE SUPERVISOR, GROUNDS MAINTENANCE SUPERVISOR-C Anushka Flowers Attending Provider Blaz PSYCHOLOGIST EXPERIMENTAL.JUAN LUIS GRAHAM Daniel Primary Care Provider Blaz PSYCHOLOGIST EXPERIMENTAL.JUAN LUIS GRAHAM Daniel Primary Care Provider Blaz PSYCHOLOGIST EXPERIMENTAL.JUAN LUIS GRAHAM Daniel Primary Care Provider RAMONA ZARATE DO Attending Unavailable PHYSICIAN, NONE Primary Care Unavailable Andrew Garrido MD Primary Care Provider Andrew Garrido MD Primary Care Provider Keren PSYCHOLOGIST EXPERIMENTAL.Shana GRAHAM Unavailable Care Physician, No Primary Primary Care Provider Unavailable pAollo TUCKER, Dr. Wisdom Emergency Provider Care Physician, No Primary Primary Care Unava ilable Care Physician, No Primary Referring Unava ilable Rebecca Morales Attending Unavailable Artis Bustillos Attending Unavailable Care Physician, No Primary Primary Care Unava ilable ROBERTA GONSALES Referring Unavailable ANDREW GARRIDO Primary Care Unavailable ANDREW GARRIDO Primary Care Unavailable KRISTIN TAPIA Attending Unavailable ANDREW GARRIDO Attending Unavailable ANDREW GARRIDO Primary Care Unavailable ANDREW GARRIDO Referring Unavailable ANDREW GARRIDO Primary Care Unavailable ROBERTA GONSALES Attending Unavailable ANDREW GARRIDO Primary Care Unavailable Medications Current Medications Medication Drug Class(es) Dates Sig (Normalized) Sig (Original) [id number] 200 actuat albuterol 0.09 mg/actuat metered dose [...] 2021 8:52am dispense with spacer Start: 06-20-2021 Albuterol Sulf ate (Ventolin Hfa) 1 INHALER inhaler Active 2 NMA INHALATION EVERY 4 HOURS NEEDED as needed for Wheezing 1 June 20, 2021 1:00am dispense with spacer Start: 06-20-2021 take 1 [...] Asthma attack Start Date: 08/12/19 Status: Ordered amoxicillin 875 mg / clavulanate 125 mg oral tablet (1 source) Penicillin-class Antibacterial Start: 01-06-2025 End: 01-13-2025 take 1 tablet by mouth twice daily amoxicillin-clavulanate potassium (AUGMENTIN) 875-125 mg per tablet Indications: Tooth ache Take 1 tablet by mouth two times a day for 7 days. 14 tablet 01/06/2025 01/13/2025 Active benzonatate 100 mg oral capsule (1 source) Non-narcotic Antitussive Start: 12-15-2022 End: 12-22-2022 Tessalon Perles 100 mg oral capsule Dose : 100 mg = 1 cap(s), Oral, TID, PRN as needed for cough, X 7 day(s), # 21 cap(s), 0 Refill(s), 12/22/22 10:22:00 PM EDT Start Date: 12/15/22 Stop Date: 12/22/22 Status: Ordered Budesonide-Form oterol (19 sources) Corticosteroid, beta2-Adrenergic Agonist Start: 12-26-2024 Budesonide-Formoterol (Symbicort) 160-4.5 mcg/actuation HFA aerosol inhaler Active 1 NMA INHALATION Q12H December 26, 2024 12:00am Start: 12-23-2024 take 2 puff(s) by in halation twice daily SYMBICORT 160-4.5 mcg/actuation inhaler Inhale 2 puffs as instructed two times a day. 1 each 12/23/2024 Active Start: 05-07-2023 End: 08-27-2024 take 2 puff(s) by inhalation twice daily SYMBICORT 160-4.5 mcg/actuation inhaler Inhale 2 puffs as instructed two times a day. 1 each 08/27/2024 08/27/2024 Discontinued (Course of therapy completed) Start: 03-09-2023 take 2 puff(s) by in halation twice daily SYMBICORT 160-4.5 mcg/actuation inhaler Inhale 2 Puffs as instructed two times a day. 1 Each 03/09/2023 Active Comment on above: Inhale 2 Puffs as in structed two times a day. diazePAM 2 mg oral tablet (1 source) Benzodiazepine Start: 09-20-19 take 1 tablet by mouth three times daily Diazepam (Valium) 2 mg tablet Active 2 MG PO THREE TIMES A DAY 10 September 19, 2021 10:04pm 30 actuat fluticasone furoate 0.2 mg/actuat / vilanterol 0.025 mg/actuat dry powder inhaler (3 sources) Corticosteroid, beta2-Adrenergic Agonist Start: 08-28-19 End: 12-24-19 fluticasone-vilanter ol (BREO ELLIPTA) 200-25 mcg/dose inhaler Indications: Moderate persistent asthma without complication (HCC) Inhale 1 Inhalation as instructed once daily. 60 each 5 08/27/2024 12/23/2024 Discontinued (Course of therapy completed) loratadine 10 mg oral tablet (5 sources) Start: 12-27-19 take 1 tablet by mouth once daily as needed loratadine (CLARITIN) 10 mg tablet Take 1 tablet by mouth once daily as needed. FOR ALLERGY SYMPTOMS 30 tablet 11 12/26/2024 Active Start: 08-27-2024 take 1 tablet by oneyda th once daily as needed loratadine (CLARITIN) 10 mg tablet Take 1 tablet by mouth once daily as needed. FOR ALLERGY SYMPTOMS 30 tablet 11 08/27/2024 Active Magic Mouth Wash (Bmx) (2 sources) Start: 01-29-2022 Magic Mouth Wa sh (Bmx) Active 30 ML BUCCAL EVERY 6 HOURS NEEDED January 29, 2022 10:13am diphenhydramine 12.5 mg/5 mL oral liquid 60 mL; aluminum-mag hydroxide-simethicone 400 mg-400 mg-40 mg/5 mL oral susp 60 mL; Lidocaine Viscous 2 % mucosal solution 60 mL; Per 180 mL Start: 01-29-2022 Magic Mouth Wa sh (Bmx) Active 30 ML BUCCAL EVERY 6 HOURS NEEDED January 29, 2022 11:13am diphenhydramine 12.5 mg/5 [...] Albuterol Sulfate (Proair Hfa) 1 PUFF inhaler (5 sources) Start: 06-02-2013 End: 06-13-2013 Albuterol Sulfate (Proair Hfa) 1 PUFF inhaler Discontinued 1 - 2 NMA INHALATION EVERY 6 HOURS NEEDED as needed for Asthma June 02, 2013 1:00am June 13, 2013 4:45pm Start: 06-02-2013 End: 06-13-2013 take 1 puff(s) [...] 02, 2013 1:00am June 13, 2013 4:45pm lansoprazole 30 mg delayed release oral capsule (2 sources) Proton Pump Inhibitor Start: 07-25-2022 End: 12-26-2024 take 1 capsule by mouth once daily Lansoprazole (Prevacid) 30 mg capsule,delayed release(DR/EC) Discontinued 30 mg PO DAILY 14 0 July 25, 2022 1:00am December 26, 2024 6:20pm Magic Mouth Wash (Bmx) 180 mL suspension (1 source) Start: 01-29-2022 End: 12-26-2024 Magic Mouth Wash (Bmx) 180 mL suspension Discontinued 30 mL BUCCAL EVERY 6 HOURS NEEDED as needed for Oral ulcerations 180 0 January 29, 2022 11:13am December 26, 2024 6:20pm diphenhydramine 12.5 mg/5 mL oral liquid 60 mL; aluminum-mag hydroxide-simethicon e 400 mg-400 mg-40 mg/5 mL oral susp 60 mL; Lidocaine Viscous 2 % mucosal solution 60 mL; Per 180 mL montelukast 10 mg oral tablet (7 sources) Leukotriene Receptor Antagonist Start: 2023 End: 08-14-2024 take 1 tablet by mouth once daily at bedtime montelukast (SINGULAIR) 10 mg tablet Take 1 tablet by mouth daily at bedtime. 30 tablet 5 2023 08/14/2024 Discontinued Comment on above: Take 1 tablet by oneyda th daily at bedtime. naproxen 500 mg oral tablet (8 sources) Nonsteroidal Anti-inflammatory Drug Start: 11-03-2023 End: 12-26-2024 take 1 tablet by mouth twice daily as needed Naproxen 500 mg tablet Discontinued 500 mg PO TWICE DAILY NEEDED November 03, 2023 12:00am December 26, 2024 6:20pm Start: 03-04-2013 End: 2013 take 1 tablet by mouth twice daily as needed for pain Naproxen 500 MG tablet Discontinued 500 mg PO TWICE DAILY NEEDED as needed for Pain March 04, 2013 12:00am 2013 9:09pm ondansetron 4 mg disintegrating oral tablet (7 sources) Serotonin-3 Receptor Antagonist Start: 06-02-2013 End: 06-13-2013 take 1 tablet by mouth every eight hours as needed for nausea Ondansetron 4 MG tablet Discontinued 4 mg PO EVERY 8 HOURS NEEDED as needed for Nausea June 02, 2013 1:00am June 13, 2013 4:45pm penicillin v potassium 500 mg oral tablet (1 source) Start: 11-03-2023 End: 12-26-2024 take 1 tablet by mouth four times daily Penicillin V Potassium 500 mg tablet Discontinued 500 mg PO 4 TIMES DAILY 40 November 03, 2023 12:00am December 26, 2024 6:21pm sertraline 100 mg oral tablet (8 sources) [...] on above: Take 1 tablet by oneyda once daily. Take 1/2 tablet by mouth daily for 1 week, then take 1 tablet daily. triamcinolone acetonide 0.001 mg/mg oral paste (17 sources) Corticosteroid Start: 02-18-20 End: 08-15-19 triamcinolone (KENALOG IN ORABASE) 0.1 % paste Apply as needed bid 5 g 4 02/01/2023 08/14/2024 Discontinued Comment on above: Apply as needed bid zolpidem tartrate 5 mg oral tablet (7 sources) gamma-Aminobutyric Acid-ergic Agonist Start: 04-29-20 13 End: 06-02-19 14 take 1 tablet by mouth at bedtime as needed for sleep Zolpidem 5 MG tablet Discontinued 5 mg PO AT BEDTIME NEEDED as needed for Sleep April 29, 2013 1:00am June 02, 2013 7:02pm Problems Active Problems Problem Classification Problem Date Documented Da te Episodic/Chronic Abdominal pain (12 sources) Abdominal pain; Translations: [Unspecified abdominal pain] Onset: 12-31-2024 Episodic Acute and chronic tonsillitis (7 sources) Tonsillitis; Translations: [Acute tonsillitis, unspecified] 02-23-2021 Episodic Allergic reactions (1 source) Allergic disposition; Translations: [Allergy status to unspecified drugs, medicaments and biological substances status] 08-27-2024 Episodic Anxiety disorders (20 sources) Generalized anxiety disorder; Translations: [Generalized anxiety disorder] Onset: 04-05-2021 04-05-2021 Chronic Asthma (20 sources) Mild intermittent asthma; Translations: [Mild intermittent asthma, uncomplicated] Onset: 04-16-2017 04-16-2017 Chronic Cardiac dysrhythmias (8 sources) Sinus tachycardia; Translations: [Tachycardia, unspecified] 02-23-2021 Episodic Conditions associated with dizziness or vertigo (8 sources) Benign paroxysmal positional vertigo; Translations: [Benign paroxysmal vertigo, right ear] Episodic Disorders of teeth and jaw (6 sources) Dental caries; Translations: [Dental caries, unspecified] Onset: 01-06-2025 02-06-2022 Episodic Gastrointestinal hemorrhage (16 sources) Rectal hemorrhage; Translations: [Hemorrhage of anus and rectum] Episodic Malaise and fatigue (7 sources) Fatigue; Translations: [Other fatigue] 03-09-2021 Episodic Mood disorders (20 sources) Mild major depression, single episode; Translations: [Major depressive disorder, single episode, mild] Onset: 05-12-2021 05-12-2021 Chronic Nonspecific chest pain (2 sources) Chest pain; Translations: [Chest pain, unspecified] 07-25-2022 Episodic Other circulatory disease (7 sources) Orthostatic hypotension; Translations: [Orthostatic hypotension] 12-07-2018 Episodic Other gastrointestinal disorders (5 sources) Diarrhea; Translations: [Diarrhea, unspecified] 11-04-2021 Episodic Other gastrointestinal disorders (3 sources) Diarrhea, unspecified; Translations: [Diarrhea] Episodic Other nutritional; endocrine; and metabolic disorders (1 source) Weight increased; Translations: [Abnormal weight gain] 08-14-2024 Episodic Other skin disorders (1 source) Multiple skin tags; Translations: [Other hypertrophic disorders of the skin] 08-14-2024 Episodic Residual codes; unclassified (1 source) Procedure not done; Translations: [Procedure and treatment not carried out, unspecified reason] Episodic Residual codes; unclassified (1 source) Nicotine user; Translations: [Tobacco use] 11-11-2023 Episodic Spondylosis; intervertebral disc disorders; other back problems (7 sources) Backache; Translations: [Dorsalgia, unspecified] 05-10-2021 Episodic Syncope (7 sources) Vasovagal syncope; Translations: [Syncope and collapse] 12-07-2018 Episodic Unclassified (7 sources) No history of clinical finding in subject; Translations: [No significant past medical history] 12-06-2018 Past or Other Problems Problem Classification Problem Date Documented Da te Episodic/Chronic Diseases of mouth; excluding dental (20 sources) Aphthous ulcer of mouth; Translations: [Recurrent oral aphthae] Onset: 3 Resolved: 5 Episodic Immunizations and screening for infectious disease (4 sources) Patient encounter status; Translations: [Encounter for screening for human immunodeficiency virus [HIV]] Onset: 5 12-29-2022 Episodic Other gastrointestinal disorders (20 sources) Irritable bowel syndrome with diarrhea; Translations: [Irritable bowel syndrome with diarrhea] Onset: 3 Resolved: 5 12-29-2022 Chronic Other nutritional; endocrine; and metabolic disorders (1 source) Abnormal weight gain; Translations: [Weight gain] Onset: 5 Episodic Results Test Name Value Interpretation Reference Range Facility [facility] 01-06-2025 CNOV Office Visit ([facility]) MAX ROMERO ([id number]) 1995 M Date Time Provider Department 01/06/25 6:00 PM KRISTIN TAPIA During your visit today, we recorded the following information about you: Temperature Pulse Respiration Blood pressure 98.3 degrees 106/minute 16/minute 122/70 Weight 92.4 kg Kristin Tapia APRN.CNP 01/06/2025 6:13 PM Signed [facility] Subjective HPI HPI Max Bravo Nick is a 29 year old male who [...] with diarrhea 12/29/2022 Mild intermittent asthma, uncomplicated ([facility]) 04/16/2017 Severe recurrent major depression without psychotic features ([facility]) 12/29/2022 PAST SURGICAL HISTORY Procedure Laterality Date [...] MG-POTASSIUM CLAVULANATE 125 MG TABLET Kristin Tapia APRN.COOK VACUUM KETTLE History and Record Review External record(s) reviewed: [...] 3 days Primary Visit Diagnosis:Tooth ache [K08.89] Order(s):amoxicillin-cl avulanate potassium (AUGMENTIN) 875-125 mg per tabletTake 1 [...] Encounter Status:Closed by KRISTIN TAPIA on 01/06/25 Normal [facility] Absolute lymphocyte countOrd ered By: Artis Bustillos on 12-26-2024 Lymphocytes Auto (Unsp spec) [#/Vol] 4.46 10*3/uL 0.83-4.51 [facility] Absolute neutrophil countOrd ered By: Artis Bustillos on 12-26-2024 Neutrophils (Bld) [#/Vol] 6.3 10*3/uL 2.0-7.7 [facility] Anion gap in Serum or Plasma Ordered By: Artis Bustillos on 12-26-2024 Anion gap [Moles/Vol] 14 mmol/L 5-15 [facility] Automated lymphocyte count a s percentage of total leukocytesOrdered By: Artis Bustillos on 12-26-2024 Lymphocytes/100 WBC Auto (Unsp spec) 37.4 % 19-41 [facility] BUN/creatinine ratioOrdered By: Artis Bustillos on 12-26-2024 Urea nitrogen/Creatinine [Mass ratio] 12.4 mg/mg 10-20 [facility] Basophil percentageOrdered B y: Artis Bustillos on 12-26-2024 Basophils/100 WBC (Bld) 0.7 % 0-1 [facility] Bilirubin Test strip Ql (U)O rdered By: Artis Bustillos on 12-26-2024 Bilirubin Ql (U) Negative Negative [facility] Bilirubin, totalOrdered By: Artis Bustillos on 12-26-2024 Bilirubin [Mass/Vol] 0.36 mg/dL 0.00-1.30 [facility] [place] [facility] Blood manual differential co mment interpretation (narrative result)Ordered By: Artis Bustillos on 12-26-2024 Manual differential comment Mannie (Bld) [Interp] SCANNED [facility] CBC W/Diff, Automatedon PLT EST ADEQUATE Normal ADEQ [facility] Comment on above: Performed By: #### L 100.0100, L501.2450, L500.4050 #### [facility] [address] [place], [place], [id number] SMEAR COMMENT SCANNED Normal [facility] Comment on above: Performed By: #### L 100.0100, L501.2450, L500.4050 #### [facility] [address] [place], [place], [id number] Carbon dioxide, total [Moles /volume] in Central venous bloodOrdered By: Artis Bustillos on 12-26-2024 CO2 [Moles/Vol] 24.8 mmol/L 21.0-32.0 [facility] Chloride assayOrdered By: Freddy Bustillos on 12-26-2024 Chloride [Moles/Vol] 100 mmol/L 98-108 [facility] [place] [facility] Comprehensive Metabolic Prof ilon 12-26-2024 Albumin [Mass/Vol] 4.6 g/dL Normal 3.5-5.0 [facility] Comment on above: Performed By: #### L 100.0100, L501.2450, L500.4050 #### [facility] [address] [place], [address] Albumin/Globulin [Mass ratio] 1.5 {ratio} Normal 0.9-2.4 [facility] Comment on above: Performed By: #### L 100.0100, L501.2450, L500.4050 #### [facility] [address] [place], [address] ALK PHOS 110 U/L Normal 40-129 [facility] Comment on above: Performed By: #### L 100.0100, L501.2450, L500.4050 #### [facility] [address] [place], [address] ALT [Catalytic activity/Vol] 95 U/L High <=46 [facility] Comment on above: Performed By: #### L 100.0100, L501.2450, L500.4050 #### [facility] [address] [place], [address] AST [Catalytic activity/Vol] 41 U/L High <=37 [facility] Comment on above: Performed By: #### L 100.0100, L501.2450, L500.4050 #### [facility] [address] [place], [address] Bilirubin [Mass/Vol] 0.36 mg/dL Normal 0.00-1.30 [facility] [place] [facility] Comment on above: Performed By: #### L 100.0100, L501.2450, L500.4050 #### [facility] [address] [place], [address] BUN/CRE 12.4 RATIO Normal 10-20 [facility] Comment on above: Performed By: #### L 100.0100, L501.2450, L500.4050 #### [facility] [address] [place], [address] Calcium [Mass/Vol] 9.8 mg/dL Normal 7.6-11.0 [facility] Comment on above: Performed By: #### L 100.0100, L501.2450, L500.4050 #### [facility] [address] [place], [address] Chloride [Moles/Vol] 100 mmol/L Normal 98-108 [facility] [place] [facility] Comment on above: Performed By: #### L 100.0100, L501.2450, L500.4050 #### [facility] [address] [place], [address] CO2 [Moles/Vol] 24.8 mmol/L Normal 21.0-32.0 [facility] Comment on above: Performed By: #### L 100.0100, L501.2450, L500.4050 #### [facility] [address] [place], [address] Creatinine [Mass/Vol] 1.04 mg/dL Normal 0.70-1.20 [facility] Comment on above: Performed By: #### L 100.0100, L501.2450, L500.4050 #### [facility] [address] [place], [address] ECRCL 117.29 ml/min Normal 50-250 [facility] Comment on above: Performed By: #### L 100.0100, L501.2450, L500.4050 #### [facility] [address] [place], [address] GAP 14 Normal 5-15 [facility] Comment on above: Performed By: #### L 100.0100, L501.2450, L500.4050 #### [facility] [address] [place], [address] GFR/1.73 sq M.predicted among non-blacks MDRD (S/P/Bld) [Vol rate/Area] 100 mL/min/{1.73_m2} Normal >60 [facility] Comment on above: Result Comment: mL/m in/1.73m2 CKD-EPI Creatinine Equation (2020) Performed By: #### L 100.0100, L501.2450, L500.4050 #### [facility] [address] [place], [address] Globulin (S) [Mass/Vol] 3.1 g/dL Normal 2.2-4.2 [facility] Comment on above: Performed By: #### L 100.0100, L501.2450, L500.4050 #### [facility] [address] [place], [address] Glucose [Mass/Vol] 108 mg/dL High 70-99 [facility] Comment on above: Performed By: #### L 100.0100, L501.2450, L500.4050 #### [facility] [address] [place], [address] Potassium [Moles/Vol] 3.6 mmol/L Normal 3.3-5.1 [facility] Comment on above: Performed By: #### L 100.0100, L501.2450, L500.4050 #### [facility] [address] [place], [address] Sodium [Moles/Vol] 139 mmol/L Normal 133-145 [facility] Comment on above: Performed By: #### L 100.0100, L501.2450, L500.4050 #### [facility] [address] [place], [address] T PROT 7.7 g/dL Normal 5.9-8.4 [facility] Comment on above: Performed By: #### L 100.0100, L501.2450, L500.4050 #### [facility] [address] [place], [address] Urea nitrogen [Mass/Vol] 13 mg/dL Normal 4-19 [facility] Comment on above: Performed By: #### L 100.0100, L501.2450, L500.4050 #### [facility] [address] [place], [address] Emergency Department Summary on 12-26-2024 Emergency Department Summary [facility] [place] [facility] Medical Records Department [address] [place] [address] Emergency Department Summary 12/26/24 MR#: [id number] Acct: [id number] Name: MAX ROMERO Rep #: [id number] : 1995 29 From: Artis Bustillos MD PCP: Care Physician,No Primary Status:REG ER Location: ED HPI HPI - GI History of Present Illness Chief Complaint: Abd Pain Informant: patient Nausea/Vomiting/Emesis GI Symptom: Positive for Nausea, Vomiting and - (Vomited once the last 2 weeks. Nausea.) Onset: Weeks Severity: Mild Diarrhea/Melena/Hematoc hezia GI Symptom: Negative for Diarrhea, Melena or Hematochezia Associated Symptoms Associated Symptoms: Negative for Dysuria, Frequency, Hematuria or Urgency Narrative Narrative: 29-year-old male no prior abdominal or any other surgeries. States that he has had nausea for the last 2 weeks. Really denies any significant pain. No fever. No dysuria. Has had this before. He has been worked up in the past for possible irritable bowel but he is never gone through to have an upper or lower endoscopy. He denies any significant weight loss. Prior similar symptoms: Yes Recent Illness/Hospitalization : No PFSH PFS Medical History Anxiety Migraine headache Gastric reflux Smoker Shortness of breath on exertion Asthma Home Medications ???Medication ???Instructions ???Recorded ???Last Taken ???Type albuterol sulfate 90 mcg/actuation 2 puff inhalation Q4H PRN PRN Unknown Rx aerosol inhaler (Ventolin HFA) Wheezing ##1 budesonide-formoterol HFA 160 1 puff inhalation Q12H 12/26/24 History mcg-4.5 mcg/actuation aerosol inhaler (Symbicort) Allergy/AdvReac Type Severity Reaction Status Date / Time No Known Allergies Allergy Verified 12/26/24 18:14 Family History no significant family his Surgical History no surgical history Social History household members: other Smoking Status: Current every day smoker tobacco type: e-cigarettes alcohol intake: current alcohol intake frequency: other substance use type: does not use ROS ROS ED ROS Narrative Nausea. Constitutional Constitutional ED: Denies chills or fever(s) ENT ENT ED: Denies ear pain Cardiovascular Cardiovascular: Denies chest pain Respiratory/Chest Respiratory/Chest: Denies cough or dyspnea Gastrointestinal Gastrointestinal: Reports nausea and vomiting; Denies abdominal pain, constipation, diarrhea or melena Genitourinary Genitourinary ED: Denies dysuria or hematuria Musculoskeletal Musculoskeletal: Denies arthralgias Integumentary Denies abscess Neurologic Neurologic: Denies headache(s) Psychiatric Psychiatric: Reports anxiety Endocrine Endocrinology: Denies polydipsia Hematologic/Lymphatic Hematologic/Lymphatic: Denies easy bleeding, easy bruising or lymphadenopathy Allergic/Immunologic Allergic/Immunologic ED: Denies mouth swelling, tongue swelling or urticaria EXAM Physical Exam Narrative Exam Narrative: Well-appearing 21-year-old male. Vital signs stable afebrile. He is anxious. He does not look septic he is in no distress. No one present in room with him. H EENT exam pupils round and light. Moist mutes members. Neck nontender. No JVD. Lungs clear to auscultation bilaterally. Heart tachycardic 110 no murmur. Abdomen soft, nontender, nondistended, normal bowel sounds without peritoneal signs. No hernia no mass. No obstruction. No distention. Both the right upper and right lower quadrants are completely nontender. Benign abdominal exam. Moving all 4 extremities. Nontender. No deformity. No edema. Normal range of motion. Normal strength. Back nontender. Neurologically he is awake alert. Answering questions following commands. Const Vital Signs: 12/26/24 18:15 12/26/24 20:14 Temperature 98 F Temperature Source Oral Pulse Rate 120 H 102 H Respiratory Rate 16 18 Blood Pressure 140/93 H 135/74 H Blood Pressure Mean 108 94 Pulse Ox 97 97 Oxygen Delivery Method Room Air Room Air Positive well nourished and well developed; Negative for cachectic, contractures or unkempt General Appearance ED: well developed; Negative for unkempt, cachectic, contractures or pallor Nutritional Appearance: Negative for cachectic HEENT Reports moist mucous membranes normocephalic and atraumatic Eyes PERRL and EOMs intact bilaterally Neck no lymphadenopathy, supple and no JVD Resp normal respiratory effort and clear to auscultation bilaterally Cardio regular rate, regular rhythm, S1 normal heart sound, S2 normal heart sound and no murmurs GI non-tender, non-distended and no masses Inspection: Negative for abdominal distention Auscultation: normoact (more content not included)... Normal [facility] Eosinophil percentageOrdered By: Artis Bustillos on 12-26-2024 Eosinophils/100 WBC (Bld) 1.6 % 0-5 [facility] Erythrocyte distribution wid th ratioOrdered By: Artis Bustillos on 12-26-2024 Erythrocyte distribution width (RBC) [Ratio] 12.5 % 11.6-14.6 [facility] Erythrocyte distribution wid th standard deviationOrdered By: Artis Bustillos on 12-26-2024 Erythrocyte distribution width (RBC) [Ratio] 38.8 fl 35.1-43.9 [facility] Glomerular filtration rate ( GFR) estimation/1.73 sq m using serum, plasma, or whole bOrdered By: Artis Bustillos on 12-26-2024 GFR/1.73 sq M.predicted among non-blacks MDRD (S/P/Bld) [Vol rate/Area] 100 mL/min/{1.73_m2} >60 [facility] Comment on above: mL/min/1.73m2 CKD-EP I Creatinine Equation (2020) Hematocrit Auto (Bld) [Volum e fraction]Ordered By: Artis Bustillso on 12-26-2024 Hematocrit (Bld) [Volume fraction] 47.8 % 40-54 [facility] Hemoglobin measurementOrdere d By: Artis Bustillos on 12-26-2024 Hemoglobin (Bld) [Mass/Vol] 16.4 g/dL 13.0-16.5 [facility] Immature granulocytes/100 WB C Auto (Bld)Ordered By: Artis Bustillos on 12-26-2024 Immature granulocytes/100 WBC (Bld) 0.400 % 0.0-0.9 [facility] Comment on above: IG% - Immature Granu locytes (promyelocytes, myelocytes and metamyelocytes) > 1% indicates that a LEFT SHIFT is Present. Ketones Test strip Ql (U)Ord ered By: Artis Bustillos on 12-26-2024 Ketones Ql (U) Negative Negative [facility] - Chemistry and C hemistry - challengeOrdered By: Artis Bustillos on 12-26-2024 AST [Catalytic activity/Vol] 41 U/L High <38 [facility] Lipaseon 12-26-2024 Lipase [Catalytic activity/Vol] 19 U/L Normal 13-75 [facility] Comment on above: Result Comment: Sophie ward note: LIPASE revised reference range effective 22. New Lipase methodology. Expected to produce lower values than the previous assay method. NEW Reference Range: 13 - 75 U/L Performed By: #### L 100.0100, L501.2450, L500.4050 #### [facility] [address] [place], [address] Lipase measurementOrdered By : Artis Bustillos on 12-26-2024 Lipase [Catalytic activity/Vol] 19 U/L 13-75 [facility] Comment on above: Please note:LIPASE r evised reference range effective 22. New Lipase methodology. Expected to produce lower values than the previous assay method. NEW Reference Range: 13 - 75 U/L MCV (mean corpuscular volume ) determinationOrdered By: Artis Bustillos on 12-26-2024 MCV (RBC) [Entitic vol] 85.2 fL 80-94 [facility] Mean corpuscular hemoglobin (MCH) determinationOrdered By: Artis Bustillos on 12-26-2024 MCH (RBC) [Entitic mass] 29.2 pg 27.0-32.0 [facility] Mean corpuscular hemoglobin concentration (MCHC) determinationOrdered By: Artis Bustillos on 12-26-2024 MCHC (RBC) [Mass/Vol] 34.3 g/dL 32-36 [facility] Mean platelet volume determi nationOrdered By: Artis Bustillos on 12-26-2024 Platelet mean volume (Bld) [Entitic vol] 9.6 fL 6.2-12.0 [facility] Microscopic analysis of urin e for red blood cells (RBC)Ordered By: Artis Bustillos on 12-26-2024 Microscopic analysis of urine for red blood cells (RBC) 0 SEEN /hpf 0-5 [facility] Monocyte percentageOrdered B y: Artis Bustillos on 12-26-2024 Monocytes/100 WBC (Bld) 7.3 % 0-10 [facility] Mucus LM Ql (Urine sed)Order ed By: Artis Bustillos on 12-26-2024 Mucus Ql (Urine sed) 0 SEEN /hpf [facility] Neutrophil percentageOrdered By: Artis Bustillos on 12-26-2024 Neutrophils/100 WBC (Bld) 52.6 % 47-70 [facility] Nitrite Test strip Ql (U)Ord ered By: Artis Bustillos on 12-26-2024 Nitrite Ql (U) Negative Negative [facility] Nucleated red blood cell per centageOrdered By: Artis Bustillos on 12-26-2024 Nucleated RBC/100 WBC (Bld) [Ratio] 0 % 0-5 [facility] Platelet countOrdered By: Freddy Bustillos on 12-26-2024 Platelets (Bld) [#/Vol] 333 10*3/uL 150-450 [facility] Platelet estimateOrdered By: Artis Bustillos on 12-26-2024 Platelets LM Ql (Bld) ADEQUATE ADEQ [facility] Potassium measurement (mass/ volume)Ordered By: Artis Bustillos on 12-26-2024 Potassium (Unsp spec) [Mass/Vol] 3.6 mmol/L 3.3-5.1 [facility] Protein Test strip Ql (U)Ord ered By: Artis Bustillos on 12-26-2024 Protein Ql (U) 15 mg/dl High Negative [facility] RBC Auto (Bld) [#/Vol]Ordere d By: Artis Bustillos on 12-26-2024 RBC (Bld) [#/Vol] 5.61 10*6/uL 4.6-6.2 [facility] Serum creatinine measurement (mass/volume)Ordered By: Artis Bustillos on 12-26-2024 Creatinine [Mass/Vol] 1.04 mg/dL 0.70-1.20 [facility] Serum globulin measurementOr dered By: Artis Bustillos on 12-26-2024 Globulin (S) [Mass/Vol] 3.1 g/dL 2.2-4.2 [facility] Serum glucose measurement (m ass/volume)Ordered By: Artis Bustillos on 12-26-2024 Glucose [Mass/Vol] 108 mg/dL High 70-99 [facility] Serum or plasma alanine saenz otransferase (ALT) measurementOrdered By: Artis Bustillos on 12-26-2024 ALT [Catalytic activity/Vol] 95 U/L High <47 [facility] Serum or plasma albumin ronen urement (mass/volume)Ordered By: Artis Bustillos on 12-26-2024 Albumin [Mass/Vol] 4.6 g/dL 3.5-5.0 [facility] Serum or plasma albumin/glob ulin mass ratioOrdered By: Artis Bustillos on 12-26-2024 Albumin/Globulin [Mass ratio] 1.5 {ratio} 0.9-2.4 [facility] Serum or plasma alkaline jb sphatase measurementOrdered By: Artis Bustillos on 12-26-2024 ALP [Catalytic activity/Vol] 110 U/L 40-129 [facility] Serum or plasma calcium ronen urement (mass/volume)Ordered By: Artis Bustillos on 12-26-2024 Calcium [Mass/Vol] 9.8 mg/dL 7.6-11.0 [facility] Serum or plasma urea nitroge n measurement (mass/volume)Ordered By: Artis Bustillos on 12-26-2024 Urea nitrogen [Mass/Vol] 13 mg/dL 4-19 [facility] Sodium levelOrdered By: Artis Bustillos on 12-26-2024 Sodium [Moles/Vol] 139 mmol/L 133-145 [facility] Squamous epithelial cells de tection in urine sediment by light microscopyOrdered By: Artis Bustillos on 12-26-2024 Epithelial cells.squamous LM Ql (Urine sed) 0-5 SEEN /hpf 0-5 [facility] Total proteinOrdered By: Mango Bustillos on 12-26-2024 Protein [Mass/Vol] 7.7 g/dL 5.9-8.4 [facility] Urinalysis, Completeon 12-26 EPI,SQUAMOUS 0-5 SEEN Normal 0-5 [facility] Comment on above: Order Comment: CLEAN CATCH Performed By: #### L 400.0001 #### [facility] [address] [place], [address] WBC 0-5 SEEN Normal 0-5 [facility] Comment on above: Order Comment: CLEAN CATCH Performed By: #### L 400.0001 #### [facility] [address] [place], [address] BACTERIA 0 SEEN Normal None Seen [facility] Comment on above: Order Comment: CLEAN CATCH Performed By: #### L 400.0001 #### [facility] [address] [place], [address] Mucus Ql (Urine sed) 0 SEEN Normal [facility] [place] [facility] Comment on above: Order Comment: CLEAN CATCH Performed By: #### L 400.0001 #### [facility] [address] [place], [address] RBC 0 SEEN Normal 0-5 [facility] Comment on above: Order Comment: CLEAN CATCH Performed By: #### L 400.0001 #### [facility] [address] [place], [address] Urine clarityOrdered By: Mango Bustillos on 12-26-2024 Clarity (U) Clear Clear [facility] Urine color determinationOrd ered By: Artis Bustillos on 12-26-2024 Color (U) Straw Yellow [facility] Urine glucose detectionOrder ed By: Artis Bustillos on 12-26-2024 Glucose Ql (U) Normal mg/dl Normal [facility] Urine leukocyte esterase det ection by dipstickOrdered By: Artis Bustillos on 12-26-2024 Leukocyte esterase Test strip Ql (U) Negative Negative [facility] Urine pHOrdered By: Artis frankel on 12-26-2024 pH (U) 6.0 [pH] 5.0 - 8.0 [facility] Urine sediment bacteria coun t by microscopy (number/high power field)Ordered By: Artis Bustillos on 12-26-2024 Bacteria LM.HPF (Urine sed) [#/Area] 0 /[HPF] None Seen [facility] Urine specific gravity measu rementOrdered By: Artis Bustillos on 12-26-2024 Specific gravity (U) [Rel density] 1.015 1.002-1.030 [facility] Urine urobilinogen measureme ntOrdered By: Artis Bustillos on 12-26-2024 Urobilinogen Ql (U) Normal mg/dl Normal [facility] White blood cell (WBC) count Ordered By: Artis Bustillos on 12-26-2024 WBC (Bld) [#/Vol] 11.9 10*3/uL High 4.4-11.0 [facility] White blood cell countOrdere d By: Artis Bustillos on 12-26-2024 White blood cell count 0-5 SEEN /hpf 0-5 [facility] CNOVon 08-27-2024 CNOV Office Visit (PULMWS ) MAX ROMERO ([id number]) 1995 Date Time Provider Department 08/27/24 3:30 PM ROBERTA GONSALES PULMWS During your visit today, we recorded the following information about you: Pulse Respiration Weight 108/minute 18/minute 99.8 kg Roberta Gonsales APRN.[employer] KETTLE 08/27/2024 5:24 PM Signed Pulmonary Medicine Patients [...] Severe recurrent major depression without psychotic features ([facility]) 12/29/2022 Allergies: No Known Allergies Medication List [...] J45.40 (prima (more content not included)... Normal [facility] No Panel Informationon 08-27 Yari Olivares R [...] 16.0 03/09/2023 160.0 (A) NAME: Yari Olivares, DRILLING ASSISTANT PATIENT NAME: Max Romero DATE: August 27, 2024 TIME: 3:27 PM [facility] Basic metabolic 2000 panelon 08-14-2024 Anion gap [Moles/Vol] 13 mmol/L Normal 8-15 [facility] Comment on above: Order Comment: Surinder handley Type: BLOOD SPECIMEN Ordering Facility: [facility] Address: [address] [place] [address] Performed By: #### 2 4321-2 #### [facility] CLIA [id number] [address] [place] [address] [place] Calcium [Mass/Vol] 10.2 mg/dL Normal 8.5-10.2 [facility] Comment on above: Order Comment: Surinder handley Type: BLOOD SPECIMEN Ordering Facility: [facility] Address: [address] [place] [address] Performed By: #### 2 4321-2 #### [facility] CLIA [id number] [place], [place] [id number] [place] Chloride [Moles/Vol] 99 mmol/L Normal 98-107 [facility] Comment on above: Order Comment: Surinder handley Type: BLOOD SPECIMEN Ordering Facility: [facility] Address: [address] [place] [address] Performed By: #### 2 4321-2 #### [facility] CLIA [id number] [address] [place] [address] [place] CO2 [Moles/Vol] 25 mmol/L Normal 22-30 [facility] Comment on above: Order Comment: Surinder handley Type: BLOOD SPECIMEN Ordering Facility: [facility] Address: [address] [place] [address] Performed By: #### 2 4321-2 #### [facility] CLIA [id number] [address] [place] [id number] [place] Creatinine [Mass/Vol] 1.01 mg/dL Normal 0.73-1.22 [facility] Comment on above: Order Comment: Surinder men Type: BLOOD SPECIMEN Ordering Facility: [facility] Address: [address] [place] [address] Performed By: #### 2 4321-2 #### [facility] CLIA [id number] [address] [place] [id number] [place] Creatinine and Glomerular filtration rate.predicted panel (S/P/Bld) 104 mL/min/1.73m??? Normal >=60 [facility] Comment on above: Order Comment: Surinder handley Type: BLOOD SPECIMEN Ordering Facility: [facility] Address: [address] [place] [address] Result Comment: Diamante mated Glomerular Filtration Rate [...] #### 2 4321-2 #### [facility] CLIA [id number] [address] [place] [id number] [place] Glucose [Mass/Vol] 99 mg/dL Normal 74-99 [facility] Comment on above: Order Comment: Surinder handley Type: BLOOD SPECIMEN Ordering Facility: [facility] Address: [address] [place] [address] Result Comment: The [place] Diabetes [employer] (ADA) provides guidance for cutoff [...] Standards of Medical Care in Diabetes 2016, [place] [employer]. Diabetes Care. 2016.39(Suppl 1). Performed By: #### 2 4321-2 #### [facility] CLIA [id number] [place] [address] [place] Potassium [Moles/Vol] 4.4 mmol/L Normal 3.7-5.1 [facility] Comment on above: Order Comment: Surinder handley Type: BLOOD SPECIMEN Ordering Facility: [facility] Address: [address] [place] [address] Performed By: #### 2 4321-2 #### [facility] CLIA [id number] [address] [place] [address] [place] Sodium [Moles/Vol] 137 mmol/L Normal 136-144 [facility] Comment on above: Order Comment: Surinder handley Type: BLOOD SPECIMEN Ordering Facility: [facility] Address: [address] [place] [address] Performed By: #### 2 4321-2 #### [facility] CLIA [id number] [address] [place] [address] [place] Urea nitrogen [Mass/Vol] 12 mg/dL Normal 9-24 [facility] Comment on above: Order Comment: Surinder handley Type: BLOOD SPECIMEN Ordering Facility: [facility] Address: [address] [place] [address] Performed By: #### 2 4321-2 #### [facility] CLIA [id number] [address] [place] [address] [place] CNOVon 08-14-2024 CNOV Office Visit (INTMWS ) MAX ROMERO ([id number]) 1995 M Date Time Provider Department 08/14/24 4:00 PM ANDREW GARRIDO INTMWS During your visit today, we recorded the following information about you: Pulse Respiration Blood pressure Weight 100/minute 16/minute 124/78 100 kg Andrew Garrido MD 08/14/2024 5:04 PM Signed This note was created using [employer]. Subjective Patient presents with: Physical Max Romero [...] Severe recurrent major depression without psychotic features ([facility]) 12/29/2022 PAST SURGICAL HISTORY Procedure Laterality Date [...] Mood n (more content not included)... Normal [facility] HIV 1+2 Ab IA Qlon 5 HIV 1 and 2 Ab IA.rapid Nom (S/P/Bld) Normal [facility] Comment on above: Order Comment: Speci men Type: BLOOD SPECIMEN Ordering Facility: [facility] Address: [address] [place] [address] Result Comment: Test not indicated. Performed By: #### 3 1201-7 #### [facility] CLIA [id number] [address] [place] [address] [place] HIV 1+2 Ab+HIV1 p24 Ag IA Ql Non-Reactive Normal Nonreactive [facility] Comment on above: Order Comment: Speci men Type: BLOOD SPECIMEN Ordering Facility: [facility] Address: [address] [place] [address] Performed By: #### 3 1201-7 #### [facility] CLIA [id number] [address] [place] [address] [place] HIV immunoassay testing algorithm interpretation (S/P/Bld) [Interp] Normal [facility] Comment on above: Order Comment: Speci men Type: BLOOD SPECIMEN Ordering Facility: [facility] Address: [address] [place] [address] Result Comment: No e vidence of HIV-1 or HIV-2 infection. Should recent infection be suspected, repeat testing may be considered 2-3 weeks after this draw. Stanly Rev. Code 3701.243(E): This information has been [...] diagnoses. Performed By: #### 3 1201-7 #### [facility] CLIA [id number] [address] [place] [address] [place] 03-11-2024 ISRRAEL Telephone (INTMWS) MAX ROMERO ([id number]) 1995 Kristie Date Time Provider Department 03/11/24 SHANA BALDERAS INTKristieWS During your visit today, we recorded the following information about you: Shana Balderas APRN.GLADYS 03/11/2024 12:26 PM Signed Patient scheduled tomorrow for high BP and heart rate. This needs triaged and scheduled for a 40 min visit, not 20 minutes Shana Balderas APRN.Jace Hairston MA 03/11/2024 12:55 PM Signed [...] Encounter Status:Closed by JACE HAYES on 03/11/24 Normal [facility] Eosinophils Auto (Bld) [#/Vo l]on 03-09-2023 Eosinophils (Bld) [#/Vol] 0.19 10*3/uL <0.46 k/uL [facility] No Panel Informationon 03-09 [facility] SPIROMETRY - BASELINE AND PO ST DILATORon 03-09-2023 DMM44-20% POST (L/S) 4.24 L/S [facility] eland [facility] KMY81-61% PRE (L/S) 1.89 L/S [facility] land [facility] FEV1 PRE (L) 3.74 L [facility] FEV1/FVC POST (%) 73 % [facility] nd [facility] FEV1/FVC PRE (%) 62 % [facility] FEV1_POST (L) 4.70 L [facility] FVC POST (L) 6.40 L [facility] FVC PRE (L) 6.05 L [facility] PEF POST (L/S) 8.53 L/S [facility] PEF PRE (L/S) 6.64 L/S [facility] XR CHEST 2 VIEWSon 3 XR CHEST [...] Sign Date: 12/15/2022 10:11:03 PM Ordering Provider: RAOMNA ZARATE On License Of [facility] Absolute lymphocyte countOrd ered By: Dr. Esparza on 07-25-2022 Lymphocytes Auto (Unsp spec) [#/Vol] 3.28 10*3/uL 0.83-4.51 [facility] Basophil percentageOrdered B y: Dr. Esparza on 07-25-2022 Basophils/100 WBC (Bld) 0.7 % 0-1 [facility] Bilirubin [Mass/Vol] 0.50 mg/dL 0.20-1.00 [facility] Comment on above: For patients on eltr ombopag therapy, use of Dimension Moore TBIL is not recommended. Chloride [Moles/Vol] 104 mmol/L 98-107 [facility] Eosinophils/100 WBC (Bld) 3.2 % 0-5 [facility] Glucose [Mass/Vol] 132 mg/dL 74-106 [facility] Comment on above: Fasting Glucose resu lt greater than or equal to 126 mg/dL suggests DIABETES MELLITUS per A.D.A. criteria. Neutrophils (Bld) [#/Vol] 6.3 10*3/uL 2.0-7.7 [facility] Neutrophils/100 WBC (Bld) 58.8 % 47-70 [facility] Potassium [Moles/Vol] 3.4 mmol/L 3.5-5.1 [facility] Protein [Mass/Vol] 7.8 g/dL 6.4-8.2 [facility] Sodium [Moles/Vol] 138 mmol/L 136-145 [facility] WBC (Bld) [#/Vol] 10.8 10*3/uL 4.4-11.0 [facility] Blood erythrocytes count (nu mber/volume)Ordered By: Dr. Esparza on 07-25-2022 RBC (Bld) [#/Vol] 5.38 10*6/uL 4.6-6.2 [facility] Blood hemoglobin measurement (mass/volume)Ordered By: Dr. Esparza on 07-25-2022 Hemoglobin (Bld) [Mass/Vol] 15.8 g/dL 13.0-16.5 [facility] Blood lymphocytes/100 leukoc ytesOrdered By: Dr. Esparza on 07-25-2022 Lymphocytes/100 WBC (Bld) 30.5 % 19-41 [facility] Blood monocytes/100 leukocyt esOrdered By: Dr. Esparza on 07-25-2022 Monocytes/100 WBC (Bld) 6.5 % 0-10 [facility] Blood platelet mean volumeOr dered By: Dr. Esparza on 07-25-2022 Platelet mean volume (Bld) [Entitic vol] 8.8 fL 6.2-12.0 [facility] Determination of erythrocyte mean corpuscular volume (MCV)Ordered By: Dr. Esparza on 07-25-2022 MCV (RBC) [Entitic vol] 85.7 fL 80-94 [facility] Erythrocyte sedimentation ra teOrdered By: Dr. Esparza on 07-25-2022 ESR (Bld) [Velocity] 9 mm/h 0-20 [facility] Hematocrit Auto (Bld) [Volum e fraction]Ordered By: Dr. Esparza on 07-25-2022 Hematocrit (Bld) [Volume fraction] 46.1 % 40-54 [facility] - Chemistry and C hemistry - challengeOrdered By: Dr. Esparza on 07-25-2022 ALP [Catalytic activity/Vol] 95 U/L 45-117 [facility] ALT [Catalytic activity/Vol] 78 U/L 16-61 [facility] CO2 [Moles/Vol] 25.0 mmol/L 21.0-32.0 [facility] Globulin (S) [Mass/Vol] 3.7 g/dL 2.2-4.2 [facility] Lipase [Catalytic activity/Vol] 65 U/L 73-393 [facility] Urea nitrogen/Creatinine [Mass ratio] 10.6 mg/mg 10-20 [facility] - Hematology and Cell countsOrdered By: Dr. Esparza on 07-25-2022 Erythrocyte distribution width (RBC) [Entitic vol] 38.1 fL 35.1-43.9 [facility] Erythrocyte distribution width (RBC) [Ratio] 12.2 % 11.6-14.6 [facility] Immature granulocytes/100 WBC (Bld) 0.300 % 0.0-0.9 [facility] Comment on above: IG% - Immature Granu locytes (promyelocytes, myelocytes and metamyelocytes) > 1% indicates that a LEFT SHIFT is Present. MCH (RBC) [Entitic mass] 29.4 pg 27.0-32.0 [facility] Nucleated RBC/100 WBC (Bld) [Ratio] 0 % 0-5 [facility] MCHC Auto (RBC) [Mass/Vol]Or dered By: Dr. Esparza on 07-25-2022 MCHC (RBC) [Mass/Vol] 34.3 g/dL 32-36 [facility] No Panel InformationOrdered By: Dr. Esparza on 07-25-2022 Estimated Creatinine Clearance Calc 107.64 ml/min [facility] Estimated GFR (MDRD) Amer 111 mL/min >60 [facility] Comment on above: GFR Calc Estimated GFR (MDRD) Non-Af Amer 92 mL/min >60 [facility] Comment on above: Non- GFR Calc Troponin I High Sensitivity < 3 pg/mL 3.0-78.0 [facility] Comment on above: Please Note: New Teresa t Units and Gender Specific Reference Ranges. For more information see Policy Stat Procedure Moore High Sensitivity Troponin (TNIH) and attachments. Platelets bldOrdered By: Dr. Esparza on 07-25-2022 Platelets (Bld) [#/Vol] 286 10*3/uL 150-450 [facility] Serum or plasma albumin rnoen urement (mass/volume)Ordered By: Dr. Esparza on 07-25-2022 Albumin [Mass/Vol] 4.1 g/dL 3.2-5.0 [facility] Serum or plasma albumin/glob ulin mass ratioOrdered By: Dr. Esparza on 07-25-2022 Albumin/Globulin [Mass ratio] 1.1 {ratio} 0.9-2.4 [facility] Serum or plasma calcium ronen urement (mass/volume)Ordered By: Dr. Esparza on 07-25-2022 Calcium [Mass/Vol] 9.1 mg/dL 8.5-10.1 [facility] Serum or plasma creatinine m easurement (mass/volume)Ordered By: Dr. Esparza on 07-25-2022 Creatinine [Mass/Vol] 1.04 mg/dL 0.70-1.30 [facility] Comment on above: The validity of the calculated GFR & GFRAA in patients over 70 years has not been determined. Clinical correlation is essential. Serum or plasma urea nitroge n measurement (mass/volume)Ordered By: Dr. Esparza on 07-25-2022 Urea nitrogen [Mass/Vol] 11 mg/dL 7-18 [facility] Thin prep Papanicolaou smear with manual screeningOrdered By: Dr. Esparza on 07-25-2022 Thin prep Papanicolaou smear with manual screening 34 U/L 15- [facility] Thin prep Papanicolaou smear with manual screening 9 5-15 [facility] Giardia lamblia ag stool EIA on 11-05-2021 G. lamblia Ag IA Ql (Stl) Negative Negative [facility] Work Phone: Comment on above: Performed at: - [place] [id number] Director: Sb Marquez PhD, Phone: [phone] No Panel Informationon 11-05 Stool Calprotectin <16 ug/g 0-120 [facility] Work Phone: Comment on above: Concentration Interp retation Follow-Up<16 - 50 ug/g Normal None>50 -120 ug/g Borderline Re-evaluate in 4-6 weeks >120 ug/g Abnormal Repeat as clinically indicatedPerformed at: [facility] [address] [id number] Director: Ethel Hercules MD, Phone: [phone] Absolute lymphocyte counton 11-04-2021 Lymphocytes Auto (Unsp spec) [#/Vol] 2.78 10*3/uL 0.83-4.51 [facility] Work Phone: Basophil percentageon 2021 Basophil percentage < 0.2 AI 0.0-0.9 [facility] Work Phone: Basophils/100 WBC (Bld) 0.6 % 0-1 [facility] Work Phone: [phone] Bilirubin [Mass/Vol] 0.50 mg/dL 0.20-1.00 [facility] [place] Work Phone: Comment on above: For patients on eltr ombopag therapy, use of Dimension Moore TBIL is not recommended. Chloride [Moles/Vol] 103 mmol/L 98-107 [facility] [place] Work Phone: [phone] Eosinophils/100 WBC (Bld) 2.6 % 0-5 [facility] Work Phone: Glucose [Mass/Vol] 89 mg/dL 74-106 [facility] Work Phone: Neutrophils (Bld) [#/Vol] 5.8 10*3/uL 2.0-7.7 [facility] Work Phone: [phone] Neutrophils/100 WBC (Bld) 61.8 % 47-70 [facility] Work Phone: [phone] Potassium [Moles/Vol] 4.0 mmol/L 3.5-5.1 [facility] Work Phone: [phone] Protein [Mass/Vol] 8.3 g/dL 6.4-8.2 [facility] Work Phone: [phone] Sodium [Moles/Vol] 138 mmol/L 136-145 [facility] Work Phone: [phone] WBC (Bld) [#/Vol] 9.4 10*3/uL 4.4-11.0 [facility] Work Phone: [phone] Blood erythrocytes count (nu mber/volume)on 11-04-2021 RBC (Bld) [#/Vol] 5.71 10*6/uL 4.6-6.2 [facility] Work Phone: [phone] Blood hemoglobin measurement (mass/volume)on 11-04-2021 Hemoglobin (Bld) [Mass/Vol] 17.1 g/dL 13.0-16.5 [facility] Work Phone: [phone] Blood lymphocytes/100 leukoc yteson 11-04-2021 Lymphocytes/100 WBC (Bld) 29.5 % 19-41 [facility] Work Phone: Blood monocytes/100 leukocyt eson 11-04-2021 Monocytes/100 WBC (Bld) 5.2 % 0-10 [facility] Work Phone: Blood platelet mean volumeon 11-04-2021 Platelet mean volume (Bld) [Entitic vol] 9.1 fL 6.2-12.0 [facility] Work Phone: Determination of erythrocyte mean corpuscular volume (MCV)on 11-04-2021 MCV (RBC) [Entitic vol] 86.3 fL 80-94 [facility] Work Phone: Erythrocyte sedimentation ra ramesh 11-04-2021 ESR (Bld) [Velocity] 4 mm/h 0-20 [facility] Work Phone: Hematocrit Auto (Bld) [Volum e fraction]on 11-04-2021 Hematocrit (Bld) [Volume fraction] 49.3 % 40-54 [facility] Work Phone: Laboratory - Chemistry and C hemistry - challengeon 11-04-2021 ALP [Catalytic activity/Vol] 87 U/L 45-117 [facility] Work Phone: ALT [Catalytic activity/Vol] 50 U/L 16-61 [facility] Work Phone: CO2 [Moles/Vol] 31.0 mmol/L 21.0-32.0 [facility] Work Phone: Globulin (S) [Mass/Vol] 3.6 g/dL 2.2-4.2 [facility] Work Phone: Urea nitrogen/Creatinine [Mass ratio] 11.8 mg/mg 10-20 [facility] Work Phone: Laboratory - Hematology and Cell countson 11-04-2021 Erythrocyte distribution width (RBC) [Entitic vol] 38.0 fL 35.1-43.9 [facility] Work Phone: Erythrocyte distribution width (RBC) [Ratio] 11.9 % 11.6-14.6 [facility] Work Phone: Immature granulocytes/100 WBC (Bld) 0.300 % 0.0-0.9 [facility] Work Phone: Comment on above: IG% - Immature Granu locytes (promyelocytes, myelocytes and metamyelocytes) > 1% indicates that a LEFT SHIFT is Present. MCH (RBC) [Entitic mass] 29.9 pg 27.0-32.0 [facility] Work Phone: Nucleated RBC/100 WBC (Bld) [Ratio] 0 % 0-5 [facility] Work Phone: MCHC Auto (RBC) [Mass/Vol]on 11-04-2021 MCHC (RBC) [Mass/Vol] 34.7 g/dL 32-36 [facility] Work Phone: No Panel Informationon 11-04 Centromere B Antibody <0.2 AI 0.0-0.9 [facility] Work Phone: Endomysial IgA Antibody Negative Negative [facility] Work Phone: Estimated GFR (MDRD) Amer 126 mL/min >60 [facility] Work Phone: Comment on above: GFR Calc Estimated GFR (MDRD) Non-Af Amer 104 mL/min >60 [facility] Work Phone: Comment on above: Non- GFR Calc GARDE MANGER Antibody 0.2 AI 0.0-0.9 [facility] Work Phone: Platelets bldon 11-04-2021 Platelets (Bld) [#/Vol] 374 10*3/uL 150-450 [facility] Work Phone: Serum DNA double strand anti body assay (units/volume)on 11-04-2021 DNA double strand Ab Qn (S) [IU]/mL 0-9 [facility] Work Phone: Comment on above: Negative <5 Equivoca l 5 - 9 Positive >9 Serum IgA measurement (units /volume)on 11-04-2021 IgA Qn (S) 364 mg/dL 90-386 [facility] Work Phone: Comment on above: Performed at: [address] [id number] Director: Sb Maruqez PhD, Phone: [phone] Serum Yany-1 antibody assay (u nits/volume)on 11-04-2021 Yany-1 extractable nuclear Ab Qn (S) <0.2 AI 0.0-0.9 [facility] Work Phone: Serum Scl-70 extractable nuc lear antibody assay (units/volume)on 11-04-2021 SCL-70 extractable nuclear Ab Qn (S) <0.2 AI 0.0-0.9 [facility] Work Phone: Serum Dawson extractable nucl ear antibody detectionon 11-04-2021 Dawson extractable nuclear Ab Ql (S) <0.2 AI 0.0-0.9 [facility] Work Phone: Serum or plasma C reactive p rotein measurement (mass/volume)on 11-04-2021 CRP [Mass/Vol] mg/L 0.0-3.0 [facility] Work Phone: Comment on above: C-Reactive Protein ( CRP) provides useful information for thediagnosis, therapy and monitoring of inflammatory processesand associated diseases. For the evaluation of Relative Riskfor Cardiovascular Disease, a High Sensitivity CRP (HSCRP)should be ordered. Serum or plasma albumin ronen urement (mass/volume)on 11-04-2021 Albumin [Mass/Vol] 4.7 g/dL 3.2-5.0 [facility] Work Phone: Serum or plasma albumin/glob ulin mass ratioon 11-04-2021 Albumin/Globulin [Mass ratio] 1.3 {ratio} 0.9-2.4 [facility] Work Phone: Serum or plasma calcium ronen urement (mass/volume)on 11-04-2021 Calcium [Mass/Vol] 9.6 mg/dL 8.5-10.1 [facility] Work Phone: Serum or plasma creatinine m easurement (mass/volume)on 11-04-2021 Creatinine [Mass/Vol] 0.93 mg/dL 0.70-1.30 [facility] Work Phone: Comment on above: The validity of the calculated GFR & GFRAA in patients over 70 years has not been determined. Clinical correlation is essential. Serum or plasma urea nitroge n measurement (mass/volume)on 11-04-2021 Urea nitrogen [Mass/Vol] 11 mg/dL 7-18 [facility] Work Phone: Serum tissue transglutaminas e IgA antibody assay (units/volume)on 11-04-2021 tTG IgA Qn (S) <2 U/mL 0-3 [facility] Work Phone: Comment on above: Negative 0 - 3 Weak Positive 4 - 10 Positive >10 Tissue Transglutaminase (tTG) has been identified as the endomysial antigen. Studies have demonstr- ated that endomysial IgA antibodies have over 99% specificity for gluten sensitive enteropathy. Thin prep Papanicolaou smear with manual screeningon 11-04-2021 Thin prep Papanicolaou smear with manual screening 19 U/L 15-37 [facility] Work Phone: Thin prep Papanicolaou smear with manual screening 4 5-15 [facility] Work Phone: Absolute lymphocyte counton 10-31-2021 Lymphocytes Auto (Unsp spec) [#/Vol] 3.38 10*3/uL 0.83-4.51 [facility] Work Phone: Basophil percentageon 2021 Basophils/100 WBC (Bld) 0.6 % 0-1 [facility] Work Phone: Eosinophils/100 WBC (Bld) 3.3 % 0-5 [facility] Work Phone: Neutrophils (Bld) [#/Vol] 8.7 10*3/uL 2.0-7.7 [facility] Work Phone: Neutrophils/100 WBC (Bld) 65.0 % 47-70 [facility] Work Phone: [phone] WBC (Bld) [#/Vol] 13.4 10*3/uL 4.4-11.0 [facility] Work Phone: Blood erythrocytes count (nu mber/volume)on 10-31-2021 RBC (Bld) [#/Vol] 5.51 10*6/uL 4.6-6.2 [facility] Work Phone: Blood hemoglobin measurement (mass/volume)on 10-31-2021 Hemoglobin (Bld) [Mass/Vol] 16.5 g/dL 13.0-16.5 [facility] Work Phone: Blood lymphocytes/100 leukoc yteson 10-31-2021 Lymphocytes/100 WBC (Bld) 25.3 % 19-41 [facility] Work Phone: Blood monocytes/100 leukocyt eson 10-31-2021 Monocytes/100 WBC (Bld) 5.5 % 0-10 [facility] Work Phone: Blood platelet mean volumeon 10-31-2021 Platelet mean volume (Bld) [Entitic vol] 8.7 fL 6.2-12.0 [facility] Work Phone: Determination of erythrocyte mean corpuscular volume (MCV)on 10-31-2021 MCV (RBC) [Entitic vol] 86.6 fL 80-94 [facility] Work Phone: Hematocrit Auto (Bld) [Volum e fraction]on 10-31-2021 Hematocrit (Bld) [Volume fraction] 47.7 % 40-54 [facility] Work Phone: Laboratory - Hematology and Cell countson 10-31-2021 Erythrocyte distribution width (RBC) [Entitic vol] 38.0 fL 35.1-43.9 [facility] Work Phone: Erythrocyte distribution width (RBC) [Ratio] 11.9 % 11.6-14.6 [facility] Work Phone: Immature granulocytes/100 WBC (Bld) 0.300 % 0.0-0.9 [facility] Work Phone: Comment on above: IG% - Immature Granu locytes (promyelocytes, myelocytes and metamyelocytes) > 1% indicates that a LEFT SHIFT is Present. MCH (RBC) [Entitic mass] 29.9 pg 27.0-32.0 [facility] Work Phone: Nucleated RBC/100 WBC (Bld) [Ratio] 0 % 0-5 [facility] Work Phone: MCHC Auto (RBC) [Mass/Vol]on 10-31-2021 MCHC (RBC) [Mass/Vol] 34.6 g/dL 32-36 [facility] Work Phone: Platelets bldon 10-31-2021 Platelets (Bld) [#/Vol] 312 10*3/uL 150-450 [facility] Work Phone: Absolute lymphocyte counton 10-11-2021 Lymphocytes Auto (Unsp spec) [#/Vol] 2.17 10*3/uL 0.83-4.51 [facility] Work Phone: Basophil percentageon 2021 Basophil percentage 0-5 SEEN /hpf 0-5 [facility] Work Phone: Basophils/100 WBC (Bld) 0.6 % 0-1 [facility] Work Phone: Chloride [Moles/Vol] 104 mmol/L 98-107 [facility] Work Phone: Eosinophils/100 WBC (Bld) 2.2 % 0-5 [facility] Work Phone: Glucose [Mass/Vol] 98 mg/dL 74-106 [facility] Work Phone: Neutrophils (Bld) [#/Vol] 5.7 10*3/uL 2.0-7.7 [facility] Work Phone: Neutrophils/100 WBC (Bld) 65.3 % 47-70 [facility] Work Phone: Potassium [Moles/Vol] 4.1 mmol/L 3.5-5.1 [facility] Work Phone: Sodium [Moles/Vol] 138 mmol/L 136-145 [facility] Work Phone: [phone] WBC (Bld) [#/Vol] 8.7 10*3/uL 4.4-11.0 [facility] Work Phone: Bilirubin Test strip Ql (U)o n 10-11-2021 Bilirubin Ql (U) Negative Negative [facility] Work Phone: Blood erythrocytes count (nu mber/volume)on 10-11-2021 RBC (Bld) [#/Vol] 5.67 10*6/uL 4.6-6.2 [facility]: Blood hemoglobin measurement (mass/volume)on 10-11-2021 Hemoglobin (Bld) [Mass/Vol] 16.8 g/dL 13.0-16.5 [facility] Work Phone: Blood lymphocytes/100 leukoc yteson 10-11-2021 Lymphocytes/100 WBC (Bld) 25.1 % 19-41 [facility] Work Phone: [phone] Blood monocytes/100 leukocyt eson 10-11-2021 Monocytes/100 WBC (Bld) 6.6 % 0-10 [facility] Work Phone: Blood platelet mean volumeon 10-11-2021 Platelet mean volume (Bld) [Entitic vol] 9.0 fL 6.2-12.0 [facility] Work Phone: Determination of erythrocyte mean corpuscular volume (MCV)on 10-11-2021 MCV (RBC) [Entitic vol] 87.3 fL 80-94 [facility] Work Phone: Hematocrit Auto (Bld) [Volum e fraction]on 10-11-2021 Hematocrit (Bld) [Volume fraction] 49.5 % 40-54 [facility] Work Phone: Ketones Test strip Ql (U)on 10-11-2021 Ketones Ql (U) Negative Negative [facility] Work Phone: Laboratory - Chemistry and C hemistry - challengeon 10-11-2021 CO2 [Moles/Vol] 30.0 mmol/L 21.0-32.0 [facility] Work Phone: Urea nitrogen/Creatinine [Mass ratio] 11.5 mg/mg 10-20 [facility] Work Phone: Laboratory - Hematology and Cell countson 10-11-2021 Erythrocyte distribution width (RBC) [Entitic vol] 39.1 fL 35.1-43.9 [facility] Work Phone: Erythrocyte distribution width (RBC) [Ratio] 12.3 % 11.6-14.6 [facility] Work Phone: Immature granulocytes/100 WBC (Bld) 0.200 % 0.0-0.9 [facility] Work Phone: Comment on above: IG% - Immature Granu locytes (promyelocytes, myelocytes and metamyelocytes) > 1% indicates that a LEFT SHIFT is Present. MCH (RBC) [Entitic mass] 29.6 pg 27.0-32.0 [facility] Work Phone: Nucleated RBC/100 WBC (Bld) [Ratio] 0 % 0-5 [facility] Work Phone: MCHC Auto (RBC) [Mass/Vol]on 10-11-2021 MCHC (RBC) [Mass/Vol] 33.9 g/dL 32-36 [facility] Work Phone: Mucus LM Ql (Urine sed)on Mucus Ql (Urine sed) 0 SEEN /hpf [facility] Work Phone: Nitrite Test strip Ql (U)on 10-11-2021 Nitrite Ql (U) Negative Negative [facility] Work Phone: No Panel Informationon 10-11 Estimated Creatinine Clearance Calc 122.73 ml/min [facility] Work Phone: Estimated GFR (MDRD) Amer 123 mL/min >60 [facility] Work Phone: Comment on above: GFR Calc Estimated GFR (MDRD) Non-Af Amer 102 mL/min >60 [facility] Work Phone: Comment on above: Non- GFR Calc Platelets bldon 10-11-2021 Platelets (Bld) [#/Vol] 316 10*3/uL 150-450 [facility] Work Phone: Protein Test strip Ql (U)on 10-11-2021 Protein Ql (U) Negative Negative [facility] Work Phone: Serum or plasma calcium ronen urement (mass/volume)on 10-11-2021 Calcium [Mass/Vol] 9.8 mg/dL 8.5-10.1 [facility] Work Phone: Serum or plasma creatinine m easurement (mass/volume)on 10-11-2021 Creatinine [Mass/Vol] 0.95 mg/dL 0.70-1.30 [facility] Work Phone: Comment on above: The validity of the calculated GFR & GFRAA in patients over 70 years has not been determined. Clinical correlation is essential. Serum or plasma urea nitroge n measurement (mass/volume)on 10-11-2021 Urea nitrogen [Mass/Vol] 11 mg/dL 7-18 [facility] Work Phone: Squamous epithelial cells de tection in urine sediment by light microscopyon 10-11-2021 Epithelial cells.squamous LM Ql (Urine sed) 0-5 SEEN /hpf 0-5 [facility] Work Phone: Thin prep Papanicolaou smear with manual screeningon 10-11-2021 Thin prep Papanicolaou smear with manual screening 4 5-15 [facility] Work Phone: Urine blood detectionon 09-19 RBC Ql (U) 0 SEEN /hpf 0-5 [facility] Work Phone: RBC Ql (U) Negative Negative [facility] Work Phone: Urine clarityon 10-11-2021 Clarity (U) Sl. Cloudy Clear [facility] Work Phone: Urine color determinationon 10-11-2021 Color (U) Yellow Yellow [facility] Work Phone: Urine glucose detectionon Glucose Ql (U) Normal mg/dl Normal [facility] Work Phone: Urine leukocyte esterase det ection by dipstickon 10-11-2021 Leukocyte esterase Test strip Ql (U) 100 /ul Negative [facility] Work Phone: Urine pHon 10-11-2021 pH (U) 6.5 [pH] 5.0 - 8.0 [facility] Work Phone: Urine sediment bacteria coun t by microscopy (number/high power field)on 10-11-2021 Bacteria LM.HPF (Urine sed) [#/Area] RARE /hpf None Seen [facility] Work Phone: Urine specific gravity measu rementon 10-11-2021 Specific gravity (U) [Rel density] 1.010 1.002-1.030 [facility] Work Phone: Urobilinogen Auto test strip Ql (U)on 10-11-2021 Urobilinogen Ql (U) Normal mg/dl Normal [facility] Work Phone: LABORATORYOrdered By: Nicole Abreu on 02-28-2021 Adenovirus DNA HAMZAH+non-probe Ql (Nph) Not Detected *NA* (02/28/21 12:17 AM) Invalid Interpretation Code Not Detected AH Auto Viro/Sero SS ADMITTED TO INTENSIVE CARE UNIT FOR CONDITION OF INTEREST:FIND:PT:^GRACE ENT:ORD: No (02/28/21 12:17 AM) Invalid Interpretation [...] Auto Viro/Sero SS EMPLOYED IN A HEALTHCARE SETTING:FIND:PT:^PATIE NT:ORD: No (02/28/21 12:17 AM) Invalid Interpretation Code AH Auto Viro/Sero SS FIRST TEST FOR CONDITION OF INTEREST:FIND:PT:^GRACE ENT:ORD: Unknown (02/28/21 12:17 AM) Invalid Interpretation Code AH Auto Viro/Sero SS FLUAV RNA HAMZAH+non-probe Ql (Nph) Not Detected *NA* (02/28/21 12:17 AM) Invalid Interpretation Code Not Detected AH Auto Viro/Sero SS FLUBV RNA HAMZAH+non-probe Ql (Nph) Not Detected *NA* (02/28/21 12:17 AM) Invalid Interpretation Code Not Detected AH Auto Viro/Sero SS HAS SYMPTOMS RELATED TO CONDITION OF INTEREST:FIND:PT:^GRACE ENT:ORD: Yes (02/28/21 12:17 AM) Invalid Interpretation Code Auto Viro/Sero SS hMPV RNA HAMZAH+non-probe Ql (Nph) Not Detected *NA* (02/28/21 12:17 AM) Invalid Interpretation Code Not Detected AH Auto Viro/Sero SS Illness or injury onset date and time [id number] Invalid Interpretation Code AH Auto Viro/Sero SS M. pneumoniae DNA HAMZAH+non-probe Ql (Nph) Not Detected *NA* (02/28/21 12:17 AM) Invalid Interpretation Code Not Detected AH Auto Viro/Sero SS Parainfluenza virus 1 RNA HAMZAH+non-probe Ql (Nph) Not Detected *NA* (02/28/21 12:17 AM) Invalid Interpretation Code Not Detected AH Auto Viro/Sero SS Parainfluenza virus 2 RNA HAMZAH+non-probe Ql (Nph) Not Detected *NA* (02/28/21 12:17 AM) Invalid Interpretation Code Not Detected AH Auto Viro/Sero SS Parainfluenza virus 3 RNA HAMZAH+non-probe Ql (Nph) Not Detected *NA* (02/28/21 12:17 AM) Invalid Interpretation Code Not Detected AH Auto Viro/Sero SS Parainfluenza virus 4 RNA HAMZAH+non-probe Ql (Nph) Not Detected *NA* (02/28/21 12:17 AM) Invalid Interpretation Code Not Detected AH Auto Viro/Sero SS Patient was hospitalized because of this condition No (02/28/21 12:17 AM) Invalid Interpretation Code AH Auto Viro/Sero SS status Not (02/28/21 12:17 AM) Invalid Interpretation Code AH Auto Viro/Sero SS RESIDES IN A CONGREGATE CARE SETTING:FIND:PT:^PATIE NT:ORD: No (02/28/21 12:17 AM) Invalid Interpretation Code AH Auto Viro/Sero SS Rhinovirus+Enterovirus RNA HAMZAH+non-probe Ql (Nph) Not Detected *NA* (02/28/21 12:17 AM) Invalid Interpretation Code Not Detected AH Auto Viro/Sero SS RSV RNA HAMZAH+non-probe Ql (Nph) Not Detected *NA* (02/28/21 12:17 AM) Invalid Interpretation Code Not Detected AH Auto Viro/Sero SS SARS-CoV-2 (COVID-19) RNA HAMZAH+probe Ql (Unsp spec) Detected 1 *ABN* (02/28/21 12:17 AM) Invalid Interpretation Code Not Detected AH Auto Viro/Sero SS Comment on above: Result Comment: This organism causes a reportable disease. Infection Control has been notified. Results have been reported to the [facility]. CR Chest PA/LATon 10-17-2018 CR Chest PA/LAT Patient Name: NEYMAR ROMERO Diagnostic Radiology Exam Date/Time 10/17/2018 14:00:20 EDT Exam CR Chest PA/LAT Ordering Physician MD DAWSON GREGORY M Accession Number [id number] CPT4 Codes 47492 () Reason For Exam cp Report EXAMINATION: [...] Transcribed Date and Time: 10/17/2018 2:19 Normal [facility] CR Spine Lumbosacral 2 or 3 Viewson 09-21-2018 CR Spine Lumbosacral 2 or 3 Views Patient Name: NEYMAR ROMERO Diagnostic Radiology Exam Date/Time 09/21/2018 20:59:45 EDT Exam CR Spine Lumbosacral 2 or 3 Views Ordering Physician ALEX JUARES CARA J Accession Number [id number] CPT4 Codes 78815 () Reason For Exam left low back [...] Transcribed Date and Time: 09/21/2018 9:25 Normal [facility] CT Abdomen/Pelvis w/ Contras ton 08-19-2018 CT Abdomen/Pelvis w/ Contrast Patient Name: LUCITA ROMERO CT Exam Date/Time 08/18/2018 23:07:[address] Abdomen/Pelvis w/ IV Contrast (IV Onl Ordering Physician GLADYS CURIEL DANIEL M Accession Number [id number] CPT4 Codes 82679 (CT Abdomen/Pelvis w/ IV Contrast (IV Onl), Q9967 (CT ISOVUE [id number]) Reason For Exam RLQ abdominal pain [...] No acute findings. Report Dictated on Workstation: [id number] Final Dictating Physician: MD GOSS WENDELL Signed Date and Time: 08/18/2018 11:20 pm Signed by: MD GOSS WENDELL Transcribed Date and Time: 08/18/2018 11:21 Normal [facility] Comp Metabolic Panelon 08-19 ALP enzyme act/vol 94 U/L Normal 38-126 [facility] Comment on above: Performed By: #### H KRISTI CMP3 ####[place] [address] [place] [address] ALT enzyme act/vol 75 U/L High 13-69 [facility] Comment on above: Performed By: #### H KRISTI CMP3 ####[place] [address] [facility] [place] [address] AST enzyme act/vol 32 U/L Normal 15-46 [facility] Comment on above: Performed By: #### H KRISTI CMP3 ####[place] [address] [facility] [place] [address] Bilirubin mass conc 0.7 mg/dL Normal 0.2-1.3 [facility] Comment on above: Performed By: #### H KRISTI CMP3 ####[place] [address] [facility] [place] [address] Calcium mass conc 9.7 mg/dL Normal 8.4-10.4 [facility] Comment on above: Performed By: #### H KRISTI CMP3 ####[place] [address] [facility] [place] [address] Glucose mass conc 98 mg/dL Normal 70-100 [facility] Comment on above: Performed By: #### H EMDF, CMP3 ####[place] [address] [place] [address] Protein mass conc 8.1 g/dL Normal 6.3-8.2 [facility] Comment on above: Performed By: #### H EMDF, CMP3 ####[place] [address] [place] [address] Urea nitrogen mass conc 9 mg/dL Normal 7-20 [facility] Comment on above: Performed By: #### H EMDF, CMP3 ####[place] [address] [place] [address] Anion gap molar conc 10 Normal [facility] Comment on above: Performed By: #### H EMDF, CMP3 ####[place] [address] [place] [address] CO2 molar conc 32 mmol/L High 22-30 [facility] Comment on above: Performed By: #### H EMDFlash, CMP3 ####[place] [address] [place] [address] Creatinine mass conc 0.89 mg/dL Normal 0.52-1.25 [facility] Comment on above: Performed By: #### H EMDF, CMP3 ####[place] [address] [place] [address] GFR/1.73 sq M predicted among blacks MDRD vol rate/area (S/P/Bld) mL/min/{1.73_m2} Normal >60 [facility] Comment on above: Performed By: #### H EMDF, CMP3 ####[place] [address] [place] [address] GFR/1.73 sq M predicted among non-blacks MDRD vol rate/area (S/P/Bld) mL/min/{1.73_m2} Normal >60 [facility] Comment on above: Result Comment: Sour ce- MDRD equation with creatinine calibration to IDMS(NKDEP) eGFR not recommended for drug dose adjustment Performed By: #### H EMDF, CMP3 ####[place] [address] [place] [address] Albumin mass conc 4.9 g/dL Normal 3.5-5.0 [facility] Comment on above: Performed By: #### H EMDFlash CMP3 ####[facility] [place] [address] Potassium molar conc 3.9 mmol/L Normal 3.5-5.1 [facility] Comment on above: Performed By: #### H EMDF CMP3 ####[facility] [place] [address] Sodium molar conc 143 mmol/L Normal 135-145 [facility] Comment on above: Performed By: #### H EMDF CMP3 ####[facility] [place] [address] Chloride molar conc 101 mmol/L Normal 98-107 [facility] Comment on above: Performed By: #### H EMDF CMP3 ####[place] [address] [place] [address] Hemogram w/ Autodiffon 08-19 Abs Baso Cnt 0.1 10*3/uL Normal 0.0-0.2 [facility] Comment on above: Performed By: #### H EMDF CMP3 ####[facility] [place] [address] Abs Neutrophile Cnt 7.2 10*3/uL High 1.8-7.0 [facility] Comment on above: Performed By: #### H EMDF CMP3 ####[facility] [place] [address] Basophils/100 WBC (Bld) 0.8 % Normal 0.0-2.0 [facility] Comment on above: Performed By: #### H EMDF, CMP3 ####[facility] [place] [address] Eosinophils #/vol (Bld) 0.1 10*3/uL Normal 0.0-0.5 [facility] Comment on above: Performed By: #### H EMDF, CMP3 ####[facility] [place] [address] Eosinophils/100 WBC (Bld) 0.8 % Low 1.0-6.0 [facility] Comment on above: Performed By: #### H EMDF, CMP3 ####[facility] [place] [address] Erythrocyte distribution width Ratio (RBC) 13.1 % Normal 11.5-14.5 [facility] Comment on above: Performed By: #### H EMDF, CMP3 ####[place] [address] [place] [address] Granulocytes/100 WBC (Bld) 74.3 % Normal 40.0-80.0 [facility] Comment on above: Performed By: #### H EMDF, CMP3 ####[place] [address] [place] [address] Hematocrit Volume Fraction (Bld) 45.1 % Normal 40.0-52.0 [facility] Comment on above: Performed By: #### H EMDF, CMP3 ####[place] [address] [place] [address] Hemoglobin mass conc (Bld) 15.7 g/dL Normal 13.0-18.0 [facility] Comment on above: Performed By: #### H EMDF, CMP3 ####[place] [address] [place] [address] Lymphocytes #/vol (Bld) 1.9 10*3/uL Normal 1.0-4.3 [facility] Comment on above: Performed By: #### H EMDF, CMP3 ####[place] [address] [place] [address] Lymphocytes/100 WBC (Bld) 19.3 % Low 20.0-40.0 [facility] Comment on above: Performed By: #### H EMDF, CMP3 ####[place] [address] [place] [address] MCH Entitic mass (RBC) 29.8 pg Normal 26.0-34.0 [facility] Comment on above: Performed By: #### H EMDF, CMP3 ####[place] [address] [place] [address] MCHC mass conc (RBC) 34.8 % Normal 32.0-36.0 [facility] Comment on above: Performed By: #### H EMDF, CMP3 ####[facility] [id number] [place] [address] MCV Entitic volume (RBC) 85.9 fL Normal 80.0-98.0 [facility] Comment on above: Performed By: #### H EMDF, CMP3 ####[facility] [id number] [place] [address] Monocytes #/vol (Bld) 0.5 10*3/uL Normal 0.0-0.8 [facility] Comment on above: Performed By: #### H EMDF, CMP3 ####[facility] [id number] [place] [address] Monocytes/100 WBC (Bld) 4.8 % Normal 2.0-10.0 [facility] Comment on above: Performed By: #### H EMDF, CMP3 ####[id number] [place] [address] Platelet mean volume Entitic volume (Bld) 7.4 fL Normal 7.4-10.4 [facility] Comment on above: Performed By: #### H EMDF, CMP3 ####[facility] [place] [address] Platelets #/vol (Bld) 287 10*3/uL Normal 140-440 [facility] Comment on above: Performed By: #### H EMDF, CMP3 ####[facility] [id number] [place] [address] RBC #/vol (Bld) 5.25 10*6/uL Normal 4.40-5.90 [facility] Comment on above: Performed By: #### H EMDF, CMP3 ####[id number] [place] [address] WBC #/vol (Bld) 9.7 10*3/uL Normal 3.6-10.7 [facility] Comment on above: Performed By: #### H EMDF, CMP3 ####[id number] [place] [address] Basic Metabolic Panelon 03-2 Anion gap molar conc 12 Normal [facility] Comment on above: Performed By: #### H EMDF, BMP3 #### [facility] [address] [place] [address] Calcium mass conc 9.9 mg/dL Normal 8.4-10.4 [facility] Comment on above: Performed By: #### H EMDF, BMP3 #### [facility] [address] [place] [address] CO2 molar conc 29 mmol/L Normal 22-30 [facility] Comment on above: Performed By: #### H EMDF, BMP3 #### [facility] [address] [place] [address] Glucose mass conc 97 mg/dL Normal 70-100 [facility] Comment on above: Performed By: #### H EMDF, BMP3 #### [facility] [address] [place] [address] Urea nitrogen mass conc 15 mg/dL Normal 7-20 [facility] Comment on above: Performed By: #### H EMDF, BMP3 #### [facility] [address] [place] [address] Creatinine mass conc 1.02 mg/dL Normal 0.52-1.25 [facility] Comment on above: Performed By: #### H EMDF, BMP3 #### [facility] [address] [place] [address] GFR/1.73 sq M predicted among blacks MDRD vol rate/area (S/P/Bld) mL/min/{1.73_m2} Normal >60 [facility] Comment on above: Performed By: #### H EMDF, BMP3 #### [facility] [address] [place] [address] GFR/1.73 sq M predicted among non-blacks MDRD vol rate/area (S/P/Bld) mL/min/{1.73_m2} Normal >60 [facility] Comment on above: Result Comment: Sour ce- MDRD equation with creatinine calibration to IDMS(NKDEP) eGFR not recommended for drug dose adjustment Performed By: #### H EMDF, BMP3 #### [facility] [address] [place] [address] Group A Strep Screen by PCRo n 08-15-2018 Group A Strep Screen by PCR Group A Strep Screen by PCR --> Status: F NOT Detected Expected Result: Not Detected Methodology - Real Time PCR (Cepheid) Expected Result: Not Detected Methodology - Real Time PCR (Cepheid) Normal [facility] Comment on above: Performed By: #### S TRP3, RPFAB #### [facility] [address] [place] [address] #### [facility] #### [place] [address] [place] [address] Rapid Flu A AND B, RNAon Rapid Influenza A Not Detected Normal Not Detected [facility] Comment on above: Performed By: #### S TRP3, RPFAB #### [facility] [address] [place] [address] #### [facility] #### [address] Rapid Influenza B Not Detected Normal Not Detected [facility] Comment on above: Performed By: #### S TRP3, RPFAB #### [facility] [address] [place] [address] #### [facility] #### [address] Basic Metabolic Panelon 07-20 Potassium molar conc 4.5 mmol/L Normal 3.5-5.1 [facility] Comment on above: Performed By: #### H EMDF, BMP3 #### [facility] [address] [place] [address] Chloride molar conc 99 mmol/L Normal 98-107 [facility] Comment on above: Performed By: #### H EMDF, BMP3 #### [facility] [address] [place] [address] Sodium molar conc 140 mmol/L Normal 135-145 [facility] Comment on above: Performed By: #### H EMDF, BMP3 #### [facility] [address] [place] [address] Hemogram w/ Autodiffon 08-14 Abs Baso Cnt 0.1 10*3/uL Normal 0.0-0.2 [facility] Comment on above: Performed By: #### H EMDF, BMP3 #### [facility] [address] [place] [address] Abs Neutrophile Cnt 6.8 10*3/uL Normal 1.8-7.0 [facility] Comment on above: Performed By: #### H EMDF, BMP3 #### [facility] [address] [place] [address] Basophils/100 WBC (Bld) 0.6 % Normal 0.0-2.0 [facility] Comment on above: Performed By: #### H EMDF, BMP3 #### [facility] [address] [place] [address] Eosinophils #/vol (Bld) 0.2 10*3/uL Normal 0.0-0.5 [facility] Comment on above: Performed By: #### H EMDF, BMP3 #### [facility] [address] [place] [address] Eosinophils/100 WBC (Bld) 2.1 % Normal 1.0-6.0 [facility] Comment on above: Performed By: #### H EMDF, BMP3 #### [facility] [address] [place] [address] Erythrocyte distribution width Ratio (RBC) 13.4 % Normal 11.5-14.5 [facility] Comment on above: Performed By: #### H EMDF, BMP3 #### [facility] [address] [place] [address] Granulocytes/100 WBC (Bld) 69.0 % Normal 40.0-80.0 [facility] Comment on above: Performed By: #### H EMDF, BMP3 #### [facility] [address] [place] [address] Hematocrit Volume Fraction (Bld) 44.9 % Normal 40.0-52.0 [facility] Comment on above: Performed By: #### H EMDF, BMP3 #### [facility] [address] [place] [address] Hemoglobin mass conc (Bld) 15.5 g/dL Normal 13.0-18.0 [facility] Comment on above: Performed By: #### H EMDF, BMP3 #### [facility] [address] [place] [address] Lymphocytes #/vol (Bld) 2.2 10*3/uL Normal 1.0-4.3 [facility] Comment on above: Performed By: #### H EMDF, BMP3 #### [facility] [address] [place] [address] Lymphocytes/100 WBC (Bld) 22.2 % Normal 20.0-40.0 [facility] Comment on above: Performed By: #### H EMDF, BMP3 #### [facility] [address] [place] [address] MCH Entitic mass (RBC) 29.8 pg Normal 26.0-34.0 [facility] Comment on above: Performed By: #### H EMDF, BMP3 #### [facility] [address] [place] [address] MCHC mass conc (RBC) 34.4 % Normal 32.0-36.0 [facility] Comment on above: Performed By: #### H EMDF, BMP3 #### [facility] [address] [place] [address] MCV Entitic volume (RBC) 86.7 fL Normal 80.0-98.0 [facility] Comment on above: Performed By: #### H EMDF, BMP3 #### [facility] [address] [place] [address] Monocytes #/vol (Bld) 0.6 10*3/uL Normal 0.0-0.8 [facility] Comment on above: Performed By: #### H EMDF, BMP3 #### [facility] [address] [place] [address] Monocytes/100 WBC (Bld) 6.1 % Normal 2.0-10.0 [facility] Comment on above: Performed By: #### H EMDF, BMP3 #### [facility] [address] [place] [address] Platelet mean volume Entitic volume (Bld) 7.1 fL Low 7.4-10.4 [facility] Comment on above: Performed By: #### H EMDF, BMP3 #### [facility] [address] [place] [address] Platelets #/vol (Bld) 269 10*3/uL Normal 140-440 [facility] Comment on above: Performed By: #### H EMDF, BMP3 #### [facility] [address] [place] [address] RBC #/vol (Bld) 5.18 10*6/uL Normal 4.40-5.90 [facility] Comment on above: Performed By: #### H EMDF, BMP3 #### [facility] [address] [place] [address] WBC #/vol (Bld) 9.8 10*3/uL Normal 3.6-10.7 [facility] Comment on above: Performed By: #### H EMDF, BMP3 #### [facility] [address] [place] [address] Strep A Rapidon 08-14-2018 S. pyogenes Ag IA Ql (Unsp spec) see below Normal Negative [facility] Comment on above: Result Comment: NEGA TIVE (presumptive) for Group A Streptococcus antigen. Method: Immunochromatographic assay. Confirmatory testing to follow. Confirmatory testing performed at an additional cost. Performed By: #### S TRP3, RPFAB #### [facility] [address] [place] [address] #### [facility] #### [facility] [address] [place] [address] CR Chest 1 View Frontalon CR Chest 1 View Frontal Patient Name: LUCITA ROMERO Diagnostic Radiology Exam Date/Time 06/05/2018 15:11:30 EST Exam CR Chest 1 View Frontal Ordering Physician DAVIDSON DO, MARTIN Accession Number [id number] CPT4 Codes 53122 () Reason For Exam B [place] Report CHEST - B READ: CLINICAL INDICATION: [...] B reader form. This radiologist is a [facility] certified B reader. Report Dictated on Final Dictating Physician: MD TERRY JEFFREY Signed Date and Time: 06/10/2018 10:05 am Signed by: MD TERRY JEFFREY Transcribed Date and Time: 06/10/2018 10:06 Normal [facility] ED Provider Noteon 03-30- 8 Protein mass conc [facility] ED eMERGENCY dEPARTMENT eNCOUnter Pt Name: Lucita Romero Birthdate 1995 Date of evaluation: 03/30/2018 Provider: Ryan Kapoor, PSYCHOLOGIST EXPERIMENTAL - [employer] This patient was seen within my scope [...] He states that he was using a spinner box that he had just opened, so was [...] lb) Height: 5' 10.5 (1.791 m) Medications Bbxjhor-Wscjmp-Sfbay Pertussis (BOOSTRIX) injection 0.5 mL (0.5 mLs Intramuscular Given 03/30/18 162) naproxen (NAPROSYN) tablet 500 mg (500 mg Oral Given 03/30/18 1624) MDM. His past medical history, past surgical history, and history of present illness were obtained from the patient himself, his girlfriend, nursing staff, and through chart review. Imaging was considered, however, given the fact that this was a spinner box that was freshly opened out of the [...] stable condition and instructed to follow-up with Garo orr, as he states that he does not [...] 03/30/2018 04:33:12 PM PATIENT REFERRED TO: HELENE Renee [facility] [address] Call in 1 day to establish primary care DISCHARGE MEDICATIONS: New Prescriptions No medications on file (Please note: Portions of this note were completed with a voice recognition program.Efforts were made to edit the dictations but occasionally words and phrases are mis-transcribed.) Form v2016.J.5-cn @@ (electronically signed) Emergency Medicine Provider HORACE Cacrees CNP 03/30/18 1643 [facility] ED Provider Noteon 8 Protein mass conc [facility] ED eMERGENCY dEPARTMENT eNCOUnter Pt Name: Lucita Romero Birthdate 1995 Date of evaluation: 03/18/2018 Provider: Alexandre Bolaños APRN - GLADYS I have evaluated this patient on my [...] for level 5) ED Triage Vitals [03/18/18 1941] BP Temp Temp Source Pulse Resp SpO2 [...] COURSE and DIFFERENTIAL DIAGNOSIS/MDM: Vitals: Vitals: 03/18/18 1941 BP: (!) 153/89 Pulse: 98 Resp: 18 [...] 03/18/2018 08:19:56 PM PATIENT REFERRED [place]: [place] [address] DISCHARGE MEDICATIONS: New Prescriptions NAPROXEN (NAPROSYN) 500 MG TABLET Take 1 tablet by mouth 2 times daily (with meals) (Please note: Portions of this note were completed with a voice recognition program. Efforts were made to edit the dictations but occasionally words and phrases are mis-transcribed.) Form v2016.J.[id number] HORACE Sanchez CNP (electronically signed) Emergency Medicine Provider HORACE Sanchez CNP 03/18/182022 [facility] CR Chest PA/LATon 03-16-2018 CR Chest PA/LAT Patient Name: LUCITA ROMERO Diagnostic Radiology Exam Date/Time 03/15/2018 23:41:50 EDT Exam CR Chest PA/LAT Ordering Physician MD SEBASTIAN, TAMIKO Accession Number [id number] CPT4 Codes 52769 () Reason For Exam chest pain Report [...] Transcribed Date and Time: 03/15/2018 11:52 Normal [facility] ED Provider Noteon 8 Protein mass conc [facility] ED eMERGENCY dEPARTMENT eNCOUnter Pt Name: Lucita [...] EKG (03/15/18, 23:10): Rate: 84, Rhythm: sinus, Golden: normal, Intervals: RI 144, QRS 88, QTc 417, Interpretation: no acute ischemic changes, Old: no old to compare RADIOLOGY (Per Emergency Physician): Interpretation per the Radiologist below, ifavailable at the time of this note: Xr Chest Standard (2 Vw) Result Date: 03/15/2018 Patient Name: LUCITA ROMERO ---Diagnostic Radiology--- Exam Date/Time 03/15/2018 23:41:50 EDT Exam CR Chest PA/LAT Ordering Physician MD LOPEZ BETSY Accession Number [id number] CPT4 Codes 17332 () Reason For Exam chest pain Report [...] Discharge 03/16/2018 12:40:44 AM PATIENT REFERRED TO: [address] [address] Schedule an appointment as soon as possible for a visit DISCHARGE MEDICATIONS: New Prescriptions No medications on file (Please note: Portions of this note were completed with a voice recognition program.Efforts were made to edit the dictations but occasionally words and phrases are mis-transcribed.) Form v2016.J.5-cn @@ (electronically signed) Emergency Medicine Provider Tamiko Lopez MD 03/16/18 0041 [facility] No Panel Information Enteric Bacteriology [facility] Work Phone: Vital Signs Date Time Vital Sign Value Performing Clinician Facility 01-06-2025 18:04-0400 Body mass index (BMI) [Ratio] 29.76 kg/m2 Kristin Tapia APRN.CNP Work Phone: [facility] 01-06-2025 18:04-0400 Body temperature 98.29 [degF] Kristin Tapia APRN.CNP Work Phone: [facility] 01-06-2025 18:04-0400 Body weight 92.4 kg Kristin Tapia APRN.CNP Work Phone: [facility] 01-06-2025 18:04-0400 Diastolic blood pressure 70 mm[Hg] Kristin Tapia APRN.CNP Work Phone: [facility] 01-06-2025 18:04-0400 Heart rate 106 /min Kristin Tapia APRN.CNP Work Phone: [facility] 01-06-2025 18:04-0400 Respiratory rate 16 /min Kristin Tapia PSYCHOLOGIST EXPERIMENTAL.[employer] Work Phone: [facility] 01-06-2025 18:04-0400 SaO2% (BldA) [Mass fraction] 97 % Kristin Tapia PSYCHOLOGIST EXPERIMENTAL[employer] Work Phone: [facility] 01-06-2025 18:04-0400 Systolic blood pressure 122 mm[Hg] Kristin Tapia PSYCHOLOGIST EXPERIMENTAL[employer] Work Phone: [facility] 12-26-2024 21:04-0400 Body temperature 98.1 [degF] No Primary Care Physician [facility] 12-26-2024 21:04-0400 Diastolic blood pressure 79 mm[Hg] No Primary Care Physician [facility] 12-26-2024 21:04-0400 Heart rate 100 /min No Primary Care Physician [facility] 12-26-2024 21:04-0400 Respiratory rate 18 /min No Primary Care Physician [facility] 12-26-2024 21:04-0400 SaO2% (BldA) [Mass fraction] 99 % No Primary Care Physician [facility] 12-26-2024 21:04-0400 Systolic blood pressure 132 mm[Hg] No Primary Care Physician [facility] 12-26-2024 18:15-0400 Body height 172.72 cm No Primary Care Physician [facility] 12-26-2024 18:15-0400 Body mass index (BMI) [Ratio] 31.3 kg/m2 No Primary Care Physician [facility] 12-26-2024 18:15-0400 Body weight 93.44 kg No Primary Care Physician [facility] 08-27-2024 15:18-0400 Heart rate 108 /min Roberta Click PSYCHOLOGIST EXPERIMENTAL.[employer] Work Phone: [facility] 08-27-2024 15:18-0400 Respiratory rate 18 /min Roberta Click PSYCHOLOGIST EXPERIMENTAL.[employer] Work Phone: [facility] 08-27-2024 15:18-0400 SaO2% (BldA) [Mass fraction] 98 % Roberta Click PSYCHOLOGIST EXPERIMENTAL.[employer] Work Phone: [facility] 08-14-2024 15:43-0400 Body mass index (BMI) [Ratio] 32.21 kg/m2 Andrew Garrido MD Work Phone: [facility] 08-14-2024 15:43-0400 Body weight 100 kg Andrew Garrido MD Work Phone: [facility] 08-14-2024 15:43-0400 Diastolic blood pressure 78 mm[Hg] Andrew Garrido MD Work Phone: [facility] 08-14-2024 15:43-0400 Heart rate 100 /min Andrew Garrido MD Work Phone: [facility] 08-14-2024 15:43-0400 Respiratory rate 16 /min Andrew Garrido MD Work Phone: [facility] 08-14-2024 15:43-0400 Systolic blood pressure 124 mm[Hg] Andrew Garrido MD Work Phone: [facility] 03-09-2023 10:50-0400 Body height 176.2 cm Tanisha Aguila MD Work Phone: [facility] 03-09-2023 10:50-0400 Body weight 87.09 kg Tanisha Aguila MD Work Phone: [facility] 03-09-2023 10:50-0400 Diastolic blood pressure 84 mm[Hg] Tanisha Aguila MD Work Phone: [facility] 03-09-2023 10:50-0400 Heart rate 67 /min Tanisha Aguila MD Work Phone: [facility] 03-09-2023 10:50-0400 Respiratory rate 14 /min Tanisha Aguila MD Work Phone: [facility] 03-09-2023 10:50-0400 SaO2% (BldA) [Mass fraction] 98 % Tanisha Aguila MD Work Phone: [facility] 03-09-2023 10:50-0400 Systolic blood pressure 118 mm[Hg] Tanisha Aguila MD Work Phone: [facility] 03-09-2023 10:49-0400 Body height 176.2 cm Pulm Wstr Work Phone: [facility] 03-09-2023 10:49-0400 Body weight 87.09 kg Pulm Wstr Work Phone: [facility] 03-09-2023 10:49-0400 Heart rate 67 /min Pulm Wstr Work Phone: [facility] 03-09-2023 10:49-0400 Respiratory rate 14 /min Pulm Wstr Work Phone: [facility] 03-09-2023 10:49-0400 SaO2% (BldA) [Mass fraction] 98 % Pulm Wstr Work Phone: [facility] 12-15-2022 21:31-0400 Heart rate 93 /min RAMONA DURESKA DO [facility] 12-15-2022 21:31-0400 Respiratory rate 18 /min RAMONA DURESKA DO [facility] 12-15-2022 21:23-0400 Heart rate 93 /min RAMONA DURESKA DO [facility] 12-15-2022 21:23-0400 Respiratory rate 18 /min RAMONA DURESKA DO [facility] 12-15-2022 20:54-0400 Body temperature 98.6 [degF] RAMONA DURESKA DO [facility] 12-15-2022 20:54-0400 Diastolic Blood Pressure Non-Invasive 92 1 RAMONA DURESKA DO [facility] 12-15-2022 20:54-0400 Heart rate 100 /min RAMONA DURESKA DO [facility] 12-15-2022 20:54-0400 Respiratory rate 18 /min RAMONA ZARATE DO [facility] 12-15-2022 20:54-0400 Systolic Blood Pressure Non-Invasive 136 1 RAMONA ZARATE DO [facility] 07-25-2022 15:44-0500 Diastolic blood pressure 89 mm[Hg] [facility] 07-25-2022 15:44-0500 Heart rate 90 /min [facility] 07-25-2022 15:44-0500 Respiratory rate 26 /min [facility] 07-25-2022 15:44-0500 SaO2% (BldA) [Mass fraction] 96 % [facility] 07-25-2022 15:44-0500 Systolic blood pressure 135 mm[Hg] [facility] 07-25-2022 14:36-0500 Body height 175.26 cm [facility] 07-25-2022 14:36-0500 Body mass index (BMI) [Ratio] 29.3 kg/m2 [facility] 07-25-2022 14:36-0500 Body temperature 96.4 [degF] [facility] 07-25-2022 14:36-0500 Body weight 90.26 kg [facility] 01-29-2022 10:21-0400 Body height 175.26 cm [employer]OUNDS MAINTENANCE SUPERVISORBalaji Cameron [employer]OUNDS MAINTENANCE SUPERVISOR Work Phone: [facility] Work Phone: 01-29-2022 10:21-0400 Body mass index (BMI) [Ratio] 26.6 kg/m2 [employer] MAINTENAN[employer] SUPERVISORBalaji Cameron GROUNDS MAINTENANCE SUPERVISOR Work Phone: [facility] Work Phone: 01-29-2022 10:21-0400 Body temperature 97.8 [degF] FRANCI Cameron NP Work Phone: [facility] Work Phone: 01-29-2022 10:21-0400 Body weight 81.64 kg [employer] MAINTENANCE SUPERVISOR-C Zachary Cameron GROUNDS MAINTENANCE SUPERVISOR Work Phone: [facility] Work Phone: 01-29-2022 10:21-0400 Diastolic blood pressure 104 mm[Hg] [employer]OUN[employer] MAINTENANCE SUPERVISOR-C Zachary Cameron GROUNDS MAINTENANCE SUPERVISOR Work Phone: [facility] Work Phone: 01-29-2022 10:21-0400 Heart rate 125 /min [employer] MAINTENANCE SUPERVISOR-C Zachary Cameron GROUNDS MAINTENANCE SUPERVISOR Work Phone: [facility] Work Phone: 01-29-2022 10:21-0400 Respiratory rate 16 /min [employer] MAINTENANCE SUPERVISOR-C Zachary Cameron GROUNDS MAINTENANCE SUPERVISOR Work Phone: [facility] Work Phone: 01-29-2022 10:21-0400 SaO2% (BldA) [Mass fraction] 98 % [employer] MAINTENANCE SUPERVISOR-C Zachary Cameron GROUNDS MAINTENANCE SUPERVISOR Work Phone: [facility] Work Phone: 01-29-2022 10:21-0400 Systolic blood pressure 157 mm[Hg] GROUNDS MAINTENANCE SUPERVISOR-C Zachary Cameron GROUNDS MAINTENANCE SUPERVISOR Work Phone: [facility] Work Phone: 11-19-2021 20:38-0400 Heart rate 109 /min GROUNDS MAINTENANCE SUPERVISOR-C Zachary Cameron GROUNDS MAINTENANCE SUPERVISOR Work Phone: [facility] Work Phone: 11-19-2021 20:38-0400 Respiratory rate 16 /min GROUNDS MAINTENANCE SUPERVISOR-C Zachary Cameron GROUNDS MAINTENANCE SUPERVISOR Work Phone: [facility] Work Phone: 11-19-2021 19:46-0400 Body height 177.8 cm GROUNDS MAINTENANCE SUPERVISOR-C Zachary Cameron GROUNDS MAINTENANCE SUPERVISOR Work Phone: [facility] Work Phone: 11-19-2021 19:46-0400 Body mass index (BMI) [Ratio] 27.5 kg/m2 [employer]OUN[employer] MAINTENANCE SUPERVISOR-C Zachary Cameron GROUNDS MAINTENANCE SUPERVISOR Work Phone: [facility] Work Phone: 11-19-2021 19:46-0400 Body temperature 98.1 [degF] GROUNDS MAINTENANCE SUPERVISOR-Jaclyn Cameron GROUNDS MAINTENANCE SUPERVISOR Work Phone: [facility] Work Phone: 11-19-2021 19:46-0400 Body weight 87.08 kg GROUNDS MAINTENANCE SUPERVISOR-Jaclyn Cameron GROUNDS MAINTENANCE SUPERVISOR Work Phone: [facility] Work Phone: 11-19-2021 19:46-0400 Diastolic blood pressure 99 mm[Hg] GROUNDS MAINTENANCE SUPERVISOR-Jaclyn Cameron GROUNDS MAINTENANCE SUPERVISOR Work Phone: [facility] Work Phone: 11-19-2021 19:46-0400 SaO2% (BldA) [Mass fraction] 99 % GROUNDS MAINTENANCE SUPERVISOR-Jaclyn Cameron GROUNDS MAINTENANCE SUPERVISOR Work Phone: [facility] Work Phone: 11-19-2021 19:46-0400 Systolic blood pressure 151 mm[Hg] GROUNDS MAINTENANCE SUPERVISOR-Jaclyn Cameron GROUNDS MAINTENANCE SUPERVISOR Work Phone: [facility] Work Phone: 11-04-2021 12:58-0400 Body height 177.8 cm GROUNDS MAINTENANCE SUPERVISOR-Jaclyn Cameron GROUNDS MAINTENANCE SUPERVISOR Work Phone: [facility] Work Phone: 11-04-2021 12:58-0400 Body mass index (BMI) [Ratio] 27.5 kg/m2 GROUNDS MAINTENANCE SUPERVISOR-Jaclyn Cameron GROUNDS MAINTENANCE SUPERVISOR Work Phone: [facility] Work Phone: 11-04-2021 12:58-0400 Body weight 87.08 kg GROUNDS MAINTENANCE SUPERVISOR-Jaclyn Cameron GROUNDS MAINTENANCE SUPERVISOR Work Phone: [facility] Work Phone: 11-04-2021 12:58-0400 Diastolic blood pressure 90 mm[Hg] GROUNDS MAINTENANCE SUPERVISOR-Jaclyn Cameron GROUNDS MAINTENANCE SUPERVISOR Work Phone: [facility] Work Phone: 11-04-2021 12:58-0400 Heart rate 95 /min GROUNDS MAINTENANCE SUPERVISORBalaji Cameron GROUNDS MAINTENANCE SUPERVISOR Work Phone: [facility] Work Phone: 11-04-2021 12:58-0400 SaO2% (BldA) [Mass fraction] 97 % GROUNDS MAINTENANCE SUPERVISORBalaji Cameron GROUNDS MAINTENANCE SUPERVISOR Work Phone: [facility] Work Phone: 11-04-2021 12:58-0400 Systolic blood pressure 138 mm[Hg] GROUNDS MAINTENANCE SUPERVISOR-Jaclyn Cameron GROUNDS MAINTENANCE SUPERVISOR Work Phone: [facility] Work Phone: 10-31-2021 14:17-0400 Respiratory rate 18 /min [facility] Work Phone: 10-31-2021 13:13-0400 Body height 177.8 cm [facility] Work Phone: 10-31-2021 13:13-0400 Body mass index (BMI) [Ratio] 27.5 kg/m2 [facility] Work Phone: 10-31-2021 13:13-0400 Body temperature 97.6 [degF] [facility] Work Phone: 10-31-2021 13:13-0400 Body weight 86.9 kg [facility] Work Phone: 10-31-2021 13:13-0400 Diastolic blood pressure 104 mm[Hg] [facility] Work Phone: 10-31-2021 13:13-0400 Heart rate 96 /min [facility] Work Phone: 10-31-2021 13:13-0400 SaO2% (BldA) [Mass fraction] 96 % [facility] Work Phone: 10-31-2021 13:13-0400 Systolic blood pressure 130 mm[Hg] [facility] Work Phone: 10-31-2021 12:45-0400 Body temperature 99.1 [degF] [facility].[employer] Work Phone: [facility] 10-31-2021 12:45-0400 Body weight 87.09 kg [facility] PSYCHOLOGIST EXPERIMENTAL.[employer] Work Phone: [facility] 10-31-2021 12:45-0400 Diastolic blood pressure 82 mm[Hg] [facility] PSYCHOLOGIST EXPERIMENTAL.[employer] Work Phone: [facility] 10-31-2021 12:45-0400 Heart rate 112 /min [facility] PSYCHOLOGIST EXPERIMENTAL.[employer] Work Phone: [facility] 10-31-2021 12:45-0400 Respiratory rate 16 /min [facility] PSYCHOLOGIST EXPERIMENTAL.[employer] Work Phone: [facility] 10-31-2021 12:45-0400 SaO2% (BldA) [Mass fraction] 97 % [facility] PSYCHOLOGIST EXPERIMENTAL.[employer] Work Phone: [facility] 10-31-2021 12:45-0400 Systolic blood pressure 126 mm[Hg] Deion [facility] PSYCHOLOGIST EXPERIMENTAL.[employer] Work Phone: [facility] 10-11-2021 17:56-0400 Body height 177.8 cm [facility] Work Phone: 10-11-2021 17:56-0400 Body mass index (BMI) [Ratio] 27.8 kg/m2 [facility] Work Phone: 10-11-2021 17:56-0400 Body temperature 96.2 [degF] [facility] Work Phone: 10-11-2021 17:56-0400 Body weight 87.9 kg [facility] Work Phone: 10-11-2021 17:56-0400 Diastolic blood pressure 95 mm[Hg] [facility] Work Phone: 10-11-2021 17:56-0400 Heart rate 98 /min [facility] Work Phone: 10-11-2021 17:56-0400 Respiratory rate 14 /min [facility] Work Phone: 10-11-2021 17:56-0400 SaO2% (BldA) [Mass fraction] 97 % [facility] Work Phone: 10-11-2021 17:56-0400 Systolic blood pressure 144 mm[Hg] [facility] Work Phone: 09-19-2021 22:11-0400 Diastolic blood pressure 74 mm[Hg] [facility] Work Phone: 09-19-2021 22:11-0400 Heart rate 94 /min [facility] Work Phone: 09-19-2021 22:11-0400 Respiratory rate 18 /min [facility] Work Phone: 09-19-2021 22:11-0400 SaO2% (BldA) [Mass fraction] 99 % [facility] Work Phone: 09-19-2021 22:11-0400 Systolic blood pressure 122 mm[Hg] [facility] Work Phone: 09-19-2021 18:21-0400 Body mass index (BMI) [Ratio] 25.8 kg/m2 [facility] Work Phone: 09-19-2021 18:21-0400 Body temperature 98 [degF] [facility] Work Phone: 09-19-2021 18:21-0400 Body weight 81.64 kg [facility] Work Phone: 06-20-2021 06:39-0500 Heart rate 102 /min [facility] Work Phone: 06-20-2021 06:39-0500 Respiratory rate 18 /min [facility] Work Phone: 06-20-2021 05:51-0500 Body mass index (BMI) [Ratio] 29 kg/m2 [facility] Work Phone: 06-20-2021 05:51-0500 Body temperature 98.1 [degF] [facility] Work Phone: 06-20-2021 05:51-0500 Body weight 86.5 kg [facility] Work Phone: 06-20-2021 05:51-0500 Diastolic blood pressure 90 mm[Hg] [facility] Work Phone: 06-20-2021 05:51-0500 SaO2% (BldA) [Mass fraction] 100 % [facility] Work Phone: 06-20-2021 05:51-0500 Systolic blood pressure 131 mm[Hg] [facility] Work Phone: 02-27-2021 23:57-0400 Body height 177.8 cm KASIE KUNZ MD [facility] 02-27-2021 23:57-0400 Body temperature 98.6 [degF] KASIE KUNZ MD [facility] 02-27-2021 23:57-0400 Body weight 77.3 kg KASIE KUNZ MD [facility] 02-27-2021 23:57-0400 Diastolic blood pressure 78 mm[Hg] KASIE KUNZ MD [facility] 02-27-2021 23:57-0400 Heart rate 103 /min KASIE KUNZ MD [facility] 02-27-2021 23:57-0400 Respiratory rate 24 /min KASIE KUNZ MD [facility] 02-27-2021 23:57-0400 Systolic blood pressure 127 mm[Hg] KASIE KUNZ MD [facility] Encounters Encounter Date Encounter Type Care Provider Facility Start: 01-06-2025 End: 01-07-2025 ambulatory ANDREW GARRIDO Facility:[facility] Start: 01-06-2025 End: 01-06-2025 Patient encounter procedure Kristin Tapia APRN.[employer] Work Phone: [facility] Comment on above: Tooth ache (Primary Dx) Start: 12-26-2024 End: 12-26-2024 Emergency department patient visit No Primary Care Physician -Emergency Department Work Phone: Start: 12-19-2024 End: 12-23-2024 Get Medical Advice Roberta Gonsales APRN.[employer] Work Phone: Pulmonary Medicine Comment on above: Refill question Start: 10-08-2024 ambulatory No Primary Car e Physician [place] [place] Start: 09-16-2024 End: 09-17-2024 ambulatory Andrew Garrido MD Work Phone: [facility] Comment on above: I'm concerned Start: 08-27-2024 End: 08-27-2024 Office outpatient visit 15 minutes Roberta Gonsales APRN.[employer] Work Phone: Pulmonary Medicine Comment on above: Moderate persistent asthma without complication (HCC) (Primary Dx); Multiple allergies Start: 08-27-2024 End: 08-27-2024 Patient encounter procedure [facility] Work Phone: [facility] Start: 08-27-2024 End: 08-27-2024 ambulatory [facility] Work Phone: [facility] Comment on above: Spirometry new inhaler Start: 08-27-2024 End: 08-27-2024 E-mail encounter from caregiver Roberta Gonsales APRN.[employer] Work Phone: Pulmonary Medicine Start: 08-15-2024 End: 08-15-2024 Follow-up encounter Andrew Garrido MD Work Phone: [facility] Start: 08-14-2024 End: 08-14-2024 ambulatory ANDREW GARRIDO Facility:[facility] Start: 08-14-2024 End: 08-14-2024 Patient encounter procedure Andrew Garrido MD Work Phone: [facility] [place] Comment on above: 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); TRISTEN (generalized anxiety disorder); Irritable bowel syndrome with diarrhea; Aphthous stomatitis; Mild intermittent asthma, uncomplicated; Encounter for screening for HIV; Weight gain; Skin tags, multiple acquired Start: 04-02-2024 End: 04-03-2024 Refill Gale Lynn PA-C Work Phone: Pulmonary Medicine Comment on above: Refill Request Start: 03-11-2024 End: 03-11-2024 ambulatory Andrew Garrido MD Work Phone: [facility] Comment on above: Blood Pressure Start: 03-11-2024 End: 03-11-2024 Telephone encounter Shana Balderas APRN.[employer] Work Phone: [facility] [place] Start: 01-07-2024 End: 01-08-2024 Refill Gale Lynn PA-C Work Phone: Pulmonary Medicine Comment on above: Refill Request Start: 08-07-2023 Refill Gale Diaz PA-C Work Phone: Pulmonary Medicine Comment on above: Refill Request Start: 2023 Orders Only Tanisha Aguila MD Work Phone: Pulmonary Medicine Start: 03-09-2023 End: 03-09-2023 ambulatory [facility] Work Phone: [facility] Comment on above: Spirometry Start: 03-09-2023 End: 03-09-2023 Patient encounter procedure [facility] Work Phone: [facility] Start: 03-09-2023 End: 03-09-2023 ambulatory [facility] Work Phone: PUL[facility] LAB [facility] Comment on above: Spirometry Start: 03-09-2023 End: 03-09-2023 Patient encounter procedure [facility] Comment on above: Asthma, persistent n ot controlled (Primary Dx) Start: 02-01-2023 Refill Adolfo mathur MD Work Phone: Otolaryngology Comment on above: Refill Request Start: 01-05-2023 Chart abstracting Gale bethea [facility] Work Phone: Psychology Start: 12-29-2022 Telephone encounter Gale perez [facility] Work Phone: Psychology Comment on above: bh consult Start: 12-29-2022 End: 12-29-2022 Patient encounter procedure Andrew Garrido MD Work Phone: [facility] [place] Comment on above: Severe episode of re current major depressive disorder, without psychotic features (HCC) (Primary Dx); Moderate persistent asthma with acute exacerbation; Tachycardia; Screening for HIV without presence of risk factors; Need for vaccination; TRISTEN (generalized anxiety disorder); Irritable bowel syndrome with diarrhea; Aphthous stomatitis Start: 12-15-2022 End: 12-16-2022 Emergency department patient visit RAMONA ZARATE Facility:[facility] Start: 12-15-2022 End: 12-15-2022 [facility] Start: 07-25-2022 End: 07-25-2022 Emergency department patient visit [facility]-Emergency Department Start: 07-11-2022 Refill Chucky holder DO Work Phone: [facility] [place] Comment on above: Refill Request Start: 02-17-2022 End: 02-17-2022 Patient encounter procedure Adolfo Larsen MD Work Phone: Otolaryngology Comment on above: Aphthous stomatitis (Primary Dx); Tongue coating Start: 02-03-2022 ambulatory Mayelisa Plasencia [facility] Comment on above: Population Health Na vigation Outreach (hcc) Start: 01-29-2022 End: 01-29-2022 Emergency department patient visit GROUNDS MAINTENANCE SUPERVISORBalaji Cameron GROUNDS MAINTENANCE SUPERVISOR [facility] Start: 11-19-2021 End: 11-19-2021 Emergency department patient visit GROUNDS MAINTENANCE SUPERVISOR-Jaclyn Cameron GROUNDS MAINTENANCE SUPERVISOR Work Phone: [facility]-Emergency Department Start: 11-04-2021 End: 11-04-2021 Patient encounter procedure FRANCI Cameron GROUNDS MAINTENANCE SUPERVISOR Work Phone: [facility]-Laboratory Start: 11-04-2021 End: 11-04-2021 Patient encounter procedure FRANCI Cameron GROUNDS MAINTENANCE SUPERVISOR Work Phone: [facility] Gastroenterology Start: 10-31-2021 End: 10-31-2021 Emergency department patient visit [facility]-Emergency Department Start: 10-31-2021 End: 10-31-2021 Patient encounter procedure Deion Norton APRN.[employer] Work Phone: [facility] Comment on above: Procedure not gloria d out (Primary Dx) Start: 10-11-2021 End: 10-11-2021 [facility] Start: 10-11-2021 End: 10-11-2021 Patient encounter procedure Raquel Alvarez PSYCHOLOGIST EXPERIMENTAL.[employer] Work Phone: [facility] Comment on above: Davonte blood in stool (Primary Dx); Lower abdominal pain; Lightheaded Start: 09-20-2021 Chart abstracting Zachary Cameron APRN.[employer], DNP Work Phone: [facility] [place] Comment on above: ED visit- Dizziness Start: 09-19-2021 End: 09-19-2021 Emergency department patient visit [facility]-Emergency Department Start: 06-20-2021 End: 06-20-2021 Emergency department patient visit [facility] Start: 05-16-2021 Telephone encounter Kristin K jassi PSYCHOLOGIST EXPERIMENTAL.[employer] Work Phone: [facility] [place] Comment on above: Results Start: 02-27-2021 End: 02-28-2021 Emergency department patient visit KASIE KUNZ MD [facility] Procedures Date Procedure Procedure Detail Performing Clinician Start: 12-26-2024 Urnls dip stick/tabl et reagent auto microscopy No Primary Care Physician Start: 12-26-2024 Estimated creatinine clearance No Primary Care Physician Start: 08-27-2024 Nitric oxide gas determination Roberta Gonsales APRN.[employer] Work Phone: Start: 03-09-2023 Nitric oxide gas determination Tanisha Aguila MD Work Phone: Start: 03-09-2023 Brncdilat rspse spmt ry pre&post-brncdilat admn Andrew Garrido MD Work Phone: Start: 07-25-2022 Plain chest X-ray Start: 10-11-2021 CT of abdomen and pe lvis without contrast Clostridium difficil e detection GROUNDS MAINTENANCE SUPERVISOR-C Zachary Cameron GROUNDS MAINTENANCE SUPERVISOR Work Phone: Enteric Bacteriology GROUNDS MAINTENANCE SUPERVISOR-C Juan Cameron GROUNDS MAINTENANCE SUPERVISOR Work Phone: Lactoferrin measurement GROUNDS MAINTENANCE SUPERVISOR-Jaclyn Cameron GROUNDS MAINTENANCE SUPERVISOR Work Phone: Ova OR parasites identification GROUNDS MAINTENANCE SUPERVISOR-Jaclyn Cameron GROUNDS MAINTENANCE SUPERVISOR Work Phone: Plan of Treatment Date Care Activity Detail Author Start: 03-30-2028 Urine microalbumin profile [facility] Start: 08-14-2025 Annual PCP Team Chronic Disease Visit Annual PCP Team Chronic Disease Visit [facility] Start: 08-14-2025 Covid-19 Vaccine ( season) Covid-19 Vaccine ( season) [facility] Comment on above: Postponed from 01/19 (Declined at this time) Start: 01-19-2025 Influenza vaccination Influenza Vacc ine (#1) [facility] Start: 12-26-2024 [facility] Start: 11-17-2024 Influenza vaccination Influenza Vacc ine (#1) [facility] Comment on above: Postponed from 01/19 (Declined at this time) Start: 09-30-2024 End: 09-30-2024 ambulatory 09/30/2024 1:00 PM EDT [facility] [address] [place] [address] Roberta Gonsales APRN.[employer] [address] [place] [address] VV 1 MTH F/U ASTHMA Pulmonary Medicine Comment on above: VV 1 MTH F/U ASTHMA Start: 09-18-2024 End: 09-18-2024 Patient encounter procedure 09/18/2024 6:00 PM EDT Office Visit [facility] [address] [place] [address] Andrew Garrido MD [address] [place] [address] Review lab results [facility] Comment on above: Review lab results Start: 09-01-2024 End: 09-01-2024 Patient encounter procedure 09/01/2024 8:15 AM EDT Office Visit Podiatry [address] [place] [address] Adolfo Kiser [address] [place] [address] NEW CONSULT FOR RT FT IN PAIN Podiatry Comment on above: NEW CONSULT FOR RT F T IN PAIN Start: 08-27-2024 End: 08-27-2024 Patient encounter procedure 08/27/2024 3:30 PM EDT Office Visit Pulmonary Medicine [address] [place] [address] Roberta Gonsales APRN.[employer] [address] [place] [address] Asthma F/U, disability paperwork (last seen 2022) Pulmonary Medicine Comment on above: Asthma F/U, disabili ty paperwork (last seen 2022) Start: 08-14-2024 End: 11-13-2024 Basic metabolic 2000 panel - Serum or Plasma [facility] Work Phone: Comment on above: Expected: 08/14/2024 , Expires: 11/13/2024 Start: 08-14-2024 End: 11-13-2024 HIV 1+2 Ab [Presence] in Serum or Plasma by Immunoassay [facility] Comment on above: Expected: 08/14/2024 , Expires: 11/13/2024 Start: 03-12-2024 End: 03-12-2024 Patient encounter procedure 03/12/2024 3:40 PM EDT Office Visit [facility] [place] [address] [place], [place] [id number] Andrew Garrido MD [address] [place], [place] [id number] rescheduled from 03/07 [facility] Comment on above: rescheduled from Start: 01-20-2024 Covid-19 Vaccine ( season) Covid-19 Vaccine () [facility] Start: 01-20-2024 Influenza vaccination Influenza Vacc ine (#1) [facility] Start: 12-30-2023 ANNUAL PCP TEAM CHRONIC DISEASE VISIT ANNUAL PCP TEAM CHRONIC DISEASE VISIT [facility] Start: 03-09-2023 End: 06-08-2023 ALGN [facility] Work Phone: Comment on above: Expected: 03/09/2023 , Expires: 06/08/2023 Start: 03-09-2023 End: 06-08-2023 IgE [Units/volume] in Serum or Plasma [facility] Work Phone: Comment on above: Expected: 03/09/2023 , Expires: 06/08/2023 Start: 01-19-2023 Covid-19 Vaccine ( season) Covid-19 Vaccine () [facility] Start: 01-19-2023 Influenza vaccination [facility] Start: 12-29-2022 End: 02-28-2023 Basic metabolic 2000 panel - Serum or Plasma BASIC METABOLIC PNL Lab Routine Tachycardia Expected: 12/29/2022, Expires: 02/28/2023 [facility] Work Phone: Comment on above: Expected: 12/29/2022 , Expires: 02/28/2023 Start: 12-29-2022 End: 02-28-2023 CBC panel - Blood by Automated count CBC Lab Routine Tachycardia Expected: 12/29/2022, Expires: 02/28/2023 [facility] Work Phone: Comment on above: Expected: 12/29/2022 , Expires: 02/28/2023 Start: 12-29-2022 End: 02-28-2023 HIV 1+2 Ab [Presence] in Serum or Plasma by Immunoassay HIV 1 2 COMBO(AG/AB),WITH REFLEX TO DIFFERENTIATION Lab Routine Screening for HIV without presence of risk factors Expected: 12/29/2022, Expires: 02/28/2023 [facility] Work Phone: Comment on above: Expected: 12/29/2022 , Expires: 02/28/2023 Start: 07-25-2022 [facility] Start: 05-12-2022 ANNUAL PCP TEAM CHRONIC DISEASE VISIT ANNUAL PCP TEAM CHRONIC DISEASE VISIT [facility] Start: 05-12-2022 COVID-19 VACCINE (#1) COVID-19 VACCI NE (#1) [facility] Comment on above: Postponed from 03/13 (Declined at this time) Postponed from 09/11 (Declined at this time) Start: 05-12-2022 COVID-19 VACCINE (1) COVID-19 VACCIN E (1) [facility] Comment on above: Postponed from 03/13 (Declined at this time) Start: 01-19-2022 Influenza vaccination [facility] Start: 11-05-2021 Giardia lamblia Ag [Presence] in Stool by Immunoassay [facility] Work Phone: Start: 11-05-2021 Ova and parasites identified in Unspecified specimen by Light microscopy [facility] Work Phone: Start: 11-05-2021 Protein measurement [facility] Work Phone: Start: 2015 ONE PNEUMOVAX PRIOR TO AGE 65 ONE PNEUMOVAX PRIOR TO AGE 65 [facility] Start: 2015 Urine microalbumin profile DTAP,TDAP,TD (1 - Tdap) [facility] Start: 2014 HIV SCREENING HIV SCREENING [facility] Start: 2014 HIV screening HIV Screening [facility] Start: 2014 SPIROMETRY SPIROMETRY [facility] Start: 03-17-2013 HPV VACCINE (2 - Mal e 3-dose series) HPV VACCINE (2 - Male 3-dose series) [facility] Start: 2010 PEDS TO ADULT TRANSITION ANNUAL ASSESSMENT PEDS TO ADULT TRANSITION ANNUAL ASSESSMENT [facility] Start: 2008 PEDS TO ADULT TRANSITION INITIAL DISCUSSION PEDS TO ADULT TRANSITION INITIAL DISCUSSION [facility] Start: 2007 HPV VACCINE (1 - Mal e 2-dose series) HPV VACCINE (1 - Male 2-dose series) [facility] Start: 2002 PNEUMOCOCCAL (1 - PCV) PNEUMOCOCCAL (1 - PCV) [facility] Start: 1996 COVID-19 VACCINE (#1) COVID-19 VACCI NE (#1) [facility] Start: 1996 HEPATITIS B (1 of 3 - 3-dose series) HEPATITIS B (1 of 3 - 3-dose series) [facility] End: 12-30-2023 ECG COMPLETE ECG COMPLETE ECG Routine Tachycardia 1 Occurrences starting 12/29/2022 until 12/30/2023 [facility] Work Phone: Comment on above: 1 Occurrences starti ng 12/29/2022 until 12/30/2023 Giardia lamblia Ag [Presence] in Stool by Immunoassay [facility] Work Phone: Influenza virus A an d B and SARS-CoV-2 (COVID-19) Ag panel - Upper respiratory specim [facility] Ova and parasites identified in Unspecified specimen by Light microscopy [facility] Work Phone: Patient Education [facility] Work Phone: Patient referral [facility] Work Phone: Protein measurement [facility] Work Phone: SARS-CoV-2 & FLU Antigen (Rapid) SARS-CoV-2 & FLU Antigen (Rapid) [facility] End: 01-28-2024 SPIROMETRY - BASELINE AND POST DILATOR SPIROMETRY - BASELINE AND POST DILATOR PFT Routine Moderate persistent asthma with acute exacerbation 1 Occurrences starting 12/29/2022 until 01/28/2024 [facility] Work Phone: Comment on above: 1 Occurrences starti ng 12/29/2022 until 01/28/2024 [facility] Immunizations Immunization Date Immunization Notes Care Provider [facility] 12-29-2022 pneumococcal (PCV20) vaccine, 20 valent (PREVNAR 20) Andrew Garrido MD Work Phone: [facility] 12-29-2022 pneumococcal Conjuga te, unspecified formulation Andrew Garrido MD Work Phone: [facility] Work Phone: 06-16-2020 influenza, injectabl e, quadrivalent, preservative free Adolfo Larsen MD Work Phone: [facility] 06-16-2020 influenza virus vacc ine, unspecified formulation Adolfo Larsen MD Work Phone: [facility] 03-30-2018 tetanus toxoid, redu olga diphtheria toxoid, and acellular pertussis vaccine, adsorbed Adolfo Larsen MD Work Phone: [facility] 02-17-2013 human papilloma viru s vaccine, quadrivalent Adolfo Larsen MD Work Phone: [facility] 02-17-2013 influenza, seasonal, injectable Adolfo Larsen MD Work Phone: [facility] 03-18-2009 novel influenza-H1N1 -09, preservative-free, injectable Adolfo Larsen MD Work Phone: [facility] 03-11-2009 influenza, seasonal, injectable Adolfo Larsen MD Work Phone: [facility] 04-06-2008 meningococcal polysaccharide vaccine (MPSV4) Adolfo Larsen MD Work Phone: [facility] 04-06-2008 tetanus toxoid, redu olga diphtheria toxoid, and acellular pertussis vaccine, adsorbed Adolfo Larsen MD Work Phone: [facility] 06-21-2006 influenza, seasonal, injectable Adolfo Larsen MD Work Phone: [facility] 01-02-2002 diphtheria, tetanus toxoids and acellular pertussis vaccine, unspecified formulation Adolfo Larsen MD Work Phone: [facility] 01-02-2002 measles, mumps and rubella virus vaccine Adolfo Larsen MD Work Phone: [facility] 01-02-2002 trivalent poliovirus vaccine, live, oral Adolfo Larsen MD Work Phone: [facility] 12-30-1997 varicella virus vaccine Skyler Larsen MD Work Phone: [facility] 07-30-1997 diphtheria, tetanus toxoids and acellular pertussis vaccine, unspecified formulation Adolfo Larsen MD Work Phone: [facility] 07-30-1997 haemophilus influenz ae type b vaccine, conjugate unspecified formulation Adolfo Larsen MD Work Phone: [facility] 07-30-1997 trivalent poliovirus vaccine, live, oral Adolfo Larsen MD Work Phone: [facility] 03-19-1997 diphtheria, tetanus toxoids and acellular pertussis vaccine, unspecified formulation Adolfo Larsen MD Work Phone: [facility] 03-19-1997 haemophilus influenz ae type b vaccine, conjugate unspecified formulation Adolfo Larsen MD Work Phone: [facility] 03-19-1997 measles, mumps and rubella virus vaccine Adolfo Larsen MD Work Phone: [facility] 01-27-1997 DTP-Haemophilus influenzae type b conjugate vaccine Adolfo Larsen MD Work Phone: [facility] 01-27-1997 hepatitis B vaccine, pediatric or pediatric/adolescent dosage Adolfo Larsen MD Work Phone: [facility] 01-27-1997 poliovirus vaccine, inactivated Adolfo Larsen MD Work Phone: [facility] 1996 DTP-Haemophilus influenzae type b conjugate vaccine Adolfo Larsen MD Work Phone: [facility] 1996 poliovirus vaccine, inactivated Adolfo Larsen MD Work Phone: [facility] 1996 hepatitis B vaccine, pediatric or pediatric/adolescent dosage Adolfo Larsen MD Work Phone: [facility] 1996 hepatitis B vaccine, pediatric or pediatric/adolescent dosage Adolfo Larsen MD Work Phone: [facility] Payers Date Payer Category Payer Self-pay [id number] 2022 Formerly [facility], [facility] [id number] 2018 Medicaid [employer] [id number] 2018-Present [phone] [address] [place] [address] Medicaid [id number] 2018 Medicaid [id number] 2015 Formerly [facility], [facility] [id number] 1996 Unknown [id number] Unknown [id number] Unknown [id number] Social History Date Type Detail Facility Start: 04-10-2019 Light tobacco smoker (finding) [facility] Sex Assigned At [facility] Start: 10-17-2018 End: 08-27-2024 Tobacco smoking status TXIS Ex-smoker [facility] Start: 10-17-2018 End: 08-27-2024 Tobacco use and exposure Smokeless tobacco non-user [facility] Start: 05-12-2021 End: 05-27-2021 Alcohol intake Not Asked [facility] Start: 1995 Sex Assigned At Not on file [facility] Start: 10-11-2021 End: 07-25-2022 Tobacco smoking status [facility] Unknown if ever smoked [facility] Start: 12-06-2018 None [facility] Start: 12-06-2018 Alone [facility] Start: 1995 Sex Assigned At Male [facility] History of tobacco use Current smoker [facility] Start: 02-17-2022 End: 03-09-2023 Alcohol intake Current drinker of alcohol (finding) [facility] Start: 02-17-2022 History SDOH Alcohol Comment occasionally [facility] Start: 02-07-2022 End: 02-17-2022 Exposure to SARS-CoV-2 (event) Not sure [facility] Start: 12-29-2022 End: 08-14-2024 History of Social function [facility] Start: 12-29-2022 End: 08-14-2024 Tobacco use panel [facility] Start: 04-21-2012 National Score (1-10 0), lower number is lower risk 80 [facility] Start: 03-09-2023 Tobacco Comment One pack every other dayVaping in past [facility] Start: 08-14-2024 End: 08-27-2024 Alcoholic beverage intake Ex-drinker (finding) [facility] How often to you hav e a drink containing alcohol? Never [facility] Do you feel stress - tense, restless, nervous, or anxious, or unable to sleep at night because your mind is troubled all the time - these days [OSQ] Rather much [facility] Start: 08-27-2024 Tobacco Comment Former smoker- one pack weekly. [facility] Start: 12-26-2024 Tobacco smoking stat us TXIS Smokes tobacco daily (finding) [facility] Functional Status Date Assessment Result Facility 08-14-2024 Total score [AUDIT-C] 0 08/15/19 25 4:34 PM EDT Andrew Garrido MD [facility] 12-15-2022 Functional Status Standard Safet y ID band on, Call device within reach, Bed in low position, Wheels locked, Upper/Half-Length side-rails up, Bedside Cart Locked, Safety level maintained [facility] Mental Status Date Assessment Result Facility 12-15-2022 Mental Status Orientation Oriented x 4 [facility] 07-25-2022 Cognitive function Voice/Name [facility] Work Phone: 09-19-2021 Cognitive function Level Of Cons ciousness Awake;Alert;Appropriate;Follow s Commands [facility] Work Phone: Clinical Notes 02-28-2021 to 01-06-2025 Kristin Tapia APRN.CNP - 01/06/2025 6:11 PM EDT Note Date & Type Note Facility 01-06-2025 Note HNO ID: [id number] Author: KRISTIN TAPIA APRN.GLADYS Service: ? 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 Disposition The patient was discharged. OTC Medications were advised: Procedures [1] Social History Tobacco Use Smoking status: Former Smokeless tobacco: Never Tobacco comments: Former smoker- one pack weekly. Vaping Use Vaping status: Former Substance Use Topics Alcohol use: Not Currently Drug use: Yes Types: Marijuana Comment: 2 per year [facility] 01-06-2025 History of Present illness Narrative Images from the original note were not included. 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 Disposition The patient was discharged. OTC Medications were advised: Procedures [1] Social History Tobacco Use Smoking status: Former Smokeless tobacco: Never Tobacco comments: Former smoker- one pack weekly. Vaping Use Vaping status: Former Substance Use Topics Alcohol use: Not Currently Drug use: Yes Types: Marijuana Comment: 2 per year documented in this encounter [facility] 12-26-2024 Discharge summary [facility] 12-26-2024 Discharge summary Note Date/Time December 26, 2024 8:51pm [facility] Medical Records Department [address] [facility] [place] [address] Emergency Department Summary 12/26/24 MR#: [id number] Acct: [id number] Name: MAX ROMERO Rep #:[id number] : 1995 29 From: Artis Bustillos MD PCP: Care Physician,No Primary Status :REG ER Location: ED HPI HPI - GI History of Present Illness Chief Complaint: Abd Pain Informant: patient Nausea/Vomiting/Emesis GI Symptom: Positive for Nausea, Vomiting and - (Vomited once the last 2 weeks. Nausea.) Onset: Weeks Severity: Mild Diarrhea/Melena/Hematochezia GI Symptom: Negative for Diarrhea, Melena or Hematochezia Associated Symptoms Associated Symptoms: Negative for Dysuria, Frequency, Hematuria or Urgency Narrative Narrative: 29-year-old male no prior abdominal or any other surgeries. States that he has had nausea for the last 2 weeks. Really denies any significant pain. No fever. No dysuria. Has had this before. He has been worked up in the past for possible irritable bowel but he is never gone through to have an upper or lower endoscopy. He denies any significant weight loss. Prior similar symptoms: Yes Recent Illness/[facility] Medical History Anxiety Migraine headache Gastric reflux Smoker Shortness of breath on exertion Asthma Home Medications ?Medication ?Instructions ?Recorded ?Last Taken ?Type albuterol sulfate 90 mcg/actuation 2 puff inhalation Q 4H PRN PRN 06/20/21 Unknown Rx aerosol inhaler (Ventolin HFA) Wheezing ##1 budesonide-formoterol HFA 160 1 puff inhalation Q12H 0 12/26/24 12/26/24 History mcg-4.5 mcg/actuation aerosol inhaler (Symbicort) Allergy/AdvReac Type Severity Reaction Status Date / Time No Known Allergies Allergy Verified 12/26/24 18:14 Family History no significant family his Surgical History no surgical history Social History household members: other Smoking Status: Current every day smoker tobacco type: e-cigarettes alcohol intake: current alcohol intake frequency: other substance use type: does not use ROS ROS ED ROS Narrative Nausea. Constitutional Constitutional ED: Denies chills or fever(s) ENT ENT ED: Denies ear pain Cardiovascular Cardiovascular: Denies chest pain Respiratory/Chest Respiratory/Chest: Denies cough or dyspnea Gastrointestinal Gastrointestinal: Reports nausea and vomiting; Denies abdominal pain, constipation, diarrhea or melena Genitourinary Genitourinary ED: Denies dysuria or hematuria Musculoskeletal Musculoskeletal: Denies arthralgias Integumentary Denies abscess Neurologic Neurologic: Denies headache(s) Psychiatric Psychiatric: Reports anxiety Endocrine Endocrinology: Denies polydipsia Hematologic/Lymphatic Hematologic/Lymphatic: Denies easy bleeding, easy bruising or lymphadenopathy Allergic/Immunologic Allergic/Immunologic ED: Denies mouth swelling, tongue swelling or urticaria EXAM Physical Exam Narrative Exam Narrative: Well-appearing 21-year-old male. Vital signs stable afebrile. He is anxious. He does not look septic he is in no distress. No one present in room with him. H EENT exam pupils round and light. Moist mutes members. Neck nontender. No JVD. Lungs clear to auscultation bilaterally. Heart tachycardic 110 no murmur. Abdomen soft, nontender, nondistended, normal bowel sounds without peritoneal signs. No hernia no mass. No obstruction. No distention. Both the right upper and right lower quadrants are completely nontender. Benign abdominal exam. Moving all 4 extremities. Nontender. No deformity. No edema. Normal range of motion. Normal strength. Back nontender. Neurologically he is awake alert. Answering questions following commands. Const Vital Signs: 12/26/24 18:15 12/26/24 20:14 Temperature 98 F Temperature Source Oral Pulse Rate 120 H 102 H Respiratory Rate 16 18 Blood Pressure 140/93 H 135/74 H Blood Pressure Mean 108 94 Pulse Ox 97 97 Oxygen Delivery Method Room Air Room Air Positive well nourished and well developed; Negative for cachectic, contracturesor unkempt General Appearance ED: well developed; Negative for unkempt, cachectic, contractures or pallor Nutritional Appearance: Negative for cachectic HEENT Reports moist mucous membranes normocephalic and atraumatic Eyes PERRL and EOMs intact bilaterally Neck no lymphadenopathy, supple and no JVD Resp normal respiratory effort and clear to auscultation bilaterally Cardio regular rate, regular rhythm, S1 normal heart sound, S2 normal heart sound and no murmurs GI non-tender, non-distended and no masses Inspection: Negative for abdominal distention Auscultation: normoactive bowel sounds Palpation: soft; Negative for tender, guarding, pulsatile mass or rebound tenderness present Back/Spine no CVA tenderness General Back: Negative for CVA tenderness Cervical Spine: Negative for cervical spine tenderness Thoracic Spine / Upper Back: Negative for thoracic spinal tenderness Lumbar Spine / Lower Back: Negative for lumbar spinal tenderness Extremity full ROM General Extremety ED: Negative for edema or tenderness General Extremity: Negative for edema Neuro CN's II-XII intact bilaterally and moves all extremities Sensorium / Orientation: alert, oriented to person, oriented to place and oriented to time; Negative for orientation impaired Motor Exam: strength 5/5 throughout Psych mental status grossly normal and thought process normal Appearance: Negative for unkempt Mood & Affect: anxious Skin no wounds General Skin Exam: Negative for jaundice or pallor Lesions: no lesions Rashes: no rashes MDM MDM MDM Narrative Medical decision making narrative: 29-year-old male abdominal complaints prior CT 3 years ago unremarkable. Abdominal exam is completely benign and nontender I do not think needs imaging. I will do screening abdominal labs. He will be given a liter of fluid and Zofran for his nausea. He is not having pain and does not need any pain medications. Repeat exam patient is doing well at 8:47 PM. We went over all his test results. He does not need any imaging. Currently his abdomen is benign. He iscomfortable being discharged home with follow-up with his primary care physicianfor further evaluation and complete the workup for possible irritable bowel syndrome History & Record Review Discussion w/independent historian: Patient Additional record(s) reviewed:: Prior inpatient record, Prior outpatient record,Prior ED visit and Prior labs Lab Data Attestation: I reviewed the patient's lab results. Lab results narrative: CBC shows white 11.9. H&H is 16 and 47. Platelets 333. Electrolytes show sodium 139 gap 14. Normal BUN of 13 creatinine of 1. [id number]. Liver enzymes unremarkable other than AST of 41 and ALT of 95. Lipase normal at19. Urinalysis negative. No nitrates. No white or red cells. No bacteria Labs: Laboratory Results - last 24 hr 12/26/24 12/26/24 18:25 19:30 WBC 11.9 H RBC 5.61 Hgb 16.4 Hct 47.8 MCV 85.2 MCH 29.2 MCHC 34.3 RDW Std Deviation 38.8 RDW Coeff of Italo 12.5 Plt Count 333 MPV 9.6 Immature Gran % (Auto) 0.400 Neut % (Auto) 52.6 Lymph % (Auto) 37.4 [place] % (Auto) 7.3 Eos % (Auto) 1.6 Baso % (Auto) 0.7 Absolute Neuts (auto) 6.3 Absolute Lymphs (auto) 4.46 Nucleated RBC % 0 Sodium 139 Potassium 3.6 Chloride 100 Carbon Dioxide 24.8 Anion Gap 14 BUN 13 Creatinine 1.04 Estim Creat Clear Calc 117.29 Est GFR (MDRD) Non-Af 100 BUN/Creatinine Ratio 12.4 Glucose 108 H Calcium 9.8 Total Bilirubin 0.36 AST 41 H ALT 95 H Alkaline Phosphatase 110 Total Protein 7.7 Albumin 4.6 Globulin 3.1 Albumin/Globulin Ratio 1.5 Lipase 19 Urine Color Straw Urine Clarity Clear Urine pH 6.0 Ur Specific [place] 1.015 Urine Protein 15 H Urine Glucose (UA) Normal Urine Ketones Negative Urine Occult Blood Negative Urine Nitrite Negative Urine Bilirubin Negative Urine Urobilinogen Normal Ur Leukocyte Esterase Negative Urine RBC 0 SEEN Urine WBC 0-5 SEEN Ur Squamous Epith Cells 0-5 SEEN Urine Bacteria 0 SEEN Urine Mucus 0 SEEN Discharge Plan Triage Chief Complaint: Abd Pain ED Provider: Artis Bustillos Dx/Rx/DC Orders Clinical Impression: Abdominal pain Instructions: Abdominal Pain Prescriptions: No Action albuterol sulfate [Ventolin HFA] 1 INHALER inhaler 2 puff inhalation Q4H PRN PRN (Reason: Wheezing) Qty: 1 0RF Rx Instructions: dispense with spacer budesonide-formoterol [Symbicort] 160-4.5 mcg/actuation HFA aerosol inhaler 1 puff inhalation Q12H Primary Care Provider: Care Physician,No Primary Referrals: Andrew Garrido MD [Med Staff - Feeder/Folder] - 1 Week Care Physician,No Primary [Primary Care Provider] - Activity Restrictions/Additional Instructions: Plenty of fluids and rest. Follow-up with your doctor as needed. Motrin and/or Tylenol for any pain. Print Language: Pashto Disposition Disposition: Home, Self Care What to do if you have Problems For any increased pain, shortness of breath, bleeding, nausea or vomiting, chestpain, or any unexpected problems, contact your Primary Care Provider. Call [facility] ([phone]) or report to the closest Emergency Room. Call 911 if necessary. 12/26/242050 <Electronically signed by Artis Bustillos MD> Cosigner Signature (if applicable): CC: No Primary Care Physician ~ Signed [facility] Work Phone: 1(282) 403-646804-09-2025 History of Present illness Narrative* Roberta Gonsales APRN.[employer] - 08/27/2024 3:30 PM EDT Images from the original note were not included. Pulmonary Medicine Patients name: Max Romero PCP: Andrew Garrido MD CC: follow-up Asthma HPI: Max Romero is a 29 year old male former smoker with PMH significant for anxiety and depression, IBS, and asthma. Patient has longstanding history of childhood asthma and has been off and oninhaled therapy since that time. He was a [...] Severe recurrent major depression without psychotic features ([facility]) 12/29/2022 Allergies: No Known Allergies Medication List [...] of asthma symptoms are likely related to suboptimalinhaled therapy with forgetting to use BID. Switch [...] which included preparing to see the patient, [id number] patient care, completing clinical documentation, performing a medically appropriate examination, counseling and educating the patient/family/caregiver, and ordering medications, tests,or procedures. [facility] NoteHNO ID: [id number] Author: ROBERTA GONSALES APRN.CNP Service: ? Author [...] Severe recurrent major depression without psychotic features ([facility]) 12/29/2022 Allergies: No Known Allergies Medication List [...] forgetting to use BID (more content not included)...[facility]04-09-2025 NoteHNO ID: [id number] Author: YARI OLIVARES RRT Service: ? Author Type: Registered [...] Romero DATE: August 27, 2024 TIME: 3:27 [facility]04-09-2025 Procedure note* Yari Olivares RRT - 08/27/2024 3:27 PM EDTAssociated Order(s): NITRIC OXIDE, EXHALED RESPIRATORY THERAPY ORAL EXHALED [...] DATE: August 27, 2024 TIME: 3:27 PM [facility]04-09-2025 Procedure note* Yari Olivares RRT - 08/27/2024 3:27 PM EDTAssociated Order(s): NITRIC OXIDE, EXHALED RESPIRATORY THERAPY ORAL EXHALED [...] 2024 TIME: 3:27 PM [facility]-2025 NoteHNO ID: [id number] Author: ANDREW GARRIDO MD Service: ? Author Type: Physician Type: Progress Notes Filed: 08/14/2024 17:04 Note Text: This note was created using SLR Technology Solutionsriter. Subjective Patient presents with: Physical Max Romero [...] TRISTEN (generalized anxiety di (more content not included)...[facility]03-27-2025 History of Present illness Narrative* Andrew Garrido MD - 08/14/2024 4:26 PM EDT This note was created using NoteWriter. Subjective [...] active with his female friend, but denied historyof STI. His depression and anxiety were not treated. He denied suicidal planning. He did not follow thru onrecommendations made when he was seen in 2022. [...] tag. Andrew Garrido MD [facility] Telephone encounter Note * Telephone Encounter - Kristie Castro RN - 03/11/2024 1:04 PM EDT Patient reports about 2 mths ago he tried to donate plasma and was denied b/c his BP and P were high (they didn't tell him the numbers). Does not have a way of checking BP at home. Checked his BP at [facility] a couple months ago and it read high. Reports he has been feeling exhausted, with SOB on exertion (has asthma and uses 2 inhalers, which help). Protocol recommends see provider with 2 weeks. Scheduled appt with pcp for tomorrow, given patient's symptoms. Reason for Disposition Patient wants doctor (or [employer]TENA[employer] SUPERVISOR/PA) to measure BP Answer Assessment - Initial [...] but they denied him, b/c his BP andP were high- about 2 months ago. They [...] : N/A Protocols used: Blood Pressure - [id number] [facility]10-22-2024 Miscellaneous Notes* Telephone Encounter - Kristie Castro RN - 03/11/2024 1:04 PM EDT Patient reports about 2 mths ago he [...] Reason for Disposition Patient wants doctor (or [employer]OUN[employer] MAINTENANCE SUPERVISOR/PA) to measure BP Answer Assessment - Initial [...] but they denied him, b/c his BP andP were high- about 2 months ago. They [...] : N/A Protocols used: Blood Pressure - [id number] documented in this encounterM[facility]10-22-2024 Miscellaneous Notes* Telephone Encounter - Jace Hayes MA - 03/11/2024 12:55 PM EDT Placed on Triage nurse schedule. * Telephone Encounter - Shana Balderas APRN.CNP - 03/11/2024 12:26 PM EDT Patient scheduled tomorrow for high BP and heart rate. This needs triaged and scheduled for a 40 min visit, not 20 minutes Shana Balderas APRN.[employer] documented in this encounterM[facility]10-22-2024 Telephone encounter Note * Telephone Encounter - Jace Hayes MA - 03/11/2024 12:55 PM EDT Placed on Triage nurse schedule. [facility]10-22-2024 Telephone encounter Note* Telephone Encounter - Shana Balderas APRN.GLADYS - 03/11/2024 12:26 PM EDT Patient scheduled tomorrow for high BP and heart rate. This needs triaged and scheduled for a 40 min visit, not 20 minutes Shana Balderas APRN.GLADYS [facility] Work Phone: 1(739) 935-889708-20-2024 Telephone encounter Note* Telephone Encounter - Marlene Stallworth LPN - 01/08/2024 1:37 PM EDT [facility] 03/09/23 Patient phones requesting refills as follows: Requested Prescriptions Pending Prescriptions Disp Refills SYMBICORT 160-4.5 mcg/actuation inhaler 1 Each 5 Sig: Inhale 2 Puffs as instructed two times a day. albuterol HFA (PROAIR HFA) 90 mcg/actuation inhaler 18 g 3 Sig: Inhale 2 Puffs as instructed every 4 hours as needed for wheezing/shortness of breath. Please review and advise. Marlene Stallworth LPN [facility]08-20-2024 Miscellaneous Notes* Telephone Encounter - Marlene Stallworth LPN - 01/08/2024 1:37 PM EDT [facility] 03/09/23 Patient phones requesting refills as follows: [...] advise. Marlene Stallworth LPN documented in this encounterM[facility]03-20-2024 Miscellaneous Notes* Telephone Encounter - Alka Hayes MA - 08/08/2023 9:13 AM EDT Patient phones requesting refills as follows: Requested [...] advise. Alka Hayes MA documented in this encounterM[facility]10-20-2023 History of Present illness Narrative* Keya Love RPFT - 03/09/2023 11:54 AM EDT PULM FUNCTION SMARTBLOCK: Provider: Tanisha Aguila MD Assisting Tech: Keya Love RPFT Exhaled Nitric Oxide: 1 documented in this encounterMckit[facility] Hospital10-20-2023 Procedure note* Keya Love RPFT - 03/09/2023 11:54 AM EDTAssociated Order(s): NITRIC OXIDE, EXHALED RESPIRATORY THERAPY ORAL EXHALED [...] 2023 TIME: 11:54 AM documented in this encounterM[facility] Hospital10-20-2023 Nurse Note* Marlene Stallworth LPN - 03/09/2023 11:46 AM EDT FeNO = 160ppb Marlene Stallworth LPN documented in this encounterM[facility] Hospital10-20-2023 History of Present illness Narrative* Tanisha Aguila MD - 03/09/2023 11:00 AM EDT Images from the original note were not included. . [facility] Note Patient name: Max Romero PCP: Andrew [...] he has a dog in his home. Hestates that his asthma seems to be under [...] Severe recurrent major depression without psychotic features ([facility]) 12/29/2022 ALLERGIES No Known Allergies SYMBICORT 160-4.5 [...] level and obstruction on pulmonary function test consistentwith asthma -Cautioned patient on overuse of his albuterol inhaler -Started Symbicort 160/4.52 puffs twice daily -Allergy assessment -Will follow Keri Aguila MD [facility] documented in this encounterMckitrick Hospital10-20-2023 Nurse Note* Marlene Stallworth LPN - 03/09/2023 10:50 AM EDT Intake information documented in the prior visit with STEVE Valdez today. documented in this encounterM[facility] Hospital10-20-2023 History of Present illness Narrative* Keya Love RPFT - 03/09/2023 10:42 AM EDT PULM FUNCTION SMARTBLOCK: Provider: Tanisha Aguila MD Assisting Tech: Keya Love RPFT Spirometry w/BD: 1 documented in this encounterMckit[facility] Hospital08-18-2023 History of Present illness Narrative* Gale Howard LPCC - 01/05/2023 8:22 AM EDT Behavioral Health Social Work Progress Note Patient identified for [facility] from: PCP Reason for referral: [facility] Behavioral Health Resources: Psychiatry med management, Psychology - talk therapy [facility] encounter type: MyChart Message Attempts to Outreach: 3 attempts Referral made: Psychology - Internal, Psychiatry - External, Psychology - External, Psychiatry - Internal Psychiatry-Internal referral type: Medication Management Psychology-Internal referral type: Therapy Psychology-External referral type: Therapy Psychiatry-External referral type: Medication Management Reason for external referral: Wait times at [facility] too long, Patient choice Final Disposition: Resources given Patient Discharged?: Yes Patient reported that caregiver was able to meet their needs today?: N/A therapist sent patient iFormularyhart follow up message offering assistance with linkage to behavioral health services. MIESHA Dolan January 05, 2023 documented in this encounterM[facility]08-11-2023 Miscellaneous Notes* Telephone Encounter - Gale Howard LPCC - 12/29/2022 1:35 PM EDT Behavioral Health Social Work Progress Note Patient identified for [facility] from: PCP Reason for referral: [facility] Behavioral Health Resources: Psychiatry med management, Psychology - talk therapy [facility] encounter type: Telephone Encounter Attempts to Outreach: 1 attempt Patient Discharged?: No Patient reported that caregiver was able to meet their needs today?: N/A Attempted to reach patient by phone, both numbers listed for him are not valid numbers. therapist will send patient MyChart message. MIESHA Dolan December 29, 2022 documented in this encounterMckitrick Hospital08-11-2023 History of Present illness Narrative* Andrew Garrido MD - 12/29/2022 11:04 AM EDT This note was created using Ghosteryter. Subjective Patient presents with: Establish Tess Max Romero is a 27 year old [...] and anxiety. He used to go to [facility]. [facility] had him on sertraline which just made him more angry so he stopped taking medications. He ever trying to commit suicide, and despite his responses to the PHQ-9, he denied having suicidal thoughts. 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 He got a dog 6 months ago that helps calm him down when anxious and elevate his mood when down. He had rectal bleeding last year, on top of chronic diarrhea. He saw [facility] and had negative serologic tests. Review of [...] Inactive. Andrew Garrido MD documented in this encounterMckitrick Hospital07-29-2023 Hospital Discharge instructions Patient Education 12/15/2022 22:23:20 Asthma, Acute [...] and you are still in the yellow zone(50% to 80%) 15 minutes after using inhaler [...] Lips or fingernails turning huston or blue [phone] [employer]. [address] [place] [address]. All rights reserved. This information is not intended as a substitute for professional medical care. Always follow yourhealthcare professional's instructions. Follow Up Care 12/15/2022 20:49:10 With:Call Physician Referral Address:Unknown When:2-4 days [facility] 07-28-2023 Emergency department Discharge summary Discharge Instructions Thank you for allowing [facility] to assist you with your healthcare needs. The following is importantdischarge information regarding your hospital visit. Diagnosis from [...] and or supplements as they may interact withyour home medications. What How Much When Why [...] and you are still in the yellow zone(50% to 80%) 15 minutes after using inhaler [...] Lips or fingernails turning huston or blue [phone] [employer]. [address] [place] [address]. All rights reserved. This information is not intended as a substitute for professional medical care. Always follow yourhealthcare professional's instructions. Additional Information VACCINATE! IT SAVES LIVES! Members of the community who have not yet received the COVID-19 vaccine and would like to receive it can visit one of [facility] vaccine clinics. There are many vaccine clinic locations within the [facility]. For locations and available times, please visit www.gettheshot.coronavirus.[place].gov/. It is important to note that some COVID mobile vaccine clinics are held outdoors and may be canceled in rainy or stormy conditions. To learn more about pediatric vaccinations (ages 5-11), we invite you to visit the [facility] webpage. https://www.[facility].org/pages/7538-Kidhs-Ooeudysjsze-Kzlgpcvtbs-Ogujh-Owe stions.htmlTo learn more about the COVID-19 vaccine, we invite you to visit the CDC website for a list of frequently asked questions. https://www.cdc.gov/coronavirus/2019-ncov/vaccines/faq.html [facility] Patient Portal Access Instructions: Stay connected with your healthcare team and access your personal medical information anytime with the [facility] Patient Portal. If you would like a full copy of your medical records please contact the [facility] Medical Records Department Sunday through Sunday between 8a.m. and 4:30p.m. Please follow the directions below to access the portal: 1.Access the email account you provided upon registration to the [facility].2.Look for an invitation email from [facility].3.Open the email and access the invitation link: Accept Invitation to [facility]4.Fill in the required jackson to create your account. Sign into [email or web address] with your username and password that you [...] you will allow to register on the [facility] Patient Portal for access to your information. You can also access the [facility] Patient Portal on the YODIL. Simply click on Health Records under [facility] and then click on the [employer] logo. HOW TO SAFELY DISPOSE OF PRESCRIPTION MEDICATIONS Please use one of the following methods to safely dispose of your unused medications. 1.Use a drug disposal kit: the drug disposal pouch allows you to safely discard your old and unuseddrugs. Ask your nurse to give you one when you are discharged.2.Visit a local take-back location: Many local pharmacies and police departments have programs that collect old and unwanted prescriptiondrugs. Call your local pharmacy or go to http://Levanta.Code for [employer]/5G1Fv0d to find one close to you.3.Make use of household items: Use cat litter or old coffee grounds to dispose medications if other options arenot available. Mix your drugs with these household products, seal them in an airtight container andthrow it into the garbage. Call [facility]: [phone] to be sure your drugs can be [...] drowsiness, such as benzodiazepines, also known as benzos,including diazepam and alprazolam, muscle relaxants or sleep aids. Never sell or share prescriptionopioids. This is illegal. Store opioids in a [...] aware that I should contact my doctor. 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 Contact information given to patient in order to schedule visit. KADE Jj * Telephone Encounter - Deion Webb MD - 07/12/2022 12:57 PM EST Advise patient refill request denied. Has not been seen in over a year and has now showed to three appts in the past 13 months. * Telephone Encounter - Tabitha Alberts PA-C - 07/12/2022 11:46 AM EST Patient no showed and cancelled multiple appointments in the past year and has been over a year since seen. He is set to see Dr. Hoff in december to establish care. Forwarding to business information manager provider to address. Tabitha Alberts PA-C * Telephone Encounter - Alka Barnes LPN - 07/12/2022 7:53 AM EST Routing to business information manager. Alka Barnes LPN Patient has been identified [...] you. Alka Barnes LPN documented in this encounterMckitrick Hospital09-30-2022 History of Present illness Narrative* Adolfo Larsen MD - 02/17/2022 12:03 PM EDT HPI Max Romero is a 26 year old male who presents with coating on tongue and recurrent aphthous ulcers. Patient has had recurrent aphthous ulcers for some time. Patient also has had a coating on thetongue. Patient has no other complaints. ROS General [...] or any other abnormality to aphthous ulcers presentlesion noted on upper lip and cheek on [...] or electronic medical record. documented in this encounterMckitrick Hospital09-16-2022 History of Present illness Narrative* Population Health Navigator Maye Plasencia - 02/03/2022 1:50 PM EDT POPULATION HEALTH NAVIGATION OUTREACH Action/ HCC Gaps Outcome: 1st attempt- Left Voice Mail for patient to return my call to schedule. 2nd attempt- MYCHART message sent. Patient is on HCC list for below gaps and needs appt to address : F32.0 - Current mild episode of major depressive disorder without prior episode (HCC)
J45.20 - Mild intermittent asthma, uncomplicated
Annual Wellness/PCP visit/ BP CONTROLLED - last visit 05/12/2021 FLU SHOT Pt identified by name and : NO Outreach Outcome/Action Unable to reach patient: Left message MyChart message sent Did you use a PCP flex slot to schedule this appointment? N/A Reason for Outreach HCC or suspected condition Payer: Payor: [facility] MEDICAID / Plan: [facility] MEDICAID / Product Type: Medicaid / [...] 03, 2022 1:50 PM documented in this encounterMckitrick Hospital06-13-2022 History of Present illness Narrative* Deion Norton APRN.CNP - 10/31/2021 12:51 PM EDT Nontoxic-appearing male presents urgent care accompanied by mother. Chief complaint rectal bleeding. Duration of symptoms ongoing for the past 2 months. Was seen at [facility]. No external/internal hemorrhoids were noted. Presents [...] agrees with plan of care. Deion Norton APRN.CNP documented in this encounterMckitrick Hospital05-24-2022 History of Present illness Narrative* Raquel Alvarez APRN.CNP - 10/11/2021 5:49 PM EDT 26 year old male with no PMH [...] to ED. Declines EMS documented in this encounterMckitrick Hospital05-03-2022 History of Present illness Narrative* Zachary Cameron APRN.JUAN LUIS GRAHAM - 09/20/2021 12:46 PM EDT Reviewed ER note from [facility]. Diagnosed with benign positional vertigo 09/20/2021 Zachary Cameron DNP, [facility] * Katiuska Hart LPN - 09/20/2021 11:00 AM EDT ED visit for Dizziness. Scan on 09/19/2021 10:10 PM by External Provider: Consultation - Emergency Medicine documented in this encounterMckitrick Hospital12-30-2021 Miscellaneous Notes* Telephone Encounter - Cielo Zavala LPN - 05/19/2021 9:45 AM EST Pt has appt with PCP 05/26/21, for follow up. Cielo Zavala LPN * Telephone Encounter - Cielo Zavala LPN - 05/16/2021 3:42 PM EST TC to pt. LM to call office, ask for triage nurse to get results. Cielo Zavala LPN * Telephone Encounter - Kristin Tapia APRN.GLADYS - 05/16/2021 1:34 PM EST No uti on culture. If still having symptoms needs to see pcp or urology. * Telephone Encounter - Nani Henry LPN - 05/16/2021 1:16 PM EST Pt calls in regards to all std results which he saw in . Pt reports that they appear neg. Pt reports he still has some burning so is asking if he needs atb for uti. Pt would like an atb if that will clear up sx. Pt requested message go to Kristin Tapia CNP since that is who saw him originally. Nani Henry LPN documented in this encounterMckitrick Hospital10-11-2021 Hospital Discharge instructions Patient Education 02/28/2021 00:18:21 Viral Syndrome [...] tests to know the difference. Watch for thewarning signs listed below for when to seek medical advice. Home care Follow these guidelines for taking care of yourself at home: If symptoms are severe, rest at home for the first 2 to 3 days. Stay away from cigarette smoke - both your smoke and the smoke from others. You may use rwdf-tfv-lbflkgj acetaminophen or ibuprofen for fever, muscle aching, [...] replacement and sports drinks; and decaffeinated teas andcoffee. If you have been diagnosed with a kidney disease, ask your healthcare provider how much andwhat types of fluids you should drink to prevent dehydration. If you have kidney disease, drinking too much fluid can cause it build up in the your body and be dangerous to your health. Lacx-ycx-pauzfbt remedies won't shorten the length of the [...] or as directed by your healthcare provider [phone] [employer]. [address] [place] [address], [place] [address]. All rights reserved. This information is not intended as a substitute for professional medical care. Always follow yourhealthcare professional's instructions. Follow Up Care 02/27/2021 23:50:37 With:Your Doctor Address: When:2-4 days [facility] 10-11-2021 HCoV 229E RNA HAMZAH+non-probe Ql (Nph)Not Detected *NA* (02/28/21 12:17 AM) Auto Viro/Sero SSEvaluation + Plan note No data available for this section [facility] [place] evaluopxaj noteNo assessment information available [facility] Work Phone: evaluation note* Diagnosis Davonte blood in stool- Primary Blood in stool Lower abdominal pain Abdominal pain, other specified site Lightheaded Dizziness and giddiness documented in this encounter [facility]* Diagnosis Procedure not carried out- Primary Procedure not carried out for other reasons documented in this encounter [facility]* Diagnosis Onset Date Resolution Status Diarrhea acute Rectal bleeding acute [facility] Work Phone: evalulinwm note* Diagnosis Aphthous stomatitis- Primary Oral aphthae Tongue coating Hypertrophy of tongue papillae documented in this encounter [facility]* Diagnosis Mild intermittent asthma, uncomplicated Unspecified asthma documented in this encounter [facility]* Diagnosis Severe episode of recurrent major [...] stomatitis Oral aphthae documented in this encounter [facility]* Diagnosis Moderate persistent asthma with acute exacerbation documented in this encounter [facility]* Diagnosis Asthma, persistent not controlled Unspecified asthma documented in this encounter [facility]* Diagnosis Asthma, persistent not controlled- Primary Unspecified asthma documented in this encounter [facility]* Diagnosis Severe recurrent major depression without [...] tags, multiple acquired documented in this encounter [facility]* Diagnosis Asthma, persistent not controlled (HCC) Unspecified asthma documented in this encounter [facility] note* Diagnosis Moderate persistent asthma without complication (HCC)- Primary Unspecified asthma Multiple allergies Other allergy, other than to medicinal agents Asthma, persistent not controlled (HCC) Unspecified asthma documented in this encounter [facility] note* Diagnosis Tooth ache- Primary documented in this encounter [facility] HospitalHospital Dis[facility] instructionsW[facility] Work Phone: Hospital Discharge instructions Additional Instructions 7 daysSee your primary care physician within the next.[facility] Work Phone: Hospital Discharge instructionsAdditional Instructions Plenty of fluids and rest. Follow-up with your doctor as needed. Motrin and/or Tylenol for any pain.[facility] Work Phone: Reason for referral (narrative)* Outpatient Procedure (Routine) - Authorized Specialty Diagnoses / Procedures Referred By Contac t Referred To Contact [facility] Diagnoses Moderate persistent asthma with acute exacerbation Procedures SPIROMETRY - BASELINE AND POST DILATOR BRNCDILAT RSPSE SPMTRY PRE&POST-BRNCDILAT ADMN Andrew Garrido MD [address] [place] [address] [facility] [address] [place] [id number] Referral ID Status Reason Start Date Expiration Date Visits Requested Visits Authorized [id number] Authorized Auto-Generat ed Referral 12/29/2022 01/28/2024 1 1 * Outpatient Procedure (Routine) - Authorized Specialty Diagnoses / Procedures Referred By Contac t Referred To [facility] Diagnoses Tachycardia Procedures ECG COMPLETE ECG ROUTINE ECG W/LEAST 12 LDS W/I&R Andrew Garrido MD [address] [place] [address] [facility] [address] [place] [id number] Referral ID Status Reason Start Date Expiration Date Visits Requested Visits Authorized [id number] Authorized Auto-Generat ed Referral 12/29/2022 12/29/2023 1 1 [facility] for referral (narrative)* Outpatient Procedure (Routine) - Closed Specialty Diagnoses / Procedures Referred By Enoc bravo Referred To Contact [facility] Diagnoses Asthma, persistent not controlled Procedures NITRIC OXIDE, EXHALED NITRIC OXIDE GAS DETERMINATION Tanisha Aguila MD [address] [facility] [place] [address] [facility] [address] [facility] [place] [address] Referral ID Status Reason Start Date Expiration Date V isits Requested Visits Authorized [id number] Closed Auto-Generate d Referral 03/09/2023 04/07/2024 1 1 [facility] for referral (narrative)No reason for referral information availableWKindred Hospital [facility] Work Phone: Summary Purpose Family History No Family History Records Found No data available for this section No Family History Records FoundNo Family History Records FoundNo Family History Records Found Advance Directives No Advanced Directives Records Found Advance Directive Response Recorded Date/ Time Living Will No October 11, 2021 5 :59pm Power of Buildings And Grounds Superintendent No October 11, 2021 5:59pm Advance Directive Response Recorded Date/ Time Living Will No October 31, 2021 1:15pm Power of Buildings And Grounds Superintendent No October 31 1:15pm Advance Directive Response Recorded Date/ Time Living Will No November 19, 2021 7 :53pm Power of Buildings And Grounds Superintendent No November 19, 2021 7:53pm Advance Directive Response Recorded Date/ Time Living Will No January 29, 2022 10:44am Power of Buildings And Grounds Superintendent No January 10:44am Advance Directive Response Recorded Date/ Time Living Will No July 25, 2022 3:02pm Power of Buildings And Grounds Superintendent No July 25 3:02pm Advance Directive Response Recorded Date/ Time Do you have a Healthcare Power of Buildings And Grounds Superintendent? No December 26, 2024 6:21pm Chief Complaint and Reason for Visit Chief [...] Diarrhea Rectal bleeding Chief Complaint CHEST PAIN Chief Complaint Admit Date abd pain December 26, 2024 6:1 4pm Health Concerns Infection Onset Date Last Indicated Resolved Time COVID-19 Rule-Out 05/27/2021 05/27/2021 05/29/2021 4:24 AM EST COVID-19 Confirmed 05/27/2021 05/27/2021 8:51 PM EST Additional Source Comments (unrecognized sect ion and content) No Status Records FoundNo Status Records FoundNo Status Records FoundNo Status Records Found INFORMATION SOURCE (unrecogn ized section and content) DATE CREATED AUTHOR 11/01/2018 [employer] [facility] DATE CREATED AUTHOR AUTHOR'S ORGANIZ ATION 12/21/2022 [facility] ([place]) DATE CREATED AUTHOR AUTHOR'S ORGANIZ ATION 01/02/2025 [facility] DATE CREATED AUTHOR AUTHOR'S ORGANIZ ATION 01/08/2025 [facility] Source Comments (unrecognize d section and content) In the event this informatio n is protected by the Federal Confidentiality of Alcohol and Drug Abuse Patient Records regulations: The Federal rules restrict any use of the information to criminally investigate or prosecute any alcohol or drug abuse patient.[facility] HospitalIn the event this information is protected by the Federal Confidentiality of Alcohol and Drug Abuse Patient Records regulations: The Federal rules restrict any use of the information to criminally investigate or prosecute any alcohol or drug abuse patient.Mckitrick HospitalIn the event this information is protected by the Federal Confidentiality of Alcohol and Drug Abuse Patient Records regulations: The Federal rules restrict any use of the information to criminally investigate or prosecute any alcohol or drug abuse patient.Mckitrick HospitalIn the event this information is protected by the Federal Confidentiality of Alcohol and Drug Abuse Patient Records regulations: The Federal rules restrict any use of the information to criminally investigate or prosecute any alcohol or drug abuse patient.Mckitrick HospitalIn the event this information is protected by the Federal Confidentiality of Alcohol and Drug Abuse Patient Records regulations: The Federal rules restrict any use of the information to criminally investigate or prosecute any alcohol or drug abuse patient.M[facility]rick HospitalIn the event this information is protected by the Federal Confidentiality of Alcohol and Drug Abuse Patient Records regulations: The Federal rules restrict any use of the information to criminally investigate or prosecute any alcohol or drug abuse patient.M[facility] HospitalIn the event this information is protected by the Federal Confidentiality of Alcohol and Drug Abuse Patient Records regulations: The Federal rules restrict any use of the information to criminally investigate or prosecute any alcohol or drug abuse patient.M[facility] HospitalIn the event this information is protected by the Federal Confidentiality of Alcohol and Drug Abuse Patient Records regulations: The Federal rules restrict any use of the information to criminally investigate or prosecute any alcohol or drug abuse patient.M[facility] HospitalIn the event this information is protected by the Federal Confidentiality of Alcohol and Drug Abuse Patient Records regulations: The Federal rules restrict any use of the information to criminally investigate or prosecute any alcohol or drug abuse patient.[facility] HospitalIn the event this information is protected by the Federal Confidentiality of Alcohol and Drug Abuse Patient Records regulations: The Federal rules restrict any use of the information to criminally investigate or prosecute any alcohol or drug abuse patient.M[facility]it[facility] HospitalIn the event this information is protected by the Federal Confidentiality of Alcohol and Drug Abuse Patient Records regulations: The Federal rules restrict any use of the information to criminally investigate or prosecute any alcohol or drug abuse patient.Mckitrick HospitalIn the event this information is protected by the Federal Confidentiality of Alcohol and Drug Abuse Patient Records regulations: The Federal rules restrict any use of the information to criminally investigate or prosecute any alcohol or drug abuse patient.M[facility] HospitalIn the event this information is protected by the Federal Confidentiality of Alcohol and Drug Abuse Patient Records regulations: The Federal rules restrict any use of the information to criminally investigate or prosecute any alcohol or drug abuse patient.M[facility] HospitalIn the event this information is protected by the Federal Confidentiality of Alcohol and Drug Abuse Patient Records regulations: The Federal rules restrict any use of the information to criminally investigate or prosecute any alcohol or drug abuse patient.M[facility] HospitalIn the event this information is protected by the Federal Confidentiality of Alcohol and Drug Abuse Patient Records regulations: The Federal rules restrict any use of the information to criminally investigate or prosecute any alcohol or drug abuse patient.[facility] HospitalIn the event this information is protected by the Federal Confidentiality of Alcohol and Drug Abuse Patient Records regulations: The Federal rules restrict any use of the information to criminally investigate or prosecute any alcohol or drug abuse patient.[facility] HospitalIn the event this information is protected by the Federal Confidentiality of Alcohol and Drug Abuse Patient Records regulations: The Federal rules restrict any use of the information to criminally investigate or prosecute any alcohol or drug abuse patient.[facility] HospitalIn the event this information is protected by the Federal Confidentiality of Alcohol and Drug Abuse Patient Records regulations: The Federal rules restrict any use of the information to criminally investigate or prosecute any alcohol or drug abuse patient.[facility] HospitalIn the event this information is protected by the Federal Confidentiality of Alcohol and Drug Abuse Patient Records regulations: The Federal rules restrict any use of the information to criminally investigate or prosecute any alcohol or drug abuse patient.[facility] HospitalIn the event this information is protected by the Federal Confidentiality of Alcohol and Drug Abuse Patient Records regulations: The Federal rules restrict any use of the information to criminally investigate or prosecute any alcohol or drug abuse patient.[facility] HospitalIn the event this information is protected by the Federal Confidentiality of Alcohol and Drug Abuse Patient Records regulations: The Federal rules restrict any use of the information to criminally investigate or prosecute any alcohol or drug abuse patient.[facility] HospitalIn the event this information is protected by the Federal Confidentiality of Alcohol and Drug Abuse Patient Records regulations: The Federal rules restrict any use of the information to criminally investigate or prosecute any alcohol or drug abuse patient.[facility] HospitalIn the event this information is protected by the Federal Confidentiality of Alcohol and Drug Abuse Patient Records regulations: The Federal rules restrict any use of the information to criminally investigate or prosecute any alcohol or drug abuse patient.[facility] HospitalIn the event this information is protected by the Federal Confidentiality of Alcohol and Drug Abuse Patient Records regulations: The Federal rules restrict any use of the information to criminally investigate or prosecute any alcohol or drug abuse patient.[facility] HospitalIn the event this information is protected by the Federal Confidentiality of Alcohol and Drug Abuse Patient Records regulations: The Federal rules restrict any use of the information to criminally investigate or prosecute any alcohol or drug abuse patient.[facility] HospitalIn the event this information is protected by the Federal Confidentiality of Alcohol and Drug Abuse Patient Records regulations: The Federal rules restrict any use of the information to criminally investigate or prosecute any alcohol or drug abuse patient.[facility] HospitalIn the event this information is protected by the Federal Confidentiality of Alcohol and Drug Abuse Patient Records regulations: The Federal rules restrict any use of the information to criminally investigate or prosecute any alcohol or drug abuse patient.[facility] HospitalIn the event this information is protected by the Federal Confidentiality of Alcohol and Drug Abuse Patient Records regulations: The Federal rules restrict any use of the information to criminally investigate or prosecute any alcohol or drug abuse patient.[facility] Reason for Visit (unrecogniz ed section and [...] Spirometry Specialty Diagnoses / Procedures [facility] [place] Diagnoses Moderate persistent asthma with acute exacerbation Procedures SPIROMETRY - BASELINE AND POST DILATOR BRNCDILAT RSPSE SPMTRY PRE&POST-BRNCDILAT Andrew Handy MD [address] [place] [address] [place] [id number] Referral ID Status Reason Start Date Expiration Date V isits Requested Visits Authorized [id number] Closed Auto-Generate d Referral 12/29/2022 01/28/2024 1 1 Specialty Diagnoses / Procedures [facility] [place] Diagnoses Asthma, persistent not controlled Procedures NITRIC OXIDE, EXHALED NITRIC OXIDE GAS DETERMINATION Tanisha Aguila MD [address] [place] [id number] [place] [address] Referral ID Status Reason Start Date Expiration Date V isits Requested Visits Authorized [id number] Closed Auto-Generate d Referral 03/09/2023 04/07/2024 1 1 Reason Comments New Patient Asthma Reason Onset Date Comments Refill Request 08/07/2023 Reason Onset Date Comments Refill Request 01/07/2024 Reason Comments Blood Pressure Reason Onset Date Comments Refill Request 04/02/2024 Reason Comments Physical Specialty Diagnoses / Procedures [facility] [place] Diagnoses Asthma, persistent not controlled (HCC) Procedures NITRIC OXIDE, EXHALED NITRIC OXIDE GAS DETERMINATION Roberta Gonsales APRN.[employer] [address] [place] [address] Phone: tel: fax: [address] [address] Referral ID Status Reason Start Date Expiration Date V isits Requested Visits Authorized [id number] Closed Auto-Generate d Referral 08/27/2024 05/20/2025 1 1 Reason Comments Established Patient asthma follow up Reason Comments Dental Problem left bottom tooth pa in x 3 days Care Teams (unrecognized sec tion and content) Associate Professor Of Pathology Relationship Specialty Start Date End Date Zachary Cameron APRN.GLADYS DNP [address] [place] [address] PCP - General Family Practice 04/05/21 Associate Professor Of Pathology Relationship Specialty Start Date End Date Zachary Cameron APRN.GLADYS DNP [address] [place] [address] PCP - General Family Practice 04/05/21 Associate Professor Of Pathology Relationship Specialty Start Date End Date Zachary Cameron APRN.CNP, DNP [address] [place] [address] PCP - General Family Practice 04/05/21 Associate Professor Of Pathology Relationship Specialty Start Date End Date Zachary Cameron APRN.JUAN LUIS GRAHAM [address] [place] [address] PCP - General Family Medicine 04/05/21 Associate Professor Of Pathology Relationship Specialty Start Date End Date Zachary Cameron APRN.CNP, DNP [address] [place] [address] PCP - General Family Medicine 04/05/21 Team Status: Active Member Role Status Dates No Primary Care Physician Family Provider Active No Primary Care Physician Primary Care Provider Active Team Status: Inactive Member Role Status Dates No Primary Care Physician Primary Care Provider Active Dr. Boo Esparza , DO Emergency Provider Active Associate Professor Of Pathology Relationship Specialty Start Date End Date Andrew Garrido MD [address] [place] [address] PCP - General Internal Medicine 12/29/22 Associate Professor Of Pathology Relationship Specialty Start Date End Date Andrew Garrido MD [address] [place] [address] PCP - General Internal Medicine 12/29/22 Associate Professor Of Pathology Relationship Specialty Start Date End Date Andrew Garrido MD [address] [place] [address] PCP - General Internal Medicine 12/29/22 Associate Professor Of Pathology Relationship Specialty Start Date End Date Andrew Garrido MD [address] [place] [address] PCP - General Internal Medicine 12/29/22 Associate Professor Of Pathology Relationship Specialty Start Date End Date Andrew Garrido MD [address] [place] [address] PCP - General Internal Medicine 12/29/22 Associate Professor Of Pathology Relationship Specialty Start Date End Date Andrew Garrido MD [address] [place] [address] PCP - General Internal Medicine 12/29/22 Associate Professor Of Pathology Relationship Specialty Start Date End Date Andrew Garrido MD [address] [place] [address] PCP - General Internal Medicine 12/29/22 Associate Professor Of Pathology Relationship Specialty Start Date End Date Andrew Garrido MD [address] [place] [address] PCP - General Internal Medicine 12/29/22 Associate Professor Of Pathology Relationship Specialty Start Date End Date Andrew Garrido MD [address] [place] [address] PCP - General Internal Medicine 12/29/22 Associate Professor Of Pathology Relationship Specialty Start Date End Date Andrew Garrido MD [address] [place] [address] PCP - General Internal Medicine 12/29/22 Shana Balderas, PSYCHOLOGIST EXPERIMENTAL.[employer] [address] [place] [address] Custody Officer Internal Medicine 04/28/24 Associate Professor Of Pathology Relationship Specialty Start Date End Date Andrew Garrido MD [address] [place] [address] PCP - General Internal Medicine 12/29/22 Shana Balderas, PSYCHOLOGIST EXPERIMENTAL.[employer] [address] [place] [address] Custody Officer Internal Medicine 04/28/24 Associate Professor Of Pathology Relationship Specialty Start Date End Date Andrew Garrido MD [address] [place] [address] PCP - General Internal Medicine 12/29/22 Shana Balderas, PSYCHOLOGIST EXPERIMENTAL.[employer] [address] [place] [address] Custody Officer Internal Medicine 04/28/24 Associate Professor Of Pathology Relationship Specialty Start Date End Date Andrew Garrido MD [address] [place] [address] PCP - General Internal Medicine 12/29/22 Shana Balderas, PSYCHOLOGIST EXPERIMENTAL.[employer] [address] [place] [address] Custody Officer Internal Medicine 04/28/24 Associate Professor Of Pathology Relationship Specialty Start Date End Date Andrew Garrido MD [address] [place] [address] PCP - General Internal Medicine 12/29/22 Shana Balderas, PSYCHOLOGIST EXPERIMENTAL.[employer] [address] [place] [address] Custody Officer Internal Medicine 04/28/24 Associate Professor Of Pathology Relationship Specialty Start Date End Date Andrew Garrido MD [address] [place] [address] PCP - General Internal Medicine 12/29/22 Shana Balderas, PSYCHOLOGIST EXPERIMENTAL.[employer] [address] [place] [address] Custody Officer Internal Medicine 04/28/24 Associate Professor Of Pathology Relationship Specialty Start Date End Date Andrew Garrido MD [address] [place] [address] PCP - General Internal Medicine 12/29/22 Shana Balderas, PSYCHOLOGIST EXPERIMENTAL.[employer] [address] [place] [address] Custody Officer Internal Medicine 04/28/24 Team Status: Active Member Role/Relationship Status Dates No Primary Care Physician Primary Care Provider Active Team Status: Inactive Member Role/Relationship Status Dates No Primary Care Physician Primary Care Provider Active Start: December 26, 2024 End: December 26, 2024 Dr. Artis Bustillos MD Emergency Provider Active S tart: December 26, 2024 End: December 26, 2024 Associate Professor Of Pathology Relationship Specialty Start Date End Date Andrew Garrido MD [address] [place] [address] PCP - General Internal Medicine 12/29/22 Shana Balderas, PSYCHOLOGIST EXPERIMENTAL.[employer] [address] [place] [address] Custody Officer Internal Medicine 04/28/24 Goals (unrecognized section and content) Goals [...] BE BASED ON THE PRIMARY CLINICAL RECORDS. [facility]. provides no warranty or guarantee of the accuracy or completeness of information in this document.
[2025-01-16 23:00] VITALS: BP 134/86; PULSE 97; RESP 18; O2SAT 97
[2025-01-16] MEDS: 0.9% Normal Saline (1000mL) 1,000 ML 999 ML IV (23:05)
[2025-01-16 23:17] LABS: Mucous, Urine 0 SEEN /hpf (<or=2+); Red Blood Cells-Urine 0 SEEN /hpf (0-5); Squamous Epithelial Cells - UA 0 SEEN /hpf (0-5)
[2025-01-16 23:24] LABS: Color, Urine Straw (Yellow); Glucose, Dipstick Normal (Normal); Ketone-Dipstick Negative (Negative); Leukocyte Esterase-Dipstick Negative /ul (Negative); Nitrite-Dipstick Negative (Negative); Occult Blood-Urine Negative /ul (Negative); Protein-Dipstick Negative (Negative); Specific Gravity, Urine 1.010 (1.002-1.030); Urine Bilirubin Dipstick Negative (Negative)
[2025-01-17 00:21] VITALS: BP 138/91; PULSE 88; RESP 18; TEMP 36.6; O2SAT 100
== END 2025-01-17 00:21 | disposition home or self-care (01) ==
PROVIDERS: Emergency Provider Surgery; PCP Internal Medicine; Visit Provider Surgery
DX: R10.9 Unspecified abdominal pain (principal); J45.909 Unspecified asthma, uncomplicated; F17.290 Nicotine dependence, other tobacco product, uncomplicated; Z79.51 Long term (current) use of inhaled steroids
CPT/HCPCS: 80053; 81001; 83690; 85025; 96361; 96374; 99282; A4216; J2405

== ENCOUNTER → 2025-02-03 | Outpatient (CLI) | payer MEDICAID, SELFPAY ==
[2025-02-03 15:24] LABS: Hematocrit 46.6 % (40-54); Hemoglobin 16.1 g/dL (13.0-16.5); Immature Granulocytes Count 0.020 X10^3/uL (0.0-0.0); Mean Corp Hgb Conc 34.5 g/dL (32-36); Mean Corpuscular Volume 85.3 fL (80-94); Mean Platelet Vol. 8.9 fl (6.2-12.0); NRBC Flagged by Analyzer 0 % (0-5); Platelet Count 304 K/mm3 (150-450); RBC Distribution Width CV 12.5 % (11.6-14.6); RBC Distribution Width SD 38.5 fl (35.1-43.9); Red Blood Count 5.46 M/mm3 (4.6-6.2); White Blood Count 10.4 K/mm3 (4.4-11.0)
[2025-02-03 16:08] LABS: AST(SGOT) 34 U/L (<=37); Alanine Aminotransfer ALT/SGPT 59 U/L (<=46); Albumin, Serum 4.8 g/dL (3.5-5.0); Alkaline Phosphatase 98 U/L (40-129); Anion Gap 12 (5-15); BUN 10 mg/dL (4-19); BUN/Creat Ratio 9.6 RATIO (10-20); Calcium,Total 9.7 mg/dL (7.6-11.0); Carbon Dioxide 27.1 mmol/L (21.0-32.0); Chloride 101 mmol/L (98-108); Globulin 3.0 g/dL (2.2-4.2); Glucose 95 mg/dL (70-99); Potassium 4.4 mmol/L (3.3-5.1)
[2025-02-05 15:09] LABS: Immunoglobulin A 426 mg/dL (90-386)
== END | disposition home or self-care (01) ==
LOC: LAB 14:26
PROVIDERS: PCP Internal Medicine; Referring Provider Student in an Organized Health Care Education/Training Program; Visit Provider Student in an Organized Health Care Education/Training Program
DX: K21.9 Gastro-esophageal reflux disease without esophagitis (principal); R79.89 Other specified abnormal findings of blood chemistry; R19.7 Diarrhea, unspecified
CPT/HCPCS: 36415; 80053; 82784; 83516; 85025; 86255

== ENCOUNTER → 2025-02-11 | Outpatient (CLI) | payer MEDICAID, SELFPAY ==
--- NOTE | 2025-02-11 10:41 | US_ITS ---
PROCEDURE: ABDOMEN LIMITED 02/11/2025 REASON FOR EXAM: ABDOMINAL PAIN TECHNIQUE: Procedure Code: USABDL Modality: US Procedure: ABDOMEN LIMITED COMPARISON: None FINDINGS: GALLBLADDER: No gallstones. no gallbladder wall thickening or pericholecystic fluid. Negative Farrell sign. COMMON BILE DUCT: Measures 4 mm. No intrahepatic biliary dilatation. LIVER: Normal size. Normal echotexture. No definite hepatic mass. RIGHT KIDNEY: Normal in size and echogenicity. No mass. No urinary stones. No hydronephrosis. Pancreas: Unremarkable US/Abdomen Limited IMPRESSION: No acute cholecystitis. Reading Location: [id number]
== END | disposition home or self-care (01) ==
PROVIDERS: PCP Internal Medicine; Referring Provider Student in an Organized Health Care Education/Training Program; Visit Provider Student in an Organized Health Care Education/Training Program
DX: R10.9 Unspecified abdominal pain (principal)
CPT/HCPCS: 76705

== ENCOUNTER → 2025-02-17 | Outpatient (CLI) | payer MEDICAID, SELFPAY ==
--- OUTSIDE RECORDS SUMMARY | 2025-01-06 18:00 | XMS RPT_ITS ---
Author Name Auto Generated Organization [facility] Care Team Providers Care Fur Drummer Name Role Phone ANDREW WISDOM Attending Unavailable ANDREW WISDOM Primary Care Unavailable ANDREW WISDOM Primary Care Unavailable KRISTIN TAPIA Attending Unavailable ROBERTA GONSALES Referring Unavailable ANDREW WISDOM Primary Care Unavailable ROBERTA GONSALES Attending Unavailable ANDREW WISDOM Primary Care Unavailable ANDREW WISDOM Referring Unavailable ANDREW WISDOM Primary Care Unavailable PROBLEMS DATE TYPE CONDITION / CODE ATTENDING STATUS [facility] 01/06/2025 Active Tooth ache / K08.89(ICD-10) KRISTIN TAPIA Active [facility] 08/27/2024 Active Asthma, persiste nt not controlled (HCC) / J45.998(ICD-10) NA Active [facility] 08/14/2024 Active Weight gain / R63.5(ICD-10) NA Active [facility] 08/14/2024 Active Encounter for sc reening for HIV / Z11.4(ICD-10) NA Active [facility] PROCEDURES No Procedure Records Found RESULTS PROGRESS Observed: 01/06/2025 6:11 PM Status: COMPLETED Source: [facility] HNO ID: [id number] Author: KRISTIN TAPIA APRN.SHOP HAND Service: ? Author Type: Nurse Practitioner Type: Progress Notes Filed: 01/06/2025 18:13 Note Text: [facility] Subjective HPI HPI Max Rosas is a 29 year old male who presents today for CC of tooth ache. This started 3 days ago. Has tried otc medication for relief. Symptoms are worsened by nothing. Risk factors hx dental infection/treated with atb. .Patient presents with: Dental Problem: left bottom tooth pain x 3 days PAST MEDICAL HISTORY Diagnosis Date Aphthous stomatitis 12/29/2022 Current mild episode of major depressive disorder without prior episode 05/12/2021 TRISTEN (generalized anxiety disorder) 04/05/2021 Irritable bowel syndrome with diarrhea 12/29/2022 Mild intermittent asthma, uncomplicated ([facility]) 04/16/2017 Severe recurrent major depression without psychotic features ([facility]) 12/29/2022 PAST SURGICAL HISTORY Procedure Laterality Date NONE ALLERGIES Patient has no known allergies. MEDICATIONS loratadine (CLARITIN) 10 mg tablet Take 1 tablet by mouth once daily as needed. FOR ALLERGY SYMPTOMS SYMBICORT 160-4.5 mcg/actuation inhaler Inhale 2 puffs as instructed two times a day. albuterol HFA (PROAIR HFA) 90 mcg/actuation inhaler Inhale 2 Puffs as instructed every 4 hours as needed for wheezing/shortness of breath. amoxicillin-clavulanate potassium (AUGMENTIN) 875-125 mg per tablet Take 1 tablet by mouth two times a day for 7 days. FAMILY HISTORY Problem Relation Age of Onset No Known Problems Mother Asthma Father Diabetes Father 48 No Known Problems Brother No Known Problems Paternal Grandmother No Known Problems Half-brother No Known Problems Half-brother No Known Problems Half-sister SOCIAL HISTORY[1] Review of Systems Objective BP 122/70 Pulse 106 Temp 36.8 ?C (98.3 ?F) Resp 16 Wt 92.4 kg (203 lb 11.3 oz) SpO2 97% BMI 29.76 kg/m? Physical Exam Constitutional: General: He is not in acute distress. Appearance: He is not toxic-appearing or diaphoretic. HENT: Head: Normocephalic and atraumatic. Mouth/Throat: Pulmonary: Effort: Pulmonary effort is normal. No accessory muscle usage or respiratory distress. Neurological: Mental Status: He is alert and oriented to person, place, and time. {ASSESSMENT/PLAN: 1. Tooth ache - ICD9: 525.9, ICD10: K08.89 Take medication as ordered See dentist margareth Follow up if signs of infection worsen - AMOXICILLIN 875 MG-POTASSIUM CLAVULANATE 125 MG TABLET Kristin Tapia APRN.SHOP HAND History and Record Review External record(s) reviewed: prior outpatient record. Disposition The patient was discharged. OTC Medications were advised: Procedures [1] Social History Tobacco Use Smoking status: Former Smokeless tobacco: Never Tobacco comments: Former smoker- one pack weekly. Vaping Use Vaping status: Former Substance Use Topics Alcohol use: Not Currently Drug use: Yes Types: Marijuana Comment: 2 per year CNOV Observed: 01/06/2025 6:00 PM Status: COMPLETED Source: [facility] Office Visit (WOUCA) ALEX ROSASCKERY Drew ([id number]) 1995 M Date Time Provider Department 01/06/25 6:00 PM KRISTIN TAPIA During your visit today, we recorded the following information about you: Temperature Pulse Respiration Blood pressure 98.3 degrees 106/minute 16/minute 122/70 Weight 92.4 kg Kristin Tapia APRN.SHOP HAND 01/06/2025 6:13 PM Signed [facility] Subjective HPI HPI Max Russell Alison is a 29 year old male who presents today for CC of tooth ache. This started 3 days ago. Has tried otc medication for relief. Symptoms are worsened by nothing. Risk factors hx dental infection/treated with atb. .Patient presents with: Dental Problem: left bottom tooth pain x 3 days PAST MEDICAL HISTORY Diagnosis Date Aphthous stomatitis 12/29/2022 Current mild episode of major depressive disorder without prior episode 05/12/2021 TRISTEN (generalized anxiety disorder) 04/05/2021 Irritable bowel syndrome with diarrhea 12/29/2022 Mild intermittent asthma, uncomplicated ([facility]) 04/16/2017 Severe recurrent major depression without psychotic features ([facility]) 12/29/2022 PAST SURGICAL HISTORY Procedure Laterality Date NONE ALLERGIES Patient has no known allergies. MEDICATIONS loratadine (CLARITIN) 10 mg tablet Take 1 tablet by mouth once daily as needed. FOR ALLERGY SYMPTOMS SYMBICORT 160-4.5 mcg/actuation inhaler Inhale 2 puffs as instructed two times a day. albuterol HFA (PROAIR HFA) 90 mcg/actuation inhaler Inhale 2 Puffs as instructed every 4 hours as needed for wheezing/shortness of breath. amoxicillin-clavulanate potassium (AUGMENTIN) 875-125 mg per tablet Take 1 tablet by mouth two times a day for 7 days. FAMILY HISTORY Problem Relation Age of Onset No Known Problems Mother Asthma Father Diabetes Father 48 No Known Problems Brother No Known Problems Paternal Grandmother No Known Problems Half-brother No Known Problems Half-brother No Known Problems Half-sister SOCIAL HISTORY[1] Review of Systems Objective BP 122/70 Pulse 106 Temp 36.8 ?C (98.3 ?F) Resp 16 Wt 92.4 kg (203 lb 11.3 oz) SpO2 97% BMI 29.76 kg/m? Physical Exam Constitutional: General: He is not in acute distress. Appearance: He is not toxic-appearing or diaphoretic. HENT: Head: Normocephalic and atraumatic. Mouth/Throat: Pulmonary: Effort: Pulmonary effort is normal. No accessory muscle usage or respiratory distress. Neurological: Mental Status: He is alert and oriented to person, place, and time. {ASSESSMENT/PLAN: 1. Tooth ache - ICD9: 525.9, ICD10: K08.89 Take medication as ordered See dentist margareth Follow up if signs of infection worsen - AMOXICILLIN 875 MG-POTASSIUM CLAVULANATE 125 MG TABLET Kristin Tapia APRN.SHOP HAND History and Record Review External record(s) reviewed: prior outpatient record. Disposition The patient was discharged. OTC Medications were advised: Procedures [1] Social History Tobacco Use Smoking status: Former Smokeless tobacco: Never Tobacco comments: Former smoker- one pack weekly. Vaping Use Vaping status: Former Substance Use Topics Alcohol use: Not Currently Drug use: Yes Types: Marijuana Comment: 2 per year Allergies As of Date: 01/06/2025 (No Known Allergies) Date Reviewed: 01/06/2025 Reviewed by: Mony Poole MA - Fully Assessed Reason for Visit: Dental Problem [31] Cmt: left bottom tooth pain x 3 days Primary Visit Diagnosis:Tooth ache [K08.89] Order(s):amoxicillin-clavulanate potassium (AUGMENTIN) 875-125 mg per tabletTake 1 tablet by mouth two times a day for 7 days.Disp: 14 tabletRfl: 0 Prescriptions as of 01/06/2025 - amoxicillin-clavulanate potassium (AUGMENTIN) 875-125 mg per tablet Take 1 tablet by mouth two times a day for 7 days. - loratadine (CLARITIN) 10 mg tablet Take 1 tablet by mouth once daily as needed. FOR ALLERGY SYMPTOMS - SYMBICORT 160-4.5 mcg/actuation inhaler Inhale 2 puffs as instructed two times a day. - albuterol HFA (PROAIR HFA) 90 mcg/actuation inhaler Inhale 2 Puffs as instructed every 4 hours as needed for wheezing/shortness of breath. Problem List As Of Date 01/06/2025 Noted Resolved Mild intermittent asthma, uncomplicated [J45.20]04/16/2017 TRISTEN (generalized anxiety disorder) [F41.1] 04/05/2021 Severe recurrent major depression without psych*12/29/2022 Irritable bowel syndrome with diarrhea [K58.0] 12/29/2022 08/14/2024 Aphthous stomatitis [K12.0] 12/29/2022 08/14/2024 Prescriptions ordered this encounter Disp Refills Start End AMOXICILLIN 875 MG-POTASSIUM CLAVULA* 14 t* 0 01/06/2025 01/13/2025 Route: PO Sig: Take 1 tablet by mouth two times a day for 7 days. Encounter Status:Closed by KRISTIN TAPIA on 01/06/25 PROGRESS Observed: 08/27/2024 3:30 PM Status: COMPLETED Source: [facility] ID: [id number] Author: ROBERTA GONSALES APRN.SHOP HAND Service: ? Author Type: Nurse Practitioner Type: Progress Notes Filed: 08/27/2024 17:24 Note Text: Pulmonary Medicine Patients name: Max Rosas PCP: Andrew Wisdom MD CC: follow-up Asthma HPI: Max Rosas is a 29 year old male former [...] Severe recurrent major depression without psychotic features ([facility]) 12/29/2022 Allergies: No Known Allergies [...] which included preparing to see the patient, [id number] patient care, completing clinical documentation, performing a medically appropriate examination, counseling and educating the patient/family/caregiver, and ordering medications, tests, or procedures. CNOV Observed: 08/27/2024 3:30 PM Status: COMPLETED Source: [facility] Office Visit (PULMWS) MAX ROSAS ([id number]) 1995 M Date Time Provider Department 08/27/24 3:30 PM ROBERTA GONSALES During your visit today, we recorded the following information about you: Pulse Respiration Weight 108/minute 18/minute 99.8 kg Roberta Gonsales APRN.CNP 08/27/2024 5:24 PM Signed Pulmonary Medicine Patients name: Max Rosas PCP: Andrew Wisdom MD CC: follow-up Asthma HPI: Max Rosas is a 29 year old male former [...] Severe recurrent major depression without psychotic features ([facility]) 12/29/2022 Allergies: No Known Allergies [...] edited and updated as necessary. Roberta Gonsales APRN.GLADYS I spent a total of 28 minutes on the date of the service which included preparing to see the patient, [id number] patient care, completing clinical documentation, performing a medically appropriate examination, counseling and educating the patient/family/caregiver, and ordering medications, tests, or procedures. Allergies As of Date: 08/27/2024 (No Known Allergies) Date Reviewed: 08/27/2024 Reviewed by: Roberta Gonsales APRN.SHOP HAND - Fully Assessed Reason for Visit: Established Patient [175] Cmt: asthma follow up Primary Visit Diagnosis:Moderate persistent asthma without complication (HCC) [J45.40] Other Visit Diagnosis:Multiple allergies [Z88.9] Order(s):NITRIC OXIDE, EXHALED [[id number]] Order #: [id number]: 1 FUTURE loratadine (CLARITIN) 10 mg tabletTake 1 tablet by mouth once daily as needed. FOR ALLERGY SYMPTOMSDisp: 30 tabletRfl: 11 fluticasone-vilanterol (BREO ELLIPTA) 200-25 mcg/dose inhalerInhale 1 Inhalation as instructed once daily.Disp: 60 eachRfl: 5 Prescriptions as of 08/27/2024 - loratadine (CLARITIN) 10 mg tablet Take 1 tablet by mouth once daily as needed. FOR ALLERGY SYMPTOMS - fluticasone-vilanterol (BREO ELLIPTA) 200-25 mcg/dose inhaler Inhale 1 Inhalation as instructed once daily. - albuterol HFA (PROAIR HFA) 90 mcg/actuation inhaler Inhale 2 Puffs as instructed every 4 hours as needed for wheezing/shortness of breath. Problem List As Of Date 08/27/2024 Noted Resolved Mild intermittent asthma, uncomplicated [J45.20]04/16/2017 TRISTEN (generalized anxiety disorder) [F41.1] 04/05/2021 Severe recurrent major depression without psych*12/29/2022 Irritable bowel syndrome with diarrhea [K58.0] 12/29/2022 08/14/2024 Aphthous stomatitis [K12.0] 12/29/2022 08/14/2024 Prescriptions ordered this encounter Disp Refills Start End LORATADINE 10 MG TABLET 30 t* 11 08/27/2024 Route: ORAL Sig: Take 1 tablet by mouth once daily as needed. FOR ALLERGY SYMPTOMS SYMBICORT 160 MCG-4.5 MCG/ACTUATION * 1 ea* 5 08/27/2024 08/27/2024 Route: INHALATION Sig: Inhale 2 puffs as instructed two times a day. Disc: Course of therapy completed FLUTICASONE FUROATE 200 MCG-VILANTER* 60 e* 5 08/27/2024 Route: INHALATION Sig: Inhale 1 Inhalation as instructed once daily. Medications Discontinued During This Encounter Prescriptions - SYMBICORT 160-4.5 mcg/actuation inhaler (Discontinued) Inhale 2 Puffs as instructed two times a day. - SYMBICORT 160-4.5 mcg/actuation inhaler (Discontinued) Inhale 2 puffs as instructed two times a day. Level of Service: OFFICE/OUTPATIENT ESTABLISHED LOW [facility] 20 MIN [[id number]] Additional E/M codes: VISIT CPLX INHERENT EANDM ASSOC WITH MED * Disposition: Return in about 1 month (around 09/26/2024). Follow-up and Disposition History for Encounter Date Provider Department Center 08/27/2024 [id number] Status:Closed by ROBERTA GONSALES on 08/27/24 PROCEDURE Observed: 08/27/2024 3:27 PM Status: COMPLETED Source: [facility] ID: [id number] Author: ROBERTA OLIVARES RRT Service: ? Author Type: Registered Resp Therapist [...] (ppb) 08/27/2024 16.0 03/09/2023 160.0 (A) NAME: Roberta Olivares, EDITOR [employer] PATIENT NAME: Max Rosas DATE: August 27, 2024 TIME: 3:27 PM BAS METAB 1999 PNL SERPL Collected: 4:54 PM Status: F Source: [facility] Order Comment: Specimen Type : BLOOD SPECIMEN Ordering Facility: [facility] Address: [address] [place] [address] TYPE CODE TESTS RESULT OUT OF RANGE REFERENCE UNITS LAB 2345-7(LOINC) Glucose SerPl-mCnc 99 74-99 mg/dL Result Comment: The [place] [employer] (ADA) provides guidance for cutoff [...] Standards of Medical Care in Diabetes 2016, [place] [employer]. Diabetes Care. 2016.39(Suppl 1). LAB 3094-0(LOINC) BUN SerPl-mCnc 12 9-24 mg/ dL LAB 2160-0(LOINC) Creat SerPl-mCnc 1.01 0.73-1.22 mg/dL LAB 2951-2(LOINC) Sodium SerPl-sCnc 137 136-144 mmol/L LAB 2823-3(LOINC) Potassium SerPl-sCnc 4.4 3.7-5.1 mmol/L LAB 2075-0(LOINC) Chloride SerPl-sCnc 99 98-107 mmol/L LAB 2027-9(LOINC) CO2 SerPl-sCnc 25 22-30 mmo l/L LAB 67232-4(LOINC) Anion Gap SerPl-sCnc 13 8-15 mmol/L LAB 81572-4(LOINC) Calcium SerPl-mCnc 10.2 8.5-10.2 mg/dL LAB 91342-0(LOINC) Creatinine + eGFR Pnl SerPlBld 104 >=60 mL/min/1 .73m??? Result Comment: Estimated Gl omerular Filtration Rate (eGFR) is calculated using the 2020 CKD-EPI creatinine equation. This equation utilizes serum creatinine, sex, and age as parameters. The creatinine assay has traceable calibration to isotope dilution-mass spectrometry. Refer to KDIGO guidelines for clinical interpretation. In patients with unstable renal function, e.g. those with acute kidney injury, the eGFR may not accurately reflect actual GFR. Performed By: #### 54156-2 # ### [facility] CLIA [id number] STATES OF [facility] HIV1+2 AB SERPL QL IA Collected: 2024 4:54 PM Status: F Source: [facility] Order Comment: Specimen Type : BLOOD SPECIMEN Ordering Facility: [facility] Address: [address] [place] [address] TYPE CODE TESTS RESULT OUT OF RANGE REFERENCE UNITS LAB 58417-9([facility]) HIV 1+2 Ab+HIV1 p24 Ag SerPl Ql IA Nonreactive Nonreactive LAB 97127-7([facility]) HIV 1 AND 2 Ab SerPlBld IA.rapid Result Comment: Test not ind icated. LAB 21251-3([facility]) HIV IA algorithm interp SerPlBld-Imp Result Comment: No evidence of HIV-1 or HIV-2 infection. Should recent infection be suspected, repeat testing may be considered 2-3 weeks after this draw. [place] Rev. Code 3701.243(E): This information has been [...] test results or diagnoses. Performed By: #### 20448-8 # ### [facility] CLIA [id number] [address] [place] [address] [place] Observed: 08/14/2024 4:26 PM Status: COMPLETED Source: [facility] HNO ID: [id number] Author: ANDREW WISDOM MD Service: ? Author Type: Physician Type: Progress Notes Filed: 08/14/2024 17:04 Note Text: This note was created using Code Green Network[employer]. Subjective Patient presents with: Physical Max Rosas is a 29 year old male. He [...] Severe recurrent major depression without psychotic features ([facility]) 12/29/2022 PAST SURGICAL HISTORY Procedure [...] for inflamed or infected skin tag. Andrew Wisdom MD CNOV Observed: 08/14/2024 4:00 PM Status: COMPLETED Source: [facility] Office Visit (INTMWS) MAX ROSAS ([id number]) 1995 M Date Time Provider Department 08/14/24 4:00 PM ANDREW WISDOM INTKristieWS During your visit today, we recorded the following information about you: Pulse Respiration Blood pressure Weight 100/minute 16/minute 124/78 100 kg Andrew Wisdom MD 08/14/2024 5:04 PM Signed This note was created using Intraxio. Subjective Patient presents with: Physical Max Rosas is a 29 year old male. 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 He has [...] for inflamed or infected skin tag. Andrew Wisdom MD Allergies As of Date: 08/14/2024 (No Known Allergies) Date Reviewed: 08/14/2024 Reviewed by: Nubia Latham LPN - Fully Assessed Reason for Visit: Physical [83] Primary Visit Diagnosis:Severe recurrent major depression without psychotic features (HCC) [F33.2] Other Visit Diagnoses:TRISTEN (generalized anxiety disorder) [F41.1] Irritable bowel syndrome with diarrhea [K58.0] Aphthous stomatitis [K12.0] Mild intermittent asthma, uncomplicated [J45.20] Encounter for screening for HIV [Z11.4] Weight gain [R63.5] Skin tags, multiple acquired [L91.8] Order(s):BASIC METABOLIC PANEL [SQBMP] Order #: [id number] FUTURE HIV 1/2 COMBO WITH REFLEX TO DIFFERENTIATION [SQHIV12] Order #: [id number] FUTURE CONSULT TO PSYCHIATRY [9035] Order #: [id number]: 1 FUTURE Prescriptions as of 08/14/2024 - SYMBICORT 160-4.5 mcg/actuation inhaler Inhale 2 Puffs as instructed two times a day. - albuterol HFA (PROAIR HFA) 90 mcg/actuation inhaler Inhale 2 Puffs as instructed every 4 hours as needed for wheezing/shortness of breath. Problem List As Of Date 08/14/2024 Noted Resolved Mild intermittent asthma, uncomplicated [J45.20]04/16/2017 TRISTEN (generalized anxiety disorder) [F41.1] 04/05/2021 Severe recurrent major depression without psych*12/29/2022 Irritable bowel syndrome with diarrhea [K58.0] 12/29/2022 08/14/2024 Aphthous stomatitis [K12.0] 12/29/2022 08/14/2024 Medications Discontinued During This Encounter Prescriptions - triamcinolone (KENALOG IN ORABASE) 0.1 % paste (Discontinued) Apply as needed bid - montelukast (SINGULAIR) 10 mg tablet (Discontinued) Take 1 tablet by mouth daily at bedtime. Disposition: Return if symptoms worsen or fail to improve. Follow-up and Disposition History for Encounter Date Provider Department Center 08/14[id number] Status:Closed by ANDREW WISDOM on 08/14/24 [facility] Observed: 03/11/2024 12:00 AM Status: COMPLETED Source: [facility] Telephone (INTMWS) MAX ROSAS ([id number]) 1995 Krist[place] Date Time Provider Department 03/11/24 SHANA VELIZ INTCELIO During your visit today, we recorded the following information about you: Shana Veliz APRN.GLADYS 03/11/2024 12:26 PM Signed Patient scheduled tomorrow for high BP and heart rate. This needs triaged and scheduled for a 40 min visit, not 20 minutes Shana Veliz APRN.Jace Hairston MA 03/11/2024 12:55 PM Signed Placed on Triage [...] stomatitis [K12.0] 12/29/2022 Encounter Status:Closed by JACE CABRALES on 03/11/24 ALLERGIES DATE TYPE / CODE NAME / CODE REACTION SEVERITY SOURCE Drug Class/[id number](SNO MED CT) NO KNOWN ALLERGIES [facility] ENCOUNTERS ADMIT/DISCHARGE ACCOUNT NUMBER ADMITTING ENCOUNTER CLASS LOC ATION SOURCE 01/06/2025/ 5 [id number] Ambulatory [facility] 08/27/2024/ 5 [id number] Ambulatory [facility]WOPU [facility] 08/27/2024/ 5 [id number] [facility] 08/14/2024/ 5 [id number] Ambulatory [facility] ing:WOLB [facility] 08/14/2024/ 5 [id number] [facility] PAYERS ENCOUNTER GUARANTOR PAYER SUBSCRIBER SOURCE 01/06/2025 Primary Insurance:[facility] MEDICAIDPolicy Number: [id number] Date:8140-14-48Muik Name:Jax LINDSAYGeronimo: [id number] [place], [place] [address] [place] [address] 08/27/2024 Primary Insurance:[facility] MEDICAIDPolicy Number: [id number] Date:4768-31-48Vfok Name:Jax ROSASB: [id number] [address] 08/27/2024 Primary Insurance:[facility] MEDICAIDPolicy Number: [id number] Date:7471-10-05Gpez Name:Jax LINDSAYB: [id number] [place], [place] [address] [place] [address] 08/14/2024 Primary Insurance:[facility] MEDICAIDPolicy Number: [id number] Date:2126-11-35Ohmz Name:Jax LINDSAYB: [id number] [place], [place] [address] [place] [address] 08/14/2024 Primary Insurance:[facility] MEDICAIDPolicy Number: [id number] Date:7378-07-83Mrzg Name:Jax ROSASB: [id number] [place], [place] [address] [place] [address]
--- OUTSIDE RECORDS SUMMARY | 2025-01-06 18:00 | XMS RPT_ITS ---
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 Name Role Phone ANDREW WISDOM Attending Unavailable ANDREW WISDOM Primary Care Unavailable ANDREW WISDOM Primary Care Unavailable KRISTIN TAPIA Attending Unavailable ROBERTA GONSALES Referring Unavailable ANDREW WISDOM Primary Care Unavailable ROBERTA GONSALES Attending Unavailable ANDREW WISDOM Primary Care Unavailable ANDREW WISDOM Referring Unavailable ANDREW WISDOM Primary Care Unavailable PROBLEMS DATE TYPE CONDITION / CODE ATTENDING STATUS [facility] 01/06/2025 Active Tooth ache / K08.89(ICD-10) KRISTIN TAPIA Active [facility] 08/27/2024 Active Asthma, persiste nt not controlled (HCC) / J45.998(ICD-10) NA Active [facility] 08/14/2024 Active Weight gain / R63.5(ICD-10) NA Active [facility] 08/14/2024 Active Encounter for sc reening for HIV / Z11.4(ICD-10) NA Active [facility] PROCEDURES No Procedure Records Found RESULTS PROGRESS Observed: 01/06/2025 6:11 PM Status: COMPLETED Source: [facility] HNO ID: [id number] Author: KRISTIN TAPIA APRN.PIPE MACHINE OPERATOR Service: ? Author Type: Nurse Practitioner Type: [...] with diarrhea 12/29/2022 Mild intermittent asthma, uncomplicated ([facility]) 04/16/2017 Severe recurrent major depression without psychotic features ([facility]) 12/29/2022 PAST SURGICAL HISTORY Procedure Laterality Date [...] MG-POTASSIUM CLAVULANATE 125 MG TABLET Kristin Tapia APRN.PIPE MACHINE OPERATOR History and Record Review External record(s) reviewed: [...] Observed: 01/06/2025 6:00 PM Status: COMPLETED Source: [facility] Office Visit (WOUCA) ALEX ROSASCKERY Drew ([id number]) 1995 M Date Time Provider Department 01/06/25 6:00 PM KRISTIN TAPIA During your visit today, we recorded the following information about you: Temperature Pulse Respiration Blood pressure 98.3 degrees 106/minute 16/minute 122/70 Weight 92.4 kg Kristin Tapia APRN.PIPE MACHINE OPERATOR 01/06/2025 6:13 PM Signed [facility] [...] with diarrhea 12/29/2022 Mild intermittent asthma, uncomplicated ([facility]) 04/16/2017 Severe recurrent major depression without psychotic features ([facility]) 12/29/2022 PAST SURGICAL HISTORY Procedure Laterality Date [...] MG-POTASSIUM CLAVULANATE 125 MG TABLET Kristin Tapia APRN.PIPE MACHINE OPERATOR History and Record Review External record(s) reviewed: [...] Observed: 08/27/2024 3:30 PM Status: COMPLETED Source: [facility] ID: [id number] Author: ROBERTA GONSALES APRN.PIPE MACHINE OPERATOR Service: ? Author Type: Nurse Practitioner Type: [...] Severe recurrent major depression without psychotic features ([facility]) 12/29/2022 Allergies: No Known Allergies Medication List [...] which included preparing to see the patient, [id number] patient care, completing clinical documentation, performing a medically appropriate examination, counseling and educating the patient/family/caregiver, and ordering medications, tests, or procedures. CNOV Observed: 08/27/2024 3:30 PM Status: COMPLETED Source: [facility] Office Visit (PULMWS) MAX ROSAS ([id number]) 1995 M Date Time Provider Department 08/27/24 [...] Severe recurrent major depression without psychotic features ([facility]) 12/29/2022 Allergies: No Known Allergies Medication List [...] which included preparing to see the patient, [id number] patient care, completing clinical documentation, performing a medically appropriate examination, counseling and educating the patient/family/caregiver, and ordering medications, tests, or procedures. Allergies As of Date: 08/27/2024 (No Known Allergies) Date Reviewed: 08/27/2024 Reviewed by: Roberta Gonsales APRN.PIPE MACHINE OPERATOR - Fully Assessed Reason for Visit: Established Patient [175] Cmt: asthma follow up Primary Visit Diagnosis:Moderate persistent asthma without complication (HCC) [J45.40] Other Visit Diagnosis:Multiple allergies [Z88.9] Order(s):NITRIC OXIDE, EXHALED [8570925] Order #: [id number]: 1 FUTURE loratadine (CLARITIN) 10 mg tabletTake [...] day. Level of Service: OFFICE/OUTPATIENT ESTABLISHED LOW [facility] 20 MIN [27969] Additional E/M codes: VISIT CPLX INHERENT EANDM ASSOC WITH MED * Disposition: Return in about 1 month (around 09/26/2024). Follow-up and Disposition History for Encounter Date Provider Department Center 08/27/2024 [id number] [facility]ONSALES [facility] Status:Closed by ROBERTA GONSALES on 08/27/24 PROCEDURE Observed: 08/27/2024 3:27 PM Status: COMPLETED Source: [facility] ID: [id number] Author: ROBERTA OLIVARES RRT Service: ? Author [...] 16.0 03/09/2023 160.0 (A) NAME: Roberta Olivares, SOFTWARE ENGINEER ADVISOR PATIENT NAME: Max Rosas DATE: August 27, 2024 TIME: 3:27 PM BAS METAB 1999 PNL SERPL Collected: 4:54 PM Status: F Source: [facility] Order Comment: Specimen Type : BLOOD SPECIMEN Ordering Facility: [facility] Address: [address] [place] [address] TYPE CODE TESTS RESULT OUT OF RANGE REFERENCE UNITS LAB 2345-7(LOINC) Glucose SerPl-mCnc 99 74-99 mg/dL Result Comment: The [place] [employer] (ADA) provides guidance for cutoff [...] Standards of Medical Care in Diabetes 2016, [place] [employer]. Diabetes Care. 2016.39(Suppl 1). LAB 3094-0(LOINC) BUN SerPl-mCnc 12 9-24 mg/ dL LAB 2160-0(LOINC) Creat SerPl-mCnc 1.01 0.73-1.22 mg/dL LAB 2951-2(LOINC) Sodium SerPl-sCnc 137 136-144 mmol/L LAB 2823-3(LOINC) Potassium SerPl-sCnc 4.4 3.7-5.1 mmol/L LAB 2075-0(LOINC) Chloride SerPl-sCnc 99 98-107 mmol/L LAB 2027-9(LOINC) CO2 SerPl-sCnc 25 22-30 mmo l/L LAB 50253-6(LOINC) Anion Gap SerPl-sCnc 13 8-15 mmol/L LAB 43354-1(LOINC) Calcium SerPl-mCnc 10.2 8.5-10.2 mg/dL LAB 06538-1(LOINC) Creatinine + eGFR Pnl SerPlBld 104 >=60 [...] accurately reflect actual GFR. Performed By: #### 58908-9 # ### [facility] CLIA [id number] STATES OF [facility] HIV1+2 AB SERPL QL IA Collected: 2024 4:54 PM Status: F Source: [facility] Order Comment: Specimen Type : BLOOD SPECIMEN Ordering Facility: [facility] Address: [address] [place] [address] TYPE CODE TESTS RESULT OUT OF RANGE REFERENCE UNITS LAB 63500-6([facility]) HIV 1+2 Ab+HIV1 p24 Ag SerPl Ql IA Nonreactive Nonreactive LAB 06870-5([facility]) HIV 1 AND 2 Ab SerPlBld IA.rapid Result Comment: Test not ind icated. LAB 53597-2([facility]) HIV IA algorithm interp SerPlBld-Imp Result Comment: No evidence of HIV-1 or HIV-2 infection. Should recent infection be suspected, repeat testing may be considered 2-3 weeks after this draw. [place] Rev. Code 3701.243(E): This information has been [...] test results or diagnoses. Performed By: #### 41997-3 # ### [facility] CLIA [id number] [address] [place] [address] [place] Observed: 08/14/2024 4:26 PM Status: COMPLETED Source: [facility] HNO ID: [id number] Author: ANDREW WISDOM MD Service: ? Author Type: Physician Type: Progress Notes Filed: 08/14/2024 17:04 Note Text: This note was created using [employer]. Subjective Patient presents with: Physical Max Rosas [...] Severe recurrent major depression without psychotic features ([facility]) 12/29/2022 PAST SURGICAL HISTORY Procedure Laterality Date [...] Observed: 08/14/2024 4:00 PM Status: COMPLETED Source: [facility] Office Visit (INTMWS) MAX ROSAS ([id number]) 1995 M Date Time Provider Department 08/14/24 4:00 PM ANDREW WISDOM INTKristieWS During your visit today, we recorded the following information about you: Pulse Respiration Blood pressure Weight 100/minute 16/minute 124/78 100 kg Andrew Wisdom MD 08/14/2024 5:04 PM Signed This note was created using [employer]. Subjective Patient presents with: Physical Max Rosas is a 29 year old male. 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 He has [...] [L91.8] Order(s):BASIC METABOLIC PANEL [SQBMP] Order #: [id number] FUTURE HIV 1/2 COMBO WITH REFLEX TO DIFFERENTIATION [SQHIV12] Order #: [id number] FUTURE CONSULT TO PSYCHIATRY [9035] Order #: [id number]: 1 FUTURE Prescriptions as of 08/14/2024 - [...] for Encounter Date Provider Department Center 08/14/20[id number] Status:Closed by ANDREW WISDOM on 08/14/24 [facility] Observed: 03/11/2024 12:00 AM Status: COMPLETED Source: [facility] Telephone (INTMWS) MAX ROSAS ([id number]) 1995 Kristie Date Time Provider Department 03/11/24 [...] NAME / CODE REACTION SEVERITY SOURCE Drug Class/[id number](SNO MED CT) NO KNOWN ALLERGIES [facility] ENCOUNTERS ADMIT/DISCHARGE ACCOUNT NUMBER ADMITTING ENCOUNTER CLASS LOC ATION SOURCE 01/06/2025/ 5 [id number] [facility] 08/27/2024/ 5 [id number] [facility] 08/27/2024/ 5 [id number] [facility] 08/14/2024/ 5 [id number] [facility] 08/14/2024/ 5 [id number] [facility] PAYERS ENCOUNTER GUARANTOR PAYER SUBSCRIBER SOURCE 01/06/2025 [facility] MEDICAIDPolicy Number: [id number] Date:5275-08-01Hnni Name:Jax LINDSAYGeronimo: [id number] [place], [place] [address] [place] [address] 08/27/2024 Primary Insurance:[facility] MEDICAIDPolicy Number: [id number] Date:9003-95-91Lokl Name:Jax ROSASB: [id number] [address] 08/27/2024 Primary Insurance:[facility] MEDICAIDPolicy Number: [id number] Date:3805-84-19Ngzn Name:Jax LINDSAYB: [id number] [place], [place] [address] [place] [address] 08/14/2024 Primary Insurance:[facility] MEDICAIDPolicy Number: [id number] Date:5359-72-94Huzu Name:Jax LINDSAYB: [id number] [place], [place] [address] [place] [address] 08/14/2024 Primary Insurance:[facility] MEDICAIDPolicy Number: [id number] Date:9619-75-96Ehvf Name:Jax ROSASB: [id number] [place], [place] [address] [place] [address]
--- NOTE | 2025-02-17 13:00 | NM_ITS ---
PROCEDURE: GASTRIC EMPTYING STUDY 02/17/2025 REASON FOR EXAM: NAUSEA, diarrhea. COMPARISON: None. TECHNIQUE: Procedure Code: NMGES Modality: NM Procedure: GASTRIC EMPTYING STUDY The patient ingested a standard semi solid meal of oatmeal. There was no vomiting postprandially. Anterior and posterior planar images of the upper abdomen were obtained for a total of 60 minutes. Regions of interest were drawn, and a geometric mean was used to calculate a [id number]. Medications taken in the past 24 hours that may affect gastric emptying: None RADIOPHARMACEUTICAL: Technetium 99 M sulfur colloid DOSE 1.0mCi orally with the oatmeal semi-solid meal. FINDINGS: During the time of imaging, gastroesophageal reflux was not seen. Gastric emptying half-time calculus 29.9 minutes. Gastric emptying at 17.5 minutes of 18%, at 29.5 minutes of 53%, at 47.5 minutes of 81%, and at 59.5 minutes of 79%. NM/Gastric Emptying Study IMPRESSION: Normal semi solid phase gastric emptying. Reading Location: [id number]
--- NOTE | 2025-02-17 13:00 | NM_ITS ---
PROCEDURE: GASTRIC EMPTYING STUDY 02/17/2025 REASON FOR EXAM: NAUSEA, diarrhea. COMPARISON: None. TECHNIQUE: Procedure Code: NMGES Modality: NM Procedure: GASTRIC EMPTYING STUDY The patient ingested a standard semi solid meal of oatmeal. There was no vomiting postprandially. Anterior and posterior planar images of the upper abdomen were obtained for a total of 60 minutes. Regions of interest were drawn, and a geometric mean was used to calculate a [id number]. Medications taken in the past 24 hours that may affect gastric emptying: None RADIOPHARMACEUTICAL: Technetium 99 M sulfur colloid DOSE 1.0mCi orally with the oatmeal semi-solid meal. FINDINGS: During the time of imaging, gastroesophageal reflux was not seen. Gastric emptying half-time calculus 29.9 minutes. Gastric emptying at 17.5 minutes of 18%, at 29.5 minutes of 53%, at 47.5 minutes of 81%, and at 59.5 minutes of 79%. NM/Gastric Emptying Study IMPRESSION: Normal semi solid phase gastric emptying. Reading Location: [id number]
== END | disposition home or self-care (01) ==
LOC: NM 12:58
PROVIDERS: PCP Internal Medicine; Referring Provider Student in an Organized Health Care Education/Training Program; Visit Provider Student in an Organized Health Care Education/Training Program
DX: K21.9 Gastro-esophageal reflux disease without esophagitis (principal)
CPT/HCPCS: 78264; A9541

== ENCOUNTER 2025-03-06 08:34 | Day surgery (SDC) | payer MEDICAID, SELFPAY ==
[2025-03-06] VITALS (8 sets, daily range): BP systolic 105–143; BP diastolic 78–107; PULSE 94–124; RESP 12–18; TEMP 36.1–36.5; O2SAT 94–100; BMI 29.5
[2025-03-06] MEDS: Lactated Ringers 1,000 ML 15 ML IV (09:00)
[2025-03-10 08:09] LABS: Calprotectin, Stool 66 ug/g (0-120)
== END 2025-03-06 11:44 | disposition home or self-care (01) ==
LOC: EN 08:37 → AC 08:42
PROVIDERS: Student in an Organized Health Care Education/Training Program; PCP Internal Medicine; Referring Provider Internal Medicine; Visit Provider Internal Medicine Gastroenterology
PROC: 0DJ08ZZ Inspection of Upper Intestinal Tract, Via Natural or Artificial Opening Endoscopic (ICD-10-PCS; CPT 43235; principal; 2025-03-06 09:55)
DX: K21.9 Gastro-esophageal reflux disease without esophagitis (principal); R79.89 Other specified abnormal findings of blood chemistry; K29.80 Duodenitis without bleeding; J45.909 Unspecified asthma, uncomplicated; F17.290 Nicotine dependence, other tobacco product, uncomplicated; K29.50 Unspecified chronic gastritis without bleeding
CPT/HCPCS: 44361; 82274; 83993; 87177; 87209; 87329; 88305; J2405

== ENCOUNTER → 2025-04-24 | Outpatient (CLI) | payer MEDICAID, SELFPAY ==
--- NOTE | 2025-04-24 12:17 | NM_ITS ---
PROCEDURE: HEPATOBILLIARY IMG W/PHARM INT 04/24/2025 REASON FOR EXAM: N/V TECHNIQUE: Procedure Code: [id number] Modality: NM Procedure: HEPATOBILLIARY IMG W/PHARM INT Intravenous Choletec with planar imaging of the abdomen. RADIOPHARMACEUTICAL: 5.6 mCi technetium 99 M mebrofenin IV. 1.8 cm of CCK IV. COMPARISON: None. FINDINGS: There is good uptake of the radiopharmaceutical by the liver. Radiotracer activity is gradually seen within the common bile duct, gallbladder, and small bowel. Small bowel activity is noted on the 15 minute images. These findings are consistent with biliary patency. Gallbladder ejection fraction is estimated at 5% over 30 minutes, abnormal. NM/Hepatobilliary Img w/Pharm Int IMPRESSION: Normal HIDA scan. Abnormal gallbladder ejection fraction, suggesting biliary dyskinesis. Reading Location: [id number]
== END | disposition home or self-care (01) ==
LOC: NM 12:14
PROVIDERS: PCP Internal Medicine; Referring Provider Student in an Organized Health Care Education/Training Program; Visit Provider Student in an Organized Health Care Education/Training Program
DX: R11.2 Nausea with vomiting, unspecified (principal)
CPT/HCPCS: 78227; A9537; J2805